=== PATIENT | male | born 1970 | race Caucasian/White ===

== ENCOUNTER → 2021-02-17 00:55 | Outpatient (CLI) | payer BC, SELFPAY ==
[2021-02-17 19:49] LABS: SARS-CoV-2 RNA PCR Negative
== END ==
PROVIDERS: PCP Physician Assistant Medical; Visit Provider Internal Medicine Gastroenterology
DX: Z01.812 Encounter for preprocedural laboratory examination (principal); Z20.822 Contact with and (suspected) exposure to COVID-19
CPT/HCPCS: C9803; U0003; U0005

== ENCOUNTER 2021-02-20 02:06 | Day surgery (SDC) | payer BC, SELFPAY ==
[2021-02-06 14:44] VITALS: BMI 23.3
[2021-02-20 07:43] VITALS: BP 104/68; PULSE 96; RESP 18; TEMP 36.7; O2SAT 97
[2021-02-20] MEDS: LACTATED RINGERS 1,000 ML 150 ML IV CONT (07:49)
--- NOTE | 2021-02-20 08:04 | PM.HPGS ---
History of Present Illness History of Present Illness Consent: Risks, benefits, and alternatives have been discussed and questions answered. Patient agrees to proceed with procedure. Chief complaint: Neoplasm Screening, Hx of Colon Polyps Narrative: Marichuy Smiley is a 50 year old male for colon cancer screening Review of Systems Review of Systems: All systems reviewed & are unremarkable except as noted in HPI and below PMFSH Past Medical History Medical History (Updated 02/20/21 @ 08:04 by Farzad Krishnan MD) Melanoma neck melanoma; 2017 Social History Social History Smoking status: Never smoker Living arrangements: alone Gender identity (if verbalized by the patient): Male Spiritual care concerns: No Meds Home Medications and Allergies Home Medications Medication Instructions Recorded Confirmed Type cholecalciferol (vitamin D3) 50 mcg PO DAILY 02/06/21 02/06/21 History [id number]-wzt-cfkm-[id number]-vit K 1 tablet PO DAILY 02/06/21 02/06/21 History [Adults Multivitamin] vitamin B complex [Super B Complex] 1 tablet PO DAILY 02/06/21 02/06/21 History zinc sulfate 50 mg PO DAILY 02/06/21 02/06/21 History Allergies Allergy/AdvReac Type Severity Reaction Status Date / Time acetaminophen Allergy Intermediate Rash Verified 02/20/21 07:41 oxycodone Allergy Intermediate Rash Verified 02/20/21 07:41 hydrocodone Allergy Mild Nausea and Verified 02/20/21 07:41 Vomiting Vital Signs Vital Signs - 24 hr 02/20/21 07:43 Temperature 36.7 C Pulse Rate 96 Respiratory Rate 18 Blood Pressure 104/68 Pulse Oximetry 97 Exam Resp: Auscultation: clear to auscultation bilaterally Cardio: Rate: regular rate Rhythm: regular rhythm GI: GI Palp: Yes Soft to palpation and No Tenderness to palpation present (GI) Assessment and Plan Assessment and plan (1) Colon cancer screening: Code(s): Z12.11 - Encounter for screening for malignant neoplasm of colon Status: Acute Assessment and Plan: Colonoscopy with possible biopsy or polypectomy or cautery or injection of substances.
--- NOTE | 2021-02-20 08:09 | WPDANESEPPF ---
Anes - Initial Pre Proc Eval Procedure: Operation Date: 02/20/21 09:00 Proposed Procedures p Screening Colonoscopy - Farzad Krishnan MD Date/Time: 02/20/21 08:09 Surgeon: Farzad Krishnan MD Pre Op Diagnosis: Neoplasm Screening, Hx of Colon Polyps Patient Data Age: 50 Gender: M Height: 6 ft Weight: 76.7 kg Last Vital Signs Temp 98.1 F 02/20/21 07:43 Pulse 96 02/20/21 07:43 Resp 18 02/20/21 07:43 BP 104/68 02/20/21 07:43 Pulse Ox 97 02/20/21 07:43 Allergies Allergy/AdvReac Type Severity Reaction Status Date / Time acetaminophen Allergy Intermediate Rash Verified 02/20/21 07:41 oxycodone Allergy Intermediate Rash Verified 02/20/21 07:41 hydrocodone Allergy Mild Nausea and Verified 02/20/21 07:41 Vomiting Home Medications Medication Instructions Recorded Confirmed Type cholecalciferol (vitamin D3) 50 mcg PO DAILY 02/06/21 02/06/21 History cnfrmhejemex-jlf-heiz-FA-vit K 1 tablet PO DAILY 02/06/21 02/06/21 History [Adults Multivitamin] vitamin B complex [Super B Complex] 1 tablet PO DAILY 02/06/21 02/06/21 History zinc sulfate 50 mg PO DAILY 02/06/21 02/06/21 History Patient hx anesthesia problems: none Family hx anesthesia problems: none PMFSH Past Medical History Medical History (Updated 02/20/21 @ 08:04 by Farzad Krishnan MD) Melanoma neck melanoma; 2017 Social History Social History Smoking status: Never smoker Living arrangements: alone Gender identity (if verbalized by the patient): Male Spiritual care concerns: No Anes - Eval Final PreProcedure Day of Procedure 02/20/21 08:09 Patient weight: normal Heart: regular rate and rhythm Lungs: clear to auscultation Airway: Mallampati scale class II Neurological: alert and oriented Last oral intake: >/= 8 hours ASA classification: II Emergent: no Anesthetic plan: proceed Anesthesia type and monitoring: general GIVS and standard monitoring Informed Consent: The patient's anesthetic plan and its attendant risks and benefits were discussed with the patient/family/POA. Questions were solicited and answers provided to the satisfaction of the patient/family/POA.
[2021-02-20 08:57] VITALS: BP 81/49; PULSE 69; RESP 18; O2SAT 95
[2021-02-20 09:07] VITALS: BP 87/36; PULSE 64; RESP 18; O2SAT 95
[2021-02-20 09:14] VITALS: BP 94/61; PULSE 60; RESP 18; O2SAT 99
== END 2021-02-20 09:24 | disposition home or self-care (01) ==
PROVIDERS: PCP Physician Assistant Medical; Visit Provider Internal Medicine Gastroenterology
PROC: 0DJD8ZZ Inspection of Lower Intestinal Tract, Via Natural or Artificial Opening Endoscopic (ICD-10-PCS; CPT 45378; principal; 2021-02-20 09:00)
DX: Z12.11 Encounter for screening for malignant neoplasm of colon (principal); Z86.010 Personal history of colon polyps; Z85.820 Personal history of malignant melanoma of skin
CPT/HCPCS: 45378; J2704; J7120

== ENCOUNTER 2021-06-17 12:03 | Inpatient (IN) | payer BC, SELFPAY ==
[2021-06-17] VITALS (43 sets, daily range): BP systolic 96–118; BP diastolic 58–83; PULSE 76–122; RESP 18–41; TEMP 36.7–37.2; O2SAT 87–99; BMI 21.5
--- NOTE | ~2021-06-17 | XR_ITS ---
EXAMINATION: XR abdomen NG/feed tube insert DATE: 06/22/2021 08:28 INDICATION: Nasogastric tube placement. TECHNIQUE: A supine view of the abdomen was obtained. COMPARISON: Chest CT 06/17/2021 FINDINGS: The lower abdomen is excluded. There are no dilated loops of bowel. The nasogastric tube ti p is in the stomach. Surgical clips in the right upper quadrant are likely from cholecystectomy. IMPRESSION: 1. Nasogastric tube tip in the stomach. Reviewed, dictated and finalized at location A.
--- NOTE | ~2021-06-17 | XR_ITS ---
EXAMINATION: XR chest 1V portable EXAM DATE: 07/04/2021 05:39 INDICATION: Acute respiratory failure COVID pneumonia TECHNIQUE: Portable AP frontal chest x-ray was obtained. Comparison is made to prior examination from 07/03, 07/02. FINDINGS: Left-sided chest tube position unchanged. The endotracheal tube has demonstrated some ret raction, is now about 7 cm above the joaquin. This could be safely advanced 2 cm. There is a right-glenny ed PICC line with tip projecting over the cavoatrial junction. There is a nasogastric tube seen with tip collimated off the study, but below the left hemidiaphragm. Diffuse bilateral mid and lower lung zone peripheral predominant acute airspace disease, pneumonia an d/or edema. There are no sizable pleural effusions. Pleural reflection is identified on the left, small pneumothorax. Cardiomediastinal silhouette is normal. The bones and soft tissues are unremark able. Diffuse COVID pneumonia unchanged. Compared to yesterday, pleural reflection indicating small left pn eumothorax is identified. IMPRESSION: 1. Endotracheal tube could be safely advanced 2 cm. 2. Moderate amount of bilateral acute airspace disease with more confluence on the right. 3. Small left pneumothorax. Chest tube in position. Reviewed, dictated and finalized at location A.
--- NOTE | ~2021-06-17 | CT_ITS ---
EXAMINATION: CTA chest PE protocol DATE: 06/17/2021 15:36 INDICATION: Shortness of breath. TECHNIQUE: Computed tomography angiography (CTA) of the chest was performed with 100 mL Omnipaque-350 intravenous contrast timed to evaluate the pulmonary arteries. Coronal maximum intensity projection 3D-reconstructions were created by the technologist. Automated exposure control and iterative reconst ruction technique were employed. The dose-length product was 249.91 mGy-cm. COMPARISON: CT abdomen and pelvis 11/29/2014 FINDINGS: There are patchy groundglass airspace opacities in all lobes with a posterior lower lung pr edominance. No pleural effusion. The heart size is normal. No pericardial effusion. There is no pulmo nary embolus. There are changes of cholecystectomy. There is thoracic dextroscoliosis and mild spondy losis. There is mild chronic anterior wedging of T7 vertebral body. IMPRESSION: 1. No pulmonary embolus. Sensitivity is mildly decreased by motion artifact. 2. Diffuse lung disease, consistent with COVID-19 pneumonia. Reviewed, dictated and finalized at location A.
--- NOTE | ~2021-06-17 | XR_ITS ---
EXAMINATION: XR chest 1V portable DATE: 06/29/2021 09:23 INDICATION: Respiratory failure. COVID-19 pneumonia. TECHNIQUE: A single frontal view of the chest was obtained. COMPARISON: Chest single view 06/28/2021, chest CT 06/17/2021 FINDINGS: There are airspace opacities throughout the lungs bilaterally. No pleural effusion or pneum othorax. A left-sided chest tube is noted. The heart size is normal. The endotracheal tube tip is 1.8 cm above the joaquin. The nasogastric tube tip is beyond the inferior margin of the radiograph, but a t least to the stomach. IMPRESSION: 1. Worsened diffuse lung disease, consistent with pneumonia versus acute respiratory distress syndrom e (ARDS). Reviewed, dictated and finalized at location B. IMPRESSION: 1. Worsened diffuse lung disease, consistent with pneumonia versus acute respir atory distress syndrome (ARDS).
--- NOTE | ~2021-06-17 | XR_ITS ---
EXAMINATION: XR abdomen NG/feed tube insert DATE: 07/04/2021 13:09 INDICATION: Nasogastric tube placement. TECHNIQUE: A supine view of the abdomen was obtained. COMPARISON: Abdomen radiographs 06/22/2021 FINDINGS: The lower abdomen is excluded. There are no dilated loops of bowel. The nasogastric tube ti p is in the stomach. Surgical clips in the right upper quadrant are likely from cholecystectomy. IMPRESSION: 1. Nasogastric tube tip in the stomach. Reviewed, dictated and finalized at location A.
--- NOTE | ~2021-06-17 | XR_ITS ---
EXAMINATION: XR chest 1V portable EXAM DATE: 07/05/2021 10:38 INDICATION: Respiratory failure. Acute respiratory failure COVID pneumonia. TECHNIQUE: Portable AP frontal chest x-ray was obtained. Comparison is made to prior examination from 07/04 and earlier 07/05. FINDINGS: Left-sided chest tube position unchanged. Endotracheal tube tip is 5 centimeters above th e joaquin. There is a right-sided PICC line with tip projecting over the cavoatrial junction. There is a nasogastric tube seen with tip collimated off the study, but below the left hemidiaphragm. Diffuse bilateral mid and lower lung zone peripheral predominant acute airspace disease, pneumonia an d/or edema. There are no sizable pleural effusions. Redevelopment or reidentification of small lef t pneumothorax. Cardiomediastinal silhouette is normal. The bones and soft tissues are unremarkable . Diffuse COVID pneumonia unchanged. Small left pneumothorax redeveloped or reidentified. IMPRESSION: 1. Tubes, line in position. 2. Diffuse bilateral COVID pneumonia. 3. Small left pneumothorax. Reviewed, dictated and finalized at location A.
--- NOTE | ~2021-06-17 | XR_ITS ---
XR chest 1V portable DATE: 07/01/2021 08:47 INDICATION: Respiratory failure TECHNIQUE: Portable AP chest on 07/01/2021 at 0839 hours COMPARISON: 06/30/2021 portable AP chest at 1344 hours FINDINGS: ET tube tip 4.7 cm above joaquin, in satisfactory position. NG tube in stomach. Right upper stomach the catheter tip overlies upper right atrium. Left thoracostomy tube. No pneumothorax. Persistent extensive patchy bilateral pulmonary infiltrates scattered throughout both lungs. IMPRESSION: Extensive bilateral pulmonary infiltrates, relatively stable since 06/30/2021 Reviewed, dictated and finalized at location A.
--- NOTE | ~2021-06-17 | XR_ITS ---
EXAMINATION: XR chest ET placement DATE: 07/04/2021 13:09 INDICATION: Endotracheal tube exchange. TECHNIQUE: A single frontal view of the chest was obtained. COMPARISON: Chest single view at 5:20 AM FINDINGS: There are airspace opacities in all lung zones bilaterally with a peripheral predominance. There is a small left pneumothorax with a left-sided chest tube is noted. No pleural effusion. The he art size is normal. A right upper extremity peripherally inserted central venous catheter (PICC) is s een with tip in the proximal right atrium. The nasogastric tube tip is beyond the inferior margin of the radiograph, but at least to the stomach. Endotracheal tube tip is 2.8 cm above the joaquin. IMPRESSION: 1. Stable diffuse lung disease, consistent with COVID-19 pneumonia versus acute respiratory distress syndrome (ARDS). 2. Stable small left pneumothorax with chest tube in expected position. Reviewed, dictated and finalized at location A.
--- NOTE | ~2021-06-17 | XR_ITS ---
EXAMINATION: XR Abdomen PICC DATE: 06/22/2021 10:17 INDICATION: Central line placement. TECHNIQUE: A supine view of the abdomen on 2 radiographs was obtained. COMPARISON: Abdomen radiograph at 8:20 AM FINDINGS: There are no dilated loops of bowel. The nasogastric tube tip is in the stomach. Surgical c lips in the right upper quadrant are likely from cholecystectomy. There is a left thigh peripherally inserted central venous catheter (PICC) with tip in the inferior vena cava at L3. IMPRESSION: 1. PICC tip in the inferior vena cava at L3. Reviewed, dictated and finalized at location A.
--- NOTE | ~2021-06-17 | XR_ITS ---
EXAMINATION: XR chest 1V portable INDICATION: Respiratory failure TECHNIQUE: Portable AP chest at 0514 hours COMPARISON: 07/10/2021 FINDINGS: The tracheostomy is in expected position. A left upper extremity PICC ends with its tip in the midsuperior vena cava. A left-sided chest drain is unchanged in position. No definite pneumothora x is identified. There is no pleural effusion. Diffuse airspace opacities persist without significant change. A subpleural area of opacification of the right midlung zone is also unchanged. The cardiome diastinal silhouette is stable. Surgical clips in the right upper quadrant are likely from prior chol ecystectomy. IMPRESSION: 1. Stable diffuse lung disease, consistent with pneumonia and/or pulmonary edema and/or acute respira tory distress syndrome (ARDS). Reviewed, dictated and finalized at location A. IMPRESSION: 1. Stable diffuse lung disease, consistent with pneumonia and/or pulmonary robert a and/or acute respiratory distress syndrome (ARDS).
--- NOTE | ~2021-06-17 | US_ITS ---
EXAMINATION: US venous doppler UE BI EXAM DATE: 07/12/2021 15:46 INDICATION: Fever. Thrombus. TECHNIQUE: Multiple grayscale, color flow, Doppler sonographic images of the upper extremity veins bi laterally obtained by technologist. Compression was performed where able. There is no prior study f or comparison. FINDINGS: RIGHT upper extremity: Jugular vein: ------------> Normal. Subclavian vein: --------> Normal. Axillary vein:------------> Normal. Brachial vein:-----------> Normal. Basilic vein: ------------> Normal. Cephalic vein: ----------> Thrombosed. Radial vein: ------------> Normal. Ulnar vein: > Normal. LEFT upper extremity: Jugular vein: ------------> Normal. Subclavian vein: --------> Normal. Axillary vein:------------> Normal. Brachial vein:-----------> Normal. Basilic vein: ------------> Thrombosed, surrounding PICC line. Cephalic vein: ----------> Thrombosed, below the IV. Radial vein: ------------> Normal. Ulnar vein: > Normal. IMPRESSION: 1. Bilateral cephalic, left basilic superficial venous thrombosis or thrombophlebitis. 2. No upper extremity DVT. Reviewed, dictated and finalized at location B. IMPRESSION: 1. Bilateral cephalic, left basilic superficial venous thrombosis or thrombophl ebitis. 2. No upper extremity DVT.
--- NOTE | ~2021-06-17 | XR_ITS ---
XR chest 1V portable 06/26/2021 06:34 Indication: CovidPneumonia Procedure: AP portable chest Comparison: Comparison to multiple prior studies sequentially, with oldest reviewed study dated 06/22. Findings: Stable position to left chest tube. Endotracheal tube tip 8 cm above the joaquin. NG tube in the stomach. Diffuse bilateral airspace disease unchanged. Improving subcutaneous emphysema in the n blanca. Impression: 1: Unchanged diffuse bilateral airspace disease which may represent edema and/or pneumonia. Reviewed, dictated and finalized at location A. Impression: 1: Unchanged diffuse bilateral airspace disease which may represent edema and/o r pneumonia.
--- NOTE | ~2021-06-17 | XR_ITS ---
EXAMINATION: XR chest 1V portable INDICATION: Respiratory failure TECHNIQUE: Portable AP chest at 0459 hours COMPARISON: 07/11/2021 FINDINGS: A tracheostomy is noted. A left-sided chest tube is unchanged in position. A left upper ext remity PICC ends with its tip in the midsuperior vena cava. No definite pleural effusion or pneumotho rax is identified. Diffuse airspace opacities persist with slight improvement in the mid and upper diego ng zones. There is unchanged peripheral opacification of the right midlung zone. The cardiomediastina l silhouette is stable. Surgical clips in the right upper quadrant are likely from prior cholecystect nahed. IMPRESSION: 1. Diffuse lung disease with interval improvement, consistent with pneumonia and/or pulmonary edema a nd/or acute respiratory distress syndrome (ARDS). Reviewed, dictated and finalized at location A. IMPRESSION: 1. Diffuse lung disease with interval improvement, consistent with pneumonia an d/or pulmonary edema and/or acute respiratory distress syndrome (ARDS).
--- NOTE | ~2021-06-17 | XR_ITS ---
EXAMINATION: XR chest PICC line DATE: 06/30/2021 14:00 INDICATION: Central line placement. TECHNIQUE: A single frontal view of the chest was obtained on 2 radiographs. COMPARISON: Chest single view 07/06/2021 at 9:12 AM FINDINGS: There are airspace opacities in all lung zones bilaterally with a peripheral predominance. Right lateral costophrenic angle is excluded. No pleural effusion or pneumothorax. A left-sided chest tube is again seen. A right upper extremity peripherally inserted central venous catheter (PICC) is seen with tip at the superior cavoatrial junction. The nasogastric tube tip is beyond the inferior ma rgin of the radiograph, but at least to the stomach. The endotracheal tube tip is 6.5 cm above the ca whitney. IMPRESSION: 1. PICC tip at the superior cavoatrial junction. 2. Stable diffuse lung disease, consistent with pneumonia versus acute respiratory distress syndrome (ARDS). Reviewed, dictated and finalized at location B. IMPRESSION: 1. PICC tip at the superior cavoatrial junction. 2. Stable diffuse lung disease, consistent with pneumonia versus acute respirat ory distress syndrome (ARDS).
--- NOTE | ~2021-06-17 | XR_ITS ---
EXAMINATION: XR chest-chest tube insert/pos INDICATION: Chest tube insertion TECHNIQUE: Portable AP chest at 0806 hours COMPARISON: 0653 hours FINDINGS: A left-sided chest tube has been inserted. There is a small persistent but decreased left-s ided pneumothorax. A tiny right apical pneumothorax persists without change. There are airspace opaci ties of the mid and lower lung zones. The endotracheal tube is approximately 7.2 cm above the joaquin. There is widespread subcutaneous emphysema. Pneumomediastinum persists without significant change. IMPRESSION: 1. Left-sided chest tube insertion with small persistent but decreased left pneumothorax. 2. Tiny right apical pneumothorax, unchanged. 3. Airspace opacities of the mid and lower lung zones, consistent with atelectasis versus pneumonia. Reviewed, dictated and finalized at location B. IMPRESSION: 1. Left-sided chest tube insertion with small persistent but decreased left pne umothorax. 2. Tiny right apical pneumothorax, unchanged. 3. Airspace opacities of the mid and lower lung zones, consistent with atelecta sis versus pneumonia.
--- NOTE | ~2021-06-17 | CT_ITS ---
EXAMINATION: CT chest abdomen pelvis wo con EXAM DATE: 07/12/2021 14:18 INDICATION: Fever. COVID 19. TECHNIQUE: Spiral CT of the chest, abdomen and pelvis was performed without contrast. Axial, carmona l and sagittal images chest, abdomen and pelvis were reviewed. Coronal maximum intensity pixel image s of chest reviewed. The dose-length product (DLP) for this examination was 824.44 mGy-cm. The expo sure was tailored according to patient size (auto mA exposure control), and iterative reconstruction (ASIR) was used as additional dose reduction technique. There is prior pulmonary CT from 06/17/2021 fo r comparison, prior abdomen pelvis CT from 2014. FINDINGS: CHEST: Endotracheal tube in position. Small amount of debris within the trachea distal to the tube. Otherwise the tracheobronchial tree is widely patent. There is a left-sided chest tube in position wi th only tiny left apical pneumothorax identified. There is left-sided PICC line in position. There is diffuse bilateral ground glass opacity with regions of confluence, appearance consistent with subacu te COVID pneumonia. Small pericardial in right pleural effusion. There is no mediastinal, hilar or axillary lymphadenopathy. Heart normal in size. No evidence of coronary arterial calcification. ABDOMEN PELVIS: The liver, spleen, adrenal glands and pancreas are unremarkable. There are cholecyst ectomy clips. There is punctate right nephrolithiasis. There is small left-sided hemorrhagic cyst. N o hydronephrosis. The prostate is unremarkable. there is Butts catheter in position, some bladder g as likely introduced through the catheter. There is no retroperitoneal or pelvic lymphadenopathy. The appendix is not positively visualized. There is no pericecal inflammatory change to suggest appe ndicitis. There is PEG tube in position. There is expected amount of colonic stool. No free intr aperitoneal gas. There are no osteoblastic or osteolytic lesions identified. IMPRESSION: 1. Tubes, line in position. 2. Diffuse COVID pneumonia. 3. Tiny left-sided pneumothorax. 4. Small pericardial, right pleural effusions. 5. Punctate right nephrolithiasis. Reviewed, dictated and finalized at location B.
--- NOTE | ~2021-06-17 | XR_ITS ---
EXAMINATION: XR chest 1V portable INDICATION: Respiratory failure, chest tube TECHNIQUE: Portable AP chest at 0449 hours COMPARISON: 07/13/2021 FINDINGS: A tracheostomy is noted. A left upper extremity PICC ends with its tip in the midsuperior v malena cava. A left-sided chest drain appears unchanged in position. No pneumothorax is identified. The lung volumes are low. Diffuse airspace opacities, with peripheral predominance, persist without signi ficant change. IMPRESSION: 1. Stable diffuse lung disease, consistent with pneumonia and/or pulmonary edema and/or acute respira tory distress syndrome (ARDS). Reviewed, dictated and finalized at location A. IMPRESSION: 1. Stable diffuse lung disease, consistent with pneumonia and/or pulmonary robert a and/or acute respiratory distress syndrome (ARDS).
--- NOTE | ~2021-06-17 | XR_ITS ---
XR chest 1V portable DATE: 06/23/2021 05:57 INDICATION: Bilateral pneumothorax. Covid pneumonia. TECHNIQUE: Portable AP chest on 06/23/2021 at 0525 hours COMPARISON: 06/22/2021 portable AP chest at 0806 hours FINDINGS: ET tube tip approximately 6.8 cm above joaquin; ideal range is 2 5 cm. NG tube in stomach. N o central lines. Left thoracostomy tube is again noted. There are slight residual bilateral pneumothoraces. Subcutaneo us emphysema is noted in the upper chest and supraclavicular areas bilaterally. There is increased extensive bilateral pulmonary infiltrate can with air bronchograms in the lower diego ng zones. Differential diagnosis includes pulmonary edema and pneumonia. No pleural effusion. Normal heart size. IMPRESSION: Slight residual bilateral pneumothoraces, mildly improved bilaterally since 06/22 Left thoracostomy tube Extensive bilateral pulmonary infiltrates, increased since 06/22/2021; differential diagnosis includes pulmonary edema, pneumonia Reviewed, dictated and finalized at location A. IMPRESSION: Slight residual bilateral pneumothoraces, mildly improved bilateral ly since 06/22 Left thoracostomy tube Extensive bilateral pulmonary infiltrates, increased since 06/22/2021; different ial diagnosis includes pulmonary edema, pneumonia
--- NOTE | ~2021-06-17 | XR_ITS ---
XR chest 1V portable 06/30/2021 09:26 Indication: Respiratory failure Procedure: AP portable chest Comparison: Comparison to multiple prior studies sequentially, with oldest reviewed study dated 06/26. Findings: Left-sided chest tube position unchanged. No pneumothorax. Endotracheal tube tip 4.8 cm abo ve the joaquin. NG tube in the stomach. Improving patchy bilateral airspace disease. Borderline heart size for technique. No pneumothorax. No significant effusion. Impression: 1: Improving patchy bilateral airspace disease, compatible with pneumonia. Reviewed, dictated and finalized at location A. Impression: 1: Improving patchy bilateral airspace disease, compatible with pneumonia.
--- NOTE | ~2021-06-17 | XR_ITS ---
XR chest 1V portable DATE: 07/02/2021 08:17 INDICATION: Pneumonia, acute respiratory failure TECHNIQUE: Portable AP chest on 07/02/2021 at 0809 hours COMPARISON: 07/01/2021 portable AP chest at 0839 hours FINDINGS: ET tube tip 5 cm above joaquin in satisfactory position. NG tube in stomach. Right upper extremity PIC catheter tip overlies the upper right atrium. Left thoracostomy tube. There are diffuse patchy bilateral pulmonary infiltrates, relatively stable since 07/01/2021. No pneum othorax or pleural effusion is evident. IMPRESSION: Stable extensive bilateral patchy pulmonary infiltrates since 07/01/2021 Reviewed, dictated and finalized at location A. IMPRESSION: Stable extensive bilateral patchy pulmonary infiltrates since 2020
--- NOTE | ~2021-06-17 | XR_ITS ---
EXAMINATION: XR chest 1V portable DATE: 07/18/2021 14:54 INDICATION: Left pneumothorax. TECHNIQUE: A single frontal view of the chest was obtained. COMPARISON: Chest single view at 4:52 AM FINDINGS: There are airspace opacities in all lung zones bilaterally, worst in the peripheral right m id and lower lung zones and peripheral left midlung zone. No pleural effusion or pneumothorax. The he art size is normal. A left-sided chest tube is noted. A left upper extremity peripherally inserted ce ntral venous catheter (PICC) is seen with tip at the superior cavoatrial junction. A tracheostomy tub e is noted. IMPRESSION: 1. Stable diffuse lung disease, consistent with pneumonia versus acute respiratory distress syndrome (ARDS). Reviewed, dictated and finalized at location A. IMPRESSION: 1. Stable diffuse lung disease, consistent with pneumonia versus acute respirat ory distress syndrome (ARDS).
--- NOTE | ~2021-06-17 | XR_ITS ---
XR chest PICC line DATE: 07/08/2021 14:44 INDICATION: PICC line insertion TECHNIQUE: Portable AP chest on 06/30/2021 at 1429 hours COMPARISON: 07/07/2021 portable AP chest at 0518 hours FINDINGS: Interval placement of a left upper extremity PIC catheter, the catheter tip overlying the p roximal superior vena cava. The endotracheal tube is been replaced with a tracheostomy tube which appears normally positioned. Left thoracostomy tube is unchanged. Extensive bilateral pulmonary infiltrates appear relatively stable since 07/07/2021. No pleural effusi on or pneumothorax is evident. IMPRESSION: Left upper stomach the catheter in proximal superior vena cava Replacement of ET tube with tracheostomy tube Left thoracostomy tube; no apparent pneumothorax Stable persistent extensive bilateral pulmonary infiltrates since 07/07/2021 Reviewed, dictated and finalized at Location A. Reviewed, dictated and finalized at location A.
--- NOTE | ~2021-06-17 | CT_ITS ---
EXAMINATION: CTA chest PE protocol DATE: 07/17/2021 10:56 INDICATION: Respiratory failure. TECHNIQUE: Computed tomography (CT) pulmonary angiogram of the chest was performed with 100 mL Omnipa que-350 intravenous contrast. Additional 3D reconstructions utilizing coronal maximum intensity proje ction (MIP) were performed. Automated exposure control and iterative reconstruction technique were em ployed. The dose-length product was 459.85 mGy-cm. COMPARISON: Chest CT dated 07/12/2021 FINDINGS: Excellent contrast opacification of the pulmonary arteries. There is moderate streak artifact from de nse contrast in the superior vena cava and right atrium. Mild scattered respiratory motion artifact w hich does not significantly limit evaluation. No pulmonary embolism. Extensive consolidation groundgl ass opacities throughout both lungs with peripheral and lower lung predominance consistent with COVID pneumonia. Diffuse bronchiectatic changes most prominent in the right middle lobe. Left-sided chest tube remains in place extending across the left apex with distal aspect of the tube extending along t he left side of the mediastinum. No pleural effusion or pneumothorax. Tracheostomy tube at the thoracic inlet with distal tip 5.5 cm above the joaquin. Left upper extremity peripherally inserted central venous catheter with distal tip at the high right atrium. Heart size i s normal. No pericardial effusion. Mild enlargement of the central pulmonary arteries consistent with pulmonary arterial hypertension. Thoracic aorta is normal in caliber with no dissection. No patholog ically enlarged thoracic lymphadenopathy. Cholecystectomy clips the gallbladder fossa. Small bilatera l nonobstructing renal stones. Percutaneous gastrostomy tube with bulb inflated within the distal bod y of the stomach. Mild thoracic dextrocurvature with mild spondylosis. Chronic mild anterior wedging at T7. IMPRESSION: 1. No pulmonary embolism. 2. Diffuse bilateral peripheral and lower lung predominant lung disease consistent with COVID pneumon ia, not significantly changed since the prior study. 3. Unchanged left chest tube with no pneumothorax or pleural effusion. 4. Nonobstructing bilateral nephrolithiasis. Reviewed, dictated and finalized at location A. IMPRESSION: 1. No pulmonary embolism. 2. Diffuse bilateral peripheral and lower lung predominant lung disease consist ent with COVID pneumonia, not significantly changed since the prior study. 3. Unchanged left chest tube with no pneumothorax or pleural effusion. 4. Nonobstructing bilateral nephrolithiasis.
--- NOTE | ~2021-06-17 | CT_ITS ---
EXAMINATION: CT sinus wo con EXAM DATE: 07/12/2021 14:18 INDICATION: Fever TECHNIQUE: Spiral CT of the sinuses was acquired in the axial plane. Coronal and sagittal reformatte d images were also reviewed. The dose-length product (DLP) for this examination was 309.35 mGy-cm. Iterative reconstruction (ASIR) was used as dose reduction technique. There is no prior study for co mparison. FINDINGS: The sinuses are normally developed. There are moderate right maxillary and left sphenoid sinus mucoperiosteal thickening with air-fluid levels. Completely opacified right sphenoid sinus. The ostiomeatal units are patent. There is no sinus wall thickening. There is moderate leftward nasal septal deviation. The mastoid air cells and middle ears are well aerated. External auditory canal s are patent. There is left-sided otomastoiditis fusion, with completely opacified mastoid air cell s and approximately half of the middle ear opacified. Small amount of debris in the external auditory canal. On the right, there is massive effusion with most of the air cells opacified. IMPRESSION: 1. Right maxillary, bilateral ethmoid sinusitis. 2. Left otomastoiditis fusion. 3. Right mastoid effusion. Reviewed, dictated and finalized at location B.
--- NOTE | ~2021-06-17 | XR_ITS ---
XR chest 1V portable 06/27/2021 06:08 Indication: Respiratory failure Procedure: AP portable chest Comparison: Comparison to multiple prior studies sequentially, with oldest reviewed study dated 06/23. Findings: Endotracheal tube tip 6 cm above the joaquin. NG tube in the stomach. Left-sided chest tube position unchanged. No pneumothorax identified. Stable diffuse bilateral airspace disease. No signifi cant effusion. No acute osseous abnormality. There is mild dextroscoliosis of the thoracic spine. Impression: 1: Stable diffuse bilateral airspace disease which may represent pneumonia or edema. Reviewed, dictated and finalized at location A. Impression: 1: Stable diffuse bilateral airspace disease which may represent pneumonia or e jose.
--- NOTE | ~2021-06-17 | XR_ITS ---
EXAMINATION: XR chest 1V portable INDICATION: Respiratory failure TECHNIQUE: Portable AP chest at 0515 hours COMPARISON: 07/09/2021 FINDINGS: A tracheostomy is in expected position. A left upper extremity PICC ends in the midsuperior vena cava. There is a left-sided chest tube unchanged in position. Diffuse airspace opacities persis t without significant change. There is no pleural effusion or pneumothorax. The cardiomediastinal yonny houette is normal. IMPRESSION: 1. Stable diffuse lung disease, consistent with pneumonia and/or pulmonary edema and/or acute respira tory distress syndrome (ARDS). Reviewed, dictated and finalized at location A. IMPRESSION: 1. Stable diffuse lung disease, consistent with pneumonia and/or pulmonary robert a and/or acute respiratory distress syndrome (ARDS).
--- NOTE | ~2021-06-17 | XR_ITS ---
EXAMINATION: XR chest 1V portable INDICATION: Respiratory failure TECHNIQUE: Portable AP chest at 0512 hours COMPARISON: 07/12/2021 FINDINGS: A tracheostomy is in expected position. A left upper extremity PICC ends with its tip in th e midsuperior vena cava. A left-sided chest tube is unchanged in position. No definite pleural effusi on or pneumothorax is identified. Diffuse, peripheral predominantly airspace opacities persist withou t significant change. The cardiomediastinal silhouette is stable. IMPRESSION: 1. Stable diffuse lung disease, consistent with pneumonia and/or pulmonary edema and/or acute respira tory distress syndrome (ARDS). Reviewed, dictated and finalized at location A. IMPRESSION: 1. Stable diffuse lung disease, consistent with pneumonia and/or pulmonary robert a and/or acute respiratory distress syndrome (ARDS).
--- NOTE | ~2021-06-17 | XR_ITS ---
EXAMINATION: XR chest 1V portable DATE: 07/18/2021 05:46 INDICATION: Respiratory failure. TECHNIQUE: A single frontal view of the chest was obtained. COMPARISON: Chest single view 07/14/2021, chest CT 07/17/2021 FINDINGS: There are airspace opacities in all lung zones bilaterally, worst in the peripheral mid shannan g zones. No pleural effusion or pneumothorax. The heart size is normal. A left-sided chest tube is no herrera. There is a tracheostomy tube in expected position. A left upper extremity peripherally inserted central venous catheter (PICC) is seen with tip at the superior cavoatrial junction. Surgical clips i n the right upper quadrant are likely from cholecystectomy. IMPRESSION: 1. Stable diffuse lung disease, consistent with pneumonia versus acute respiratory distress syndrome (ARDS). Reviewed, dictated and finalized at location A. IMPRESSION: 1. Stable diffuse lung disease, consistent with pneumonia versus acute respirat ory distress syndrome (ARDS).
--- NOTE | ~2021-06-17 | XR_ITS ---
EXAMINATION: XR chest 1V portable EXAM DATE: 07/06/2021 05:43 INDICATION: Acute respiratory failure COVID pneumonia, INTUBATED. TECHNIQUE: Portable AP frontal chest x-ray was obtained. Comparison is made to prior examination from 07/05. FINDINGS: Left-sided chest tube position unchanged. Endotracheal tube tip is 5 centimeters above th e joaquin. There is a right-sided PICC line with tip projecting over the cavoatrial junction. There is a nasogastric tube seen with tip collimated off the study, but below the left hemidiaphragm. Diffuse bilateral mid and lower lung zone peripheral predominant acute airspace disease, pneumonia an d/or edema. There are no sizable pleural effusions. Small left pneumothorax. Cardiomediastinal si lhouette is normal. The bones and soft tissues are unremarkable. There is no significant interval change. IMPRESSION: 1. Tubes, line in position. 2. Diffuse bilateral COVID pneumonia. 3. Small left pneumothorax. Reviewed, dictated and finalized at location A.
--- NOTE | ~2021-06-17 | XR_ITS ---
EXAMINATION: XR chest 1V portable DATE: 07/09/2021 05:53 INDICATION: Respiratory failure TECHNIQUE: frontal view of the chest was obtained. COMPARISON: Chest radiograph dated 07/08/21 FINDINGS: Tracheostomy tube at the thoracic inlet. Unchanged left chest tube in the distal portion which extend s along the mediastinum. Left upper extremity peripherally inserted central venous catheter (PICC) ti p at the superior vena cava. No significant change in airspace opacities throughout both lungs most prominent at the lateral right midlung zone. No pleural effusion or pneumothorax. The cardiomediastinal silhouette is normal. Linnea cystectomy clips in right upper quadrant. IMPRESSION: 1. No significant change in patchy bilateral lung disease consistent with pneumonia, pulmonary edema and/or ARDS. 2. Unchanged left chest tube. No evident pleural effusion or pneumothorax. Reviewed, dictated and finalized at location A. IMPRESSION: 1. No significant change in patchy bilateral lung disease consistent with pneum onia, pulmonary edema and/or ARDS. 2. Unchanged left chest tube. No evident pleural effusion or pneumothorax.
--- NOTE | ~2021-06-17 | US_ITS ---
EXAMINATION: US abdomen limited DATE: 06/19/2021 13:58 INDICATION: Transaminitis TECHNIQUE: Multiple grayscale and Doppler ultrasound images of the abdomen were obtained. COMPARISON: CT, 11/29/2014 FINDINGS: The pancreas is obscured by bowel gas. There is a 4.1 x 2.1 x 3.6 cm hyperechoic lesion in the right hepatic lobe, consistent with a hemangioma when compared to prior CT. The liver is otherwis e normal with normal echogenicity and echotexture. No surface nodularity. Normal hepatopetal flow in the main portal vein. The gallbladder is surgically absent. The normal common bile duct measures 4 mm . IMPRESSION: 1. No sonographic correlate for the patient's symptoms. Reviewed, dictated and finalized at location B.
--- NOTE | ~2021-06-17 | XR_ITS ---
XR chest 1V portable 06/17/2021 12:52 Indication: Shortness of breath. Covid. Procedure: AP portable chest Comparison: No prior studies for comparison. Findings: Patchy bilateral airspace disease, compatible with pneumonia. Heart size normal. No signifi cant effusion or pneumothorax. Impression: 1: Patchy bilateral airspace disease, compatible with pneumonia. Reviewed, dictated and finalized at location A. Impression: 1: Patchy bilateral airspace disease, compatible with pneumonia.
--- NOTE | ~2021-06-17 | XR_ITS ---
EXAMINATION: XR chest 1V portable EXAM DATE: 07/05/2021 05:53 INDICATION: Acute respiratory failure COVID pneumonia. TECHNIQUE: Portable AP frontal chest x-ray was obtained. Comparison is made to prior examination from 07/03, 07/04. FINDINGS: Left-sided chest tube position unchanged. Endotracheal tube tip is 5 centimeters above th e joaquin. There is a right-sided PICC line with tip projecting over the cavoatrial junction. There is a nasogastric tube seen with tip collimated off the study, but below the left hemidiaphragm. Diffuse bilateral mid and lower lung zone peripheral predominant acute airspace disease, pneumonia an d/or edema. There are no sizable pleural effusions. No pneumothorax identified. Cardiomediastinal silhouette is normal. The bones and soft tissues are unremarkable. Diffuse COVID pneumonia unchanged. Previously seen small left pneumothorax no longer identified. IMPRESSION: 1. Tubes, line in position. 2. Diffuse bilateral COVID pneumonia. Reviewed, dictated and finalized at location A.
--- NOTE | ~2021-06-17 | US_ITS ---
EXAMINATION: US venous doppler [facility] DATE: 07/12/2021 15:46 INDICATION: Fever. Respiratory failure. TECHNIQUE: Grayscale ultrasound images without and with compression and Doppler ultrasound images of the bilateral lower extremity veins were obtained. COMPARISON: None. FINDINGS: The visualized portions of right common femoral vein, profunda (deep) femoral vein, femoral vein, pop liteal vein, posterior tibial veins, peroneal veins, gastrocnemius vein and greater saphenous vein ou tflow are patent. The visualized portions of left common femoral vein, profunda femoral vein, femoral vein, popliteal v ein, posterior tibial veins, peroneal veins, gastrocnemius vein and greater saphenous vein outflow ar e patent. IMPRESSION: 1. No deep venous thrombosis in either lower limb. Reviewed, dictated and finalized at location A.
--- NOTE | ~2021-06-17 | XR_ITS ---
EXAMINATION: XR chest 1V portable DATE: 06/21/2021 12:57 INDICATION: Shortness of breath. TECHNIQUE: A single frontal view of the chest was obtained. COMPARISON: Chest single view 06/19/2021, chest CT 06/17/2021 FINDINGS: There are small bilateral pneumothoraces. Pneumomediastinum is noted. There is soft tissue gas in the neck and chest wall bilaterally. There are patchy airspace opacities in all right lung zon es and in left mid and lower lung zones. No pleural effusion. The heart size is normal. IMPRESSION: 1. Small bilateral pneumothoraces. 2. Pneumomediastinum. Soft tissue gas in the bilateral neck and chest wall. 3. Diffuse lung disease, consistent with COVID-19 pneumonia. 4. I discussed this case with Dr. Cárdenas. Reviewed, dictated and finalized at location A.
--- NOTE | ~2021-06-17 | XR_ITS ---
EXAMINATION: XR chest 1V portable EXAM DATE: 07/07/2021 05:33 INDICATION: Acute respiratory failure COVID pneumonia, INTUBATED. TECHNIQUE: Portable AP frontal chest x-ray was obtained. Comparison is made to prior examination from 07/06. FINDINGS: Left-sided chest tube position unchanged. Endotracheal tube tip is 5 centimeters above th e joaquin. There is a right-sided PICC line with tip projecting over the cavoatrial junction. Diffuse bilateral mid and lower lung zone peripheral predominant acute airspace disease, pneumonia an d/or edema. There are no sizable pleural effusions. Small left pneumothorax as well visualized. C ardiomediastinal silhouette is normal. The bones and soft tissues are unremarkable. Previously seen small pneumothorax less well-visualized, improvement versus technical. IMPRESSION: 1. Tubes, line in position. 2. Diffuse bilateral COVID pneumonia. 3. Small left pneumothorax. Reviewed, dictated and finalized at location A.
--- NOTE | ~2021-06-17 | XR_ITS ---
EXAMINATION: XR chest 1V portable INDICATION: COVID pneumonia TECHNIQUE: Portable AP chest at 0533 hours COMPARISON: 06/23/2021 FINDINGS: The endotracheal tube ends approximately 6.5 cm above the joaquin. The nasogastric tube is f ollowed as far as the stomach. Its tip is beyond the inferior margin of the radiograph. A left-sided chest tube projects in expected position. No pneumothorax is identified. Widespread subcutaneous emph ysema persists in the chest and neck with slight improvement. There are diffuse opacities throughout all lung zones without significant change. The cardiomediastinal silhouette is stable. No pleural eff usion is identified. IMPRESSION: 1. Stable diffuse lung disease, consistent with pneumonia and/or pulmonary edema and/or acute respira tory distress syndrome (ARDS). 2. Widespread subcutaneous emphysema with slight improvement. 3. Left chest tube without identifiable pneumothorax. Reviewed, dictated and finalized at location A. IMPRESSION: 1. Stable diffuse lung disease, consistent with pneumonia and/or pulmonary robert a and/or acute respiratory distress syndrome (ARDS). 2. Widespread subcutaneous emphysema with slight improvement. 3. Left chest tube without identifiable pneumothorax.
--- NOTE | ~2021-06-17 | XR_ITS ---
EXAMINATION: XR chest 1V portable EXAM DATE: 07/03/2021 06:14 INDICATION: With pneumonia, acute respiratory failure. TECHNIQUE: Portable AP frontal chest x-ray was obtained. Comparison is made to prior examination from 07/02, 07/01. FINDINGS: Left-sided chest tube position unchanged. The endotracheal tube has demonstrated some retr action, is now about 7.5 cm above the joaquin. This could be safely advanced 3 cm. There is a right-si ded PICC line with tip projecting over the cavoatrial junction. There is a nasogastric tube seen with tip collimated off the study, but below the left hemidiaphragm. Moderate amount of bilateral mid and lower lung zone peripheral predominant acute airspace disease, p neumonia and/or edema. There are no sizable pleural effusions. There is no pneumothorax suspected. Cardiomediastinal silhouette is normal. The bones and soft tissues are unremarkable. Probably slightly more confluence to the right-sided airspace disease compared to previous examinatio n. IMPRESSION: 1. Endotracheal tube could be safely advanced 3 cm. Others in position. 2. Moderate amount of bilateral acute airspace disease with more confluence on the right. I discussed the endotracheal tube position, recommendation with Estefanía Holguin at 07/03/2021 07:05 CDT . Reviewed, dictated and finalized at location A. IMPRESSION: 1. Endotracheal tube could be safely advanced 3 cm. Others in position. 2. Moderate amount of bilateral acute airspace disease with more confluence on the right. I discussed the endotracheal tube position, recommendation with Estefanía Holguin at 07/03/2021 07:05 CDT.
--- NOTE | ~2021-06-17 | US_ITS ---
EXAMINATION: US abdomen limited DATE: 07/16/2021 09:11 INDICATION: Abnormal liver function tests. TECHNIQUE: Multiple grayscale and Doppler ultrasound images of the abdomen were obtained. COMPARISON: CT abdomen and pelvis 07/12/2021 FINDINGS: The visualized portions of the head and body of the pancreas are normal. The liver is kali l without focal lesion. No liver surface nodularity. There is normal flow in main portal vein. The ga llbladder is absent. The common duct is normal and measures 4 mm. IMPRESSION: 1. Normal right upper quadrant ultrasound status post cholecystectomy. Reviewed, dictated and finalized at location A.
--- NOTE | ~2021-06-17 | XR_ITS ---
XR chest 1V portable DATE: 06/22/2021 05:41 INDICATION: Covid pneumonia TECHNIQUE: Portable AP chest on 06/22/2021 at 0509 hours COMPARISON: 06/21/2021 portable AP chest FINDINGS: Minimal residual right pneumothorax. Moderate left pneumothorax, increased since 06/21/2021. No apparent mediastinal shift compared to 06/21/2021 to suggest tension. Pneumomediastinum. Subcutaneous emphysema of the chest and supraclavicular areas. Mildly improved since 06/21/2021. There are patchy bilateral mid and lower lung zone infiltrates. Normal heart size. IMPRESSION: Bilateral pneumothorax, minimal on the right, increased on the left since 06/21/2021 Pneumomediastinum and subcutaneous emphysema Patchy bilateral mid and lower lung zone infiltrates Dr. Crain telephoned the report including increased size of left pneumothorax and probable need for le ft chest tube to Ashlee Franco, R.N. in the ICU on 06/22/2021 at 0650 hours. Reviewed, dictated and finalized at location A. IMPRESSION: Bilateral pneumothorax, minimal on the right, increased on the left since 06/21/2021 Pneumomediastinum and subcutaneous emphysema Patchy bilateral mid and lower lung zone infiltrates Dr. Crain telephoned the report including increased size of left pneumothorax an d probable need for left chest tube to Ashlee Franco, R.N. in the ICU on 06/22/20 21 at 0650 hours.
--- NOTE | ~2021-06-17 | XR_ITS ---
XR chest ET placement DATE: 06/22/2021 07:00 INDICATION: ET tube placement TECHNIQUE: Portable AP chest on 06/22/2021 at 0653 hours COMPARISON: 06/22/2021 portable AP chest at 0507 hours FINDINGS: ET tube approximately 7.1 cm above joaquin. [place] range is 2-5 cm. Minimal right pneumothorax and moderate left pneumothorax are again noted. ICU nurse was recently not ified by telephone by Dr. Crain of the increased size of left pneumothorax and need for assessment for possible left chest tube placement. Pneumomediastinum. Extensive subcutaneous emphysema of the upper chest and particularly supraclavicul ar areas and cervical region. Again noted are patchy bilateral pulmonary infiltrates. No pleural effusion is evident. IMPRESSION: ET tube tip 7.1 cm above joaquin; ideal range is 2-5 cm Bilateral pneumothorax, minimal on the right, moderate on the left; assessment for left chest tube pl acement is recommended. Pneumomediastinum and subcutaneous emphysema Patchy bilateral pulmonary infiltrates persist Reviewed, dictated and finalized at Location A. Reviewed, dictated and finalized at location A. IMPRESSION: ET tube tip 7.1 cm above joaquin; ideal range is 2-5 cm Bilateral pneumothorax, minimal on the right, moderate on the left; assessment for left chest tube placement is recommended. Pneumomediastinum and subcutaneous emphysema Patchy bilateral pulmonary infiltrates persist
--- NOTE | ~2021-06-17 | XR_ITS ---
EXAMINATION: XR chest 1V portable DATE: 06/19/2021 18:24 INDICATION: Hypoxia TECHNIQUE: frontal view of the chest was obtained. COMPARISON: Chest radiograph and CT dated 06/17/2021 FINDINGS: Again seen are subtle bilateral patchy groundglass opacities in the bilateral mid and lower lung zone s which appear to have improved in the lower lung zones since the prior study. No new airspace opacit ies, pleural effusion or pneumothorax. The cardiomediastinal silhouette is normal. Mild thoracic dext roscoliosis. IMPRESSION: 1. Subtle diffuse bilateral lung disease with some improvement in the bilateral lower lung zones cons istent with COVID 19 pneumonia. Reviewed, dictated and finalized at location A. IMPRESSION: 1. Subtle diffuse bilateral lung disease with some improvement in the bilateral lower lung zones consistent with COVID 19 pneumonia.
--- NOTE | ~2021-06-17 | US_ITS ---
EXAMINATION: US art doppler w press LE BI DATE: 06/30/2021 10:15 INDICATION: Cold extremities TECHNIQUE: Segmental pressures and plethysmographic and Doppler waveforms of the brachial and lower e xtremity arteries were obtained. COMPARISON: None. FINDINGS: Right and left brachial artery pressures of 105 mm Hg and 96 mm Hg, respectively, are concordant (nor mal difference <= 30 mmHg). The right high-thigh pressure index is 1.13 (normal > 1.2). The left high thigh pressure index was unable to be obtained due to the presence of a PICC line at the proximal le ft thigh. The right ankle-brachial index (SHARMILA) is 1.10 (normal >= 0.9-1). The right great toe-brachial index (T BI) is 1.16 (normal >= 0.6-0.8). The right lower extremity segmental pressure gradients are normal (n ormal gradients <= 20-30 mmHg between adjacent levels on the same leg or the same levels on the two l egs). Arterial waveforms are triphasic at the right common femoral, superficial femoral and popliteal arteries and biphasic at the right posterior tibial and dorsalis pedis arteries with brisk systolic upstrokes throughout. The left SHARMILA is 0.98. The left TBI is 1.04. The left lower extremity segmental pressure gradients are normal. Arterial waveforms are triphasic at the left common femoral, superficial femoral and poplite al arteries and biphasic at the left posterior tibial and dorsalis pedis arteries with brisk systolic upstrokes throughout. IMPRESSION: 1. Normal SHARMILA's and TBI's bilaterally. No significant occlusive disease. Reviewed, dictated and finalized at location A.
--- NOTE | ~2021-06-17 | XR_ITS ---
XR chest 1V portable 06/28/2021 06:37 Indication: Respiratory failure Procedure: AP portable chest Comparison: Comparison to multiple prior studies sequentially, with oldest reviewed study dated the 06/24/2021. Findings: Stable position to left-sided chest tube. NG tube in the stomach. Endotracheal tube tip 6.7 cm above the joaquin. No pneumothorax. Possible small effusions. Persistent diffuse bilateral airspac e disease. Heart size normal. Impression: 1: Persistent diffuse bilateral airspace disease without significant change. Differential diagnosis i ncludes edema and/or pneumonia. Reviewed, dictated and finalized at location A. Impression: 1: Persistent diffuse bilateral airspace disease without significant change. Di fferential diagnosis includes edema and/or pneumonia.
--- NOTE | ~2021-06-17 | XR_ITS ---
EXAMINATION: XR chest 1V portable INDICATION: COVID pneumonia TECHNIQUE: Portable AP chest at 0516 hours COMPARISON: 06/24/2021 FINDINGS: The endotracheal tube ends approximately 7.3 cm above the joaquin. The nasogastric tube is f ollowed as far as the stomach. Its tip is beyond the inferior margin of the radiograph. A left-sided chest tube is in expected position. No pneumothorax is identified. There is no pleural effusion. Diff use airspace opacities persist in all lung zones with slight overall improvement. Subcutaneous emphys lizandro continues to decrease. IMPRESSION: 1. Diffuse lung disease with interval improvement, consistent with pneumonia and/or pulmonary edema a nd/or acute respiratory distress syndrome (ARDS). 2. Improving subcutaneous emphysema. Reviewed, dictated and finalized at location A. IMPRESSION: 1. Diffuse lung disease with interval improvement, consistent with pneumonia an d/or pulmonary edema and/or acute respiratory distress syndrome (ARDS). 2. Improving subcutaneous emphysema.
[2021-06-17 12:39] LABS: Basophils Percent Auto 0.1 % (0.2-1.2); Hematocrit 45.7 % (42.0-52.0); Immature Granulocyte Absolute 0.04 K/mm3 (0.00-0.031); Immature Granulocyte Percent A 0.6 % (0-0.5); Lymphocytes Percent Auto 5.7 % (18.3-44.2); Mean Corpuscular Hemoglobin 31.3 pg (26-34); Mean Corpuscular Volume 89.3 fl (80-100); Mean Platelet Volume 10.7 fl (7.4-10.4); Monocytes Absolute Auto 0.2 K/mm3 (0.1-0.6); Monocytes Percent Auto 2.6 % (2.6-8.5); Neutrophils Absolute Auto 6.4 K/mm3 (1.3-6.7); Platelet Count Result 182 k/mm3 (150-375); Red Blood Count 5.12 M/mm3 (4.6-6.20); Red Cell Distribution Width 11.8 % (11.5-14.5)
[2021-06-17 12:50] LABS: Anion Gap 8 mmol/L (8-16); Blood Urea Nitrogen 15 mg/dL (9-20); Calcium 8.6 mg/dL (8.4-10.2); Carbon Dioxide 28 mmol/L (22-30); Chloride 92 mmol/L (98-107); Estimated CRCL calculation 105 ml/min; Estimated Glomerular Filt Rate > 60; Glucose 138 mg/dL (65-110); Potassium 3.8 mmol/L (3.4-5.0); Sodium 128 mmol/L (137-145)
[2021-06-17 12:55] LABS: D Dimer 1.28 ug/mL (<0.48)
[2021-06-17] MEDS: DEXAMETHASONE SOD PHOS INJ 4 MG/ML VIAL 6 MG IV PUSH (13:33)
[2021-06-17] MEDS: ENOXAPARIN 80 MG/0.8 ML SYRINGE SUB-Q (13:33)
[2021-06-17 13:46] LABS: Lactate Dehydrogenase 2787 U/L (313-618)
--- NOTE | 2021-06-17 14:19 | ED.SOB ---
HPI - SOB/Dyspnea General Chief Complaint: Shortness of Breath/Dyspnea Stated Complaint: covid+. Low O2 Time Seen by Provider: 06/17/21 12:36 Source: patient Mode of arrival: ambulatory Limitations: no limitations History of Present Illness HPI Narrative: 50-year-old male Essentially healthy but no Covid vaccination Reports being ill with a nonproductive cough for 7 or 8 days 2 days ago was tested positive for Covid elsewhere Here today with increasing shortness of breath and reporting low O2 sats at home Indeed at triage on room air his sat was 88% Related Data Home Medications Medication Instructions Recorded Confirmed No Home Medications 06/17/21 06/17/21 Allergies Allergy/AdvReac Type Severity Reaction Status Date / Time acetaminophen Allergy Intermediate Rash Verified 06/17/21 12:04 oxycodone Allergy Intermediate Rash Verified 06/17/21 12:04 hydrocodone Allergy Mild Nausea and Verified 06/17/21 12:04 Vomiting Review of Systems Review of Systems: All systems reviewed & are unremarkable except as noted in HPI and below Constitutional: Constitutional: Reports no additional constitutional complaints, Reports chills, Reports fatigue, Reports fever(s), Denies headache(s) and Reports weakness Eyes: Eyes: Reports no additional eye complaints and Denies change in vision ENT: Denies headache(s) and Denies sore throat Cardiovascular: Cardiovascular: Denies chest pain and Denies dyspnea Respiratory: Respiratory: Reports cough and Reports dyspnea Gastrointestinal: Gastrointestinal: Denies abdominal pain, Denies diarrhea and Denies vomiting Genitourinary: Genitourinary: Denies dysuria and Denies urinary frequency Musculoskeletal: Musculoskeletal: Reports myalgias, Denies deformity, Denies arthralgias, Denies joint swelling and Denies numbness Integumentary/Breasts: Skin/Breast: Denies rash and Denies wounds Neurologic: Denies headache(s), Denies focal weakness and Denies numbness Psychiatric: Psychiatric: Reports no additional psychiatric complaints Endocrine: Endocrine: Reports no additional endocrine complaints Hematologic/Lymphatic: Hematologic/Lymphatic: Reports no additional hematologic/lymphatic complaints Allergic/Immunologic: Allergic/Immunologic: Reports no additional allergic/immunologic complaints [facility] Past Medical History Medical History (Updated 06/17/21 @ 14:24 by Blas Cadet MD) Melanoma neck melanoma; 2017 Social History Social History Smoking status: Never smoker Gender identity (if verbalized by the patient): Male Spiritual care concerns: No Exam Const: General: cooperative, no acute distress and alert Orientation/consciousness: patient oriented x3 (alert) HENMT: Head: normal to inspection, normocephalic and atraumatic Ears: external ears normal General nose exam: no epistaxis Eyes: Conjunctivae: conjunctivae normal EOM: EOMs intact bilaterally Neck: Neck: normal visual inspection, supple and no JVD Resp: Effort & Inspection: not labored and tachypneic Auscultation: crackles, no rales, rhonchi, no wheezes and other (BS =) Cardio: Rate: regular rate Rhythm: regular rhythm Heart sounds: no murmurs GI: GI Palp: Yes Soft to palpation and No Tenderness to palpation present (GI) Skin: General skin exam: normal color and no rashes or lesions noted Neuro: General: patient oriented x3 (alert) and moves all extremities Speech: normal speech Extrem: General: normal to inspection and no pedal edema Psych: Affect: normal affect Course Vital Signs Vital signs: Vital Signs Temperature 36.9 C 06/17/21 12:06 Pulse Rate 122 H 06/17/21 12:06 Respiratory Rate 20 06/17/21 12:06 Blood Pressure 112/65 06/17/21 12:06 Pulse Oximetry 88 L 06/17/21 12:06 Temperature 36.9 C 06/17/21 12:06 Pulse Rate 96 06/17/21 13:46 Respiratory Rate 25 H 06/17/21 13:46 Blood Pressure
--- NOTE | 2021-06-17 14:50 | PM.IMHP ---
H&P: HPI History of Present Illness Date/Time: 06/17/21 14:50 Chief Complaint: Shortness of breath and low oxygen levels. Narrative: This is a 50-year-old male who is essentially healthy presented to the emergency department earlier today via private vehicle from home complaints of shortness of breath and low oxygen saturations on home pulse oximeter. He has not felt well for 7 - 8 days with symptoms to include body aches, loss of taste in smell, sore throat, cough, and shortness of breath. Appetite has been poor and he has not been eating or drinking very well for nearly a week. 2 days ago he tested positive for COVID-19 and since that time he has been monitoring his pulse ox at home. Over the past day or so he has noticed that his SpO2 has been in the high 80s on room air and due to increasing shortness of breath he came in for evaluation today. Chest x-ray showed patchy bilateral pneumonia and he is being admitted in this setting. He did not receive the COVID-19 vaccination. He denies chest pain and pleuritic pain. No vomiting or significant quantities of diarrhea. Review of Systems Review of Systems: 12 systems were reviewed with pertinent positives and negatives as per HPI. Except as documented all other systems were reviewed and are negative. [facility] Past Medical History Medical History (Updated 06/17/21 @ 20:12 by Luisa Klein PA-C) Bilateral renal cysts History of colon polyps Normal colonoscopy on 02/20/2021. Kidney stones Melanoma of neck (2016) Surgical History Surgical History (Updated 06/17/21 @ 14:58 by Luisa Klein PA-C) History of cholecystectomy (1998) History of melanoma excision (2016) Family History Family History (Updated 06/17/21 @ 20:13 by Luisa Klein PA-C) Other No significant family history Social History Social History (Updated 06/17/21 @ 20:13 by Luisa Klein PA-C) Social History: The patient lives in [place] with his . 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 Lifelong nonsmoker. No alcohol or illicit substance abuse. He designates his , Adri Smiley, as his surrogate decision maker and he wishes to be a full code. Meds Home Medications and Allergies Home Medications Medication Instructions Recorded Confirmed Type No Home Medications 06/17/21 06/17/21 History Allergies Allergy/AdvReac Type Severity Reaction Status Date / Time acetaminophen Allergy Intermediate Rash Verified 06/17/21 12:04 oxycodone Allergy Intermediate Rash Verified 06/17/21 12:04 hydrocodone Allergy Mild Nausea and Verified 06/17/21 12:04 Vomiting Vital Signs Vital Signs - 24 hr 06/17/21 12:06 06/17/21 12:25 06/17/21 12:26 Temperature 98.4 F Pulse Rate 122 H 108 H Respiratory Rate 20 34 H Blood Pressure 112/65 106/70 Pulse Oximetry 88 L 87 L 88 L 06/17/21 12:29 06/17/21 12:30 06/17/21 12:31 Temperature Pulse Rate 105 H 106 H Respiratory Rate 28 H 33 H Blood Pressure 105/67 Pulse Oximetry 94 94 94 06/17/21 12:32 06/17/21 12:45 06/17/21 12:46 Temperature Pulse Rate 104 H 102 H 106 H Respiratory Rate 29 H 32 H 26 H Blood Pressure 103/68 Pulse Oximetry 94 95 95 06/17/21 13:00 06/17/21 13:01 06/17/21 13:15 Temperature Pulse Rate 100 99 103 H Respiratory Rate 32 H 22 H 22 H Blood Pressure 100/64 Pulse Oximetry 96 96 95 06/17/21 13:16 06/17/21 13:30 06/17/21 13:31 Temperature Pulse Rate 100 97 98 Respiratory Rate 22 H 24 H 32 H Blood Pressure 104/74 103/73 Pulse Oximetry 96 95 96 06/17/21 13:45 06/17/21 13:46 Temperature Pulse Rate 94 96 Respiratory Rate 33 H 25 H Blood Pressure 96/62 L Pulse Oximetry 96 98 Exam Narrative: General: Mildly ill appearing up in bed in no acute respiratory distress. Weight: 72.1 kg. BMI: 21.6. HEENT: PERRL, EOMI. Sclerae anicteric. Oral mucosa tacky. Neck: Supple. No adenopathy or JVD. Respiratory: Mild tachypnea. He is speaking in full sentences.
[2021-06-17 15:24] LABS: Ferritin > 2000.00 ng/mL (11.1-264)
[2021-06-17 16:44] LABS: INR 0.9; Prothrombin Time 12.4 Seconds (11.1-14.7)
[2021-06-17 16:45] LABS: Partial Thromboplastin Time 41.5 SECONDS (22.3-36.8)
[2021-06-17 17:16] LABS: Alanine Aminotransferase 680 U/L (4-50); Albumin Level 3.9 g/dL (3.5-5.1); Alkaline Phosphatase 183 U/L (38-126); Aspartate Amino Transferase 726 U/L (17-59); Bilirubin,Total 0.8 mg/dL (0.2-1.3)
--- NOTE | 2021-06-17 18:14 | ADMGEN ---
This patient, Marichuy Smiley, was admitted to [facility] Surg Room 313-01 at 1713. Patient/family oriented to hospital policies and general routines including ID bracelet, bed and alarms, visiting hours, pain management, procedures, bathroom and other care routines, personal items, smoking policy, room service/diet, and visiting hours. Information on how to activate the Rapid Response Team has been discussed. Patient/Family are encouraged to report perceived risks to care and to ask questions if they do not understand what they are told or what they should do.
[2021-06-17] MEDS: LACTATED RINGERS 1,000 ML 50 ML IV CONT (19:22)
[2021-06-17] MEDS: MELATONIN 5 MG TABLET PO (21:40)
[2021-06-17] MEDS: guaiFENesin 12 HR 600 MG TABCR PO (21:40)
[2021-06-18] VITALS (9 sets, daily range): BP systolic 110–120; BP diastolic 63–69; PULSE 64–85; RESP 12–20; TEMP 36.3–37.4; O2SAT 90–94
[2021-06-18 07:41] LABS: Hematocrit 45.5 % (42.0-52.0); Hemoglobin 15.5 g/dL (14.0-18.0); Mean Corpuscular HGB Conc 34.1 g/dl (32-36); Mean Platelet Volume 10.4 fl (7.4-10.4); Platelet Count Result 204 k/mm3 (150-375); Red Cell Distribution Width 11.9 % (11.5-14.5); White Blood Count 7.2 K/mm3 (4.5-10.0)
[2021-06-18 08:06] LABS: Albumin Level 3.7 g/dL (3.5-5.1); Alkaline Phosphatase 167 U/L (38-126); Anion Gap 8 mmol/L (8-16); Bilirubin,Total 0.8 mg/dL (0.2-1.3); Blood Urea Nitrogen 15 mg/dL (9-20); CRP 8.9 mg/dL (<1.0); Calcium 8.8 mg/dL (8.4-10.2); Carbon Dioxide 28 mmol/L (22-30); Chloride 97 mmol/L (98-107); Estimated CRCL calculation 111 ml/min; Estimated Glomerular Filt Rate > 60; Glucose 120 mg/dL (65-110); Potassium 4.5 mmol/L (3.4-5.0); Sodium 133 mmol/L (137-145)
[2021-06-18] MEDS: SODIUM CHLORIDE 0.9% IV 1,000 ML 100 ML IV CONT (08:47)
[2021-06-18] MEDS: ENOXAPARIN 40 MG/0.4 ML SYRINGE SUB-Q (08:48)
[2021-06-18] MEDS: ASCORBIC ACID 500 MG TABLET PO (08:49)
[2021-06-18] MEDS: ZINC SULFATE 220 MG CAPSULE PO (08:49)
[2021-06-18] MEDS: guaiFENesin 12 HR 600 MG TABCR PO ×2 (08:49→20:50)
[2021-06-18] MEDS: CHOLECALCIFEROL 400 UNITS TABLET (VIT D) PO (08:49)
[2021-06-18 09:31] LABS: Alanine Aminotransferase 984 U/L (4-50); Aspartate Amino Transferase 961 U/L (17-59); Lactate Dehydrogenase 2560 U/L (313-618)
[2021-06-18 11:06] LABS: Ferritin > 2000.00 ng/mL (11.1-264)
--- NOTE | 2021-06-18 14:40 | PM.IMPN ---
Progress Note: A&P Assessment and Plan (1) Pneumonia due to COVID-19 virus: Code(s): U07.1 - COVID-19; J12.82 - Pneumonia due to coronavirus disease 2019 Status: Acute Assessment and Plan: Patient has not felt well for approximately 7 - 8 days and tested positive 06/15/21 for COVID-19. Continue dexamethasone per protocol. Started on 06/17/21 ALT greater than 10 times upper limit of normal thus remdesivir is contraindicated at this time. Supportive care. Cornet and Mucinex ordered to help mobilize secretions. Continue expectorants Albuterol inhaler available as needed. Inflammatory markers are markedly elevated including ferritin >2000, LDH 2500, and increasing LFTs. Will continue to trend. (2) Hypoxia: Code(s): R09.02 - Hypoxemia Status: Acute Assessment and Plan: Secondary to COVID pneumonia, currently requiring 2 L. Chest CTA was negative for pulmonary embolism. Continue mental O2 as needed in. Goal saturation 90% or above. Wean oxygen as tolerated. (3) Hyponatremia: Code(s): E87.1 - Hypo-osmolality and hyponatremia Status: Acute Assessment and Plan: Likely secondary to COVID pneumonia though wasprobably somewhat dehydrated given poor appetite. Received IV fluids on presentation. Sodium improved to 133 today and tolerating PO intake. Fluids have been discontinued. Monitor BMP (4) Transaminitis: Code(s): R74.01 - Elevation of levels of liver transaminase levels Status: Acute Assessment and Plan: LFTs markedly elevated and increased today Likely related to COVID-19 viral illness, however LFTs are significantly higher than would be expected. Will monitor for today and consider further workup with hepatitis panel, RUQ US should these continue to rise. Denies alcohol use. No history of hepatitis. No history of liver disease. Subjective Date/time seen: 06/18/21 14:40 Interval history: Date of service: 06/18/2021 Marichuy Smiley is a 50-year-old male with a history of kidney stones and bilateral renal cysts who is seen in follow-up for COVID 19 pneumonia. He is feeling better today. Shortness of breath has improved. Denies dyspnea on exertion. No significant cough. Denies nausea or vomiting. No fevers or chills. No abdominal pain. No diarrhea. He does endorse anosmia and dysgeusia but feels that he has been eating and drinking adequately. He is able to get up and walk independently and denies dizziness or lightheadedness upon standing. No chest pain or palpitations. Denies abdominal pain, bloating, or cramping. Denies urinary symptoms. Review of Systems Review of Systems: All systems reviewed & are unremarkable except as noted in HPI and below Exam Narrative: Mr. Smiley is a well-nourished, well-appearing 50-year-old male who is lying supine in bed. He appears comfortable and is in NARD. Neuro: awake, alert and oriented x4, speech clear, no focal neuro deficits noted HEENMT: normocephalic, atraumatic, EOMI, sclerae anicteric, moist oral mucosa Neck: supple, no lymphadenopathy Respiratory: Diminished breath sounds bilaterally without crackles rhonchi, or wheezes.Able to speak in full sentences, nonlabored breathing Cardio: regular rate, regular rhythm with S1-S2 Abdomen: nondistended, normoactive bowel sounds, soft, nontender to palpation. No RUQ tenderness. Extremities: no edema, erythema, or tenderness to palpation, DP pulses 2+ bilaterally Skin: no rashes or lesions, warm and dry Psych: appropriate mood and affect, judgment and insight intact Objective Data Vital Signs Vital Signs: Vital Signs - 24 hr 06/17/21 14:45 06/17/21 14:46 06/17/21 15:00 Temperature Pulse Rate 101 H 95 104 H Respiratory Rate 28 H 31 H 29 H Blood Pressure 108/71 Pulse Oximetry 95 95 94 06/17/21 15:01 06/17/21 15:38 06/17/21 15:39 Temperature Pulse Rate 107 H 100 93 Respiratory Rate 30 H 32 H 2
[2021-06-18] MEDS: MELATONIN 5 MG TABLET PO (20:50)
[2021-06-19] VITALS (12 sets, daily range): BP systolic 103–125; BP diastolic 55–66; PULSE 65–95; RESP 18–22; TEMP 36.1–36.7; O2SAT 85–97
[2021-06-19 06:46] LABS: Hematocrit 44.8 % (42.0-52.0); Hemoglobin 14.9 g/dL (14.0-18.0); Mean Corpuscular HGB Conc 33.3 g/dl (32-36); Mean Corpuscular Volume 93.3 fl (80-100); Mean Platelet Volume 10.3 fl (7.4-10.4); Platelet Count Result 231 k/mm3 (150-375); Red Cell Distribution Width 12.1 % (11.5-14.5); White Blood Count 9.9 K/mm3 (4.5-10.0)
[2021-06-19 07:08] LABS: Albumin Level 3.3 g/dL (3.5-5.1); Alkaline Phosphatase 198 U/L (38-126); Anion Gap 9 mmol/L (8-16); Aspartate Amino Transferase 664 U/L (17-59); Blood Urea Nitrogen 15 mg/dL (9-20); CRP 6.6 mg/dL (<1.0); Calcium 8.8 mg/dL (8.4-10.2); Carbon Dioxide 26 mmol/L (22-30); Chloride 99 mmol/L (98-107); Estimated CRCL calculation 111 ml/min; Estimated Glomerular Filt Rate > 60; Glucose 124 mg/dL (65-110); Potassium 4.6 mmol/L (3.4-5.0); Sodium 134 mmol/L (137-145)
[2021-06-19 07:14] LABS: Alanine Aminotransferase 981 U/L (4-50); Lactate Dehydrogenase 2153 U/L (313-618)
[2021-06-19] MEDS: guaiFENesin 12 HR 600 MG TABCR PO ×2 (08:55→21:10)
[2021-06-19] MEDS: ZINC SULFATE 220 MG CAPSULE PO (08:55)
[2021-06-19] MEDS: ASCORBIC ACID 500 MG TABLET PO (08:55)
[2021-06-19] MEDS: CHOLECALCIFEROL 400 UNITS TABLET (VIT D) PO (08:55)
[2021-06-19] MEDS: ENOXAPARIN 40 MG/0.4 ML SYRINGE SUB-Q (08:56)
[2021-06-19 11:11] LABS: Ferritin > 2000.00 ng/mL (11.1-264)
[2021-06-19 12:40] LABS: Hepatitis B Surface Antigen Negative (Negative)
[2021-06-19 12:46] LABS: HAV RESULT Negative (Negative); Hepatitis B Core IgM Result Negative (Negative)
[2021-06-19 12:57] LABS: Hepatitis C Virus Antibody Negative (Negative)
--- NOTE | 2021-06-19 15:31 | PM.IMPN ---
Progress Note: A&P Assessment and Plan (1) Pneumonia due to COVID-19 virus: Code(s): U07.1 - COVID-19; J12.82 - Pneumonia due to coronavirus disease 2018 Status: Acute Assessment and Plan: Patient has not felt well for approximately 7 - 8 days and tested positive 06/15/21 for COVID-19. Continue dexamethasone per protocol. Started on 06/17/21 ALT greater than 10 times upper limit of normal thus remdesivir is contraindicated at this time. Tocilizumab considered however CRP trending down and is <7 today therefore not a candidate for this therapy Supportive care. Cornet and Mucinex ordered to help mobilize secretions. Continue expectorants Albuterol inhaler available as needed. Inflammatory markers are markedly elevated including ferritin >2000, LDH 2100, and elevated LFTs. Will continue to trend. Did not receive COVID-19 vaccine (2) Hypoxia: Code(s): R09.02 - Hypoxemia Status: Acute Assessment and Plan: Secondary to COVID pneumonia Has been requiring 2 L, became hypoxic today down to 85%, now requiring 4 L O2 per nasal cannula Chest CTA was negative for pulmonary embolism. Continue supplemental O2 as needed with goal saturation 90% or above. Wean oxygen as tolerated. (3) Hyponatremia: Code(s): E87.1 - Hypo-osmolality and hyponatremia Status: Acute Assessment and Plan: Likely secondary to COVID pneumonia though was probably somewhat dehydrated given poor appetite. Received IV fluids on presentation. Sodium improved to 134 today and tolerating PO intake. Fluids discontinued on 06/18. Monitor BMP (4) Transaminitis: Code(s): R74.01 - Elevation of levels of liver transaminase levels Status: Acute Assessment and Plan: LFTs markedly elevated with some slight improvement of AST and ALT today Likely related to COVID-19 viral illness, however LFTs are significantly higher than would be expected. RUQ US with hyperechoic right hepatic lobe lesion consistent with hemangioma and no findings to explain symptoms. Gallbladder surgically absent. Will check lipase level Hepatitis panel negative. Subjective Date/time seen: 06/19/21 15:31 Interval history: Date of service: 06/19/2021 Marichuy Smiley is a 50-year-old male with a history of kidney stones and bilateral renal cysts who is seen in follow-up for COVID 19 pneumonia. He is doing about the same today. He is coughing more frequently with occasional clear sputum production. He had significant dyspnea on exertion when getting up and walking to the bathroom today. He denies nausea or vomiting. He is eating better today but still reports loss of taste and smell. Denies chest pain or palpitations. No nausea or vomiting. Denies fever or chills. No additional concerns at this time. Review of Systems Review of Systems: All systems reviewed & are unremarkable except as noted in HPI and below Exam Narrative: Mr. Smiley is a well-nourished, well-appearing 50-year-old male who is lying supine in bed. He appears comfortable and is in NARD. Neuro: awake, alert and oriented x4, speech clear, no focal neuro deficits noted HEENMT: normocephalic, atraumatic, EOMI, sclerae anicteric, moist oral mucosa Neck: supple, no lymphadenopathy Respiratory: Diminished breath sounds bilaterally.Able to speak in full sentences, nonlabored breathing Cardio: regular rate, regular rhythm with S1-S2 Abdomen: nondistended, normoactive bowel sounds, soft, nontender to palpation. No RUQ tenderness. Extremities: no edema, erythema, or tenderness to palpation, DP pulses 2+ bilaterally Skin: no rashes or lesions, warm and dry Psych: appropriate mood and affect, judgment and insight intact Objective Data Vital Signs Vital Signs: Vital Signs - 24 hr 06/18/21 16:07 06/18/21 20:00 06/18/21 20:20 Temperature 98.7 F 97.5 F L Pulse Rate 81 74 Respiratory Rate 12 20 Blood Pressure 117/69
[2021-06-19] MEDS: WATER FOR IRRIGATION, STERILE 1,000 ML BOTTLE 1000 ML (17:33)
--- NOTE | 2021-06-19 18:48 | PC.NURSE ---
This patient, Marichuy Smiley, was transferred to IMU on 06/19/21 at 1848. Personal belongings sent with patient. Report given to TRUDY LOOMIS. Appropriate documentation sent with patient.
--- NOTE | 2021-06-19 19:50 | PC.NURSE ---
This patient arrived to IMU bed 213 at 1940 from [facility] department. Patient brought with all belongings. Patient oriented to room, policies and procedures. Patient remains on Isolation.
[2021-06-19] MEDS: MELATONIN 5 MG TABLET PO (21:10)
[2021-06-20] VITALS (19 sets, daily range): BP systolic 104–115; BP diastolic 60–77; PULSE 69–106; RESP 14–36; TEMP 36.3–36.8; O2SAT 91–99
[2021-06-20 04:56] LABS: Lipase 222 U/L (23-300)
[2021-06-20] MEDS: ENOXAPARIN 40 MG/0.4 ML SYRINGE SUB-Q (08:51)
[2021-06-20] MEDS: guaiFENesin 12 HR 600 MG TABCR PO ×2 (08:51→21:02)
[2021-06-20] MEDS: ZINC SULFATE 220 MG CAPSULE PO (08:51)
[2021-06-20] MEDS: CHOLECALCIFEROL 400 UNITS TABLET (VIT D) PO (08:51)
[2021-06-20] MEDS: ASCORBIC ACID 500 MG TABLET PO (08:51)
--- NOTE | 2021-06-20 13:10 | PM.IMPN ---
Progress Note: A&P Assessment and Plan (1) Pneumonia due to COVID-19 virus: Code(s): U07.1 - COVID-19; J12.82 - Pneumonia due to coronavirus disease 2018 Status: Acute Assessment and Plan: -symptom onset June 06 -positive test result 06/15/2021 -Decadron started 06/17/2021 for 10 day course -ALT greater than 10 times upper limit normal, contraindicated for remdesivir and tocilizumab -will do convalescent plasma -continue oxygen to keep oxygen saturation greater than 90%, currently on Airvo 60 L 75% FiO2 -supportive care, family updated -can continue vitamins -Mucinex for cough (2) Transaminitis: Code(s): R74.01 - Elevation of levels of liver transaminase levels Status: Acute Assessment and Plan: Significant elevation, likely secondary to COVID-19. Patient has no abdominal pain or nausea or other symptoms. Enzymes were elevated on admission, suggesting liver injury happened prior to admission. Has no other gallbladder history of her pathology, no hepatitis history. Hep panel negative. Abdominal ultrasound was negative. There was a 4 x 2 x 3 hyperechoic lesion in the right hepatic lobe consistent with hemangioma. Otherwise normal-appearing. Gallbladder is surgically absent. (3) Hyponatremia: Code(s): E87.1 - Hypo-osmolality and hyponatremia Status: Acute Assessment and Plan: Will monitor, asymptomatic (4) Acute respiratory failure with hypoxia: Code(s): J96.01 - Acute respiratory failure with hypoxia Status: Acute Assessment and Plan: Secondary to COVID-19 Additional Plan Diet: Regular DVT prophylaxis: Lovenox Code status: Full code, patient may need to be intubated if further decline while on Airvo Disposition: Pending clinical course Time Spent With Patient Time with patient: 25 - 35 minutes Subjective Date/time seen: 06/20/21 13:10 Patient examined. Patient is COVID 19 positive, unvaccinated. He had acute decompensation of his disease yesterday from 2 L oxygen to high-flow oxygen Airvo and has moved to the IMU. With his elevated LFTs he was not a candidate for remdesivir or tocilizumab. Patient continue on Decadron and will receive convalescent plasma. I explained the possibilities of intubation if needed with patient and . Despite being very hypoxic patient appears comfortable denies abdominal pain denies fevers, chills nausea, vomiting, diarrhea, chest pain. He endorses dyspnea. Review of Systems Review of Systems: All systems reviewed & are unremarkable except as noted in HPI and below Exam Narrative: - GENERAL: Pleasant male breathing comfortably on high-flow oxygen Airvo with some respiratory distress with tachypnea - EYES: EOMI. Anicteric. - HENT: Moist mucous membranes. - LUNGS: Clear to auscultation bilaterally, no wheezing, rhonchi, or rales. Tachypneic - CARDIOVASCULAR: Regular rate and rhythm. No murmur. No JVD. - ABDOMEN: Soft, non-tender and non-distended. No palpable masses. - EXTREMITIES: No edema. Peripheral pulses 2+. Non-tender. - NEUROLOGIC: No focal neurological deficits. CN II-XII grossly intact. - PSYCHIATRIC: Awake, Alert and oriented x 3. Appropriate mood and affect. - SKIN: No rashes or lesions. Warm. - LYMPH: No cervical lymphadenopathy. Objective Data Vital Signs Vital Signs: Vital Signs - 24 hr 06/19/21 16:00 06/19/21 16:40 06/19/21 16:45 Temperature 36.2 C L Pulse Rate 70 Respiratory Rate 20 Blood Pressure 110/60 Pulse Oximetry 92 88 L 91 06/19/21 17:30 06/19/21 20:00 06/19/21 22:00 Temperature 36.6 C Pulse Rate 95 72 Respiratory Rate 20 Blood Pressure 115/63 Pulse Oximetry 92 93 06/19/21 23:49 06/20/21 00:00 06/20/21 02:00 Temperature 36.7 C Pulse Rate 70 73 74 Respiratory Rate 20 Blood Pressure 125/66 Pulse Oximetry 97 97 06/20/21 04:00 06/20/21 04:47 06/20/21 06:00 Temperature 36.3 C L Pulse Rate 72 92 Respiratory Rate 14 Blood Pressure
[2021-06-20] MEDS: SODIUM CHLORIDE 0.9% IV 250 ML 30 ML IV CONT (16:36)
[2021-06-20] MEDS: MELATONIN 5 MG TABLET PO (21:02)
[2021-06-21] VITALS (16 sets, daily range): BP systolic 104–121; BP diastolic 57–80; PULSE 78–124; RESP 22–37; TEMP 36.7–37.6; O2SAT 85–97
[2021-06-21 05:20] LABS: Hematocrit 45.3 % (42.0-52.0); Hemoglobin 15.3 g/dL (14.0-18.0); Mean Corpuscular HGB Conc 33.8 g/dl (32-36); Mean Corpuscular Hemoglobin 31.2 pg (26-34); Mean Corpuscular Volume 92.3 fl (80-100); Mean Platelet Volume 9.8 fl (7.4-10.4); Platelet Count Result 340 k/mm3 (150-375); Red Blood Count 4.91 M/mm3 (4.6-6.20); Red Cell Distribution Width 11.9 % (11.5-14.5); White Blood Count 12.6 K/mm3 (4.5-10.0)
[2021-06-21 05:40] LABS: Alanine Aminotransferase 616 U/L (4-50); Albumin Level 3.3 g/dL (3.5-5.1); Alkaline Phosphatase 226 U/L (38-126); Anion Gap 6 mmol/L (8-16); Aspartate Amino Transferase 170 U/L (17-59); Bilirubin,Total 1.8 mg/dL (0.2-1.3); Blood Urea Nitrogen 15 mg/dL (9-20); CRP 8.1 mg/dL (<1.0); Calcium 8.8 mg/dL (8.4-10.2); Carbon Dioxide 29 mmol/L (22-30); Chloride 99 mmol/L (98-107); Estimated CRCL calculation 128 ml/min; Estimated Glomerular Filt Rate > 60; Glucose 114 mg/dL (65-110); Potassium 4.6 mmol/L (3.4-5.0); Sodium 134 mmol/L (137-145)
[2021-06-21] MEDS: guaiFENesin 12 HR 600 MG TABCR PO ×2 (08:21→21:00)
[2021-06-21] MEDS: ENOXAPARIN 40 MG/0.4 ML SYRINGE SUB-Q (08:21)
[2021-06-21] MEDS: ZINC SULFATE 220 MG CAPSULE PO (08:21)
[2021-06-21] MEDS: ASCORBIC ACID 500 MG TABLET PO (08:22)
[2021-06-21] MEDS: CHOLECALCIFEROL 400 UNITS TABLET (VIT D) PO (08:22)
[2021-06-21] MEDS: ALBUTEROL SULFATE (*SP) AEROSOL 1 PUFF 2 PUFF INHALATION (10:06)
--- NOTE | 2021-06-21 13:19 | WPDCNINT ---
Assessment and Plan Assessment and plan (1) Acute respiratory failure with hypoxia: Code(s): J96.01 - Acute respiratory failure with hypoxia Status: Acute Assessment and Plan: Acute respiratory failure related to COVID pneumonia -patient transferred to the ICU on 06/21/2021 for worsening oxygen requirements, currently on Airvo, high-flow therapy 80% FiO2, 60 L flow rate with 100% non-rebreather. -ABGs and chest x-ray reviewed, chest x-ray shows bilateral small pneumothoraces, pneumomediastinum subcutaneous emphysema bilateral neck and chest. -maintain O2 sats greater than 90% -patient was diuresed by hospitalist on 06/21 -discussed with patient regarding intubation if the need arises, he is agreeable -continue bronchodilators and pulmonary: (2) Pneumonia due to COVID-19 virus: Code(s): U07.1 - COVID-19; J12.82 - Pneumonia due to coronavirus disease 2018 Status: Acute Assessment and Plan: Patient tested positive for COVID on 06/15/2021 at an outside facility, presented the ED on 06/17/2021 with worsening shortness of breath and symptoms of fatigue, loss of sense of taste and smell, cough for 7-8 days prior to admission -patient has not received this COVID vaccine -continue dexamethasone -Remdesivir contraindicated as patient is LFTs are significantly elevated -patient has not received a dose of tocilizumab -continue droplet, airborne and contact isolation/precautions -inflammatory markers are elevated, will continue to trend (3) Transaminitis: Code(s): R74.01 - Elevation of levels of liver transaminase levels Status: Acute Assessment and Plan: Hepatitis panel is negative -abdominal ultrasound on 06/19/2021 showed 4.1 x 2.1 x 3.6 hyperechoic lesion in the right hepatic lobe consistent with a hemangioma when compared to prior CT. The liver is otherwise normal. No surface nodularity. Normal hepatopetal flow in the main portal vein. The gallbladder is surgically absent. The normal common bile duct measures 4 mm. -LFTs trending down, will continue to monitor (4) Hyponatremia: Code(s): E87.1 - Hypo-osmolality and hyponatremia Status: Acute Assessment and Plan: Hyponatremia, sodium 134 this morning, improving -could be related to SIADH due to COVID pneumonia (5) DVT prophylaxis: Code(s): Z29.9 - Encounter for prophylactic measures, unspecified Status: Acute Assessment and Plan: Will increase Lovenox to 40 mg SQ Q12H Additional Plan Discussed with patient updated with his condition and plan of care. I discussed with him regarding the possibility of intubation if the need arises to which he is agreeable. Code status: Full code Critical care time spent: 45 minutes This dictation may have been done utilizing a voice recognition system. Attempts have been made to correct errors. However, there may be uncorrected grammatical, spelling, and recognition errors present. Due to a high probability of clinically significant, life threatening deterioration, the patient required my highest level of preparedness to intervene emergently and I personally spent this critical care time directly and personally managing the patient. This critical care time included obtaining a history; examining the patient; pulse oximetry; ordering and review of studies; arranging urgent treatment with development of a management plan; evaluation of patient's response to treatment; frequent reassessment; and discussions with other providers. It was exclusive of separately billable procedures and treating other patients and teaching time. 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
[2021-06-21 13:25] LABS: Alveolar/Arterial O2 Gradient 623.1 mmHg; Base Excess ABG 1.3 mEq/l (+/-2.0); Device HIGH FLOW THERAPY; Fractional Inspired Oxygen 100 %; HCO3 ABG 24.1 mEq/l (22.0-26.0); Oxygen Content ABG 19.9 %vol (16.0-22.0); Oxygen Saturation ABG 91.5 % (95.0-100.0); Oxyhemoglobin 90.2 % THb (90.0-100.0); PCO2 ABG 33.4 mmHg (35.0-45.0); PO2 ABG 56.5 mmHg (80.0-100.0); PO2 FiO2 Ratio Arterial Blood 0.56 %; Site Drawn LEFT BRACHIAL; Total Hemoglobin 15.7 g/dL (12.0-18.0); pH ABG 7.477 (7.350-7.450)
[2021-06-21] MEDS: MAGNESIUM HYDROXIDE SUSP 30 ML UDC PO (14:14)
[2021-06-21] MEDS: ALPRAZolam (*CRX) 0.5 MG TABLET PO (14:15)
[2021-06-21] MEDS: FUROSEMIDE INJ 40 MG/4 ML VIAL IV PUSH (14:15)
--- NOTE | 2021-06-21 14:42 | PC.NURSE ---
Addendum entered by Noemí Sunshine RN 06/21/21 14:43: Report received from Ana LOOMIS. Original Note: This patient, Marichuy Smiley, was received from [facility] on 06/21/21 at 1435. Report received from Naya Patient/family oriented to unit policies and routines
--- NOTE | 2021-06-21 16:46 | PC.NURSE ---
This patient, Marichuy Smiley, was transferred to ICU-8 on 06/21/21 at 1440. Personal belongings sent with patient. Report given to Noemí Sunshine RN. Appropriate documentation sent with patient.
--- NOTE | 2021-06-21 19:28 | PM.IMPN ---
Progress Note: A&P Assessment and Plan (1) Leukocytosis: Qualifiers: Leukocytosis type: unspecified Qualified Code(s): D72.829 - Elevated white blood cell count, unspecified Code(s): D72.829 - Elevated white blood cell count, unspecified Status: Acute (2) Acute respiratory failure with hypoxia: Code(s): J96.01 - Acute respiratory failure with hypoxia Status: Acute (3) Transaminitis: Code(s): R74.01 - Elevation of levels of liver transaminase levels Status: Acute (4) Hyponatremia: Code(s): E87.1 - Hypo-osmolality and hyponatremia Status: Acute (5) Pneumonia due to COVID-19 virus: Code(s): U07.1 - COVID-19; J12.82 - Pneumonia due to coronavirus disease 2019 Status: Acute (6) Pneumothorax: Qualifiers: Pneumothorax type: unspecified pneumothorax Qualified Code(s): J93.9 - Pneumothorax, unspecified Code(s): J93.9 - Pneumothorax, unspecified Status: Acute (7) Pneumomediastinum: Code(s): J98.2 - Interstitial emphysema Status: Acute Additional Plan Patient transferred to ICU due to worsening respiratory condition ABGs with PO2 of 59 Patient tachypneic and tachycardic working hard to breathe Impending intubation Currently on 90% FiO2 and 60 L through airvo Increase Decadron to 10 mg daily Appreciate ID input Appreciated pulmonary Critical Care consult CBC CMP D-dimer ferritin LDH ESR CRP and procalcitonin will be done for the a.m. Give 1 dose of IV Lasix 40 today Will increase Lovenox to 1 milligram/kilogram b.i.d. in keeping with therapeutic Lovenox dose Time Spent With Patient Time with patient: Greater than 35 minutes Subjective Date/time seen: 06/21/21 19:28 50-year-old male with COVID pneumonia being treated with Decadron. Out of range of remdesivir. Worsening acute hypoxic respiratory failure requiring increasing amounts of supplemental oxygen. Today's chest x-ray did reveal bilateral pneumothorax and pneumomediastinum. Critical Care was brought on board and patient is being transferred to the ICU for this purpose. He remains full code and is agreeable to intubation if need be. Review of Systems Review of Systems: Ten point review of system was conducted which was otherwise negative Exam Const: General: cooperative HENMT: Head: normal to inspection and No palpable skull fracture present Ears: hearing grossly normal bilaterally Eyes: General: appearance normal, both eyes and all related structures Neck: Neck: normal visual inspection Resp: Effort & Inspection: abnormal respiratory pattern, audible wheezes and Actively coughing Cardio: Jugular venous distension: no JVD Palpation: normal PMI Rate: regular rate Rhythm: regular rhythm Heart sounds: S1 normal heart sound present and S2 normal heart sound present GI: Inspection: normal to inspection GI Palp: Yes Abdominal aortic bruit present Auscultation: normal bowel sounds : General: Yes bimanual renal exam normal bilaterally Back/Spine/Pelvis: Back: no CVA tenderness Skin: General skin exam: normal color Neuro: General: oriented to person, oriented to place, oriented to time and patient oriented x3 Extrem: General: normal to inspection, full ROM and capillary refill normal Objective Data Vital Signs Vital Signs: Vital Signs - 24 hr 06/20/21 20:00 06/20/21 20:35 06/20/21 22:00 Temperature 97.8 F Pulse Rate 88 74 Respiratory Rate 20 Blood Pressure 114/70 Pulse Oximetry 93 93 06/20/21 23:46 06/21/21 00:00 06/21/21 02:00 Temperature 98.1 F Pulse Rate 86 91 85 Respiratory Rate 20 Blood Pressure 107/60 Pulse Oximetry 97 89 L 06/21/21 04:00 06/21/21 06:00 06/21/21 08:00 Temperature 98.2 F Pulse Rate 81 100 124 H Respiratory Rate 22 H Blood Pressure 104/57 L Pulse Oximetry 91 90 06/21/21 08:44 06/21/21 08:47 06/21/21 10:00 Temperature Pulse Rate 118 H Respiratory Rate
[2021-06-21] MEDS: DOCUSATE SODIUM 100 MG CAPSULE PO (21:00)
[2021-06-21] MEDS: polyethylene glycoL 3350 17 GM POWD.PACK PO (21:00)
[2021-06-21] MEDS: MELATONIN 5 MG TABLET PO (21:00)
[2021-06-21] MEDS: ENOXAPARIN 80 MG/0.8 ML SYRINGE 70 MG SUB-Q (21:38)
[2021-06-22] VITALS (42 sets, daily range): BP systolic 60–126; BP diastolic 48–94; PULSE 95–163; RESP 25–37; TEMP 36.4–37.9; O2SAT 85–99
[2021-06-22] MEDS: ALPRAZolam (*CRX) 0.5 MG TABLET PO (02:13)
[2021-06-22 05:18] LABS: Alveolar/Arterial O2 Gradient 627.9 mmHg; Base Excess ABG 3.4 mEq/l (+/-2.0); Fractional Inspired Oxygen 100 %; HCO3 ABG 26.1 mEq/l (22.0-26.0); Oxygen Content ABG 21.6 %vol (16.0-22.0); Oxygen Saturation ABG 89.1 % (95.0-100.0); Oxyhemoglobin 87.1 % THb (90.0-100.0); PCO2 ABG 34.5 mmHg (35.0-45.0); PO2 ABG 50.6 mmHg (80.0-100.0); PO2 FiO2 Ratio Arterial Blood 0.51 %; Total Hemoglobin 17.7 g/dL (12.0-18.0); pH ABG 7.497 (7.350-7.450)
[2021-06-22 05:19] LABS: Device NON-REBREATHER MASK; Modified Allen's Test Pass; Site Drawn RIGHT RADIAL
[2021-06-22] MEDS: MIDAZOLAM 100MG/NS 100ML(*CRX) 100 MG/100 ML BAG 6 MG IV CONT (06:30)
[2021-06-22] MEDS: FENTANYL 2,500MCG/NS250ML(*CRX 2,500 MCG/250 ML BAG 20 MCG IV CONT (06:30)
[2021-06-22] MEDS: CISATRACURIUM BESYLATE 20 MG/10 ML VIAL 10.8 MG IV PUSH (07:00)
[2021-06-22] MEDS: CISATRACURIUM BESYLATE 200 MG in DEXTROSE 5% 80 ML 6.49 ML IV CONT (07:20)
--- NOTE | 2021-06-22 07:20 | ED.PROCEDURE ---
Procedures Intubation Intubation Date: 06/22/21 Intubation Time: 06:25 Consent: PAtient was sitting in bed awake, alert and oriented. I discussed that he will be intubated. He states he understands and he is agreeable. He request nursing staff to call his Sedative: etomidate Mg given: 24 Paralytic: rocuronium Mg given: 50 Laryngoscope: fiber optic video scope ET tube size: cuffed Tube secured depth (cm): 23 Tube secured location: teeth Tube placement confirmation: visualized tube passing through cords, equal breath sounds bilaterally and confirmation by capnometry Intubation complications: hypoxia Additional comments: Dr. Josue first attempted to intubate patient while I was standing at bedside. He was unable to intubate and glidescope video cut of unexpected. REspiratory immediatedly performed rescue breath with BVM patient became hypoxic. I immediately intubated patient with glidescope 7.5 ETT . Good color change. Pulse oximeter improved to 94%
--- NOTE | 2021-06-22 08:53 | PM.CNGS ---
Assessment and Plan Assessment and plan (1) Pneumothorax: Qualifiers: Pneumothorax type: unspecified pneumothorax Qualified Code(s): J93.9 - Pneumothorax, unspecified Code(s): J93.9 - Pneumothorax, unspecified Status: Acute Assessment and Plan: will place emergent left sided chest tube (2) Acute respiratory failure with hypoxia: Code(s): J96.01 - Acute respiratory failure with hypoxia Status: Acute Assessment and Plan: cont ventilatory support per back line cook team (3) Pneumonia due to COVID-19 virus: Code(s): U07.1 - COVID-19; J12.82 - Pneumonia due to coronavirus disease 2019 Status: Acute Assessment and Plan: see above, supportive care History of Present Illness Consult details Consult date: 06/22/21 Reason for consult: chest tube Requesting physician: Juan David Major MD Narrative: Pt is a 50 y/o M currently in ICU c acute respiratory failure secondary to bilateral pneumonia, COVID. Pt is currently intubated, sedated. Per chart and nursing, pt has been getting progressively more short of breath over last wk. Pt previously without medical issues. On CXR post intubation, pt c bilateral PTX, L>R. Difficulty getting good oxygenation despite vetilator and consulted for emergent left chest tube. Review of Systems Review of Systems: ROS unobtainable: Yes unobtainable due to endotracheal tube PMFSH Past Medical History Medical History Bilateral renal cysts History of colon polyps Normal colonoscopy on 02/20/2021. Kidney stones Melanoma of neck (2017) Surgical History Surgical History History of cholecystectomy (1998) History of melanoma excision (2017) Family History Family History Other No significant family history Social History Social History Social History: The patient lives in [place] with his . 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 Lifelong nonsmoker. No alcohol or illicit substance abuse. He designates his , Adri Smiley, as his surrogate decision maker and he wishes to be a full code. Meds Home Medications and Allergies Home Medications Medication Instructions Recorded Confirmed Type No Home Medications 06/17/21 06/17/21 History Allergies Allergy/AdvReac Type Severity Reaction Status Date / Time acetaminophen Allergy Intermediate Rash Verified 06/17/21 12:04 oxycodone Allergy Intermediate Rash Verified 06/17/21 12:04 hydrocodone AdvReac Mild Nausea and Verified 06/21/21 14:00 Vomiting Vital Signs Vital Signs - 24 hr 06/21/21 10:00 06/21/21 12:00 06/21/21 14:00 Temperature 37.6 C Pulse Rate 118 H 107 H 105 H Respiratory Rate 26 H Blood Pressure 108/63 Pulse Oximetry 91 06/21/21 14:55 06/21/21 16:00 06/21/21 18:00 Temperature 37.1 C Pulse Rate 85 88 105 H Respiratory Rate 37 H Blood Pressure 105/80 Pulse Oximetry 91 93 06/21/21 20:00 06/21/21 20:14 06/21/21 22:00 Temperature 36.7 C Pulse Rate 102 H 95 109 H Respiratory Rate 30 H 23 H 26 H Blood Pressure 121/75 114/74 Pulse Oximetry 90 90 97 06/22/21 00:00 06/22/21 06:30 06/22/21 07:20 Temperature Pulse Rate 126 H 131 H 149 H Respiratory Rate 37 H 33 H Blood Pressure 116/86 Pulse Oximetry Exam Narrative: intubated, sedated Const: Nutritional Appearance: average body habitus HENMT: Head: normal to inspection, normocephalic and atraumatic General nose exam: Normal external nose present Face and sinus: normal facial exam Mouth: Yes Normal oral and palatal mucosa present Eyes: General: appearance normal, both eyes and all related structures Neck: Neck: normal visual inspection and no lymphadenopathy Chest: Chest palpation & inspection: normal inspection of the
[2021-06-22] MEDS: SODIUM CHLORIDE 0.9% IV 500 ML IV CONT (08:55)
[2021-06-22 09:02] LABS: Basophils Percent Auto 0.5 % (0.2-1.2); Hematocrit 44.8 % (42.0-52.0); Hemoglobin 15.1 g/dL (14.0-18.0); Immature Granulocyte Absolute 0.11 K/mm3 (0.00-0.031); Immature Granulocyte Percent A 1.7 % (0-0.5); Lymphocytes Percent Auto 4.6 % (18.3-44.2); Mean Corpuscular HGB Conc 33.7 g/dl (32-36); Mean Platelet Volume 10.2 fl (7.4-10.4); Monocytes Absolute Auto 0.1 K/mm3 (0.1-0.6); Monocytes Percent Auto 1.2 % (2.6-8.5); Platelet Count Result 372 k/mm3 (150-375); Red Blood Count 4.87 M/mm3 (4.6-6.20); Red Cell Distribution Width 11.9 % (11.5-14.5); White Blood Count 6.6 K/mm3 (4.5-10.0)
--- NOTE | 2021-06-22 09:02 | W.PM.PROC2 ---
Procedure Note - Detailed Date of Procedure 06/22/21 Pre-op Diagnosis left pneumothorax, respiratory failure Post-op Diagnosis other Procedure Performed placement of 28 english left sided chest tube Surgeon Marlena Neff MD Anesthesia none Indications 50 y/o M presenting c ARF secondary to COVID pneumonia with L sided pneumothorax Findings L sided PTX Description of Procedure The patient was in the ICU already intubated and sedated. A time-out was then done to verify the patient's identity, as well as the procedure being performed. I began by prepping and draping the left chest wall in normal sterile fashion. I then localized the area of our anticipated incision which was at the anterior axillary line at the level of the nipple. Once this was done, an incision was carried down through the skin and into the subcutaneous tissue. I then used a Natalie clamp to gain access into the pleural space over the 4th rib space. A dillard of air was noted upon gaining access. I then placed a 28 Sinhala chest tube into the left chest. This was directed posterior and superior. I then sutured the chest tube into position. Vaseline gauze and sterile dressing were placed and the tube was connected to the atrium. Patient continues to be in critical condition in the ICU. Implants 28 english left chest tube Estimated Blood Loss 5 Drains No Packing No Pathology none sent Complications No immediate complications Condition critical Disposition ICU
[2021-06-22 09:19] LABS: D Dimer 2.22 ug/mL (<0.48)
[2021-06-22 09:52] LABS: Alanine Aminotransferase 384 U/L (4-50); Alkaline Phosphatase 236 U/L (38-126); Anion Gap 9 mmol/L (8-16); Aspartate Amino Transferase 103 U/L (17-59); Bilirubin,Total 3.3 mg/dL (0.2-1.3); Blood Urea Nitrogen 18 mg/dL (9-20); Calcium 8.1 mg/dL (8.4-10.2); Carbon Dioxide 26 mmol/L (22-30); Chloride 92 mmol/L (98-107); Estimated CRCL calculation 128 ml/min; Estimated Glomerular Filt Rate > 60; Glucose 139 mg/dL (65-110); Magnesium 1.9 mg/dL (1.6-2.3); Phosphorus 4.8 mg/dL (2.5-4.5); Potassium 4.3 mmol/L (3.4-5.0); Sodium 127 mmol/L (137-145)
[2021-06-22] MEDS: LIDOCAINE HCL 1% PF INJ 5 ML VIAL INFILTRATE (10:00)
[2021-06-22] MEDS: NOREPINEPHRINE 8 MG/D5W 250 ML 8 MG/250 ML BAG 9.38 MG IV CONT (10:15)
--- NOTE | 2021-06-22 10:18 | PC.NURSE ---
At 0600, call to provider, Dr. Major to update on patient condition. Patient continues to desaturate to 83-84%. Lung sounds diminished with crepitus palpated in bilateral apical lung mcgarry. PO2 on morning ABGs resulted at 50, and patient continues to breath 48 times a minute with a heart rate in the 130's. Order per Dr. Major to have patient intubated. ED physician notified to intubate. Patient intubated at 0630 with a 7.5 ET tube 23@ lip with CMV mode with settings as follows: Vt 400, rate 24, PEEP 5, 100% FiO2. Chest X-ray ordered stat to confirm placement. Patient not tolerating ventilator at this time. Respiratory therapy currently bagging the patient.
[2021-06-22] MEDS: CHOLECALCIFEROL 400 UNITS TABLET (VIT D) PO (10:27)
[2021-06-22] MEDS: polyethylene glycoL 3350 17 GM POWD.PACK PO ×2 (10:27→21:17)
[2021-06-22] MEDS: ZINC SULFATE 220 MG CAPSULE PO (10:28)
[2021-06-22] MEDS: ENOXAPARIN 80 MG/0.8 ML SYRINGE 70 MG SUB-Q ×2 (10:29→21:15)
[2021-06-22] MEDS: ASCORBIC ACID 500 MG TABLET PO (10:30)
[2021-06-22 10:57] LABS: CRP 23.6 mg/dL (<1.0)
[2021-06-22 12:05] LABS: Lactate Dehydrogenase 2403 U/L (313-618)
[2021-06-22 12:51] LABS: Ferritin > 2000.00 ng/mL (11.1-264)
--- NOTE | 2021-06-22 12:54 | PC.NURSE ---
Updated spouse on patient condition.
[2021-06-22] MEDS: MINERAL OIL/WHITE PETROLATUM OINTMENT 1 APPLIC EACH EYE ×2 (13:20→21:15)
[2021-06-22] MEDS: CENTRAL LINE FLUSH 10 ML IV PUSH ×2 (13:22→21:18)
--- NOTE | 2021-06-22 13:58 | WPDINTPN ---
Progress Note: A&P Assessment and Plan (1) Acute respiratory failure with hypoxia: Code(s): J96.01 - Acute respiratory failure with hypoxia Status: Acute Assessment and Plan: Acute respiratory failure related to COVID pneumonia -patient transferred to the ICU on 06/21/2021 for worsening oxygen requirements, currently on Airvo, high-flow therapy 80% FiO2, 60 L flow rate with 100% non-rebreather. -impending respiratory failure early this morning on 06/22/2021, patient was intubated on 06/22/2021 -06/22/2021 chest x-ray revealed moderate left-sided pneumothorax, chest tube was inserted by surgery B12 -patient was desaturating in the 80s, started on Flolan on 06/22 -continue bronchodilators and pulmonary: (2) Pneumonia due to COVID-19 virus: Code(s): U07.1 - COVID-19; J12.82 - Pneumonia due to coronavirus disease 2019 Status: Acute Assessment and Plan: Patient tested positive for COVID on 06/15/2021 at an outside facility, presented the ED on 06/17/2021 with worsening shortness of breath and symptoms of fatigue, loss of sense of taste and smell, cough for 7-8 days prior to admission -patient has not received this COVID vaccine -continue dexamethasone -Remdesivir contraindicated as patient is LFTs are significantly elevated -patient has not received a dose of tocilizumab -continue droplet, airborne and contact isolation/precautions -inflammatory markers are elevated, will continue to trend (3) Transaminitis: Code(s): R74.01 - Elevation of levels of liver transaminase levels Status: Acute Assessment and Plan: Hepatitis panel is negative -abdominal ultrasound on 06/19/2021 showed 4.1 x 2.1 x 3.6 hyperechoic lesion in the right hepatic lobe consistent with a hemangioma when compared to prior CT. The liver is otherwise normal. No surface nodularity. Normal hepatopetal flow in the main portal vein. The gallbladder is surgically absent. The normal common bile duct measures 4 mm. -LFTs trending down, will continue to monitor (4) Hyponatremia: Code(s): E87.1 - Hypo-osmolality and hyponatremia Status: Acute Assessment and Plan: Hyponatremia, sodium 134 this morning, improving -could be related to SIADH due to COVID pneumonia (5) DVT prophylaxis: Code(s): Z29.9 - Encounter for prophylactic measures, unspecified Status: Acute Assessment and Plan: Lovenox to 40 mg SQ Q12H Additional Plan Nutrition: Will start tube feeds in a.m. Code status: Full code Critical care time spent: 45 minutes This dictation may have been done utilizing a voice recognition system. Attempts have been made to correct errors. However, there may be uncorrected grammatical, spelling, and recognition errors present. Due to a high probability of clinically significant, life threatening deterioration, the patient required my highest level of preparedness to intervene emergently and I personally spent this critical care time directly and personally managing the patient. This critical care time included obtaining a history; examining the patient; pulse oximetry; ordering and review of studies; arranging urgent treatment with development of a management plan; evaluation of patient's response to treatment; frequent reassessment; and discussions with other providers. It was exclusive of separately billable procedures and treating other patients and teaching time. Please see Assessment and Plan section and the rest of the note for further information on patient assessment and treatment Subjective Date/time seen: 06/22/21 13:58 Interval history: Reason for consult: Acute respiratory failure due to COVID pneumonia, increasing oxygen requirement Intubated on 06/22/2021 06/22/2021: Patient was maxed out on high-flow therapy with 100% non-rebreather, was tachypneic, tachycardia in impending respiratory failure patient was intubated early this morning at 6:25 a.m.. Patient developed a left-si
[2021-06-22] MEDS: SODIUM CHLORIDE 0.9% IV 1,000 ML 999 ML IV CONT (14:27)
[2021-06-22] MEDS: EPOPROSTENOL SODIUM 0.5 MG VIAL 1 MG INHALATION ×2 (14:51→20:15)
[2021-06-22] MEDS: CISATRACURIUM BESYLATE 200 MG in DEXTROSE 5% 80 ML 7.57 ML IV CONT (21:01)
[2021-06-22] MEDS: NOREPINEPHRINE 8 MG/D5W 250 ML 8 MG/250 ML BAG 18.75 MG IV CONT (21:05)
[2021-06-22] MEDS: FENTANYL 2,500MCG/NS250ML(*CRX 2,500 MCG/250 ML BAG 15 MCG IV CONT (22:36)
[2021-06-23] VITALS (54 sets, daily range): BP systolic 101–155; BP diastolic 76–92; PULSE 60–102; RESP 22–30; TEMP 35.9–37.4; O2SAT 93–99; BMI 18.3
[2021-06-23] MEDS: EPOPROSTENOL SODIUM 0.5 MG VIAL 1 MG INHALATION ×4 (02:14→20:38)
[2021-06-23] MEDS: MIDAZOLAM 100MG/NS 100ML(*CRX) 100 MG/100 ML BAG IV CONT ×2 (02:34→22:06)
[2021-06-23 05:09] LABS: Alveolar/Arterial O2 Gradient 488.1 mmHg; Base Excess ABG -1.4 mEq/l (+/-2.0); Carboxyhemoglobin 0.3 % THb (0-2.0); Fractional Inspired Oxygen 100 %; HCO3 ABG 23.7 mEq/l (22.0-26.0); Methemoglobin ABG 0.6 %THb (0-1.5); Oxygen Content ABG 25.2 %vol (16.0-22.0); Oxygen Saturation ABG 99.2 % (95.0-100.0); Oxyhemoglobin 97.8 % THb (90.0-100.0); PCO2 ABG 41.3 mmHg (35.0-45.0); PO2 ABG 183.6 mmHg (80.0-100.0); PO2 FiO2 Ratio Arterial Blood 1.84 %; Reduced Hemoglobin 1.3 %THb (0-5.0); Total Hemoglobin 18.1 g/dL (12.0-18.0); pH ABG 7.377 (7.350-7.450)
[2021-06-23 05:10] LABS: Device VENTILATOR; Site Drawn LEFT BRACHIAL
[2021-06-23 05:11] LABS: Arterial Blood Gas PEEP 10 cmH2O; Arterial Blood Gas Tidal Volume 400 ml; Arterial Blood Gas Vent Mode CMV; Arterial Blood Gas Ventilator rate 30 /MIN
[2021-06-23] MEDS: CENTRAL LINE FLUSH 10 ML IV PUSH ×3 (05:44→20:08)
[2021-06-23 06:14] LABS: Hemoglobin 14.1 g/dL (14.0-18.0); Mean Corpuscular HGB Conc 35.3 g/dl (32-36); Mean Corpuscular Hemoglobin 31.7 pg (26-34); Mean Corpuscular Volume 89.9 fl (80-100); Platelet Count Result 333 k/mm3 (150-375); Red Blood Count 4.45 M/mm3 (4.6-6.20); Red Cell Distribution Width 11.9 % (11.5-14.5); White Blood Count 7.7 K/mm3 (4.5-10.0)
[2021-06-23 07:21] LABS: Alanine Aminotransferase 253 U/L (4-50); Albumin Level 2.7 g/dL (3.5-5.1); Alkaline Phosphatase 252 U/L (38-126); Anion Gap 12 mmol/L (8-16); Aspartate Amino Transferase 52 U/L (17-59); Bilirubin,Total 2.4 mg/dL (0.2-1.3); Blood Urea Nitrogen 29 mg/dL (9-20); Carbon Dioxide 22 mmol/L (22-30); Chloride 95 mmol/L (98-107); Estimated CRCL calculation 68 ml/min; Estimated Glomerular Filt Rate > 60; Glucose 169 mg/dL (65-110); Magnesium 2.5 mg/dL (1.6-2.3); Phosphorus 3.8 mg/dL (2.5-4.5); Potassium 4.6 mmol/L (3.4-5.0); Sodium 129 mmol/L (137-145)
--- NOTE | 2021-06-23 09:28 | PC.NURSE ---
Updated spouse on patient condition and plan of care.
[2021-06-23] MEDS: polyethylene glycoL 3350 17 GM POWD.PACK PO ×2 (09:39→20:08)
[2021-06-23] MEDS: ENOXAPARIN 80 MG/0.8 ML SYRINGE 70 MG SUB-Q (09:39)
[2021-06-23] MEDS: ZINC SULFATE 220 MG CAPSULE PO (09:40)
[2021-06-23] MEDS: ASCORBIC ACID 500 MG TABLET PO (09:41)
[2021-06-23] MEDS: CHOLECALCIFEROL 400 UNITS TABLET (VIT D) PO (09:41)
[2021-06-23] MEDS: MINERAL OIL/WHITE PETROLATUM OINTMENT 1 APPLIC EACH EYE ×2 (09:42→20:07)
[2021-06-23] MEDS: SODIUM CHLORIDE 0.9% IV 1,000 ML 100 ML IV CONT (10:49)
[2021-06-23] MEDS: SODIUM CHLORIDE 0.9% IV 500 ML IV CONT (10:49)
[2021-06-23] MEDS: CISATRACURIUM BESYLATE 200 MG in DEXTROSE 5% 80 ML 7.57 ML IV CONT ×2 (10:51→11:00)
--- NOTE | 2021-06-23 11:20 | PCDIET ---
Vital 1.2 at goal of 55mL/hr x 22 hours/day will provide 1452kcal and 90g protein daily. Will follow closely and recommend further adjustment, as needed.
--- NOTE | 2021-06-23 11:26 | WPDINTPN ---
Progress Note: A&P Assessment and Plan (1) Acute respiratory failure with hypoxia: Code(s): J96.01 - Acute respiratory failure with hypoxia Status: Acute Assessment and Plan: Acute respiratory failure related to COVID pneumonia -patient transferred to the ICU on 06/21/2021 for worsening oxygen requirements, patient was intubated on 06/22/2021 -06/22/2021 chest x-ray revealed moderate left-sided pneumothorax, chest tube was inserted by surgery on left -Flolan started on 06/22 -currently on 90% FiO2 and 10 of PEEP -on inhaled Flolan -chest x-ray reviewed and shows persistent bilateral pneumothoraxes which are slightly improved -will place patient in prone position today -continue bronchodilators and pulmonary: (2) Pneumonia due to COVID-19 virus: Code(s): U07.1 - COVID-19; J12.82 - Pneumonia due to coronavirus disease 2019 Status: Acute Assessment and Plan: Patient tested positive for COVID on 06/15/2021 at an outside facility, presented the ED on 06/17/2021 with worsening shortness of breath and symptoms of fatigue, loss of sense of taste and smell, cough for 7-8 days prior to admission -patient has not received COVID vaccine -continue dexamethasone -Remdesivir contraindicated as patient is LFTs are significantly elevated but are improving -patient has not received a dose of tocilizumab -continue droplet, airborne and contact isolation/precautions -inflammatory markers are elevated, will continue to trend (3) Transaminitis: Code(s): R74.01 - Elevation of levels of liver transaminase levels Status: Acute Assessment and Plan: Hepatitis panel is negative -abdominal ultrasound on 06/19/2021 showed 4.1 x 2.1 x 3.6 hyperechoic lesion in the right hepatic lobe consistent with a hemangioma when compared to prior CT. The liver is otherwise normal. No surface nodularity. Normal hepatopetal flow in the main portal vein. The gallbladder is surgically absent. The normal common bile duct measures 4 mm. 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 pneumonia -monitor - patient is getting normal saline today (5) DVT prophylaxis: Code(s): Z29.9 - Encounter for prophylactic measures, unspecified Status: Acute Assessment and Plan: Lovenox to 40 mg SQ Q12H (6) Hypovolemia: Code(s): E86.1 - Hypovolemia Status: Acute Assessment and Plan: BUN and creatinine increased Urine output is on the lower side. Also on Levophed Will give small amount of normal saline and monitor (7) Shock: Code(s): R57.9 - Shock, unspecified Status: Acute Assessment and Plan: Likely secondary to hypovolemia and sedation Currently on Levophed Will give small amount of fluid try to wean off Levophed Additional Plan DVT prophylaxis -Lovenox subQ q.12 hours Stress ulcer prophylaxis -add PPI Nutrition - Tube Feeds Code Status - Full Code Discussed with general surgery Ideally would have transferred the patient for evaluation for ECMO but this time no beds are available in any of the tertiary hospitals in the area that have ECMO due to COVID-19 pandemic Total Critical Care Time - 35 minutes Due to a high probability of clinically significant, life threatening deterioration, the patient required my highest level of preparedness to intervene emergently and I personally spent this critical care time directly and personally managing the patient. This critical care time included obtaining a history; examining the patient; pulse oximetry; ordering and review of studies; arranging urgent treatment with development of a management plan; evaluation of patient's response to treatment; frequent reassessment; and discussions with other providers. It was exclusive of separately billable procedures and treating other patient
[2021-06-23] MEDS: NOREPINEPHRINE 8 MG/D5W 250 ML 8 MG/250 ML BAG 15 MG IV CONT (13:00)
[2021-06-23] MEDS: FENTANYL 2,500MCG/NS250ML(*CRX 2,500 MCG/250 ML BAG 15 MCG IV CONT (16:17)
[2021-06-23] MEDS: ENOXAPARIN 40 MG/0.4 ML SYRINGE SUB-Q (20:07)
[2021-06-23] MEDS: DOCUSATE SODIUM LIQ 100 MG/10 ML UDC PO (20:08)
[2021-06-24] VITALS (29 sets, daily range): BP systolic 85–146; BP diastolic 58–88; PULSE 57–77; RESP 25–30; TEMP 35.4–37.2; O2SAT 92–100
[2021-06-24] MEDS: CISATRACURIUM BESYLATE 200 MG in DEXTROSE 5% 80 ML 7.57 ML IV CONT ×2 (00:36→14:30)
[2021-06-24 05:23] LABS: Alveolar/Arterial O2 Gradient 330.1 mmHg; Base Excess ABG 7.4 mEq/l (+/-2.0); Carboxyhemoglobin 0.3 % THb (0-2.0); Fractional Inspired Oxygen 90 %; Methemoglobin ABG 0.5 %THb (0-1.5); Oxygen Content ABG 20.6 %vol (16.0-22.0); Oxygen Saturation ABG 99.7 % (95.0-100.0); Oxyhemoglobin 98.2 % THb (90.0-100.0); PCO2 ABG 39.5 mmHg (35.0-45.0); PO2 ABG 271.1 mmHg (80.0-100.0); PO2 FiO2 Ratio Arterial Blood 3.01 %; Total Hemoglobin 14.5 g/dL (12.0-18.0)
[2021-06-24 05:24] LABS: pH ABG 7.512 (7.350-7.450)
[2021-06-24 05:25] LABS: Device VENTILATOR; Modified Allen's Test Pass; Site Drawn RIGHT RADIAL
[2021-06-24 05:26] LABS: Arterial Blood Gas PEEP 10 cmH2O; Arterial Blood Gas Tidal Volume 400 ml; Arterial Blood Gas Vent Mode CMV; Arterial Blood Gas Ventilator rate 30 /MIN
[2021-06-24] MEDS: CENTRAL LINE FLUSH 10 ML IV PUSH ×2 (06:30→21:00)
[2021-06-24 06:48] LABS: Hematocrit 37.4 % (42.0-52.0); Hemoglobin 12.7 g/dL (14.0-18.0); Mean Corpuscular Hemoglobin 31.3 pg (26-34); Mean Corpuscular Volume 92.1 fl (80-100); Mean Platelet Volume 10.2 fl (7.4-10.4); Platelet Count Result 321 k/mm3 (150-375); Red Blood Count 4.06 M/mm3 (4.6-6.20); White Blood Count 8.9 K/mm3 (4.5-10.0)
[2021-06-24 07:06] LABS: Alanine Aminotransferase 146 U/L (4-50); Albumin Level 2.2 g/dL (3.5-5.1); Alkaline Phosphatase 181 U/L (38-126); Anion Gap 5 mmol/L (8-16); Aspartate Amino Transferase 31 U/L (17-59); Bilirubin,Total 0.9 mg/dL (0.2-1.3); Blood Urea Nitrogen 23 mg/dL (9-20); Calcium 7.1 mg/dL (8.4-10.2); Carbon Dioxide 27 mmol/L (22-30); Chloride 101 mmol/L (98-107); Estimated CRCL calculation 109 ml/min; Estimated Glomerular Filt Rate > 60; Glucose 215 mg/dL (65-110); Lactate Dehydrogenase 856 U/L (313-618); Magnesium 2.2 mg/dL (1.6-2.3); Phosphorus 1.9 mg/dL (2.5-4.5); Potassium 4.1 mmol/L (3.4-5.0); Sodium 133 mmol/L (137-145)
[2021-06-24 07:17] LABS: CRP 18.4 mg/dL (<1.0)
[2021-06-24] MEDS: EPOPROSTENOL SODIUM 0.5 MG VIAL 1 MG INHALATION ×3 (08:05→20:06)
[2021-06-24] MEDS: CALCIUM CHLOR 1,000MG/100ML NS 1,000 MG/100 ML BAG 100 MG IVPB (09:40)
[2021-06-24] MEDS: MINERAL OIL/WHITE PETROLATUM OINTMENT 1 APPLIC EACH EYE ×2 (09:41→20:56)
[2021-06-24] MEDS: CHOLECALCIFEROL 400 UNITS TABLET (VIT D) PO (09:41)
[2021-06-24] MEDS: ASCORBIC ACID 500 MG TABLET PO (09:41)
[2021-06-24] MEDS: ZINC SULFATE 220 MG CAPSULE PO (09:41)
[2021-06-24] MEDS: DOCUSATE SODIUM LIQ 100 MG/10 ML UDC PO ×2 (09:41→20:59)
[2021-06-24] MEDS: polyethylene glycoL 3350 17 GM POWD.PACK PO ×2 (09:41→20:59)
[2021-06-24] MEDS: PANTOPRAZOLE SODIUM IV 40 MG VIAL IV PUSH (09:41)
[2021-06-24] MEDS: ENOXAPARIN 40 MG/0.4 ML SYRINGE SUB-Q ×2 (09:42→20:57)
[2021-06-24] MEDS: FENTANYL 2,500MCG/NS250ML(*CRX 2,500 MCG/250 ML BAG 15 MCG IV CONT (09:58)
[2021-06-24 10:01] LABS: Ferritin > 2000.00 ng/mL (11.1-264)
--- NOTE | 2021-06-24 10:42 | WPDINTPN ---
Progress Note: A&P Assessment and Plan (1) Acute respiratory failure with hypoxia: Code(s): J96.01 - Acute respiratory failure with hypoxia Status: Acute Assessment and Plan: Acute respiratory failure related to COVID pneumonia -patient transferred to the ICU on 06/21/2021 for worsening oxygen requirements, patient was intubated on 06/22/2021 -06/22/2021 chest x-ray revealed moderate left-sided pneumothorax, chest tube was inserted by surgery on left -Flolan started on 06/22 -patient was placed in prone position overnight and FiO2 was decreased up to 60% this morning. Continues to be on PEEP of 10 -chest x-ray does not show any residual pneumothorax on either side -advance ET tube by 3 cm -will place patient in prone position daily for now -continue bronchodilators and pulmonary: (2) Pneumonia due to COVID-19 virus: Code(s): U07.1 - COVID-19; J12.82 - Pneumonia due to coronavirus disease 2018 Status: Acute Assessment and Plan: Patient tested positive for COVID on 06/15/2021 at an outside facility, presented the ED on 06/17/2021 with worsening shortness of breath and symptoms of fatigue, loss of sense of taste and smell, cough for 7-8 days prior to admission -patient has not received COVID vaccine -continue dexamethasone -Remdesivir contraindicated as patient is LFTs are significantly elevated but are improving -continue droplet, airborne and contact isolation/precautions -inflammatory markers are elevated but improving, will continue to trend (3) Transaminitis: Code(s): R74.01 - Elevation of levels of liver transaminase levels Status: Acute Assessment and Plan: Hepatitis panel is negative -abdominal ultrasound on 06/19/2021 showed 4.1 x 2.1 x 3.6 hyperechoic lesion in the right hepatic lobe consistent with a hemangioma when compared to prior CT. The liver is otherwise normal. No surface nodularity. Normal hepatopetal flow in the main portal vein. The gallbladder is surgically absent. The normal common bile duct measures 4 mm. 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 pneumonia -improving monitor (5) DVT prophylaxis: Code(s): Z29.9 - Encounter for prophylactic measures, unspecified Status: Acute Assessment and Plan: Lovenox to 40 mg SQ Q12H (6) Hypovolemia: Code(s): E86.1 - Hypovolemia Status: Acute Assessment and Plan: Improved with cautious normal saline infusion Of Levophed (7) Shock: Code(s): R57.9 - Shock, unspecified Status: Acute Assessment and Plan: Likely secondary to hypovolemia and sedation Improved and Currently off of Levophed Additional Plan DVT prophylaxis -Lovenox subQ q.12 hours Stress ulcer prophylaxis -add PPI Nutrition - Tube Feeds Code Status - Full Code Discussed with general surgery Total Critical Care Time - 30 minutes Due to a high probability of clinically significant, life threatening deterioration, the patient required my highest level of preparedness to intervene emergently and I personally spent this critical care time directly and personally managing the patient. This critical care time included obtaining a history; examining the patient; pulse oximetry; ordering and review of studies; arranging urgent treatment with development of a management plan; evaluation of patient's response to treatment; frequent reassessment; and discussions with other providers. It was exclusive of separately billable procedures and treating other patients and teaching time. Please see Assessment and Plan section and the rest of the note for further information on patient assessment and treatment Subjective Date/time seen: 06/24/21 Overnight events reviewed Afebrile Continues to be on mechanical ventilation Continues to be sedation and n
[2021-06-24] MEDS: MIDAZOLAM 100MG/NS 100ML(*CRX) 100 MG/100 ML BAG IV CONT (17:39)
[2021-06-25] VITALS (35 sets, daily range): BP systolic 93–123; BP diastolic 67–91; PULSE 60–134; RESP 26; TEMP 36.1–37.1; O2SAT 90–100
[2021-06-25] MEDS: FENTANYL 2,500MCG/NS250ML(*CRX 2,500 MCG/250 ML BAG 15 MCG IV CONT ×2 (01:54→19:30)
[2021-06-25] MEDS: EPOPROSTENOL SODIUM 0.5 MG VIAL 1 MG INHALATION ×2 (02:16→08:14)
[2021-06-25] MEDS: CISATRACURIUM BESYLATE 200 MG in DEXTROSE 5% 80 ML 7.57 ML IV CONT (05:22)
[2021-06-25 05:24] LABS: Alveolar/Arterial O2 Gradient 391.5 mmHg; Base Excess ABG 4.1 mEq/l (+/-2.0); Carboxyhemoglobin 0.3 % THb (0-2.0); Fractional Inspired Oxygen 70 %; HCO3 ABG 29.2 mEq/l (22.0-26.0); Methemoglobin ABG 0.3 %THb (0-1.5); Oxygen Content ABG 16.8 %vol (16.0-22.0); Oxygen Saturation ABG 90.7 % (95.0-100.0); Oxyhemoglobin 89.2 % THb (90.0-100.0); PCO2 ABG 45.7 mmHg (35.0-45.0); PO2 ABG 58.5 mmHg (80.0-100.0); PO2 FiO2 Ratio Arterial Blood 0.84 %; Reduced Hemoglobin 10.2 %THb (0-5.0); Total Hemoglobin 13.4 g/dL (12.0-18.0); pH ABG 7.423 (7.350-7.450)
[2021-06-25] MEDS: CENTRAL LINE FLUSH 10 ML IV PUSH ×3 (05:24→22:52)
[2021-06-25 05:25] LABS: Arterial Blood Gas PEEP 10 cmH2O; Arterial Blood Gas Tidal Volume 400 ml; Arterial Blood Gas Vent Mode CMV; Arterial Blood Gas Ventilator rate 26 /MIN; Device VENTILATOR; Modified Allen's Test Unable to perform; Site Drawn RIGHT RADIAL
[2021-06-25 05:35] LABS: Hematocrit 38.1 % (42.0-52.0); Hemoglobin 12.5 g/dL (14.0-18.0); Mean Corpuscular HGB Conc 32.8 g/dl (32-36); Mean Corpuscular Hemoglobin 30.8 pg (26-34); Mean Corpuscular Volume 93.8 fl (80-100); Mean Platelet Volume 10.4 fl (7.4-10.4); Platelet Count Result 301 k/mm3 (150-375); Red Blood Count 4.06 M/mm3 (4.6-6.20); Red Cell Distribution Width 12.1 % (11.5-14.5); White Blood Count 11.1 K/mm3 (4.5-10.0)
[2021-06-25 06:09] LABS: Alanine Aminotransferase 129 U/L (4-50); Albumin Level 2.3 g/dL (3.5-5.1); Alkaline Phosphatase 183 U/L (38-126); Anion Gap 3 mmol/L (8-16); Aspartate Amino Transferase 58 U/L (17-59); Bilirubin,Total 0.6 mg/dL (0.2-1.3); Blood Urea Nitrogen 34 mg/dL (9-20); Calcium 8.1 mg/dL (8.4-10.2); Carbon Dioxide 30 mmol/L (22-30); Chloride 100 mmol/L (98-107); Estimated CRCL calculation 95 ml/min; Estimated Glomerular Filt Rate > 60; Glucose 146 mg/dL (65-110); Magnesium 2.1 mg/dL (1.6-2.3); Phosphorus 3.1 mg/dL (2.5-4.5); Potassium 4.3 mmol/L (3.4-5.0); Sodium 133 mmol/L (137-145)
[2021-06-25] MEDS: CHOLECALCIFEROL 400 UNITS TABLET (VIT D) PO (09:23)
[2021-06-25] MEDS: ASCORBIC ACID 500 MG TABLET PO (09:23)
[2021-06-25] MEDS: ZINC SULFATE 220 MG CAPSULE PO (09:23)
[2021-06-25] MEDS: ENOXAPARIN 40 MG/0.4 ML SYRINGE SUB-Q ×2 (09:23→20:00)
[2021-06-25] MEDS: PANTOPRAZOLE SODIUM IV 40 MG VIAL IV PUSH (09:24)
[2021-06-25] MEDS: polyethylene glycoL 3350 17 GM POWD.PACK PO ×2 (09:24→20:01)
[2021-06-25] MEDS: DOCUSATE SODIUM LIQ 100 MG/10 ML UDC PO ×2 (09:24→20:01)
[2021-06-25] MEDS: MINERAL OIL/WHITE PETROLATUM OINTMENT 1 APPLIC EACH EYE ×2 (09:24→20:01)
--- NOTE | 2021-06-25 11:31 | WPDINTPN ---
Progress Note: A&P Assessment and Plan (1) Acute respiratory failure with hypoxia: Code(s): J96.01 - Acute respiratory failure with hypoxia Status: Acute Assessment and Plan: Acute respiratory failure related to COVID pneumonia -patient transferred to the ICU on 06/21/2021 for worsening oxygen requirements, patient was intubated on 06/22/2021 -06/22/2021 chest x-ray revealed moderate left-sided pneumothorax, chest tube was inserted by surgery on left -Flolan started on 06/22. will start weaning today -patient was placed in prone position overnight and FiO2 was decreased up to 60% this morning. Continues to be on PEEP of 10 -chest x-ray does not show any residual pneumothorax on either side -advance ET tube by 3 cm. Order placed and discussed verbally with RT -will place patient in prone position daily for now -continue bronchodilators and pulmonary: (2) Pneumonia due to COVID-19 virus: Code(s): U07.1 - COVID-19; J12.82 - Pneumonia due to coronavirus disease 2018 Status: Acute Assessment and Plan: Patient tested positive for COVID on 06/15/2021 at an outside facility, presented the ED on 06/17/2021 with worsening shortness of breath and symptoms of fatigue, loss of sense of taste and smell, cough for 7-8 days prior to admission -patient has not received COVID vaccine -continue dexamethasone -Remdesivir contraindicated as patient is LFTs are significantly elevated but are improving -continue droplet, airborne and contact isolation/precautions -inflammatory markers are elevated but improving, will continue to trend (3) Transaminitis: Code(s): R74.01 - Elevation of levels of liver transaminase levels Status: Acute Assessment and Plan: Hepatitis panel is negative -abdominal ultrasound on 06/19/2021 showed 4.1 x 2.1 x 3.6 hyperechoic lesion in the right hepatic lobe consistent with a hemangioma when compared to prior CT. The liver is otherwise normal. No surface nodularity. Normal hepatopetal flow in the main portal vein. The gallbladder is surgically absent. The normal common bile duct measures 4 mm. 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 pneumonia -improving monitor (5) DVT prophylaxis: Code(s): Z29.9 - Encounter for prophylactic measures, unspecified Status: Acute Assessment and Plan: Lovenox to 40 mg SQ Q12H (6) Hypovolemia: Code(s): E86.1 - Hypovolemia Status: Acute Assessment and Plan: Improved with cautious normal saline infusion Of Levophed (7) Shock: Code(s): R57.9 - Shock, unspecified Status: Acute Assessment and Plan: Likely secondary to hypovolemia and sedation Improved and Currently off of Levophed Additional Plan DVT prophylaxis -Lovenox subQ q.12 hours Stress ulcer prophylaxis -add PPI Nutrition - Tube Feeds Code Status - Full Code Discussed with general surgery Total Critical Care Time - 32 minutes Due to a high probability of clinically significant, life threatening deterioration, the patient required my highest level of preparedness to intervene emergently and I personally spent this critical care time directly and personally managing the patient. This critical care time included obtaining a history; examining the patient; pulse oximetry; ordering and review of studies; arranging urgent treatment with development of a management plan; evaluation of patient's response to treatment; frequent reassessment; and discussions with other providers. It was exclusive of separately billable procedures and treating other patients and teaching time. Please see Assessment and Plan section and the rest of the note for further information on patient assessment and treatment Subjective Date/time seen: 06/25/21 11:31 Overnight events reviewed .Afe
[2021-06-25] MEDS: EPOPROSTENOL SODIUM 0.5 MG VIAL INHALATION ×2 (12:20→18:23)
[2021-06-25] MEDS: MIDAZOLAM 100MG/NS 100ML(*CRX) 100 MG/100 ML BAG IV CONT (14:19)
[2021-06-25] MEDS: CISATRACURIUM BESYLATE 200 MG in DEXTROSE 5% 80 ML 6.49 ML IV CONT (19:59)
[2021-06-26] VITALS (59 sets, daily range): BP systolic 91–155; BP diastolic 65–97; PULSE 75–152; RESP 26; TEMP 36.8–37.1; O2SAT 70–98
[2021-06-26] MEDS: EPOPROSTENOL SODIUM 0.5 MG VIAL INHALATION ×2 (00:56→06:54)
[2021-06-26 04:54] LABS: Hematocrit 40.7 % (42.0-52.0); Hemoglobin 13.4 g/dL (14.0-18.0); Mean Corpuscular HGB Conc 32.9 g/dl (32-36); Mean Corpuscular Hemoglobin 31.3 pg (26-34); Mean Corpuscular Volume 95.1 fl (80-100); Mean Platelet Volume 10.3 fl (7.4-10.4); Platelet Count Result 358 k/mm3 (150-375); Red Blood Count 4.28 M/mm3 (4.6-6.20); Red Cell Distribution Width 12.2 % (11.5-14.5); White Blood Count 14.7 K/mm3 (4.5-10.0)
[2021-06-26] MEDS: PROPOFOL IV EMULSION 100 ML 2.26 MG IV CONT (05:00)
[2021-06-26 05:10] LABS: D Dimer 1.52 ug/mL (<0.48)
[2021-06-26 05:13] LABS: Alanine Aminotransferase 136 U/L (4-50); Albumin Level 2.6 g/dL (3.5-5.1); Alkaline Phosphatase 214 U/L (38-126); Anion Gap -2 mmol/L (8-16); Aspartate Amino Transferase 57 U/L (17-59); Bilirubin,Total 0.7 mg/dL (0.2-1.3); Blood Urea Nitrogen 34 mg/dL (9-20); Calcium 8.2 mg/dL (8.4-10.2); Carbon Dioxide 34 mmol/L (22-30); Chloride 101 mmol/L (98-107); Estimated CRCL calculation 116 ml/min; Estimated Glomerular Filt Rate > 60; Glucose 147 mg/dL (65-110); Magnesium 1.9 mg/dL (1.6-2.3); Phosphorus 2.6 mg/dL (2.5-4.5); Potassium 4.5 mmol/L (3.4-5.0); Sodium 133 mmol/L (137-145)
[2021-06-26 05:34] LABS: Lactate Dehydrogenase 755 U/L (313-618)
[2021-06-26] MEDS: CENTRAL LINE FLUSH 10 ML IV PUSH ×3 (06:34→21:46)
[2021-06-26 06:40] LABS: Alveolar/Arterial O2 Gradient 243.5 mmHg; Base Excess ABG 5.4 mEq/l (+/-2.0); Carboxyhemoglobin 0.3 % THb (0-2.0); Fractional Inspired Oxygen 50 %; HCO3 ABG 31.3 mEq/l (22.0-26.0); Methemoglobin ABG 0.5 %THb (0-1.5); Oxygen Content ABG 18.2 %vol (16.0-22.0); Oxygen Saturation ABG 89.2 % (95.0-100.0); Oxyhemoglobin 88.7 % THb (90.0-100.0); PCO2 ABG 50.4 mmHg (35.0-45.0); PO2 ABG 56.3 mmHg (80.0-100.0); PO2 FiO2 Ratio Arterial Blood 1.13 %; Reduced Hemoglobin 10.5 %THb (0-5.0); Total Hemoglobin 14.6 g/dL (12.0-18.0); pH ABG 7.411 (7.350-7.450)
[2021-06-26 06:41] LABS: Arterial Blood Gas PEEP 10 cmH2O; Arterial Blood Gas Tidal Volume 400 ml; Arterial Blood Gas Vent Mode CMV; Arterial Blood Gas Ventilator rate 26 /MIN; Device VENTILATOR; Site Drawn RIGHT BRACHIAL
[2021-06-26 07:47] LABS: Ferritin > 2000.00 ng/mL (11.1-264)
[2021-06-26] MEDS: CISATRACURIUM BESYLATE 200 MG in DEXTROSE 5% 80 ML 10.82 ML IV CONT ×2 (08:00→17:00)
[2021-06-26] MEDS: MIDAZOLAM 100MG/NS 100ML(*CRX) 100 MG/100 ML BAG 6 MG IV CONT ×2 (08:00→23:54)
[2021-06-26] MEDS: polyethylene glycoL 3350 17 GM POWD.PACK PO ×2 (08:36→21:46)
[2021-06-26] MEDS: PANTOPRAZOLE SODIUM IV 40 MG VIAL IV PUSH (08:36)
[2021-06-26] MEDS: DOCUSATE SODIUM LIQ 100 MG/10 ML UDC PO ×2 (08:38→21:46)
[2021-06-26] MEDS: ENOXAPARIN 40 MG/0.4 ML SYRINGE SUB-Q ×2 (08:38→21:46)
[2021-06-26] MEDS: MINERAL OIL/WHITE PETROLATUM OINTMENT 1 APPLIC EACH EYE ×2 (08:39→21:46)
[2021-06-26] MEDS: ASCORBIC ACID 500 MG TABLET PO (08:40)
[2021-06-26] MEDS: ZINC SULFATE 220 MG CAPSULE PO (08:40)
[2021-06-26] MEDS: CHOLECALCIFEROL 400 UNITS TABLET (VIT D) PO (08:41)
[2021-06-26] MEDS: FENTANYL 2,500MCG/NS250ML(*CRX 2,500 MCG/250 ML BAG 20 MCG IV CONT ×2 (10:15→23:52)
--- NOTE | 2021-06-26 11:00 | PCDIET ---
Nutrition Follow-Up Complete: Nutrition Diagnosis: Inadequate oral intake related to intubation as evidenced by NPO status. Nutrition Goal: Patient to meet estimated nutritional needs. Goal met. Patient tolerating Vital 1.2 at 55mL/hr goal rate with 30mL water flush every 4 hours. Gastric residuals 155mL and below. Last recorded weight is 72.3 kg which is increased from last review. +I/O. Bowel Motility: No documented BM. Patient receiving Colace and Miralax. Labs Reviewed: WBC (14.7), RBC (4.28), Hgb (13.4), Hct (40.7), BUN (34), Na (133) Meds Noted: Propofol (rate of 6.768mL/hr provides 178kcal per day), Vitamin D, Zinc Sulfate, Vitamin C, Nimbex, Flolan, Fentanyl, Protonix, Decadron, Colace, Versed, Miralax Additional Notes: Left chest tube noted. No documented pressure sores. Will continue to monitor with same goal. Nutrition Monitoring and Evaluation: Follow up every Saturday/Saturday.
--- NOTE | 2021-06-26 11:34 | WPDINFPN2 ---
Progress Note: A&P Assessment and Plan (1) Pneumonia due to COVID-19 virus: Code(s): U07.1 - COVID-19; J12.82 - Pneumonia due to coronavirus disease 2019 Status: Acute Assessment and Plan: Viral pneumonia due to SARS CoV2. REC Agree with current management. No antibacterials needed. Call if other Qs/concerns. I was not notified of consult until this AM Subjective Date/time seen: 06/26/21 11:34 Objective Data Vital Signs Vital Signs: Vital Signs - 24 hr 06/25/21 12:00 06/25/21 12:22 06/25/21 12:23 Temperature 37.1 C Pulse Rate 134 H 134 H 123 H Respiratory Rate 26 H 26 H Blood Pressure 114/75 Pulse Oximetry 95 95 99 06/25/21 13:39 06/25/21 14:00 06/25/21 14:19 Temperature Pulse Rate 91 91 91 Respiratory Rate 26 H 26 H 26 H Blood Pressure 99/70 L Pulse Oximetry 98 06/25/21 14:22 06/25/21 14:23 06/25/21 16:00 Temperature 36.9 C Pulse Rate 96 92 107 H Respiratory Rate 26 H 26 H Blood Pressure 96/71 L Pulse Oximetry 100 99 97 06/25/21 16:21 06/25/21 18:00 06/25/21 18:24 Temperature Pulse Rate 107 H 72 75 Respiratory Rate 26 H 26 H 26 H Blood Pressure 96/69 L Pulse Oximetry 97 98 96 06/25/21 18:32 06/25/21 18:33 06/25/21 19:30 Temperature Pulse Rate 75 75 119 H Respiratory Rate 26 H 26 H 26 H Blood Pressure 96/69 L 96/69 L Pulse Oximetry 06/25/21 19:56 06/25/21 19:59 06/25/21 20:00 Temperature 36.1 C L Pulse Rate 103 H 101 H 126 H Respiratory Rate 26 H 26 H 26 H Blood Pressure 119/85 123/91 H Pulse Oximetry 96 06/25/21 22:00 06/25/21 22:53 06/25/21 22:55 Temperature 36.8 C Pulse Rate 95 119 H 132 H Respiratory Rate 26 H 26 H 26 H Blood Pressure 122/85 122/85 Pulse Oximetry 96 06/25/21 23:58 06/26/21 00:00 06/26/21 00:03 Temperature 36.8 C Pulse Rate 113 H 136 H 113 H Respiratory Rate 26 H 26 H Blood Pressure 138/97 H Pulse Oximetry 96 95 97 06/26/21 00:04 06/26/21 01:01 06/26/21 01:22 Temperature Pulse Rate 123 H 131 H 133 H Respiratory Rate 26 H 26 H 26 H Blood Pressure 138/97 H 118/80 Pulse Oximetry 95 06/26/21 01:23 06/26/21 01:55 06/26/21 02:00 Temperature 36.9 C Pulse Rate 143 H 135 H 144 H Respiratory Rate 26 H 26 H 26 H Blood Pressure 118/80 119/81 Pulse Oximetry 93 06/26/21 02:02 06/26/21 02:10 06/26/21 03:58 Temperature Pulse Rate 119 H 123 H 125 H Respiratory Rate 26 H 26 H Blood Pressure 155/89 H Pulse Oximetry 95 95 06/26/21 03:59 06/26/21 04:00 06/26/21 04:04 Temperature 36.8 C Pulse Rate 138 H 134 H 125 H Respiratory Rate 26 H 26 H 26 H Blood Pressure 148/84 H Pulse Oximetry 94 94 06/26/21 04:20 06/26/21 04:44 06/26/21 04:45 Temperature Pulse Rate 124 H 144 H 148 H Respiratory Rate 26 H 26 H 26 H Blood Pressure 155/84 H 148/84 H Pulse Oximetry 06/26/21 05:00 06/26/21 05:15 06/26/21 05:19 Temperature Pulse Rate 110 H 118 H 117 H Respiratory Rate 26 H 26 H 26 H Blood Pressure 106/73 106/73 Pulse Oximetry 06/26/21 05:30 06/26/21 06:00 06/26/21 06:26 Temperature 36.9 C Pulse Rate 115 H 100 143 H Respiratory Rate 26 H 26 H 26 H Blood Pressure 102/76 Pulse Oximetry 95 06/26/21 06:27 06/26/21 06:28 06/26/21 06:29 Temperature Pulse Rate 128 H 125 H 137 H Respiratory Rate 26 H 26 H 26 H Blood Pressure 102/76 Pulse Oximetry 06/26/21 06:43 06/26/21 06:45 06/26/21 08:00 Temperature Pulse Rate 145 H 145 H 100 Respiratory Rate 26 H 26 H Blood Pressure 95/72 L Pulse Oximetry 87 L 94 06/26/21 09:00 Temperature Pulse Rate 117 H Respiratory Rate 26 H Blood Pressure Pulse Oximetry 96 Intake/Output Intake/Output: Intake & Output 06/23/21 06/24/21 06/25/21 06/26/21 23:59 23:59 23:59 23:59 Intake Total 2263 1738 2010 730 Output Total 1850 2250 1425 730 Balance 413 -512 585 0 Meds/Results Medications: Active Medications Generic Name Dose Route Start Last Admin
[2021-06-26] MEDS: SODIUM CHLORIDE 0.9% IV 500 ML IV CONT (12:36)
[2021-06-26] MEDS: EPOPROSTENOL SODIUM 0.5 MG VIAL 0.25 MG INHALATION ×2 (12:48→18:48)
--- NOTE | 2021-06-26 13:04 | WPDINTPN ---
Progress Note: A&P Assessment and Plan (1) Acute respiratory failure with hypoxia: Code(s): J96.01 - Acute respiratory failure with hypoxia Status: Acute Assessment and Plan: Acute respiratory failure related to COVID pneumonia -patient transferred to the ICU on 06/21/2021 for worsening oxygen requirements, patient was intubated on 06/22/2021 -06/22/2021 chest x-ray revealed moderate left-sided pneumothorax, chest tube was inserted by surgery on left -Flolan started on 06/22. weaning now -patient was placed in prone position overnight and FiO2 was decreased up to 60% this morning. Continues to be on PEEP of 10 -chest x-ray does not show any residual pneumothorax on either side - chest x-ray reviewed and ETT is still high despite adjustment yesterday. discussed with RT regarding adjustment of ET tube and advancing. -will place patient in prone position daily for now -continue bronchodilators and pulmonary: (2) Pneumonia due to COVID-19 virus: Code(s): U07.1 - COVID-19; J12.82 - Pneumonia due to coronavirus disease 2019 Status: Acute Assessment and Plan: Patient tested positive for COVID on 06/15/2021 at an outside facility, presented the ED on 06/17/2021 with worsening shortness of breath and symptoms of fatigue, loss of sense of taste and smell, cough for 7-8 days prior to admission -patient has not received COVID vaccine -continue dexamethasone -Remdesivir contraindicated as patient is LFTs are significantly elevated but are improving -continue droplet, airborne and contact isolation/precautions -inflammatory markers are elevated but improving, will continue to trend (3) Transaminitis: Code(s): R74.01 - Elevation of levels of liver transaminase levels Status: Acute Assessment and Plan: Hepatitis panel is negative -abdominal ultrasound on 06/19/2021 showed 4.1 x 2.1 x 3.6 hyperechoic lesion in the right hepatic lobe consistent with a hemangioma when compared to prior CT. The liver is otherwise normal. No surface nodularity. Normal hepatopetal flow in the main portal vein. The gallbladder is surgically absent. The normal common bile duct measures 4 mm. 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 pneumonia - stable monitor (5) DVT prophylaxis: Code(s): Z29.9 - Encounter for prophylactic measures, unspecified Status: Acute Assessment and Plan: Lovenox to 40 mg SQ Q12H (6) Hypovolemia: Code(s): E86.1 - Hypovolemia Status: Acute Assessment and Plan: Improved with cautious normal saline infusion Of Levophed (7) Shock: Code(s): R57.9 - Shock, unspecified Status: Acute Assessment and Plan: Likely secondary to hypovolemia and sedation Improved and Currently off of Levophed Additional Plan DVT prophylaxis -Lovenox subQ q.12 hours Stress ulcer prophylaxis -add PPI Nutrition - Tube Feeds Code Status - Full Code Total Critical Care Time - 32 minutes Due to a high probability of clinically significant, life threatening deterioration, the patient required my highest level of preparedness to intervene emergently and I personally spent this critical care time directly and personally managing the patient. This critical care time included obtaining a history; examining the patient; pulse oximetry; ordering and review of studies; arranging urgent treatment with development of a management plan; evaluation of patient's response to treatment; frequent reassessment; and discussions with other providers. It was exclusive of separately billable procedures and treating other patients and teaching time. Please see Assessment and Plan section and the rest of the note for further information on patient assessment and treatment Subjective Date/time seen: 06/26/21 13:04 Ov
--- NOTE | 2021-06-26 15:46 | CONS_ITS ---
DATE OF CONSULTATION: 06/26/2021 REASON FOR CONSULTATION: Coronavirus infection. HISTORY OF PRESENT ILLNESS: I was not notified of this consult until this morning. The patient is a 50-year-old male, unvaccinated for SARS-CoV-2. His reasoning is not available for my review. He was admitted to the hospital on June 17 with 8 days of myalgias, loss of taste and smell, sore throat, cough, dyspnea, and anorexia. He had positive coronavirus assay 2 days prior to admission, but then developed progressive dyspnea and shortness of breath. Here he has been intubated. He was believed not a candidate for remdesivir, has been given dexamethasone and remains on that now. Hospital course has been complicated by pneumothorax and pneumomediastinum requiring chest tube, as well as ongoing respiratory failure. He has been proned. He was on norepinephrine, now stopped. No other events. ALLERGIES: NONE PERTINENT. PRESENT MEDICATIONS: Dexamethasone. No other immunosuppressants. HABITS: No tobacco. No alcohol. No illicit drugs. PAST MEDICAL HISTORY: Melanoma, treatment not available; nephrolithiasis; colon polyps; renal cysts; cholecystectomy. REVIEW OF SYSTEMS: A 5-point review not obtainable from the patient due to intubated and paralyzed status. FAMILY HISTORY: Not pertinent to his present illness. SOCIAL HISTORY: No family at the bedside. He is and currently works. PHYSICAL EXAMINATION: GENERAL: Middle-aged male, sedated and paralyzed, which compromised his exam. VITAL SIGNS: T-max since arrival 37.9, 117, 26, 95/72. No pressors. SKIN: No rashes. He has protective dressings over heels and sacrum. EENT: Orally intubated and prone. NECK: He has no meningismus apparent, though he is paralyzed. LUNGS: Mildly diminished breath sounds in the upper lung mcgarry, otherwise clear to auscultation and percussion. Breath sounds are vesicular throughout. CARDIAC: Tachycardic, at the apex no murmurs. His peripheral pulses are 2+ and equal. He has no radial lines. ABDOMEN: Flanks are soft and there are no masses. EXTREMITIES: Well perfused. No clubbing, cyanosis, or edema. LAB: Sputum from admission, normal roger. His white blood cell count 7.0 on admission, 14.7 today; hemoglobin 13.4; platelets are 358. His blood gases show hypoxemia, also combined metabolic alkalosis and respiratory acidosis. Noted ventilator settings. Has hyponatremia. BUN 34, creatinine 0.7, glucose 147, ferritin is over 2000, transaminases high, though somewhat improved. His hepatitis panel nonreactive. A previous coronavirus assay 02/17/2021, was nonreactive. RADIOLOGY: Chest x-ray, diffuse airspace disease. ASSESSMENT: 1. Hypoxemic respiratory failure. 2. Lung infiltrates due to coronavirus infection with viral pneumonia. 3. Leukocytosis due to the above as well as due to his steroid treatment. RECOMMENDATIONS: 1. Agree with present therapy. His dexamethasone can be stopped after 10 days of therapy or at your discretion. 2. No benefit to any adjunctive therapy at this time. 3. No antibacterials needed. Thank you for the consult. Call me if questions. He should get coronavirus vaccination but not first 6 months or more. BHUMI MCDONALD M.D. STRAIGHTENING MACHINE OPERATOR STRAIGHTENING MACHINE OPERATOR D I MT: [place]
[2021-06-26] MEDS: PROPOFOL IV EMULSION 100 ML 9.02 MG IV CONT (16:10)
[2021-06-26] MEDS: PROPOFOL IV EMULSION 100 ML 11.28 MG IV CONT (23:54)
[2021-06-27] VITALS (61 sets, daily range): BP systolic 90–124; BP diastolic 59–86; PULSE 68–147; RESP 22–26; TEMP 36.5–37.3; O2SAT 87–100
[2021-06-27] MEDS: EPOPROSTENOL SODIUM 0.5 MG VIAL 0.25 MG INHALATION ×2 (00:52→06:59)
[2021-06-27] MEDS: CISATRACURIUM BESYLATE 200 MG in DEXTROSE 5% 80 ML 12.98 ML IV CONT ×3 (02:34→19:00)
[2021-06-27] MEDS: PROPOFOL IV EMULSION 100 ML 15.79 MG IV CONT (04:46)
[2021-06-27 06:11] LABS: Alveolar/Arterial O2 Gradient 370.8 mmHg; Base Excess ABG 5.7 mEq/l (+/-2.0); Carboxyhemoglobin 0.3 % THb (0-2.0); Fractional Inspired Oxygen 70 %; HCO3 ABG 31.5 mEq/l (22.0-26.0); Methemoglobin ABG 0.5 %THb (0-1.5); Oxygen Content ABG 17.7 %vol (16.0-22.0); Oxygen Saturation ABG 94.8 % (95.0-100.0); Oxyhemoglobin 93.8 % THb (90.0-100.0); PCO2 ABG 50.6 mmHg (35.0-45.0); PO2 ABG 73.9 mmHg (80.0-100.0); PO2 FiO2 Ratio Arterial Blood 1.06 %; Reduced Hemoglobin 5.4 %THb (0-5.0); Total Hemoglobin 13.4 g/dL (12.0-18.0); pH ABG 7.412 (7.350-7.450)
[2021-06-27] MEDS: CENTRAL LINE FLUSH 10 ML IV PUSH ×3 (06:11→21:02)
[2021-06-27 06:12] LABS: Device VENTILATOR; Modified Allen's Test Pass; Site Drawn RIGHT RADIAL
[2021-06-27 06:13] LABS: Arterial Blood Gas PEEP 10 cmH2O; Arterial Blood Gas Tidal Volume 400 ml; Arterial Blood Gas Vent Mode CMV; Arterial Blood Gas Ventilator rate 26 /MIN
[2021-06-27 07:24] LABS: Hematocrit 38.3 % (42.0-52.0); Mean Corpuscular HGB Conc 31.3 g/dl (32-36); Mean Corpuscular Hemoglobin 30.9 pg (26-34); Mean Corpuscular Volume 98.7 fl (80-100); Mean Platelet Volume 10.5 fl (7.4-10.4); Platelet Count Result 320 k/mm3 (150-375); Red Blood Count 3.88 M/mm3 (4.6-6.20); Red Cell Distribution Width 12.4 % (11.5-14.5); White Blood Count 15.3 K/mm3 (4.5-10.0)
[2021-06-27] MEDS: PANTOPRAZOLE SODIUM IV 40 MG VIAL IV PUSH (09:18)
[2021-06-27] MEDS: polyethylene glycoL 3350 17 GM POWD.PACK PO ×2 (09:18→21:03)
[2021-06-27] MEDS: MINERAL OIL/WHITE PETROLATUM OINTMENT 1 APPLIC EACH EYE ×2 (09:21→21:01)
[2021-06-27] MEDS: ENOXAPARIN 40 MG/0.4 ML SYRINGE SUB-Q ×2 (09:21→21:03)
[2021-06-27] MEDS: DOCUSATE SODIUM LIQ 100 MG/10 ML UDC PO ×2 (09:22→21:03)
[2021-06-27] MEDS: ASCORBIC ACID 500 MG TABLET PO (09:24)
[2021-06-27] MEDS: CHOLECALCIFEROL 400 UNITS TABLET (VIT D) PO (09:24)
[2021-06-27] MEDS: ZINC SULFATE 220 MG CAPSULE PO (09:24)
[2021-06-27 09:50] LABS: Alanine Aminotransferase 108 U/L (4-50); Albumin Level 2.3 g/dL (3.5-5.1); Alkaline Phosphatase 184 U/L (38-126); Anion Gap 2 mmol/L (8-16); Aspartate Amino Transferase 54 U/L (17-59); Bilirubin,Total 0.5 mg/dL (0.2-1.3); Blood Urea Nitrogen 30 mg/dL (9-20); Calcium 7.8 mg/dL (8.4-10.2); Carbon Dioxide 33 mmol/L (22-30); Chloride 95 mmol/L (98-107); Estimated CRCL calculation 119 ml/min; Estimated Glomerular Filt Rate > 60; Glucose 117 mg/dL (65-110); Magnesium 1.9 mg/dL (1.6-2.3); Potassium 4.1 mmol/L (3.4-5.0); Sodium 130 mmol/L (137-145)
--- NOTE | 2021-06-27 11:19 | PCDIET ---
Nutrition Follow-Up Complete: Nutrition Diagnosis: Inadequate oral intake related to intubation as evidenced by NPO status. Nutrition Goal: Patient to meet estimated nutritional needs. Goal met. Patient tolerating Vital 1.2 at 55mL/hr goal rate with 30mL water flush every 4 hours. Residuals 200mL and below. Last recorded weight is 78.2 kg which is increased from last review. +I/O. Bowel Motility: No documented BM. Patient receiving Colace and Miralax. MD adding Dulcolax. Labs Reviewed: WBC (15.3), RBC (3.88), Hgb (12.0), Hct (38.3) Meds Noted: Vitamin C, Nimbex, Colace, Protonix, Flolan, Fentanyl, Versed, Propofol (rate of 15.792mL/hr provides 416kcal per day), Vitamin D, Zinc Sulfate Additional Notes: Left chest tube documented; no pressure sores. Will continue to monitor with same goal. Nutrition Monitoring and Evaluation: Follow up every Saturday/Saturday.
[2021-06-27] MEDS: BISACODYL 10 MG SUPPOSITORY RECTAL (11:35)
--- NOTE | 2021-06-27 11:48 | WPDINTPN ---
Progress Note: A&P Assessment and Plan (1) Acute respiratory failure with hypoxia: Code(s): J96.01 - Acute respiratory failure with hypoxia Status: Acute Assessment and Plan: Acute respiratory failure related to COVID pneumonia -patient transferred to the ICU on 06/21/2021 for worsening oxygen requirements, patient was intubated on 06/22/2021 -06/22/2021 chest x-ray revealed moderate left-sided pneumothorax, chest tube was inserted by surgery on left -Flolan started on 06/22 and is being weaned down -patient was placed in prone position overnight and FiO2 was decreased up to 70% this morning. Continues to be on PEEP of 10 -chest x-ray does not show any residual pneumothorax on either side - 06/27 I try to to give patient a break from neuromuscular zenon and turned infusion off. Once effect wore off patient quickly became a synchronous with the ventilator despite high sedation and his saturation dropped to 80s requiring us to go back up on his FiO2 to 100%. Nimbex infusion renewed -will place patient in prone position daily for now -continue bronchodilators and pulmonary: (2) Pneumonia due to COVID-19 virus: Code(s): U07.1 - COVID-19; J12.82 - Pneumonia due to coronavirus disease 2019 Status: Acute Assessment and Plan: Patient tested positive for COVID on 06/15/2021 at an outside facility, presented the ED on 06/17/2021 with worsening shortness of breath and symptoms of fatigue, loss of sense of taste and smell, cough for 7-8 days prior to admission -patient has not received COVID vaccine -continue dexamethasone -Remdesivir contraindicated as patient is LFTs are significantly elevated but are improving -continue droplet, airborne and contact isolation/precautions -inflammatory markers are elevated but improving, will continue to trend (3) Transaminitis: Code(s): R74.01 - Elevation of levels of liver transaminase levels Status: Acute Assessment and Plan: Hepatitis panel is negative -abdominal ultrasound on 06/19/2021 showed 4.1 x 2.1 x 3.6 hyperechoic lesion in the right hepatic lobe consistent with a hemangioma when compared to prior CT. The liver is otherwise normal. No surface nodularity. Normal hepatopetal flow in the main portal vein. The gallbladder is surgically absent. The normal common bile duct measures 4 mm. 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 pneumonia - stable monitor (5) DVT prophylaxis: Code(s): Z29.9 - Encounter for prophylactic measures, unspecified Status: Acute Assessment and Plan: Lovenox to 40 mg SQ Q12H (6) Hypovolemia: Code(s): E86.1 - Hypovolemia Status: Acute Assessment and Plan: Improved with cautious normal saline infusion Of Levophed (7) Shock: Code(s): R57.9 - Shock, unspecified Status: Acute Assessment and Plan: Likely secondary to hypovolemia and sedation Improved and Currently off of Levophed Additional Plan DVT prophylaxis -Lovenox subQ q.12 hours Stress ulcer prophylaxis -add PPI Nutrition - Tube Feeds Code Status - Full Code Total Critical Care Time - 30 minutes Due to a high probability of clinically significant, life threatening deterioration, the patient required my highest level of preparedness to intervene emergently and I personally spent this critical care time directly and personally managing the patient. This critical care time included obtaining a history; examining the patient; pulse oximetry; ordering and review of studies; arranging urgent treatment with development of a management plan; evaluation of patient's response to treatment; frequent reassessment; and discussions with other providers. It was exclusive of separately billable procedures and treating other patients and teaching time. Please
[2021-06-27] MEDS: FENTANYL 2,500MCG/NS250ML(*CRX 2,500 MCG/250 ML BAG 20 MCG IV CONT (12:40)
[2021-06-27] MEDS: PROPOFOL IV EMULSION 100 ML 18.05 MG IV CONT ×3 (12:42→23:31)
[2021-06-27] MEDS: MIDAZOLAM 100MG/NS 100ML(*CRX) 100 MG/100 ML BAG 6 MG IV CONT (17:00)
[2021-06-28] VITALS (35 sets, daily range): BP systolic 97–131; BP diastolic 66–85; PULSE 73–130; RESP 24–26; TEMP 36.2–37.1; O2SAT 92–99
[2021-06-28] MEDS: FENTANYL 2,500MCG/NS250ML(*CRX 2,500 MCG/250 ML BAG 20 MCG IV CONT ×2 (00:46→13:37)
[2021-06-28] MEDS: CISATRACURIUM BESYLATE 200 MG in DEXTROSE 5% 80 ML 10.82 ML IV CONT (03:23)
[2021-06-28] MEDS: CENTRAL LINE FLUSH 10 ML IV PUSH ×3 (03:25→20:02)
[2021-06-28 03:49] LABS: Hematocrit 35.1 % (42.0-52.0); Hemoglobin 11.4 g/dL (14.0-18.0); Mean Corpuscular HGB Conc 32.5 g/dl (32-36); Mean Corpuscular Hemoglobin 31.5 pg (26-34); Mean Platelet Volume 10.4 fl (7.4-10.4); Platelet Count Result 320 k/mm3 (150-375); Red Blood Count 3.62 M/mm3 (4.6-6.20); Red Cell Distribution Width 12.4 % (11.5-14.5)
[2021-06-28 04:00] LABS: Alanine Aminotransferase 93 U/L (4-50); Albumin Level 2.5 g/dL (3.5-5.1); Alkaline Phosphatase 185 U/L (38-126); Anion Gap 1 mmol/L (8-16); Aspartate Amino Transferase 45 U/L (17-59); Bilirubin,Total 0.4 mg/dL (0.2-1.3); Blood Urea Nitrogen 24 mg/dL (9-20); Calcium 8.3 mg/dL (8.4-10.2); Carbon Dioxide 35 mmol/L (22-30); Chloride 99 mmol/L (98-107); Estimated CRCL calculation 137 ml/min; Estimated Glomerular Filt Rate > 60; Glucose 137 mg/dL (65-110); Lactate Dehydrogenase 469 U/L (313-618); Magnesium 2.1 mg/dL (1.6-2.3); Potassium 4.1 mmol/L (3.4-5.0); Sodium 135 mmol/L (137-145)
[2021-06-28 04:02] LABS: D Dimer 1.68 ug/mL (<0.48)
[2021-06-28] MEDS: PROPOFOL IV EMULSION 100 ML 18.05 MG IV CONT ×4 (04:50→21:03)
[2021-06-28 05:30] LABS: Alveolar/Arterial O2 Gradient 265.3 mmHg; Base Excess ABG 8.4 mEq/l (+/-2.0); Carboxyhemoglobin 0.3 % THb (0-2.0); Fractional Inspired Oxygen 55 %; HCO3 ABG 33.8 mEq/l (22.0-26.0); Methemoglobin ABG 0.4 %THb (0-1.5); Oxygen Content ABG 17.3 %vol (16.0-22.0); Oxygen Saturation ABG 94.8 % (95.0-100.0); Oxyhemoglobin 93.7 % THb (90.0-100.0); PCO2 ABG 49.8 mmHg (35.0-45.0); PO2 ABG 71.5 mmHg (80.0-100.0); Reduced Hemoglobin 5.6 %THb (0-5.0); Total Hemoglobin 13.1 g/dL (12.0-18.0); pH ABG 7.449 (7.350-7.450)
[2021-06-28 05:31] LABS: Device VENTILATOR; Site Drawn LEFT RADIAL
[2021-06-28 05:32] LABS: Arterial Blood Gas PEEP 10 cmH2O; Arterial Blood Gas Tidal Volume 400 ml; Arterial Blood Gas Vent Mode CMV; Arterial Blood Gas Ventilator rate 26 /MIN
[2021-06-28] MEDS: MINERAL OIL/WHITE PETROLATUM OINTMENT 1 APPLIC EACH EYE ×2 (08:55→19:59)
[2021-06-28] MEDS: ENOXAPARIN 40 MG/0.4 ML SYRINGE SUB-Q ×2 (08:55→20:00)
[2021-06-28] MEDS: polyethylene glycoL 3350 17 GM POWD.PACK PO ×2 (08:56→20:00)
[2021-06-28] MEDS: CHOLECALCIFEROL 400 UNITS TABLET (VIT D) PO (08:56)
[2021-06-28] MEDS: ZINC SULFATE 220 MG CAPSULE PO (08:57)
[2021-06-28] MEDS: ASCORBIC ACID 500 MG TABLET PO (08:57)
[2021-06-28] MEDS: PANTOPRAZOLE SODIUM IV 40 MG VIAL IV PUSH (09:06)
[2021-06-28] MEDS: MIDAZOLAM 100MG/NS 100ML(*CRX) 100 MG/100 ML BAG 6 MG IV CONT (10:49)
[2021-06-28] MEDS: CISATRACURIUM BESYLATE 200 MG in DEXTROSE 5% 80 ML 12.98 ML IV CONT ×2 (12:00→20:12)
--- NOTE | 2021-06-28 12:32 | PCDIET ---
ICU Rounding Note: Patient tolerating Vital 1.2 at 55mL/hr goal rate with 30mL water flush every 4 hours. Residuals 175mL and below. Last recorded weight is 78.3kg which is stable. Bowel Motility: +BM today, per RN. Labs Reviewed: WBC (15.0), RBC (3.62), Hgb (11.4), Hct (35.1), Glu (137), BUN (24), Cr (0.6), Na (135), Alb (2.5), Boogie Ca (9.5) Meds Noted: Vitamin C, Dulcolax, Nimbex, Colace, Fentanyl, Versed, Protonix, Miralax, Vitamin D, Zinc Sulfate, Propofol (rate of 18.048mL/hr provides 476kcal per day which is 1928kcal (25kcal/kg) per day with tube feedings over 22 hours/day) Additional Notes: No documented skin breakdown. Following daily in ICU rounds. Assessing/reassessing every Saturday/Saturday.
[2021-06-28 13:19] LABS: Ferritin > 2000 ng/mL (26-388)
--- NOTE | 2021-06-28 14:28 | WPDINTPN ---
Progress Note: A&P Assessment and Plan (1) Acute respiratory failure with hypoxia: Code(s): J96.01 - Acute respiratory failure with hypoxia Status: Acute Assessment and Plan: Acute respiratory failure related to COVID pneumonia -patient transferred to the ICU on 06/21/2021 for worsening oxygen requirements, patient was intubated on 06/22/2021 -06/22/2021 chest x-ray revealed moderate left-sided pneumothorax, chest tube was inserted by surgery on left -OFF FLOLAN -chest x-ray does not show any residual pneumothorax on either side - 06/27 was given a breakk from neuromuscular zenon and turned infusion off. Once effect wore off patient quickly became dyssynchronous with the ventilator despite high sedation and his saturation dropped to 80s requiring us to go back up on his FiO2 to 100%. Nimbex infusion had to be restartedw -continue bronchodilators and Pulmicort -patient has been tolerating prone positioning, will continue daily (2) Pneumonia due to COVID-19 virus: Code(s): U07.1 - COVID-19; J12.82 - Pneumonia due to coronavirus disease 2019 Status: Acute Assessment and Plan: Patient tested positive for COVID on 06/15/2021 at an outside facility, presented the ED on 06/17/2021 with worsening shortness of breath and symptoms of fatigue, loss of sense of taste and smell, cough for 7-8 days prior to admission -patient has not received COVID vaccine -continue dexamethasone -Remdesivir contraindicated as patient is LFTs are significantly elevated but are improving -continue droplet, airborne and contact isolation/precautions -inflammatory markers are elevated but improving, will continue to trend (3) Transaminitis: Code(s): R74.01 - Elevation of levels of liver transaminase levels Status: Acute Assessment and Plan: Hepatitis panel is negative -abdominal ultrasound on 06/19/2021 showed 4.1 x 2.1 x 3.6 hyperechoic lesion in the right hepatic lobe consistent with a hemangioma when compared to prior CT. The liver is otherwise normal. No surface nodularity. Normal hepatopetal flow in the main portal vein. The gallbladder is surgically absent. The normal common bile duct measures 4 mm. -LFTs have almost normalized, will continue to monitor (4) Hyponatremia: Code(s): E87.1 - Hypo-osmolality and hyponatremia Status: Acute Assessment and Plan: Resolved -could be related to SIADH due to COVID pneumonia - stable monitor (5) DVT prophylaxis: Code(s): Z29.9 - Encounter for prophylactic measures, unspecified Status: Acute Assessment and Plan: Lovenox to 40 mg SQ Q12H (6) Hypovolemia: Code(s): E86.1 - Hypovolemia Status: Acute Assessment and Plan: Improved with cautious normal saline infusion Off Levophed (7) Shock: Code(s): R57.9 - Shock, unspecified Status: Acute Assessment and Plan: Likely secondary to hypovolemia and sedation Currently off of Levophed Additional Plan DVT prophylaxis -Lovenox subQ q.12 hours Stress ulcer prophylaxis -add PPI Nutrition - Tube Feeds Code Status - Full Code Total Critical Care Time - 33 minutes Due to a high probability of clinically significant, life threatening deterioration, the patient required my highest level of preparedness to intervene emergently and I personally spent this critical care time directly and personally managing the patient. This critical care time included obtaining a history; examining the patient; pulse oximetry; ordering and review of studies; arranging urgent treatment with development of a management plan; evaluation of patient's response to treatment; frequent reassessment; and discussions with other providers. It was exclusive of separately billable procedures and treating other patients and teaching time. Please see Assessment and Plan section and the rest of the note for further information on patient assessment and treatment Subjective Date
[2021-06-28] MEDS: DOCUSATE SODIUM LIQ 100 MG/10 ML UDC PO ×2 (15:27→20:00)
--- NOTE | 2021-06-28 15:51 | PC.NURSE ---
Updated spouse on patient condition.
[2021-06-29] VITALS (43 sets, daily range): BP systolic 96–134; BP diastolic 66–85; PULSE 87–136; RESP 24–26; TEMP 36.6–37.7; O2SAT 87–97
[2021-06-29] MEDS: FENTANYL 2,500MCG/NS250ML(*CRX 2,500 MCG/250 ML BAG 20 MCG IV CONT ×2 (02:07→15:51)
[2021-06-29] MEDS: PROPOFOL IV EMULSION 100 ML 18.05 MG IV CONT ×5 (02:09→23:10)
[2021-06-29] MEDS: MIDAZOLAM 100MG/NS 100ML(*CRX) 100 MG/100 ML BAG 6 MG IV CONT ×2 (02:10→19:30)
[2021-06-29] MEDS: CISATRACURIUM BESYLATE 200 MG in DEXTROSE 5% 80 ML 12.98 ML IV CONT ×3 (04:08→20:29)
[2021-06-29] MEDS: CENTRAL LINE FLUSH 10 ML IV PUSH ×3 (04:10→20:30)
[2021-06-29 05:09] LABS: Hematocrit 38.7 % (42.0-52.0); Hemoglobin 12.5 g/dL (14.0-18.0); Mean Corpuscular HGB Conc 32.3 g/dl (32-36); Mean Corpuscular Hemoglobin 31.6 pg (26-34); Mean Corpuscular Volume 97.7 fl (80-100); Mean Platelet Volume 10.4 fl (7.4-10.4); Platelet Count Result 375 k/mm3 (150-375); Red Blood Count 3.96 M/mm3 (4.6-6.20); Red Cell Distribution Width 12.5 % (11.5-14.5); White Blood Count 18.7 K/mm3 (4.5-10.0)
[2021-06-29 05:22] LABS: Alanine Aminotransferase 103 U/L (4-50); Albumin Level 2.9 g/dL (3.5-5.1); Alkaline Phosphatase 253 U/L (38-126); Anion Gap 1 mmol/L (8-16); Aspartate Amino Transferase 55 U/L (17-59); Bilirubin,Total 0.6 mg/dL (0.2-1.3); Blood Urea Nitrogen 21 mg/dL (9-20); Calcium 8.2 mg/dL (8.4-10.2); Carbon Dioxide 36 mmol/L (22-30); Chloride 93 mmol/L (98-107); Estimated CRCL calculation 152 ml/min; Estimated Glomerular Filt Rate > 60; Glucose 90 mg/dL (65-110); Magnesium 1.9 mg/dL (1.6-2.3); Potassium 4.3 mmol/L (3.4-5.0); Sodium 130 mmol/L (137-145)
[2021-06-29 05:47] LABS: Alveolar/Arterial O2 Gradient 260.7 mmHg; Base Excess ABG 10.3 mEq/l (+/-2.0); Carboxyhemoglobin 0.3 % THb (0-2.0); Fractional Inspired Oxygen 60 %; HCO3 ABG 38.9 mEq/l (22.0-26.0); Methemoglobin ABG 0.6 %THb (0-1.5); Oxygen Content ABG 18.7 %vol (16.0-22.0); Oxyhemoglobin 95.5 % THb (90.0-100.0); PO2 ABG 88.6 mmHg (80.0-100.0); PO2 FiO2 Ratio Arterial Blood 1.48 %; Reduced Hemoglobin 3.6 %THb (0-5.0); Total Hemoglobin 13.9 g/dL (12.0-18.0); pH ABG 7.354 (7.350-7.450)
[2021-06-29 05:49] LABS: Device VENTILATOR; PCO2 ABG 71.4 mmHg (35.0-45.0); Site Drawn RIGHT RADIAL
[2021-06-29 05:50] LABS: Arterial Blood Gas PEEP 10 cmH2O; Arterial Blood Gas Tidal Volume 400 ml; Arterial Blood Gas Vent Mode CMV; Arterial Blood Gas Ventilator rate 26 /MIN
[2021-06-29] MEDS: MINERAL OIL/WHITE PETROLATUM OINTMENT 1 APPLIC EACH EYE ×2 (07:30→20:26)
[2021-06-29] MEDS: ASCORBIC ACID 500 MG TABLET PO (07:30)
[2021-06-29] MEDS: DOCUSATE SODIUM LIQ 100 MG/10 ML UDC PO ×2 (07:31→20:27)
[2021-06-29] MEDS: ZINC SULFATE 220 MG CAPSULE PO (07:31)
[2021-06-29] MEDS: CHOLECALCIFEROL 400 UNITS TABLET (VIT D) PO (07:31)
[2021-06-29] MEDS: polyethylene glycoL 3350 17 GM POWD.PACK PO ×2 (07:31→20:27)
[2021-06-29] MEDS: PANTOPRAZOLE SODIUM IV 40 MG VIAL IV PUSH (07:31)
[2021-06-29] MEDS: ENOXAPARIN 40 MG/0.4 ML SYRINGE SUB-Q ×2 (07:31→20:26)
--- NOTE | 2021-06-29 11:33 | PCDIET ---
ICU Rounding Note: Tube feedings held overnight for 280mL residual. Vital 1.2 has since been restarted at 20mL/hr with plan to advance toward goal of 55mL/hr. Last recorded weight is 72.8kg which is down from last review. +I/O. Bowel Motility: BM x 2 on 06/28/21. Labs Reviewed: WBC (18.7), RBC (3.96), Hgb (12.5), Hct (38.7), BUN (21), .Cr (0.5), Na (130), Alb (2.9), Boogie Ca (9.08) Meds Noted: Vitamin C, Nimbex, Protonix, Vitamin D, Colace, Fentanyl, Versed, Zinc Sulfate, Miralax, Propofol (rate of 18.05mL/hr provides 476kcal per day) Additional Notes: Left chest tube site documented; no pressure sores. Following daily in ICU rounds. Assessing/reassessing every Saturday/Saturday.
--- NOTE | 2021-06-29 12:43 | WPDINTPN ---
Progress Note: A&P Assessment and Plan (1) Acute respiratory failure with hypoxia: Code(s): J96.01 - Acute respiratory failure with hypoxia Status: Acute Assessment and Plan: Acute respiratory failure related to COVID pneumonia -patient transferred to the ICU on 06/21/2021 for worsening oxygen requirements, patient was intubated on 06/22/2021 -06/22/2021 chest x-ray revealed moderate left-sided pneumothorax, chest tube was inserted by surgery on left -OFF FLOLAN -chest x-ray does not show any residual pneumothorax on either side - 06/27 was given a break from neuromuscular zenon and turned infusion off. Once effect wore off patient quickly became dyssynchronous with the ventilator despite high sedation and his saturation dropped to 80s requiring us to go back up on his FiO2 to 100%. Nimbex infusion had to be restarted -continue bronchodilators and Pulmicort -patient has been tolerating prone positioning, will continue daily (2) Pneumonia due to COVID-19 virus: Code(s): U07.1 - COVID-19; J12.82 - Pneumonia due to coronavirus disease 2019 Status: Acute Assessment and Plan: Patient tested positive for COVID on 06/15/2021 at an outside facility, presented the ED on 06/17/2021 with worsening shortness of breath and symptoms of fatigue, loss of sense of taste and smell, cough for 7-8 days prior to admission -patient has not received COVID vaccine -continue dexamethasone -Remdesivir contraindicated as patient is LFTs are significantly elevated but are improving -continue droplet, airborne and contact isolation/precautions -inflammatory markers are elevated but improving, will continue to trend (3) Transaminitis: Code(s): R74.01 - Elevation of levels of liver transaminase levels Status: Acute Assessment and Plan: Hepatitis panel is negative -abdominal ultrasound on 06/19/2021 showed 4.1 x 2.1 x 3.6 hyperechoic lesion in the right hepatic lobe consistent with a hemangioma when compared to prior CT. The liver is otherwise normal. No surface nodularity. Normal hepatopetal flow in the main portal vein. The gallbladder is surgically absent. The normal common bile duct measures 4 mm. -LFTs have almost normalized, will continue to monitor (4) Hyponatremia: Code(s): E87.1 - Hypo-osmolality and hyponatremia Status: Acute Assessment and Plan: Resolved -could be related to SIADH due to COVID pneumonia - stable monitor (5) DVT prophylaxis: Code(s): Z29.9 - Encounter for prophylactic measures, unspecified Status: Acute Assessment and Plan: Lovenox to 40 mg SQ Q12H (6) Hypovolemia: Code(s): E86.1 - Hypovolemia Status: Acute Assessment and Plan: Improved with cautious normal saline infusion Off Levophed (7) Shock: Code(s): R57.9 - Shock, unspecified Status: Acute Assessment and Plan: Likely secondary to hypovolemia and sedation Currently off of Levophed Additional Plan DVT prophylaxis -Lovenox subQ q.12 hours Stress ulcer prophylaxis -add PPI Nutrition - Tube Feeds Called Adri at [phone], updated with patient's condition and plan of care. I answered all questions. She is aware that the patient's condition is still guarded and critical since he is on 70% FiO2 and 10 of PEEP on mechanical ventilation. He is also aware that the patient has a chest tube Code Status - Full Code Total Critical Care Time - 32 minutes Due to a high probability of clinically significant, life threatening deterioration, the patient required my highest level of preparedness to intervene emergently and I personally spent this critical care time directly and personally managing the patient. This critical care time included obtaining a history; examining the patient; pulse oximetry; ordering and review of studies; arranging urgent treatment with development of a management plan; evaluation of patient's response to treatment;
[2021-06-30] VITALS (25 sets, daily range): BP systolic 90–155; BP diastolic 65–83; PULSE 95–135; RESP 24–26; TEMP 36.4–37.3; O2SAT 93–97
[2021-06-30] MEDS: CISATRACURIUM BESYLATE 200 MG in DEXTROSE 5% 80 ML 12.98 ML IV CONT ×3 (04:12→18:00)
[2021-06-30] MEDS: CENTRAL LINE FLUSH 10 ML IV PUSH ×4 (04:13→21:37)
[2021-06-30] MEDS: FENTANYL 2,500MCG/NS250ML(*CRX 2,500 MCG/250 ML BAG 20 MCG IV CONT ×2 (04:14→16:45)
[2021-06-30] MEDS: PROPOFOL IV EMULSION 100 ML 18.05 MG IV CONT ×4 (04:17→18:27)
[2021-06-30 04:45] LABS: Alveolar/Arterial O2 Gradient 428.7 mmHg; Base Excess ABG 6.1 mEq/l (+/-2.0); Carboxyhemoglobin 0.3 % THb (0-2.0); Device VENTILATOR; Fractional Inspired Oxygen 80 %; HCO3 ABG 30.8 mEq/l (22.0-26.0); Methemoglobin ABG 0.7 %THb (0-1.5); Oxygen Content ABG 23.2 %vol (16.0-22.0); Oxygen Saturation ABG 97.6 % (95.0-100.0); Oxyhemoglobin 96.8 % THb (90.0-100.0); PO2 ABG 95.5 mmHg (80.0-100.0); PO2 FiO2 Ratio Arterial Blood 1.19 %; Reduced Hemoglobin 2.2 %THb (0-5.0); Site Drawn RIGHT RADIAL; pH ABG 7.463 (7.350-7.450)
[2021-06-30 04:46] LABS: Arterial Blood Gas PEEP 10 cmH2O; Arterial Blood Gas Tidal Volume 400 ml; Arterial Blood Gas Vent Mode CMV; Arterial Blood Gas Ventilator rate 26 /MIN
[2021-06-30 05:00] LABS: Hematocrit 40.7 % (42.0-52.0); Hemoglobin 13.5 g/dL (14.0-18.0); Mean Corpuscular HGB Conc 33.2 g/dl (32-36); Mean Corpuscular Hemoglobin 31.1 pg (26-34); Mean Corpuscular Volume 93.8 fl (80-100); Mean Platelet Volume 10.2 fl (7.4-10.4); Platelet Count Result 412 k/mm3 (150-375); Red Blood Count 4.34 M/mm3 (4.6-6.20); Red Cell Distribution Width 12.2 % (11.5-14.5); White Blood Count 15.2 K/mm3 (4.5-10.0)
[2021-06-30 05:24] LABS: D Dimer 3.22 ug/mL (<0.48)
[2021-06-30 05:52] LABS: Anion Gap 2 mmol/L (8-16); Carbon Dioxide 34 mmol/L (22-30); Chloride 96 mmol/L (98-107); Lactate Dehydrogenase 485 U/L (313-618); Potassium 4.6 mmol/L (3.4-5.0); Sodium 132 mmol/L (137-145)
[2021-06-30 05:53] LABS: Blood Urea Nitrogen 18 mg/dL (9-20); Estimated CRCL calculation 148 ml/min; Estimated Glomerular Filt Rate > 60
[2021-06-30 05:56] LABS: Alanine Aminotransferase 93 U/L (4-50); Alkaline Phosphatase 336 U/L (38-126); Aspartate Amino Transferase 51 U/L (17-59); Bilirubin,Total 1.1 mg/dL (0.2-1.3); Calcium 8.5 mg/dL (8.4-10.2); Glucose 129 mg/dL (65-110); Magnesium 1.9 mg/dL (1.6-2.3); Total Protein 6.6 g/dL (6.3-8.2)
[2021-06-30 08:02] LABS: Glucose Point of Care 143 mg/dl (65-105)
[2021-06-30] MEDS: ZINC SULFATE 220 MG CAPSULE PO (08:30)
[2021-06-30] MEDS: ASCORBIC ACID 500 MG TABLET PO (08:30)
[2021-06-30] MEDS: CHOLECALCIFEROL 400 UNITS TABLET (VIT D) PO (08:30)
[2021-06-30] MEDS: PANTOPRAZOLE SODIUM IV 40 MG VIAL IV PUSH (08:30)
[2021-06-30] MEDS: MINERAL OIL/WHITE PETROLATUM OINTMENT 1 APPLIC EACH EYE ×2 (08:30→21:37)
[2021-06-30] MEDS: ENOXAPARIN 40 MG/0.4 ML SYRINGE SUB-Q ×2 (08:30→21:37)
[2021-06-30 09:33] LABS: Ferritin > 2000.00 ng/mL (11.1-264)
--- NOTE | 2021-06-30 11:29 | PCDIET ---
Nutrition Follow-Up Complete: Nutrition Diagnosis: Inadequate oral intake related to intubation as evidenced by NPO status. Nutrition Goal: Patient to meet estimated nutritional needs. Goal in progress. Tube feedings held for reported 325mL residual. Suggested prokinetic agent. No order provided, given report of liquid BM earlier today. Recommend resuming feedings and only holding for residuals greater than 500mL unless patient presenting other symptoms of intolerance. Last recorded weight is 71.2 kg which is down from last review. Bowel Motility: Liquid BM this morning, per RN. Labs Reviewed: WBC (15.2), RBC (4.34), Hgb (13.5), Hct (40.7), Glu (129), Cr (0.5), Na (132), Alb (3.0) Meds Noted: Vitamin C, Nimbex, Protonix, Fentanyl, Versed, Vitamin D, Zinc Sulfate, Propofol (rate of 18.05mL/hr provides 476kcal per day) Additional Notes: Miralax and Colace held this morning due to liquid stool. Right cheek skin tear and posterior neck laceration documented. Left chest tube in place. Will continue to monitor with same goal. Nutrition Monitoring and Evaluation: Follow up every Saturday/Saturday.
[2021-06-30] MEDS: MIDAZOLAM 100MG/NS 100ML(*CRX) 100 MG/100 ML BAG 6 MG IV CONT (12:00)
--- NOTE | 2021-06-30 13:06 | WPDINTPN ---
Progress Note: A&P Assessment and Plan (1) Acute respiratory failure with hypoxia: Code(s): J96.01 - Acute respiratory failure with hypoxia Status: Acute Assessment and Plan: Acute respiratory failure related to COVID pneumonia -patient transferred to the ICU on 06/21/2021 for worsening oxygen requirements, patient was intubated on 06/22/2021 -06/22/2021 chest x-ray revealed moderate left-sided pneumothorax, chest tube was inserted by surgery on left -OFF FLOLAN -chest x-ray does not show any residual pneumothorax on either side - 06/27 patient did not tolerate discontinuing the neuromuscular blockade. To be restarted on the same -continue bronchodilators and Pulmicort -patient has been tolerating prone positioning, will continue daily -will decrease FiO2 to 70% (2) Pneumonia due to COVID-19 virus: Code(s): U07.1 - COVID-19; J12.82 - Pneumonia due to coronavirus disease 2019 Status: Acute Assessment and Plan: Patient tested positive for COVID on 06/15/2021 at an outside facility, presented the ED on 06/17/2021 with worsening shortness of breath and symptoms of fatigue, loss of sense of taste and smell, cough for 7-8 days prior to admission -patient has not received COVID vaccine -continue dexamethasone -Remdesivir contraindicated in patients with significant elevation in LFTs -continue droplet, airborne and contact isolation/precautions (3) Transaminitis: Code(s): R74.01 - Elevation of levels of liver transaminase levels Status: Acute Assessment and Plan: Hepatitis panel is negative -abdominal ultrasound on 06/19/2021 showed 4.1 x 2.1 x 3.6 hyperechoic lesion in the right hepatic lobe consistent with a hemangioma when compared to prior CT. The liver is otherwise normal. No surface nodularity. Normal hepatopetal flow in the main portal vein. The gallbladder is surgically absent. The normal common bile duct measures 4 mm. -LFTs have almost normalized, will continue to monitor (4) Hyponatremia: Code(s): E87.1 - Hypo-osmolality and hyponatremia Status: Acute Assessment and Plan: Resolved -could be related to SIADH due to COVID pneumonia - stable monitor (5) DVT prophylaxis: Code(s): Z29.9 - Encounter for prophylactic measures, unspecified Status: Acute Assessment and Plan: Lovenox to 40 mg SQ Q12H (6) Hypovolemia: Code(s): E86.1 - Hypovolemia Status: Acute Assessment and Plan: Improved with cautious normal saline infusion Off Levophed (7) Shock: Code(s): R57.9 - Shock, unspecified Status: Acute Assessment and Plan: Likely secondary to hypovolemia and sedation Currently off of Levophed Additional Plan DVT prophylaxis -Lovenox subQ q.12 hours Stress ulcer prophylaxis -add PPI Nutrition - Tube Feeds Called Adri at [phone], updated with patient's condition and plan of care. I answered all questions. She inquired about the chest tube, high is FiO2, his kidney functions and liver enzymes. I answered to all her questions and made myself available if she had any other questions. I also told her that we will keep her updated from time to time Code Status - Full Code Total Critical Care Time - 32 minutes Due to a high probability of clinically significant, life threatening deterioration, the patient required my highest level of preparedness to intervene emergently and I personally spent this critical care time directly and personally managing the patient. This critical care time included obtaining a history; examining the patient; pulse oximetry; ordering and review of studies; arranging urgent treatment with development of a management plan; evaluation of patient's response to treatment; frequent reassessment; and discussions with other providers. It was exclusive of separately billable procedures and treating other patients and teaching time. Please see Assessment and Plan section and th
[2021-06-30] MEDS: NEOMYCIN/POLYMYXIN/BACITRACIN OINTMENT PACKET 1 PACKET (14:25)
[2021-07-01] VITALS (39 sets, daily range): BP systolic 86–117; BP diastolic 62–79; PULSE 115–139; RESP 23–26; TEMP 36.2–37.4; O2SAT 91–95
[2021-07-01 00:41] LABS: Glucose Point of Care 125 mg/dl (65-105)
[2021-07-01] MEDS: MIDAZOLAM 100MG/NS 100ML(*CRX) 100 MG/100 ML BAG 6 MG IV CONT ×2 (01:06→17:01)
[2021-07-01] MEDS: CISATRACURIUM BESYLATE 200 MG in DEXTROSE 5% 80 ML 12.98 ML IV CONT (01:07)
[2021-07-01] MEDS: FENTANYL 2,500MCG/NS250ML(*CRX 2,500 MCG/250 ML BAG 20 MCG IV CONT ×2 (04:10→17:02)
[2021-07-01 04:55] LABS: Alveolar/Arterial O2 Gradient 314.3 mmHg; Base Excess ABG 6.1 mEq/l (+/-2.0); Carboxyhemoglobin 0.3 % THb (0-2.0); Fractional Inspired Oxygen 65 %; HCO3 ABG 31.9 mEq/l (22.0-26.0); Methemoglobin ABG 0.4 %THb (0-1.5); Oxygen Content ABG 18.3 %vol (16.0-22.0); Oxygen Saturation ABG 97.2 % (95.0-100.0); Oxyhemoglobin 96.1 % THb (90.0-100.0); PCO2 ABG 50.8 mmHg (35.0-45.0); PO2 ABG 93.9 mmHg (80.0-100.0); PO2 FiO2 Ratio Arterial Blood 1.44 %; Reduced Hemoglobin 3.2 %THb (0-5.0); Total Hemoglobin 13.5 g/dL (12.0-18.0); pH ABG 7.416 (7.350-7.450)
[2021-07-01 04:56] LABS: Device VENTILATOR; Modified Allen's Test Pass; Site Drawn LEFT RADIAL
[2021-07-01 04:57] LABS: Arterial Blood Gas PEEP 10 cmH2O; Arterial Blood Gas Tidal Volume 400 ml; Arterial Blood Gas Vent Mode CMV; Arterial Blood Gas Ventilator rate 26 /MIN
[2021-07-01 04:58] LABS: Hematocrit 38.3 % (42.0-52.0); Hemoglobin 12.6 g/dL (14.0-18.0); Mean Corpuscular HGB Conc 32.9 g/dl (32-36); Mean Corpuscular Hemoglobin 32.2 pg (26-34); Mean Platelet Volume 10.5 fl (7.4-10.4); Platelet Count Result 400 k/mm3 (150-375); Red Blood Count 3.91 M/mm3 (4.6-6.20); Red Cell Distribution Width 12.6 % (11.5-14.5); White Blood Count 17.2 K/mm3 (4.5-10.0)
[2021-07-01] MEDS: PROPOFOL IV EMULSION 100 ML 20.3 MG IV CONT ×3 (05:12→10:06)
[2021-07-01 05:19] LABS: Alanine Aminotransferase 72 U/L (4-50); Albumin Level 2.2 g/dL (3.5-5.1); Alkaline Phosphatase 318 U/L (38-126); Anion Gap 6 mmol/L (8-16); Aspartate Amino Transferase 55 U/L (17-59); Bilirubin,Total 0.5 mg/dL (0.2-1.3); Blood Urea Nitrogen 22 mg/dL (9-20); Calcium 7.9 mg/dL (8.4-10.2); Carbon Dioxide 29 mmol/L (22-30); Chloride 92 mmol/L (98-107); Estimated CRCL calculation 181 ml/min; Estimated Glomerular Filt Rate > 60; Glucose 123 mg/dL (65-110); Magnesium 1.8 mg/dL (1.6-2.3); Potassium 4.2 mmol/L (3.4-5.0); Sodium 127 mmol/L (137-145)
[2021-07-01] MEDS: CENTRAL LINE FLUSH 10 ML IV PUSH ×6 (06:47→20:47)
--- NOTE | 2021-07-01 07:30 | PC.NURSE ---
Upon AM admission, chest tube was not secured at the connection site. Dr. eddy at bedside and instructed RN to reconnect chest tube.
[2021-07-01] MEDS: CISATRACURIUM BESYLATE 200 MG in DEXTROSE 5% 80 ML 14.06 ML IV CONT ×2 (08:34→16:03)
[2021-07-01] MEDS: ENOXAPARIN 40 MG/0.4 ML SYRINGE SUB-Q ×2 (10:05→20:46)
[2021-07-01] MEDS: CHOLECALCIFEROL 400 UNITS TABLET (VIT D) PO (10:05)
[2021-07-01] MEDS: MINERAL OIL/WHITE PETROLATUM OINTMENT 1 APPLIC EACH EYE ×2 (10:05→20:46)
[2021-07-01] MEDS: PANTOPRAZOLE SODIUM IV 40 MG VIAL IV PUSH (10:05)
[2021-07-01] MEDS: ZINC SULFATE 220 MG CAPSULE PO (10:05)
[2021-07-01] MEDS: ASCORBIC ACID 500 MG TABLET PO (10:05)
--- NOTE | 2021-07-01 12:44 | WPDINTPN ---
Progress Note: A&P Assessment and Plan (1) Acute respiratory failure with hypoxia: Code(s): J96.01 - Acute respiratory failure with hypoxia Status: Acute Assessment and Plan: Acute respiratory failure related to COVID pneumonia -patient transferred to the ICU on 06/21/2021 for worsening oxygen requirements, patient was intubated on 06/22/2021 -06/22/2021 chest x-ray revealed moderate left-sided pneumothorax, chest tube was inserted by surgery on left -OFF FLOLAN -chest x-ray does not show any residual pneumothorax on either side - 06/27 patient did not tolerate discontinuing the neuromuscular blockade and was restarted on Nimbex -continue bronchodilators and Pulmicort -patient has been tolerating prone positioning, will continue daily -will decrease FiO2 to 60% (2) Pneumonia due to COVID-19 virus: Code(s): U07.1 - COVID-19; J12.82 - Pneumonia due to coronavirus disease 2019 Status: Acute Assessment and Plan: Patient tested positive for COVID on 06/15/2021 at an outside facility, presented the ED on 06/17/2021 with worsening shortness of breath and symptoms of fatigue, loss of sense of taste and smell, cough for 7-8 days prior to admission -patient has not received COVID vaccine -continue dexamethasone -Remdesivir contraindicated in patients with significant elevation in LFTs -continue droplet, airborne and contact isolation/precautions (3) Transaminitis: Code(s): R74.01 - Elevation of levels of liver transaminase levels Status: Acute Assessment and Plan: Hepatitis panel is negative -abdominal ultrasound on 06/19/2021 showed 4.1 x 2.1 x 3.6 hyperechoic lesion in the right hepatic lobe consistent with a hemangioma when compared to prior CT. The liver is otherwise normal. No surface nodularity. Normal hepatopetal flow in the main portal vein. The gallbladder is surgically absent. The normal common bile duct measures 4 mm. -LFTs have almost normalized, will continue to monitor (4) Hyponatremia: Code(s): E87.1 - Hypo-osmolality and hyponatremia Status: Acute Assessment and Plan: -could be related to SIADH due to COVID pneumonia - stable monitor (5) DVT prophylaxis: Code(s): Z29.9 - Encounter for prophylactic measures, unspecified Status: Acute Assessment and Plan: Lovenox to 40 mg SQ Q12H (6) Hypovolemia: Code(s): E86.1 - Hypovolemia Status: Acute Assessment and Plan: Improved with cautious normal saline infusion Off Levophed (7) Shock: Code(s): R57.9 - Shock, unspecified Status: Acute Assessment and Plan: Likely secondary to hypovolemia and sedation Currently off of Levophed Additional Plan DVT prophylaxis -Lovenox subQ q.12 hours Stress ulcer prophylaxis -add PPI Nutrition - Tube Feeds Called Adri at [phone], updated with patient's condition and plan of care. I answered all questions. She inquired about the chest tube, high is FiO2, his kidney functions and liver enzymes. I answered to all her questions and made myself available if she had any other questions. I also told her that we will keep her updated from time to time Code Status - Full Code Total Critical Care Time - 32 minutes Due to a high probability of clinically significant, life threatening deterioration, the patient required my highest level of preparedness to intervene emergently and I personally spent this critical care time directly and personally managing the patient. This critical care time included obtaining a history; examining the patient; pulse oximetry; ordering and review of studies; arranging urgent treatment with development of a management plan; evaluation of patient's response to treatment; frequent reassessment; and discussions with other providers. It was exclusive of separately billable procedures and treating other patients and teaching time. Please see Assessment and Plan section and the rest of th
[2021-07-01] MEDS: PROPOFOL IV EMULSION 100 ML 22.56 MG IV CONT ×3 (15:30→23:36)
[2021-07-01] MEDS: polyethylene glycoL 3350 17 GM POWD.PACK PO (20:47)
[2021-07-01] MEDS: CISATRACURIUM BESYLATE 200 MG in DEXTROSE 5% 80 ML 10.82 ML IV CONT (23:26)
[2021-07-02] VITALS (40 sets, daily range): BP systolic 90–119; BP diastolic 67–84; PULSE 118–131; RESP 12–27; TEMP 35.9–37.7; O2SAT 89–97
[2021-07-02] MEDS: PROPOFOL IV EMULSION 100 ML 22.56 MG IV CONT ×5 (04:02→22:00)
[2021-07-02 04:53] LABS: Basophils Absolute Auto 0.1 K/mm3 (0.0-0.1); Basophils Percent Auto 0.4 % (0.2-1.2); Eosinophils Percent Auto 0.2 % (0-4.4); Hematocrit 36.6 % (42.0-52.0); Hemoglobin 11.9 g/dL (14.0-18.0); Immature Granulocyte Absolute 0.22 K/mm3 (0.00-0.031); Immature Granulocyte Percent A 0.9 % (0-0.5); Lymphocytes Absolute Auto 0.88 K/mm3 (0.9-3.2); Lymphocytes Percent Auto 3.7 % (18.3-44.2); Mean Corpuscular HGB Conc 32.5 g/dl (32-36); Mean Corpuscular Hemoglobin 31.6 pg (26-34); Mean Corpuscular Volume 97.3 fl (80-100); Mean Platelet Volume 10.2 fl (7.4-10.4); Monocytes Absolute Auto 0.6 K/mm3 (0.1-0.6); Monocytes Percent Auto 2.7 % (2.6-8.5); Neutrophils Absolute Auto 21.7 K/mm3 (1.3-6.7); Neutrophils Percent Auto 92.1 % (45.5-73.1); Platelet Count Result 381 k/mm3 (150-375); Red Blood Count 3.76 M/mm3 (4.6-6.20); Red Cell Distribution Width 12.5 % (11.5-14.5); White Blood Count 23.5 K/mm3 (4.5-10.0)
[2021-07-02 05:11] LABS: Triglycerides 393 mg/dL (<150)
[2021-07-02 05:17] LABS: Anion Gap 2 mmol/L (8-16); Blood Urea Nitrogen 22 mg/dL (9-20); Calcium 7.8 mg/dL (8.4-10.2); Carbon Dioxide 34 mmol/L (22-30); Chloride 95 mmol/L (98-107); Estimated CRCL calculation 176 ml/min; Estimated Glomerular Filt Rate > 60; Glucose 138 mg/dL (65-110); Magnesium 1.8 mg/dL (1.6-2.3); Phosphorus 2.8 mg/dL (2.5-4.5); Potassium 3.9 mmol/L (3.4-5.0); Sodium 131 mmol/L (137-145)
[2021-07-02 05:28] LABS: Alveolar/Arterial O2 Gradient 282.1 mmHg; Carboxyhemoglobin 0.9 % THb (0-2.0); Device VENTILATOR; Fractional Inspired Oxygen 60 %; HCO3 ABG 35.3 mEq/l (22.0-26.0); Methemoglobin ABG 0.5 %THb (0-1.5); Modified Allen's Test Pass; Oxygen Content ABG 21.6 %vol (16.0-22.0); Oxygen Saturation ABG 96.7 % (95.0-100.0); Oxyhemoglobin 95.2 % THb (90.0-100.0); PCO2 ABG 53.5 mmHg (35.0-45.0); PO2 ABG 86.9 mmHg (80.0-100.0); PO2 FiO2 Ratio Arterial Blood 1.45 %; Reduced Hemoglobin 3.4 %THb (0-5.0); Site Drawn RIGHT RADIAL; Total Hemoglobin 16.1 g/dL (12.0-18.0); pH ABG 7.437 (7.350-7.450)
[2021-07-02 05:29] LABS: Arterial Blood Gas PEEP 10 cmH2O; Arterial Blood Gas Tidal Volume 400 ml; Arterial Blood Gas Vent Mode CMV; Arterial Blood Gas Ventilator rate 26 /MIN
[2021-07-02] MEDS: FENTANYL 2,500MCG/NS250ML(*CRX 2,500 MCG/250 ML BAG 20 MCG IV CONT ×2 (05:49→18:30)
[2021-07-02] MEDS: CENTRAL LINE FLUSH 10 ML IV PUSH ×6 (05:53→22:35)
--- NOTE | 2021-07-02 08:39 | PM.IMPN ---
Progress Note: A&P Assessment and Plan (1) Pneumonia due to COVID-19 virus: Code(s): U07.1 - COVID-19; J12.82 - Pneumonia due to coronavirus disease 2019 Status: Acute Assessment and Plan: Completed dexamethasone Currently on Vanc and Zosyn (2) Acute respiratory failure with hypoxia: Code(s): J96.01 - Acute respiratory failure with hypoxia Status: Acute Assessment and Plan: Continue ventilatory support and wean as possible Management per lcsw (3) Transaminitis: Code(s): R74.01 - Elevation of levels of liver transaminase levels Status: Acute Assessment and Plan: U/s RUQ with hepatic hemangioma Hepatitis panel negative f/u labs (4) Hyponatremia: Code(s): E87.1 - Hypo-osmolality and hyponatremia Status: Acute Assessment and Plan: Mild, likely due to acute illness 07/02 131 Subjective Date/time seen: 07/02/21 08:39 Interval history: Admitted for COVID-19 pneumonia, respiratory failure. Tested POSITIVE 06/15. Intubated 06/22. 07/02 visit: Sedated and ventilated. Review of Systems Review of Systems: ROS unobtainable: Yes unobtainable due to medical condition Exam Narrative: Sedated. Breathing comfortably with ventilator. HR regular. Abdomen nondistended Extr w/o cyanosis MS symmetric CN symmetric Objective Data Vital Signs Vital Signs: Vital Signs - 24 hr 07/01/21 10:00 07/01/21 10:06 07/01/21 11:47 Temperature Pulse Rate 120 H 118 H 124 H Respiratory Rate 26 H 26 H Blood Pressure 100/77 Pulse Oximetry 93 93 07/01/21 12:00 07/01/21 12:56 07/01/21 14:00 Temperature 98.5 F Pulse Rate 123 H 126 H 131 H Respiratory Rate 26 H 26 H 26 H Blood Pressure 102/79 102/71 Pulse Oximetry 95 93 07/01/21 15:25 07/01/21 15:30 07/01/21 16:00 Temperature 98.1 F Pulse Rate 139 H 137 H 134 H Respiratory Rate 26 H 26 H Blood Pressure 117/76 Pulse Oximetry 94 93 07/01/21 16:03 07/01/21 16:40 07/01/21 17:02 Temperature Pulse Rate 133 H 130 H 130 H Respiratory Rate 26 H 26 H 26 H Blood Pressure 117/76 Pulse Oximetry 07/01/21 18:00 07/01/21 19:56 07/01/21 20:00 Temperature 99.3 F Pulse Rate 125 H 121 H 121 H Respiratory Rate 26 H 26 H 26 H Blood Pressure 103/79 97/66 L Pulse Oximetry 91 92 07/01/21 20:01 07/01/21 20:16 07/01/21 20:17 Temperature Pulse Rate 116 H 121 H 121 H Respiratory Rate 26 H 26 H Blood Pressure 97/66 L Pulse Oximetry 93 07/01/21 20:18 07/01/21 22:00 07/01/21 22:51 Temperature Pulse Rate 121 H 120 H 120 H Respiratory Rate 26 H 26 H 26 H Blood Pressure 104/74 104/74 Pulse Oximetry 93 07/01/21 22:52 07/01/21 22:53 07/01/21 23:26 Temperature Pulse Rate 120 H 120 H 121 H Respiratory Rate 26 H 26 H 26 H Blood Pressure 106/69 Pulse Oximetry 07/01/21 23:36 07/01/21 23:57 07/02/21 00:00 Temperature 100 F H Pulse Rate 122 H 120 H 119 H Respiratory Rate 26 H 26 H Blood Pressure 94/68 L Pulse Oximetry 92 93 07/02/21 02:00 07/02/21 02:09 07/02/21 02:22 Temperature 99.9 F H Pulse Rate 124 H 123 H 124 H Respiratory Rate 26 H 26 H Blood Pressure 109/72 109/72 Pulse Oximetry 92 93 07/02/21 02:23 07/02/21 02:24 07/02/21 04:00 Temperature 99.6 F Pulse Rate 126 H 126 H 124 H Respiratory Rate 26 H 26 H 26 H Blood Pressure 101/70 Pulse Oximetry 94 07/02/21 04:02 07/02/21 04:10 07/02/21 04:11 Temperature Pulse Rate 122 H 123 H 123 H Respiratory Rate 26 H 26 H 26 H Blood Pressure 101/70 Pulse Oximetry 07/02/21 04:12 07/02/21 05:49 07/02/21 05:52 Temperature Pulse Rate 123 H 126 H 127 H Respiratory Rate 26 H 26 H 26 H Blood Pressure 118/74 Pulse Oximetry 07/02/21 05:53 07/02/21 06:00 07/02/21 06:12 Temperature Pulse Rate 127 H 125 H 121 H Respiratory Rate 26 H 26 H Blood Pressure 111/77 Pulse Oximetry 93 95 Intake/Output Intake/Output: Intake & Outpu
[2021-07-02] MEDS: PANTOPRAZOLE SODIUM IV 40 MG VIAL IV PUSH (08:55)
[2021-07-02] MEDS: MINERAL OIL/WHITE PETROLATUM OINTMENT 1 APPLIC EACH EYE ×2 (08:55→21:09)
[2021-07-02] MEDS: ZINC SULFATE 220 MG CAPSULE PO (08:55)
[2021-07-02] MEDS: ASCORBIC ACID 500 MG TABLET PO (08:56)
[2021-07-02] MEDS: ENOXAPARIN 40 MG/0.4 ML SYRINGE SUB-Q ×2 (08:56→21:09)
[2021-07-02] MEDS: CHOLECALCIFEROL 400 UNITS TABLET (VIT D) PO (08:56)
[2021-07-02] MEDS: MIDAZOLAM 100MG/NS 100ML(*CRX) 100 MG/100 ML BAG 6 MG IV CONT (10:04)
[2021-07-02] MEDS: CISATRACURIUM BESYLATE 200 MG in DEXTROSE 5% 80 ML 8.65 ML IV CONT (11:05)
--- NOTE | 2021-07-02 15:57 | P.PNINT_ITS ---
Progress Note: A&P Assessment and Plan (1) Acute respiratory failure with hypoxia: Code(s): J96.01 - Acute respiratory failure with hypoxia Status: Acute Assessment and Plan: Acute respiratory failure related to COVID pneumonia -patient transferred to the ICU on 06/21/2021 for worsening oxygen requirements, patient was intubated on 06/22/2021 -06/22/2021 chest x-ray revealed moderate left-sided pneumothorax, chest tube was inserted by surgery on left -OFF FLOLAN -chest x-ray does not show any residual pneumothorax on either side - 06/27 patient did not tolerate discontinuing the neuromuscular blockade and was restarted on Nimbex -continue bronchodilators and Pulmicort -patient has been tolerating prone positioning, will continue daily -will decrease FiO2 to 50% (2) Pneumonia due to COVID-19 virus: Code(s): U07.1 - COVID-19; J12.82 - Pneumonia due to coronavirus disease 2019 Status: Acute Assessment and Plan: Patient tested positive for COVID on 06/15/2021 at an outside facility, presented the ED on 06/17/2021 with worsening shortness of breath and symptoms of fatigue, loss of sense of taste and smell, cough for 7-8 days prior to admission -patient has not received COVID vaccine -continue dexamethasone -Remdesivir contraindicated in patients with significant elevation in LFTs -continue droplet, airborne and contact isolation/precautions (3) Transaminitis: Code(s): R74.01 - Elevation of levels of liver transaminase levels Status: Acute Assessment and Plan: Hepatitis panel is negative -abdominal ultrasound on 06/19/2021 showed 4.1 x 2.1 x 3.6 hyperechoic lesion in the right hepatic lobe consistent with a hemangioma when compared to prior CT. The liver is otherwise normal. No surface nodularity. Normal hepatopetal flow in the main portal vein. The gallbladder is surgically absent. The normal common bile duct measures 4 mm. -LFTs have almost normalized, will continue to monitor (4) Hyponatremia: Code(s): E87.1 - Hypo-osmolality and hyponatremia Status: Acute Assessment and Plan: -could be related to SIADH due to COVID pneumonia - stable monitor (5) DVT prophylaxis: Code(s): Z29.9 - Encounter for prophylactic measures, unspecified Status: Acute Assessment and Plan: Lovenox to 40 mg SQ Q12H (6) Hypovolemia: Code(s): E86.1 - Hypovolemia Status: Acute Assessment and Plan: Improved with cautious normal saline infusion Off Levophed (7) Shock: Code(s): R57.9 - Shock, unspecified Status: Acute Assessment and Plan: Likely secondary to hypovolemia and sedation Currently off of Levophed Additional Plan DVT prophylaxis -Lovenox subQ q.12 hours Stress ulcer prophylaxis -add PPI Nutrition - Tube Feeds Called Adri at [phone], updated with patient's condition and plan of care. I answered all questions. She inquired about the chest tube, high is FiO2, his kidney functions and liver enzymes. I answered to all her questions and made myself available if she had any other questions. I also told her that we will keep her updated from time to time Code Status - Full Code Total Critical Care Time - 32 minutes Due to a high probability of clinically significant, life threatening deterioration, the patient required my highest level of preparedness to intervene emergently and I personally spent this critical care time directly and personally managing the patient. This critical care time included obtaining a history; examining the patient; pulse oxim
[2021-07-02] MEDS: CISATRACURIUM BESYLATE 200 MG in DEXTROSE 5% 80 ML 9.73 ML IV CONT (21:10)
[2021-07-03] VITALS (38 sets, daily range): BP systolic 90–112; BP diastolic 63–75; PULSE 100–129; RESP 21–26; TEMP 36.7–37.7; O2SAT 88–94
[2021-07-03] MEDS: PROPOFOL IV EMULSION 100 ML 22.56 MG IV CONT ×6 (01:49→21:47)
[2021-07-03] MEDS: MIDAZOLAM 100MG/NS 100ML(*CRX) 100 MG/100 ML BAG 6 MG IV CONT ×2 (04:14→21:21)
[2021-07-03 04:33] LABS: Hematocrit 32.9 % (42.0-52.0); Hemoglobin 10.9 g/dL (14.0-18.0); Mean Corpuscular HGB Conc 33.1 g/dl (32-36); Mean Corpuscular Hemoglobin 31.1 pg (26-34); Mean Platelet Volume 10.3 fl (7.4-10.4); Platelet Count Result 315 k/mm3 (150-375); Red Cell Distribution Width 12.5 % (11.5-14.5); White Blood Count 24.6 K/mm3 (4.5-10.0)
[2021-07-03 04:44] LABS: Alanine Aminotransferase 76 U/L (4-50); Albumin Level 2.4 g/dL (3.5-5.1); Alkaline Phosphatase 425 U/L (38-126); Anion Gap 4 mmol/L (8-16); Aspartate Amino Transferase 67 U/L (17-59); Bilirubin,Total 1.2 mg/dL (0.2-1.3); Blood Urea Nitrogen 21 mg/dL (9-20); Calcium 7.4 mg/dL (8.4-10.2); Carbon Dioxide 33 mmol/L (22-30); Chloride 92 mmol/L (98-107); Estimated CRCL calculation 145 ml/min; Estimated Glomerular Filt Rate > 60; Glucose 181 mg/dL (65-110); Magnesium 1.7 mg/dL (1.6-2.3); Potassium 3.4 mmol/L (3.4-5.0); Sodium 129 mmol/L (137-145); Triglycerides 290 mg/dL (<150)
[2021-07-03] MEDS: CENTRAL LINE FLUSH 10 ML IV PUSH ×6 (07:07→21:47)
[2021-07-03] MEDS: CISATRACURIUM BESYLATE 200 MG in DEXTROSE 5% 80 ML 10.82 ML IV CONT ×2 (07:41→18:04)
[2021-07-03] MEDS: FENTANYL 2,500MCG/NS250ML(*CRX 2,500 MCG/250 ML BAG 20 MCG IV CONT ×2 (07:46→20:38)
[2021-07-03] MEDS: MAGNESIUM SULF 2 GM/WATER 50ML 2 GM/50 ML BAG IVPB (09:50)
[2021-07-03] MEDS: MINERAL OIL/WHITE PETROLATUM OINTMENT 1 APPLIC EACH EYE ×2 (09:53→21:20)
[2021-07-03] MEDS: ZINC SULFATE 220 MG CAPSULE PO (09:53)
[2021-07-03] MEDS: POTASSIUM CHLORIDE 20 MEQ PACKET (FOR LIQUID) 40 MEQ FEED TUBE (09:53)
[2021-07-03] MEDS: ASCORBIC ACID 500 MG TABLET PO (09:53)
[2021-07-03] MEDS: PANTOPRAZOLE SODIUM IV 40 MG VIAL IV PUSH (09:53)
[2021-07-03] MEDS: ENOXAPARIN 40 MG/0.4 ML SYRINGE SUB-Q ×2 (09:53→21:19)
[2021-07-03] MEDS: CHOLECALCIFEROL 400 UNITS TABLET (VIT D) PO (09:53)
--- NOTE | 2021-07-03 10:56 | PCDIET ---
ICU Rounding Note: Patient tolerating Vital 1.2 at 55mL/hr goal rate with 30mL water flush every 4 hours. Residuals 210mL and below since last review. Last recorded weight is 79.7kg which is increased from last review. +I/O. Bowel Motility: BM x 1 today. Labs Reviewed: WBC (24.6), RBC (3.5), Hgb (10.9), Hct (32.9), Glu (181), BUN (21), Cr (0.5), Na (129), Alb (2.4), Boogie Ca (8.68), TG (290) Meds Noted: Vancomycin, Vitamin D, Vitamin C, Nimbex, Fentanyl, Magnesium Sulfate, Versed, Protonix, Zosyn, KCl, Propofol (rate of 22.56mL/hr provides 595kcal per day) Additional Notes: Tube feeds over 22 hours/day with Propofol at current rate providing 25kcal/kg current weight. Right cheek with skin tear. Back of neck with laceration. No new recommendations at this time. Following daily in ICU rounds. Assessing/reassessing every Saturday/Saturday.
--- NOTE | 2021-07-03 10:59 | WPDINTPN ---
Progress Note: A&P Assessment and Plan (1) Acute respiratory failure with hypoxia: Code(s): J96.01 - Acute respiratory failure with hypoxia Status: Acute Assessment and Plan: Acute respiratory failure related to COVID pneumonia -patient transferred to the ICU on 06/21/2021 for worsening oxygen requirements, patient was intubated on 06/22/2021 -06/22/2021 chest x-ray revealed moderate left-sided pneumothorax, chest tube was inserted by surgery on left -OFF FLOLAN now -chest x-ray does not show any residual pneumothorax on either side -I again discontinued Nimbex infusion this morning but patient did not tolerate discontinuing the neuromuscular blockade. After few minutes once the effect wore off patient started stacking again is ventilator despite significant amount of sedation. His saturation dropped to 80s. I had to restart on Nimbex -continue bronchodilators and Pulmicort -patient was being prone daily. Since now he is on 50% FiO2 and 10 of PEEP the Proning has been held especially due to his facial pressure -will decrease FiO2 to 50% (2) Pneumonia due to COVID-19 virus: Code(s): U07.1 - COVID-19; J12.82 - Pneumonia due to coronavirus disease 2019 Status: Acute Assessment and Plan: Patient tested positive for COVID on 06/15/2021 at an outside facility, presented the ED on 06/17/2021 with worsening shortness of breath and symptoms of fatigue, loss of sense of taste and smell, cough for 7-8 days prior to admission -patient has not received COVID vaccine -continue dexamethasone -Remdesivir contraindicated in patients with significant elevation in LFTs -continue droplet, airborne and contact isolation/precautions (3) Transaminitis: Code(s): R74.01 - Elevation of levels of liver transaminase levels Status: Acute Assessment and Plan: Hepatitis panel is negative -abdominal ultrasound on 06/19/2021 showed 4.1 x 2.1 x 3.6 hyperechoic lesion in the right hepatic lobe consistent with a hemangioma when compared to prior CT. The liver is otherwise normal. No surface nodularity. Normal hepatopetal flow in the main portal vein. The gallbladder is surgically absent. The normal common bile duct measures 4 mm. -LFTs have almost normalized, will continue to monitor (4) Hyponatremia: Code(s): E87.1 - Hypo-osmolality and hyponatremia Status: Acute Assessment and Plan: -could be related to SIADH due to COVID pneumonia - stable monitor (5) DVT prophylaxis: Code(s): Z29.9 - Encounter for prophylactic measures, unspecified Status: Acute Assessment and Plan: Lovenox to 40 mg SQ Q12H (6) Hypovolemia: Code(s): E86.1 - Hypovolemia Status: Acute Assessment and Plan: Improved with cautious normal saline infusion Off Levophed (7) Shock: Code(s): R57.9 - Shock, unspecified Status: Acute Assessment and Plan: Likely secondary to hypovolemia and sedation Currently off of Levophed (8) Leukocytosis: Code(s): D72.829 - Elevated white blood cell count, unspecified Status: Acute Assessment and Plan: Patient has had increasing leukocytosis. He initially was on steroids for now off He is afebrile He was started on vancomycin and Zosyn on 07/02 I will check blood and sputum cultures. I will also change Butts His alkaline phosphatase has been increasing but patient is status post cholecystectomy Last triglyceride and lipase level was acceptable Additional Plan DVT prophylaxis -Lovenox subQ q.12 hours Stress ulcer prophylaxis -add PPI Nutrition - Tube Feeds Called Adri at [phone], updated with patient's condition and plan of care. I updated her with patient now being on antibiotics and we are investigating for secondary infections. She told me patient does not have a gallbladder. I also discussed option of tracheostomy and a PEG tube sitting patient is on a ventilator for 12 days now. He is agreeab
--- NOTE | 2021-07-03 12:38 | PM.IMPN ---
Progress Note: A&P Assessment and Plan (1) Acute respiratory failure with hypoxia: Code(s): J96.01 - Acute respiratory failure with hypoxia Status: Acute Assessment and Plan: Acute respiratory failure related to COVID pneumonia -patient transferred to the ICU on 06/21/2021 for worsening oxygen requirements, patient was intubated on 06/22/2021 -chest x-ray does not show any residual pneumothorax on either side -patient did not tolerate discontinuing the neuromuscular blockade. -continue bronchodilators and Pulmicort -weaning FIO2 as tolerated (2) Pneumonia due to COVID-19 virus: Code(s): U07.1 - COVID-19; J12.82 - Pneumonia due to coronavirus disease 2018 Status: Acute Assessment and Plan: Patient tested positive for COVID on 06/15/2021 at an outside facility, presented the ED on 06/17/2021 with worsening shortness of breath and symptoms of fatigue, loss of sense of taste and smell, cough for 7-8 days prior to admission -patient has not received COVID vaccine -completed dexamethasone -Remdesivir contraindicated in patients with significant elevation in LFTs -continue droplet, airborne and contact isolation/precautions (3) Transaminitis: Code(s): R74.01 - Elevation of levels of liver transaminase levels Status: Acute Assessment and Plan: Hepatitis panel is negative -abdominal ultrasound on 06/19/2021 showed 4.1 x 2.1 x 3.6 hyperechoic lesion in the right hepatic lobe consistent with a hemangioma when compared to prior CT. The liver is otherwise normal. No surface nodularity. Normal hepatopetal flow in the main portal vein. The gallbladder is surgically absent. The normal common bile duct measures 4 mm. -LFTs have almost normalized, will continue to monitor (4) Hyponatremia: Code(s): E87.1 - Hypo-osmolality and hyponatremia Status: Acute Assessment and Plan: -could be related to SIADH due to COVID pneumonia - stable 07/03-129 -monitor (5) DVT prophylaxis: Code(s): Z29.9 - Encounter for prophylactic measures, unspecified Status: Acute Assessment and Plan: Lovenox to 40 mg SQ Q12H (6) Hypovolemia: Code(s): E86.1 - Hypovolemia Status: Acute Assessment and Plan: Improved with IVF Off pressors (7) Shock: Code(s): R57.9 - Shock, unspecified Status: Acute Assessment and Plan: Likely secondary to hypovolemia and sedation Off pressors (8) Leukocytosis: Code(s): D72.829 - Elevated white blood cell count, unspecified Status: Acute Assessment and Plan: Patient has had increasing leukocytosis. He initially was on steroids for now off He is afebrile He was started on vancomycin and Zosyn on 07/02 Blood and sputum cultures pending Subjective Date/time seen: 07/03/21 12:38 Interval history: Admitted for COVID-19 pneumonia, respiratory failure. Tested POSITIVE 06/15. Intubated 06/22. 07/03 visit: Sedated and ventilated. Review of Systems Review of Systems: ROS unobtainable: Yes unobtainable due to medical condition Objective Data Vital Signs Vital Signs: Vital Signs - 24 hr 07/02/21 13:29 07/02/21 14:00 07/02/21 16:00 Temperature 97.2 F L Pulse Rate 127 H 128 H 128 H Respiratory Rate 26 H 26 H 26 H Blood Pressure 101/73 90/71 L 94/67 L Pulse Oximetry 96 93 07/02/21 17:29 07/02/21 18:00 07/02/21 18:19 Temperature Pulse Rate 125 H 124 H 122 H Respiratory Rate 26 H 26 H 26 H Blood Pressure 91/72 L Pulse Oximetry 89 L 07/02/21 18:28 07/02/21 18:30 07/02/21 20:00 Temperature 97.5 F L Pulse Rate 121 H 122 H 118 H Respiratory Rate 26 H 26 H 26 H Blood Pressure 91/72 L 104/70 Pulse Oximetry 89 L 07/02/21 20:55 07/02/21 21:00 07/02/21 21:10 Temperature Pulse Rate 118 H 121 H 118 H Respiratory Rate 19 16 19 Blood Pressure 92/72 L 92/72 L Pulse Oximetry 07/02/21 21:55 07/02/21 22:00 07/02/21 22:05 Temperature Pulse
[2021-07-03 21:34] LABS: Vancomycin Trough 6.2 ug/mL (10.0-20.0)
[2021-07-04] VITALS (42 sets, daily range): BP systolic 96–133; BP diastolic 68–85; PULSE 109–138; RESP 24–26; TEMP 36.6–37.7; O2SAT 91–99
[2021-07-04] MEDS: PROPOFOL IV EMULSION 100 ML 22.56 MG IV CONT ×6 (02:12→22:45)
[2021-07-04] MEDS: CISATRACURIUM BESYLATE 200 MG in DEXTROSE 5% 80 ML 10.82 ML IV CONT (04:01)
[2021-07-04 05:18] LABS: Alveolar/Arterial O2 Gradient 300.9 mmHg; Base Excess ABG 9.1 mEq/l (+/-2.0); Carboxyhemoglobin 0.1 % THb (0-2.0); Fractional Inspired Oxygen 60 %; HCO3 ABG 34.8 mEq/l (22.0-26.0); Methemoglobin ABG 0.5 %THb (0-1.5); Oxygen Content ABG 18.6 %vol (16.0-22.0); Oxygen Saturation ABG 94.5 % (95.0-100.0); Oxyhemoglobin 93.3 % THb (90.0-100.0); PCO2 ABG 51.5 mmHg (35.0-45.0); PO2 ABG 70.3 mmHg (80.0-100.0); PO2 FiO2 Ratio Arterial Blood 1.17 %; Reduced Hemoglobin 6.1 %THb (0-5.0); Total Hemoglobin 14.2 g/dL (12.0-18.0); pH ABG 7.448 (7.350-7.450)
[2021-07-04 05:19] LABS: Arterial Blood Gas PEEP 10 cmH2O; Arterial Blood Gas Tidal Volume 400 ml; Arterial Blood Gas Vent Mode CMV; Arterial Blood Gas Ventilator rate 26 /MIN; Device VENTILATOR; Modified Allen's Test Pass; Site Drawn RIGHT RADIAL
[2021-07-04] MEDS: CENTRAL LINE FLUSH 10 ML IV PUSH ×4 (05:28→21:36)
[2021-07-04 06:00] LABS: Hematocrit 31.4 % (42.0-52.0); Hemoglobin 10.4 g/dL (14.0-18.0); Mean Corpuscular HGB Conc 33.1 g/dl (32-36); Mean Corpuscular Hemoglobin 31.3 pg (26-34); Mean Corpuscular Volume 94.6 fl (80-100); Mean Platelet Volume 10.5 fl (7.4-10.4); Platelet Count Result 342 k/mm3 (150-375); Red Blood Count 3.32 M/mm3 (4.6-6.20); Red Cell Distribution Width 12.5 % (11.5-14.5); White Blood Count 18.1 K/mm3 (4.5-10.0)
[2021-07-04] MEDS: ENOXAPARIN 40 MG/0.4 ML SYRINGE SUB-Q ×2 (08:50→21:35)
[2021-07-04] MEDS: CHOLECALCIFEROL 400 UNITS TABLET (VIT D) PO (08:50)
[2021-07-04] MEDS: PANTOPRAZOLE SODIUM IV 40 MG VIAL IV PUSH (08:50)
[2021-07-04] MEDS: MINERAL OIL/WHITE PETROLATUM OINTMENT 1 APPLIC EACH EYE ×2 (08:51→21:36)
[2021-07-04] MEDS: FENTANYL 2,500MCG/NS250ML(*CRX 2,500 MCG/250 ML BAG 20 MCG IV CONT ×2 (09:21→21:56)
--- NOTE | 2021-07-04 10:06 | WPDINTPN ---
Progress Note: A&P Assessment and Plan (1) Acute respiratory failure with hypoxia: Code(s): J96.01 - Acute respiratory failure with hypoxia Status: Acute Assessment and Plan: Acute respiratory failure related to COVID pneumonia -patient transferred to the ICU on 06/21/2021 for worsening oxygen requirements, patient was intubated on 06/22/2021 -06/22/2021 chest x-ray revealed moderate left-sided pneumothorax, chest tube was inserted by surgery on left -OFF FLOLAN now -chest x-ray does show small pneumothorax on either left side but I do not see any leak -I again discontinued Nimbex infusion this morning but patient did not tolerate discontinuing the neuromuscular blockade. After few minutes once the effect wore off patient started stacking again is ventilator despite significant amount of sedation. His saturation dropped to 80s. I had to restart on Nimbex. FiO2 had to be increased to 60% -continue bronchodilators and Pulmicort -patient was being prone daily. Since now he is on 60% FiO2 and 10 of PEEP the Proning has been held especially due to his facial pressure injury -advance ET tube by 2 cm (2) Pneumonia due to COVID-19 virus: Code(s): U07.1 - COVID-19; J12.82 - Pneumonia due to coronavirus disease 2019 Status: Acute Assessment and Plan: Patient tested positive for COVID on 06/15/2021 at an outside facility, presented the ED on 06/17/2021 with worsening shortness of breath and symptoms of fatigue, loss of sense of taste and smell, cough for 7-8 days prior to admission -patient has not received COVID vaccine -continue dexamethasone -Remdesivir contraindicated in patients with significant elevation in LFTs -continue droplet, airborne and contact isolation/precautions (3) Transaminitis: Code(s): R74.01 - Elevation of levels of liver transaminase levels Status: Acute Assessment and Plan: Hepatitis panel is negative -abdominal ultrasound on 06/19/2021 showed 4.1 x 2.1 x 3.6 hyperechoic lesion in the right hepatic lobe consistent with a hemangioma when compared to prior CT. The liver is otherwise normal. No surface nodularity. Normal hepatopetal flow in the main portal vein. The gallbladder is surgically absent. The normal common bile duct measures 4 mm. -LFTs have almost normalized, will continue to monitor (4) Hyponatremia: Code(s): E87.1 - Hypo-osmolality and hyponatremia Status: Acute Assessment and Plan: -could be related to SIADH due to COVID pneumonia - stable monitor (5) DVT prophylaxis: Code(s): Z29.9 - Encounter for prophylactic measures, unspecified Status: Acute Assessment and Plan: Lovenox to 40 mg SQ Q12H (6) Hypovolemia: Code(s): E86.1 - Hypovolemia Status: Acute Assessment and Plan: Improved with cautious normal saline infusion Off Levophed (7) Shock: Code(s): R57.9 - Shock, unspecified Status: Acute Assessment and Plan: Likely secondary to hypovolemia and sedation Currently off of Levophed (8) Leukocytosis: Code(s): D72.829 - Elevated white blood cell count, unspecified Status: Acute Assessment and Plan: Patient has had increasing leukocytosis. He initially was on steroids but now off He is febrile He was started on vancomycin and Zosyn on 07/02 Pending blood and sputum cultures. Butts was changed His alkaline phosphatase has been increasing but patient is status post cholecystectomy Last triglyceride and lipase level was acceptable I will give him small amount of IV fluids and check lactic acid level Additional Plan DVT prophylaxis -Lovenox subQ q.12 hours Stress ulcer prophylaxis -add PPI Nutrition - Tube Feeds 07/03 Called Adri at [phone], updated with patient's condition and plan of care. I updated her with patient now being on antibiotics and we are investigating for secondary infections. She told me patient does not have a gallbladder.
[2021-07-04] MEDS: HYDROmorphone HCL INJ (*CRX) 1 MG/ML SYR 2 MG IV PUSH (10:16)
[2021-07-04] MEDS: SODIUM CHLORIDE 0.9% IV 500 ML IV CONT (10:17)
[2021-07-04 11:03] LABS: Lactic Acid Reflex 0.7 mmol/L (0.7-2.1)
[2021-07-04 11:04] LABS: Alanine Aminotransferase 64 U/L (4-50); Albumin Level 2.1 g/dL (3.5-5.1); Alkaline Phosphatase 365 U/L (38-126); Anion Gap 7 mmol/L (8-16); Aspartate Amino Transferase 56 U/L (17-59); Bilirubin,Total 0.6 mg/dL (0.2-1.3); Blood Urea Nitrogen 17 mg/dL (9-20); Calcium 7.3 mg/dL (8.4-10.2); Carbon Dioxide 31 mmol/L (22-30); Chloride 96 mmol/L (98-107); Estimated CRCL calculation 156 ml/min; Estimated Glomerular Filt Rate > 60; Glucose 139 mg/dL (65-110); Lipase 91 U/L (23-300); Magnesium 1.8 mg/dL (1.6-2.3); Phosphorus 3.2 mg/dL (2.5-4.5); Potassium 3.5 mmol/L (3.4-5.0); Sodium 134 mmol/L (137-145)
[2021-07-04] MEDS: CISATRACURIUM BESYLATE 200 MG in DEXTROSE 5% 80 ML 14.06 ML IV CONT (12:27)
--- NOTE | 2021-07-04 12:56 | WPDPROCEDUR ---
Procedures Intubation Intubation Date: 07/04/21 Intubation Time: 12:30 Consent: Patient was already intubated. ET tube had to be changed A pre-procedural Time-Out was completed immediately before starting the procedure and confirmed: Patient Identification, Site, Procedure, Patient Position and the Availability of Requisite Equipment: Yes Sedative: other (Patient already on Versed and fentanyl infusions) Paralytic: other (Patient already on Nimbex infusion) Laryngoscope: Mahad (3) Assist device used: Bougie ET tube size: 8 Tube secured depth (cm): 26 Tube secured location: lips Tube placement confirmation: equal breath sounds bilaterally, no breath sounds over epigastrium and confirmation by capnometry Patient tolerated procedure: well Intubation complications: none Additional comments: Patient's ETT had Quill in back of his mouth and was high on chest x-ray. Despite advancing ETT from outside fully into the patient his ETT was high on chest x-ray. It appeared to be coiling in back of his throat. Also ventilator connection ETT was broken over time and ventilator kept on disconnecting from ETT. ETT had to be changed and was exchanged over a bougie without any difficulty.
--- NOTE | 2021-07-04 13:28 | PCDIET ---
Nutrition Follow-Up Complete: Nutrition Diagnosis: Inadequate oral intake related to intubation as evidenced by NPO status. Nutrition Goal: Patient to meet estimated nutritional needs. Goal met. Patient tolerating Vital 1.2 at 55mL/hr goal rate with 30mL water flush every 4 hours. Last recorded weight is 74.7 kg which is down from last review, despite +I/O. Bowel Motility: Last documented BM on 07/02/21 x 1. Labs Reviewed: WBC (18.1), RBC (3.32), Hgb (10.4), Hct (31.4), Glu (139), Cr (0.5), Na (134), Alb (2.1), Boogie Ca (8.82), TG (290) Meds Noted: Nimbex, Fentanyl, Zosyn, Versed, Vancomycin, Protonix, Vitamin D Additional Notes: Right cheek skin tear. Posterior neck laceration. Propofol currently off. Will continue to monitor with same goal. Nutrition Monitoring and Evaluation: Follow up every Saturday/Saturday.
--- NOTE | 2021-07-04 13:35 | PM.IMPN ---
Progress Note: A&P Assessment and Plan (1) Acute respiratory failure with hypoxia: Code(s): J96.01 - Acute respiratory failure with hypoxia Status: Acute Assessment and Plan: Continue to wean from vent as tolerated Continue Vanc/Zosyn (2) Pneumonia due to COVID-19 virus: Code(s): U07.1 - COVID-19; J12.82 - Pneumonia due to coronavirus disease 2019 Status: Acute Assessment and Plan: Completed dexamethasone (3) Transaminitis: Code(s): R74.01 - Elevation of levels of liver transaminase levels Status: Acute Assessment and Plan: Hepatitis panel is negative -abdominal ultrasound on 06/19/2021 showed 4.1 x 2.1 x 3.6 hyperechoic lesion in the right hepatic lobe consistent with a hemangioma when compared to prior CT. The liver is otherwise normal. No surface nodularity. Normal hepatopetal flow in the main portal vein. The gallbladder is surgically absent. The normal common bile duct measures 4 mm. -LFTs have almost normalized, will continue to monitor (4) Hyponatremia: Code(s): E87.1 - Hypo-osmolality and hyponatremia Status: Acute Assessment and Plan: -could be related to SIADH due to COVID pneumonia - stable monitor (5) DVT prophylaxis: Code(s): Z29.9 - Encounter for prophylactic measures, unspecified Status: Acute Assessment and Plan: Lovenox to 40 mg SQ Q12H (6) Hypovolemia: Code(s): E86.1 - Hypovolemia Status: Acute Assessment and Plan: Improved with cautious normal saline infusion Off Levophed (7) Shock: Code(s): R57.9 - Shock, unspecified Status: Acute Assessment and Plan: Likely secondary to hypovolemia and sedation Currently off of Levophed (8) Leukocytosis: Code(s): D72.829 - Elevated white blood cell count, unspecified Status: Acute Assessment and Plan: Patient has had increasing leukocytosis. He initially was on steroids but now off He is febrile He was started on vancomycin and Zosyn on 07/02 Pending blood and sputum cultures. (9) Pneumothorax: Qualifiers: Pneumothorax type: unspecified pneumothorax Qualified Code(s): J93.9 - Pneumothorax, unspecified Code(s): J93.9 - Pneumothorax, unspecified Status: Acute Assessment and Plan: Improving with Left Chest Tube Subjective Date/time seen: 07/04/21 13:35 Interval history: Admitted for COVID-19 pneumonia, respiratory failure. Tested POSITIVE 06/15. Intubated 06/22. 07/04 visit: Sedated and ventilated. Review of Systems Review of Systems: ROS unobtainable: Yes unobtainable due to medical condition Exam Narrative: Sedated. Breathing comfortably with ventilator. L CT in place HR regular. Abdomen nondistended Extr w/o cyanosis MS symmetric CN symmetric Objective Data Vital Signs Vital Signs: Vital Signs - 24 hr 07/03/21 13:55 07/03/21 14:00 07/03/21 14:10 Temperature 99.2 F Pulse Rate 123 H 123 H 111 H Respiratory Rate 26 H 26 H Blood Pressure 96/69 L Pulse Oximetry 90 94 07/03/21 16:00 07/03/21 16:50 07/03/21 18:00 Temperature 99.4 F 99.7 F H Pulse Rate 123 H 121 H 125 H Respiratory Rate 26 H 26 H Blood Pressure 110/67 102/71 Pulse Oximetry 94 93 94 07/03/21 20:00 07/03/21 20:05 07/03/21 20:16 Temperature 99.8 F H Pulse Rate 125 H 129 H 129 H Respiratory Rate 26 H 21 H 23 H Blood Pressure 90/69 L Pulse Oximetry 93 07/03/21 20:38 07/03/21 21:08 07/03/21 21:21 Temperature Pulse Rate 129 H 129 H 129 H Respiratory Rate 23 H 26 H Blood Pressure Pulse Oximetry 07/03/21 21:47 07/03/21 22:00 07/03/21 23:36 Temperature 99.8 F H Pulse Rate 124 H 124 H 121 H Respiratory Rate 23 H 26 H Blood Pressure 106/69 Pulse Oximetry 92 94 07/03/21 23:39 07/04/21 00:00 07/04/21 02:00 Temperature 99.6 F 98.5 F Pulse Rate 100 120 H 112 H Respiratory Rate 26 H 26 H Blood Pressure 97/71 L 96/70 L
[2021-07-04] MEDS: MIDAZOLAM 100MG/NS 100ML(*CRX) 100 MG/100 ML BAG 6 MG IV CONT (14:18)
--- NOTE | 2021-07-04 16:43 | WPDGICN ---
Assessment and Plan Assessment and plan (1) Acute respiratory failure with hypoxia: Code(s): J96.01 - Acute respiratory failure with hypoxia Status: Acute Assessment and Plan: unfortunately with severe covid and did not receive vaccine primary team talked to family and they are agreeable with tracheostomy and peg placement for feeding (2) Feeding difficulty: Code(s): R63.3 - Feeding difficulties Status: Acute Assessment and Plan: egd with peg placement tomorrow (3) Pneumonia due to COVID-19 virus: Code(s): U07.1 - COVID-19; J12.82 - Pneumonia due to coronavirus disease 2019 Status: Acute Assessment and Plan: by icu team (4) Pneumomediastinum: Code(s): J98.2 - Interstitial emphysema Status: Acute Assessment and Plan: chest tube in place, unchanged (5) Transaminitis: Code(s): R74.01 - Elevation of levels of liver transaminase levels Status: Acute Assessment and Plan: elevated but stable, from severe covid infection, pneumonia, previous shock, etc (6) Shock: Code(s): R57.9 - Shock, unspecified Status: Acute Assessment and Plan: resolved GI Consult Note Consult date/time: 07/04/21 16:43 Reason for consult: COVID with respiratory failure, need G-tube placement HPI: Marichuy Smiley is a 50 year old male with no major medical problems who was unvaccinated for SARS-CoV-2 and history obtained from records as he is intubated. He was admitted to the hospital on June 17 with 8 days of myalgias, loss of taste and smell, sore throat, cough, dyspnea, and anorexia, diagnosed with COVID after developed progressive dyspnea and admitted to ICU, intubated and sedated. Hospital course complicated by pneumothorax and pneumomediastinum requiring chest tube. He was on pressors but not anymore, also had elevated liver enzymes but improved. Still requiring mechanical ventilation and feeding. Review of Systems Review of Systems: ROS unobtainable: Yes unobtainable due to endotracheal tube and unobtainable due to mental status PMFSH Past Medical History Medical History (Updated 07/04/21 @ 16:52 by Adarsh Gotti MD) Bilateral renal cysts Feeding difficulty History of colon polyps Normal colonoscopy on 02/20/2021. Kidney stones Melanoma of neck (2017) Surgical History Surgical History History of cholecystectomy (1998) History of melanoma excision (2016) Family History Family History Other No significant family history Social History Social History Social History: The patient lives in [place] with his . 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 Lifelong nonsmoker. No alcohol or illicit substance abuse. He designates his , Adri Smiley, as his surrogate decision maker and he wishes to be a full code. Spiritual care concerns: No Meds Home Medications and Allergies Home Medications Medication Instructions Recorded Confirmed Type No Home Medications 06/17/21 06/17/21 History Allergies Allergy/AdvReac Type Severity Reaction Status Date / Time acetaminophen Allergy Intermediate Rash Verified 06/17/21 12:04 oxycodone Allergy Intermediate Rash Verified 06/17/21 12:04 hydrocodone AdvReac Mild Nausea and Verified 06/21/21 14:00 Vomiting Vital Signs Vital Signs - 24 hr 07/03/21 16:50 07/03/21 18:00 07/03/21 20:00 Temperature 99.7 F H 99.8 F H Pulse Rate 121 H 125 H 125 H Respiratory Rate 26 H 26 H Blood Pressure 102/71 90/69 L Pulse Oximetry 93 94 93 07/03/21 20:05 07/03/21 20:16 07/03/21 20:38 Temperature Pulse Rate 129 H 129 H 129 H Respiratory Rate 21 H 23 H 23 H Blood Pressure Pulse Oximetry 07/03/21 21:08 07/03/21 21:21 07/03/21 21:47 Temperature Pulse Rate 129 H 129 H 124
[2021-07-04] MEDS: CISATRACURIUM BESYLATE 200 MG in DEXTROSE 5% 80 ML 15.14 ML IV CONT (20:00)
[2021-07-05] VITALS (44 sets, daily range): BP systolic 97–123; BP diastolic 65–86; PULSE 113–136; RESP 24–30; TEMP 37–38.4; O2SAT 90–99
[2021-07-05] MEDS: CISATRACURIUM BESYLATE 200 MG in DEXTROSE 5% 80 ML 18.39 ML IV CONT ×2 (01:57→08:24)
[2021-07-05] MEDS: PROPOFOL IV EMULSION 100 ML 22.56 MG IV CONT ×5 (02:02→18:47)
[2021-07-05 04:53] LABS: Hematocrit 32.8 % (42.0-52.0); Hemoglobin 10.7 g/dL (14.0-18.0); Mean Corpuscular HGB Conc 32.6 g/dl (32-36); Mean Corpuscular Hemoglobin 30.9 pg (26-34); Mean Corpuscular Volume 94.8 fl (80-100); Mean Platelet Volume 10.6 fl (7.4-10.4); Platelet Count Result 382 k/mm3 (150-375); Red Blood Count 3.46 M/mm3 (4.6-6.20); Red Cell Distribution Width 12.8 % (11.5-14.5); White Blood Count 17.9 K/mm3 (4.5-10.0)
[2021-07-05 05:03] LABS: Alveolar/Arterial O2 Gradient 298.8 mmHg; Base Excess ABG 9.7 mEq/l (+/-2.0); Carboxyhemoglobin 0.3 % THb (0-2.0); Device VENTILATOR; Fractional Inspired Oxygen 60 %; HCO3 ABG 34.2 mEq/l (22.0-26.0); Methemoglobin ABG 0.4 %THb (0-1.5); Modified Allen's Test Pass; Oxygen Content ABG 18.1 %vol (16.0-22.0); Oxygen Saturation ABG 96.4 % (95.0-100.0); Oxyhemoglobin 94.9 % THb (90.0-100.0); PCO2 ABG 45.5 mmHg (35.0-45.0); PO2 FiO2 Ratio Arterial Blood 1.32 %; Reduced Hemoglobin 4.4 %THb (0-5.0); Site Drawn LEFT RADIAL; Total Hemoglobin 13.5 g/dL (12.0-18.0); pH ABG 7.494 (7.350-7.450)
[2021-07-05 05:04] LABS: Arterial Blood Gas PEEP 10 cmH2O; Arterial Blood Gas Tidal Volume 400 ml; Arterial Blood Gas Vent Mode CMV; Arterial Blood Gas Ventilator rate 26 /MIN
[2021-07-05 05:21] LABS: Alanine Aminotransferase 57 U/L (4-50); Albumin Level 2.6 g/dL (3.5-5.1); Alkaline Phosphatase 350 U/L (38-126); Anion Gap 3 mmol/L (8-16); Aspartate Amino Transferase 54 U/L (17-59); Bilirubin,Total 0.7 mg/dL (0.2-1.3); Blood Urea Nitrogen 15 mg/dL (9-20); Calcium 7.7 mg/dL (8.4-10.2); Carbon Dioxide 35 mmol/L (22-30); Chloride 92 mmol/L (98-107); Estimated CRCL calculation 156 ml/min; Estimated Glomerular Filt Rate > 60; Glucose 128 mg/dL (65-110); Magnesium 1.8 mg/dL (1.6-2.3); Phosphorus 2.8 mg/dL (2.5-4.5); Potassium 3.2 mmol/L (3.4-5.0); Sodium 130 mmol/L (137-145)
[2021-07-05] MEDS: MIDAZOLAM 100MG/NS 100ML(*CRX) 100 MG/100 ML BAG 6 MG IV CONT (06:31)
[2021-07-05] MEDS: CENTRAL LINE FLUSH 10 ML IV PUSH ×5 (06:32→21:31)
[2021-07-05] MEDS: PANTOPRAZOLE SODIUM IV 40 MG VIAL IV PUSH (09:45)
[2021-07-05] MEDS: POTASSIUM CHLORIDE 20 MEQ PACKET (FOR LIQUID) 40 MEQ FEED TUBE ×2 (09:46→22:03)
[2021-07-05] MEDS: MINERAL OIL/WHITE PETROLATUM OINTMENT 1 APPLIC EACH EYE ×2 (09:46→21:30)
[2021-07-05] MEDS: CHOLECALCIFEROL 400 UNITS TABLET (VIT D) PO (09:46)
--- NOTE | 2021-07-05 09:56 | WPDINTPN ---
Progress Note: A&P Assessment and Plan (1) Acute respiratory failure with hypoxia: Code(s): J96.01 - Acute respiratory failure with hypoxia Status: Acute Assessment and Plan: Acute respiratory failure related to COVID pneumonia -patient transferred to the ICU on 06/21/2021 for worsening oxygen requirements, patient was intubated on 06/22/2021 - 07/04 ET tube was exchanged -06/22/2021 chest x-ray revealed moderate left-sided pneumothorax, chest tube was inserted by surgery on left -OFF FLOLAN now -chest x-ray does show small pneumothorax on either left side but I do not see any leak - peep is at 10 FiO2 is at 50% - will do in Nimbex holiday after PEG tube placement today -continue bronchodilators and Pulmicort - chest x-ray reviewed and ET tube was readjusted - patient is scheduled for tracheostomy on Saturday (2) Pneumonia due to COVID-19 virus: Code(s): U07.1 - COVID-19; J12.82 - Pneumonia due to coronavirus disease 2019 Status: Acute Assessment and Plan: Patient tested positive for COVID on 06/15/2021 at an outside facility, presented the ED on 06/17/2021 with worsening shortness of breath and symptoms of fatigue, loss of sense of taste and smell, cough for 7-8 days prior to admission -patient has not received COVID vaccine -continue dexamethasone -Remdesivir contraindicated in patients with significant elevation in LFTs -continue droplet, airborne and contact isolation/precautions (3) Transaminitis: Code(s): R74.01 - Elevation of levels of liver transaminase levels Status: Acute Assessment and Plan: Hepatitis panel is negative -abdominal ultrasound on 06/19/2021 showed 4.1 x 2.1 x 3.6 hyperechoic lesion in the right hepatic lobe consistent with a hemangioma when compared to prior CT. The liver is otherwise normal. No surface nodularity. Normal hepatopetal flow in the main portal vein. The gallbladder is surgically absent. The normal common bile duct measures 4 mm. -LFTs have almost normalized, will continue to monitor (4) Hyponatremia: Code(s): E87.1 - Hypo-osmolality and hyponatremia Status: Acute Assessment and Plan: -could be related to SIADH due to COVID pneumonia. Minimal amount of water flushes - stable monitor (5) DVT prophylaxis: Code(s): Z29.9 - Encounter for prophylactic measures, unspecified Status: Acute Assessment and Plan: Lovenox to 40 mg SQ Q12H (6) Shock: Code(s): R57.9 - Shock, unspecified Status: Acute Assessment and Plan: Likely secondary to hypovolemia and sedation Currently off of Levophed (7) Leukocytosis: Code(s): D72.829 - Elevated white blood cell count, unspecified Status: Acute Assessment and Plan: Patient has had increasing leukocytosis. He initially was on steroids but now off He is febrile He was started on vancomycin and Zosyn on 07/02 Pending blood and sputum cultures. Butts was changed. Prelim from lab suggests that patient is growing Gram-positive cocci from 1 culture although I do not have the report His alkaline phosphatase has been increasing but patient is status post cholecystectomy Last triglyceride level was acceptable and lipase was normal I checked lactic acid level and that was normal too Additional Plan DVT prophylaxis -Lovenox subQ q.12 hours Stress ulcer prophylaxis -add PPI Nutrition - Tube Feeds Patient is scheduled for PEG tube today and tracheostomy on Saturday Code Status - Full Code Total Critical Care Time - 35 minutes Due to a high probability of clinically significant, life threatening deterioration, the patient required my highest level of preparedness to intervene emergently and I personally spent this critical care time directly and personally managing the patient. This critical care time included obtaining a history; examining the patient; pulse oximetry; ordering and review of studies; arranging urgent treatment with de
[2021-07-05] MEDS: FENTANYL 2,500MCG/NS250ML(*CRX 2,500 MCG/250 ML BAG 20 MCG IV CONT ×2 (10:52→21:59)
[2021-07-05 10:57] LABS: Vancomycin Trough 6.1 ug/mL (10.0-20.0)
--- NOTE | 2021-07-05 11:54 | PCDIET ---
ICU Rounding Note: Patient NPO for PEG today. Plan for tracheostomy on 07/07/21. Last recorded weight is 76.6kg which is increased from last review. +I/O. Bowel Motility: BM x 1 today. Labs Reviewed: WBC (17.9), RBC (3.46), Hgb (10.7), Hct (32.8), Glu (128), Cr (0.5), K (3.2), Na (130), Alb (2.6), Boogie Ca (8.82) Meds Noted: Albuterol, Nimbex, Versed, KCl, Vancomycin, Fentanyl, LR at 150mL/hr, Protonix, Zosyn, Vitamin D, Propofol (rate of 22.56mL/hr provides 595kcal per day) Additional Notes: Right cheek skin tear. Posterior neck laceration. Following daily in ICU rounds. Assessing/reassessing every Saturday/Saturday.
[2021-07-05] MEDS: CISATRACURIUM BESYLATE 200 MG in DEXTROSE 5% 80 ML 20.55 ML IV CONT (12:54)
--- NOTE | 2021-07-05 14:45 | SUR.OPER ---
OG tube removed for PEG placement procedure
--- NOTE | 2021-07-05 14:58 | SUR.OPER ---
Intraprocedure vital signs: 14:38 126 HR, 94% on 50% FiO2, 24 RR, 104/64 14:44 123 HR, 93% on 50% FiO2, 24 RR, 124/84 14:57 129 HR, 92% on 50% FiO2, 24 RR, 141/87 15:00 125 HR, 93% on 50% FiO2, 24 RR, 123/76
--- NOTE | 2021-07-05 18:19 | PM.IMPN ---
Progress Note: A&P Assessment and Plan (1) Acute respiratory failure with hypoxia: Code(s): J96.01 - Acute respiratory failure with hypoxia Status: Acute Assessment and Plan: Acute respiratory failure related to COVID pneumonia -patient transferred to the ICU on 06/21/2021 for worsening oxygen requirements, patient was intubated on 06/22/2021 - 07/04 ET tube was exchanged -06/22/2021 chest x-ray revealed moderate left-sided pneumothorax, chest tube was inserted by surgery on left -OFF FLOLAN now -chest x-ray does show small pneumothorax on either left side but I do not see any leak - peep is at 10 FiO2 is at 50% - will do in Nimbex holiday after PEG tube placement today -continue bronchodilators and Pulmicort - chest x-ray reviewed and ET tube was readjusted - patient is scheduled for tracheostomy on Saturday (2) Pneumonia due to COVID-19 virus: Code(s): U07.1 - COVID-19; J12.82 - Pneumonia due to coronavirus disease 2019 Status: Acute Assessment and Plan: Patient tested positive for COVID on 06/15/2021 at an outside facility, presented the ED on 06/17/2021 with worsening shortness of breath and symptoms of fatigue, loss of sense of taste and smell, cough for 7-8 days prior to admission -patient has not received COVID vaccine -continue dexamethasone -Remdesivir contraindicated in patients with significant elevation in LFTs -continue droplet, airborne and contact isolation/precautions (3) Transaminitis: Code(s): R74.01 - Elevation of levels of liver transaminase levels Status: Acute Assessment and Plan: Hepatitis panel is negative -abdominal ultrasound on 06/19/2021 showed 4.1 x 2.1 x 3.6 hyperechoic lesion in the right hepatic lobe consistent with a hemangioma when compared to prior CT. The liver is otherwise normal. No surface nodularity. Normal hepatopetal flow in the main portal vein. The gallbladder is surgically absent. The normal common bile duct measures 4 mm. -LFTs have almost normalized, will continue to monitor (4) Hyponatremia: Code(s): E87.1 - Hypo-osmolality and hyponatremia Status: Acute Assessment and Plan: -could be related to SIADH due to COVID pneumonia. Minimal amount of water flushes - stable monitor (5) DVT prophylaxis: Code(s): Z29.9 - Encounter for prophylactic measures, unspecified Status: Acute Assessment and Plan: Lovenox to 40 mg SQ Q12H (6) Shock: Code(s): R57.9 - Shock, unspecified Status: Acute Assessment and Plan: Likely secondary to hypovolemia and sedation Currently off of Levophed (7) Leukocytosis: Code(s): D72.829 - Elevated white blood cell count, unspecified Status: Acute Assessment and Plan: Patient has had increasing leukocytosis. He initially was on steroids but now off He is febrile He was started on vancomycin and Zosyn on 07/02 Pending blood and sputum cultures. Butts was changed. Prelim from lab suggests that patient is growing Gram-positive cocci from 1 culture although I do not have the report His alkaline phosphatase has been increasing but patient is status post cholecystectomy Last triglyceride level was acceptable and lipase was normal I checked lactic acid level and that was normal too Additional Plan DVT prophylaxis -Lovenox subQ q.12 hours Stress ulcer prophylaxis -add PPI Nutrition - Tube Feeds 07/05/2021 Patient remains in ICU in critical condition on ventilator requiring use of paralytic Patient is scheduled for PEG tube today and tracheostomy on Saturday Continue current care Anticipate transfer to LTAC at discharge Case reviewed with pm head cook recommendations appreciated Subjective Date/time seen: 07/05/21 11:19 Patient intubated sedated on paralytic Interval history: Admitted for COVID-19 pneumonia, respiratory failure. Tested POSITIVE 06/15. Intubated 06/22. Exam Narrative: General: Pt is sedated, intubated and o
[2021-07-05] MEDS: ENOXAPARIN 40 MG/0.4 ML SYRINGE SUB-Q (21:30)
[2021-07-05] MEDS: MIDAZOLAM 100MG/NS 100ML(*CRX) 100 MG/100 ML BAG 10 MG IV CONT (21:31)
--- NOTE | 2021-07-05 21:44 | PC.NURSE ---
Patient having high peak pressures and RR 30/min. Dr. Hamm also notified of rising fever. Increase versed to 10mg/hr and Propofol to 60mcg/kg/min. Leave Fent drip at 200mcg. Use cooling blanket as needed for fever.
[2021-07-05] MEDS: PROPOFOL IV EMULSION 100 ML 27.07 MG IV CONT (22:11)
[2021-07-06] VITALS (34 sets, daily range): BP systolic 94–148; BP diastolic 65–81; PULSE 100–123; RESP 19–29; TEMP 36.8–37.7; O2SAT 91–95
[2021-07-06] MEDS: PROPOFOL IV EMULSION 100 ML 27.07 MG IV CONT ×7 (02:07→23:07)
[2021-07-06 04:16] LABS: Hematocrit 31.1 % (42.0-52.0); Hemoglobin 10.3 g/dL (14.0-18.0); Mean Corpuscular HGB Conc 33.1 g/dl (32-36); Mean Corpuscular Hemoglobin 31.2 pg (26-34); Mean Corpuscular Volume 94.2 fl (80-100); Platelet Count Result 373 k/mm3 (150-375); Red Cell Distribution Width 12.7 % (11.5-14.5); White Blood Count 16.6 K/mm3 (4.5-10.0)
[2021-07-06 04:26] LABS: Alanine Aminotransferase 54 U/L (4-50); Albumin Level 2.6 g/dL (3.5-5.1); Alkaline Phosphatase 342 U/L (38-126); Anion Gap 1 mmol/L (8-16); Aspartate Amino Transferase 46 U/L (17-59); Bilirubin,Total 0.7 mg/dL (0.2-1.3); Blood Urea Nitrogen 13 mg/dL (9-20); Calcium 7.9 mg/dL (8.4-10.2); Carbon Dioxide 33 mmol/L (22-30); Chloride 93 mmol/L (98-107); Estimated CRCL calculation 197 ml/min; Estimated Glomerular Filt Rate > 60; Glucose 170 mg/dL (65-110); Magnesium 1.8 mg/dL (1.6-2.3); Phosphorus 2.9 mg/dL (2.5-4.5); Potassium 3.2 mmol/L (3.4-5.0); Sodium 127 mmol/L (137-145)
[2021-07-06] MEDS: POTASSIUM CHLORIDE 20 MEQ PACKET (FOR LIQUID) 40 MEQ FEED TUBE (04:50)
[2021-07-06 05:11] LABS: Alveolar/Arterial O2 Gradient 329.7 mmHg; Base Excess ABG 6.6 mEq/l (+/-2.0); Carboxyhemoglobin 0.4 % THb (0-2.0); Device VENTILATOR; Fractional Inspired Oxygen 65 %; HCO3 ABG 31.4 mEq/l (22.0-26.0); Methemoglobin ABG 0.3 %THb (0-1.5); Modified Allen's Test Pass; Oxygen Content ABG 16.1 %vol (16.0-22.0); Oxygen Saturation ABG 96.7 % (95.0-100.0); Oxyhemoglobin 95.5 % THb (90.0-100.0); PCO2 ABG 45.7 mmHg (35.0-45.0); PO2 ABG 84.1 mmHg (80.0-100.0); PO2 FiO2 Ratio Arterial Blood 1.29 %; Reduced Hemoglobin 3.8 %THb (0-5.0); Site Drawn LEFT BRACHIAL; Total Hemoglobin 11.9 g/dL (12.0-18.0); pH ABG 7.455 (7.350-7.450)
[2021-07-06 05:12] LABS: Arterial Blood Gas PEEP 10 cmH2O; Arterial Blood Gas Vent Mode CMV; Arterial Blood Gas Ventilator rate 24 /MIN
[2021-07-06 05:13] LABS: Arterial Blood Gas Tidal Volume 400 ml
[2021-07-06] MEDS: MIDAZOLAM 100MG/NS 100ML(*CRX) 100 MG/100 ML BAG 10 MG IV CONT ×2 (06:08→17:01)
[2021-07-06] MEDS: CENTRAL LINE FLUSH 10 ML IV PUSH ×6 (06:13→21:26)
--- NOTE | 2021-07-06 06:55 | WPDANESPN ---
Anes - Prog Note Post-Op Date/Time: 07/06/21 06:55 Cardiovascular status: normal Respiratory status: other (On vent. Unchanged.) Airway patency: baseline Mental status: other (sedated) Post-Op hydration status: normal Vital Signs: Last Vital Signs Temp 99.7 F H 07/06/21 06:00 Pulse 120 H 07/06/21 06:10 Resp 25 H 07/06/21 06:10 BP 124/81 07/06/21 06:00 Pulse Ox 94 07/06/21 06:00 Pain Score (VAS): 1 I/O: Intake & Output 07/05/21 07/05/21 07/06/21 15:59 23:59 07:59 Intake Total 650 1300 1192 Output Total 1720 1100 Balance 650 -420 92 Laboratory Tests 07/06/21 04:08 07/06/21 04:08 07/05/21 07/06/21 07/06/21 10:00 04:08 04:08 WBC 16.6 H RBC 3.30 L Hgb 10.3 L Hct 31.1 L MCV 94.2 MCH 31.2 MCHC 33.1 RDW 12.7 Plt Count 373 MPV 10.0 Puncture Site ABG pH ABG pCO2 ABG pO2 ABG PO2/FiO2 Ratio ABG HCO3 ABG O2 Saturation ABG O2 Content ABG Base Excess A-a Gradient Oxyhemoglobin Carboxyhemoglobin Methemoglobin Reduced Hemoglobin Total Hemoglobin O2 Delivery Device O2 Liters/Min Minute Volume Vent Rate Vent Mode FiO2 Tidal Volume PEEP Peak Inspir Pressure Pressure Support Sodium 127 L Potassium 3.2 L Chloride 93 L Carbon Dioxide 33 H Anion Gap 1 L BUN 13 Creatinine 0.40 L Estim Creat Clear Calc 197 Estimated GFR > 60 Glucose 170 H Calcium 7.9 L Phosphorus 2.9 Magnesium 1.8 Total Bilirubin 0.7 AST 46 ALT 54 H Alkaline Phosphatase 342 H Total Protein 6.0 L Albumin 2.6 L TSH (Reflex) Vancomycin Trough 6.1 L 07/06/21 07/06/21 07/06/21 04:30 04:30 04:38 WBC RBC Hgb Hct MCV MCH MCHC RDW Plt Count MPV Puncture Site Pending Left brachial ABG pH Pending 7.455 H ABG pCO2 Pending 45.7 H ABG pO2 Pending 84.1 ABG PO2/FiO2 Ratio Pending 1.29 ABG HCO3 Pending 31.4 H ABG O2 Saturation Pending 96.7 ABG O2 Content Pending 16.1 ABG Base Excess Pending 6.6 A-a Gradient Pending 329.7 Oxyhemoglobin Pending 95.5 Carboxyhemoglobin Pending 0.4 Methemoglobin Pending 0.3 Reduced Hemoglobin Pending 3.8 Total Hemoglobin Pending 11.9 L O2 Delivery Device Pending Ventilator O2 Liters/Min Pending Not Reportable Minute Volume Not Reportable Vent Rate Pending Vent Mode Pending FiO2 65 Tidal Volume Pending PEEP Pending Peak Inspir Pressure Not Reportable Pressure Support Not Reportable Sodium Potassium Chloride Carbon Dioxide Anion Gap BUN Creatinine Estim Creat Clear Calc Estimated GFR Glucose Calcium Phosphorus Magnesium Total Bilirubin AST ALT Alkaline Phosphatase Total Protein Albumin TSH (Reflex) Pending Vancomycin Trough Microbiology 07/03/21 10:13 Blood Blood Culture - Preliminary 07/03/21 11:42 Sputum Sputum Culture - Preliminary Stenotrophomonas maltophilia 07/03/21 10:14 Blood Blood Culture - Preliminary Post-procedural complaints: none Patient Feedback: Patient satisfied with anesthetic care.Sedated
[2021-07-06] MEDS: CHOLECALCIFEROL 400 UNITS TABLET (VIT D) PO (08:26)
[2021-07-06] MEDS: ENOXAPARIN 40 MG/0.4 ML SYRINGE SUB-Q ×2 (08:26→21:17)
[2021-07-06] MEDS: PANTOPRAZOLE SODIUM IV 40 MG VIAL IV PUSH (08:26)
[2021-07-06] MEDS: MINERAL OIL/WHITE PETROLATUM OINTMENT 1 APPLIC EACH EYE ×2 (08:27→21:17)
--- NOTE | 2021-07-06 09:25 | PM.IMHP ---
H&P: HPI History of Present Illness Date/Time: 07/06/21 09:25 patient presents for planned tracheostomy no changes in symptoms no changes in medical history under vaccinated, history of COVID-19 Chief Complaint: respiratory insufficiency, respiratory failure, COVID-19 Review of Systems Constitutional: Constitutional: Denies fatigue, Denies fever(s) and Denies lethargy Eyes: Eyes: Denies blurry vision and Denies change in vision ENT: Reports as per HPI Cardiovascular: Cardiovascular: Denies chest pain Respiratory: Respiratory: Denies cough Endocrine: Endocrine: Denies fatigue Hematologic/Lymphatic: Hematologic/Lymphatic: Denies easy bleeding, Denies easy bruising and Denies lymphadenopathy Allergic/Immunologic: Allergic/Immunologic: Denies seasonal rhinorrhea [facility] Past Medical History Medical History (Updated 07/04/21 @ 16:52 by Adarsh Gotti MD) Bilateral renal cysts Feeding difficulty History of colon polyps Normal colonoscopy on 02/20/2021. Kidney stones Melanoma of neck (2016) Surgical History Surgical History History of cholecystectomy (1998) History of melanoma excision (2016) Family History Family History Other No significant family history Social History Social History Social History: The patient lives in [place] with his . 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 Lifelong nonsmoker. No alcohol or illicit substance abuse. He designates his , Adri Smiley, as his surrogate decision maker and he wishes to be a full code. Spiritual care concerns: No Meds Home Medications and Allergies Home Medications Medication Instructions Recorded Confirmed Type No Home Medications 06/17/21 06/17/21 History Allergies Allergy/AdvReac Type Severity Reaction Status Date / Time acetaminophen Allergy Intermediate Rash Verified 06/17/21 12:04 oxycodone Allergy Intermediate Rash Verified 06/17/21 12:04 hydrocodone AdvReac Mild Nausea and Verified 06/21/21 14:00 Vomiting Vital Signs Vital Signs - 24 hr 07/05/21 10:00 07/05/21 10:26 07/05/21 10:52 Temperature 37.3 C Pulse Rate 124 H 124 H 124 H Respiratory Rate 24 H 24 H 24 H Blood Pressure 120/86 Pulse Oximetry 90 07/05/21 10:55 07/05/21 11:12 07/05/21 11:57 Temperature Pulse Rate 122 H 124 H 117 H Respiratory Rate 24 H 24 H Blood Pressure 120/86 Pulse Oximetry 92 07/05/21 12:00 07/05/21 12:54 07/05/21 13:54 Temperature 37.2 C Pulse Rate 120 H 122 H 121 H Respiratory Rate 24 H 24 H Blood Pressure 115/74 102/73 Pulse Oximetry 91 93 07/05/21 14:00 07/05/21 15:37 07/05/21 16:00 Temperature 37.2 C 37.3 C Pulse Rate 124 H 120 H 118 H Respiratory Rate 24 H 24 H 24 H Blood Pressure 97/75 L 111/72 Pulse Oximetry 93 93 07/05/21 17:35 07/05/21 18:00 07/05/21 18:47 Temperature 37.0 C Pulse Rate 120 H 114 H 118 H Respiratory Rate 24 H 26 H Blood Pressure 110/75 Pulse Oximetry 92 95 07/05/21 19:00 07/05/21 19:30 07/05/21 20:00 Temperature 37.5 C 37.7 C H 37.7 C H Pulse Rate 118 H 119 H 122 H Respiratory Rate 25 H 24 H 25 H Blood Pressure 101/65 103/66 109/72 Pulse Oximetry 96 96 92 07/05/21 20:11 07/05/21 20:30 07/05/21 21:00 Temperature 37.8 C H 38.1 C H Pulse Rate 125 H 128 H 129 H Respiratory Rate 25 H 24 H Blood Pressure 118/76 106/81 Pulse Oximetry 94 93 99 07/05/21 21:31 07/05/21 21:59 07/05/21 22:00 Temperature 38.4 C H Pulse Rate 135 H 128 H 113 H Respiratory Rate 30 H 29 H 28 H Blood Pressure 102/71 Pulse Oximetry 92 07/05/21 22:07 07/05/21 22:11 07/06/21 00:00 Temperature 37.7 C H Pulse Rate 122 H 130 H 113 H Respiratory Rate 30 H 25 H Blood Pressure 94/71 L Pulse Oximetry 95 94 07/06/21 01:53 07/06/21 01:57 07/06/21 02:00 Temperature 37.2
--- NOTE | 2021-07-06 11:02 | WPDINTPN ---
Progress Note: A&P Assessment and Plan (1) Acute respiratory failure with hypoxia: Code(s): J96.01 - Acute respiratory failure with hypoxia Status: Acute Assessment and Plan: Acute respiratory failure related to COVID pneumonia -patient transferred to the ICU on 06/21/2021 for worsening oxygen requirements, patient was intubated on 06/22/2021 - 07/04 ET tube was exchanged -06/22/2021 chest x-ray revealed moderate left-sided pneumothorax, chest tube was inserted by surgery on left -OFF FLOLAN now -chest x-ray does show small pneumothorax on either left side but I do not see any leak - peep is at 10 FiO2 is at 65% -I discontinued Nimbex infusion yesterday. Since then patient's peak pressure have slightly increased in to low 40s. He is over breathing the ventilator despite heavy sedation and once in awhile becomes a synchronous with the ventilator. Will continue to avoid neuromuscular blockers as long as safe mechanical ventilation is allowed -continue bronchodilators and Pulmicort - chest x-ray reviewed and ET tube is in acceptable position - patient is scheduled for tracheostomy on Saturday (2) Pneumonia due to COVID-19 virus: Code(s): U07.1 - COVID-19; J12.82 - Pneumonia due to coronavirus disease 2019 Status: Acute Assessment and Plan: Patient tested positive for COVID on 06/15/2021 at an outside facility, presented the ED on 06/17/2021 with worsening shortness of breath and symptoms of fatigue, loss of sense of taste and smell, cough for 7-8 days prior to admission -patient has not received COVID vaccine -continue dexamethasone -Remdesivir contraindicated in patients with significant elevation in LFTs -continue droplet, airborne and contact isolation/precautions (3) Transaminitis: Code(s): R74.01 - Elevation of levels of liver transaminase levels Status: Acute Assessment and Plan: Hepatitis panel is negative -abdominal ultrasound on 06/19/2021 showed 4.1 x 2.1 x 3.6 hyperechoic lesion in the right hepatic lobe consistent with a hemangioma when compared to prior CT. The liver is otherwise normal. No surface nodularity. Normal hepatopetal flow in the main portal vein. The gallbladder is surgically absent. The normal common bile duct measures 4 mm. -LFTs have almost normalized, will continue to monitor (4) Hyponatremia: Code(s): E87.1 - Hypo-osmolality and hyponatremia Status: Acute Assessment and Plan: -could be related to SIADH due to COVID pneumonia. Minimal amount of water flushes - stable monitor (5) DVT prophylaxis: Code(s): Z29.9 - Encounter for prophylactic measures, unspecified Status: Acute Assessment and Plan: Lovenox to 40 mg SQ Q12H (6) Shock: Code(s): R57.9 - Shock, unspecified Status: Acute Assessment and Plan: Likely secondary to hypovolemia and sedation Currently off of Levophed (7) Leukocytosis: Code(s): D72.829 - Elevated white blood cell count, unspecified Status: Acute Assessment and Plan: Patient has had increasing leukocytosis. He initially was on steroids but now off He has low-grade fever He was started on vancomycin and Zosyn on 07/02 Blood cultures are negative till now Butts was changed. Sputum is growing stenotrophomonas maltophilia. Patient did had thick secretions noticed at the time of his tube exchange. So this may be a secondary bacterial infection. I will empirically start Bactrim and consult Infectious Disease His alkaline phosphatase has been increasing but patient is status post cholecystectomy Last triglyceride level was acceptable and lipase was normal I checked lactic acid level and that was normal too Additional Plan DVT prophylaxis -Lovenox subQ q.12 hours Stress ulcer prophylaxis -add PPI Nutrition - Tube Feeds Patient is scheduled for tracheostomy on Saturday. I spoke to patient's by phone and updated her with patient's current condition, curr
[2021-07-06 12:03] LABS: Glucose Point of Care 110 mg/dl (65-105)
--- NOTE | 2021-07-06 12:13 | PCDIET ---
ICU Rounding Note: Tube feedings resumed following PEG on 07/05/21. Vital 1.2 infusing at 30mL/hr via PEG at time of rounds. Recommend increasing to 40mL/hr as tolerated due to increased Propofol dose. Last recorded weight is 78.3kg which is increased from last review. +I/O. Bowel Motility: BM x 1 today. Labs Reviewed: WBC (16.6), RBC (3.30), Hgb (10.3), Hct (31.1), Glu (170), Cr (0.4), K (3.2), Na (127), Alb (2.6), Boogie Ca (9.02) Meds Noted: Fentanyl, Versed, Protonix, Zosyn, Vancomycin, Vitamin D, KCl, Propofol (rate of 27.07mL/hr provides 714kcal per day) Additional Notes: Right cheek skin tear. Posterior neck laceration. Left anterior thigh puncture site. Following daily in ICU rounds. Assessing/reassessing every Saturday/Saturday.
[2021-07-06 12:20] LABS: Potassium 3.7 mmol/L (3.4-5.0)
[2021-07-06] MEDS: FENTANYL 2,500MCG/NS250ML(*CRX 2,500 MCG/250 ML BAG 10 MCG IV CONT (14:50)
--- NOTE | 2021-07-06 16:19 | WPDGIPROGNO ---
Progress Note: A&P Assessment and Plan (1) Pneumonia due to COVID-19 virus: Code(s): U07.1 - COVID-19; J12.82 - Pneumonia due to coronavirus disease 2019 Status: Acute Assessment and Plan: icu care ENT to place trach (2) Feeding difficulty: Code(s): R63.3 - Feeding difficulties Status: Acute Assessment and Plan: g-tube working fine and patient tolerating tube feeding call if questions (3) Pneumothorax: Qualifiers: Pneumothorax type: unspecified pneumothorax Qualified Code(s): J93.9 - Pneumothorax, unspecified Code(s): J93.9 - Pneumothorax, unspecified Status: Acute (4) Acute respiratory failure with hypoxia: Code(s): J96.01 - Acute respiratory failure with hypoxia Status: Acute Subjective Date/time seen: 07/06/21 16:19 Interval history: peg placed yesterday and tolerating TF at 40 ml/h Review of Systems Review of Systems: All systems reviewed & are unremarkable except as noted in HPI and below Exam Const: Other: intubated HENMT: General nose exam: Normal nares present Other: Facial swelling noted, small pressure lesions from prone positioning. Neck: Neck: supple Resp: Auscultation: rales Other: chest tube in place Cardio: Rate: regular rate GI: GI Palp: Yes Soft to palpation and No Guarding due to palpation present (GI) Auscultation: normal bowel sounds Other: G-tube site looks ok Urinary Catheter: Urinary Catheter: patent and draining Skin: Lesions: lesion noted Neuro: Other: sedated Extrem: General: normal to inspection Objective Data Vital Signs Vital Signs: Vital Signs - 24 hr 07/05/21 17:35 07/05/21 18:00 07/05/21 18:47 Temperature 98.6 F Pulse Rate 120 H 114 H 118 H Respiratory Rate 24 H 26 H Blood Pressure 110/75 Pulse Oximetry 92 95 07/05/21 19:00 07/05/21 19:30 07/05/21 20:00 Temperature 99.5 F 99.8 F H 99.9 F H Pulse Rate 118 H 119 H 122 H Respiratory Rate 25 H 24 H 25 H Blood Pressure 101/65 103/66 109/72 Pulse Oximetry 96 96 92 07/05/21 20:11 07/05/21 20:30 07/05/21 21:00 Temperature 100.1 F H 100.5 F H Pulse Rate 125 H 128 H 129 H Respiratory Rate 25 H 24 H Blood Pressure 118/76 106/81 Pulse Oximetry 94 93 99 07/05/21 21:31 07/05/21 21:59 07/05/21 22:00 Temperature 101.2 F H Pulse Rate 135 H 128 H 113 H Respiratory Rate 30 H 29 H 28 H Blood Pressure 102/71 Pulse Oximetry 92 07/05/21 22:07 07/05/21 22:11 07/06/21 00:00 Temperature 99.8 F H Pulse Rate 122 H 130 H 113 H Respiratory Rate 30 H 25 H Blood Pressure 94/71 L Pulse Oximetry 95 94 07/06/21 01:53 07/06/21 01:57 07/06/21 02:00 Temperature 99.0 F Pulse Rate 109 H 110 H 109 H Respiratory Rate 25 H 25 H Blood Pressure 98/72 L Pulse Oximetry 92 92 07/06/21 02:07 07/06/21 03:21 07/06/21 04:00 Temperature 99.2 F Pulse Rate 109 H 111 H 110 H Respiratory Rate 25 H 25 H 25 H Blood Pressure 107/70 Pulse Oximetry 92 93 07/06/21 04:52 07/06/21 05:49 07/06/21 06:00 Temperature 99.7 F H Pulse Rate 118 H 120 H 122 H Respiratory Rate 25 H 26 H Blood Pressure 124/81 Pulse Oximetry 93 94 07/06/21 06:08 07/06/21 06:10 07/06/21 07:54 Temperature Pulse Rate 120 H 120 H 113 H Respiratory Rate 25 H 25 H Blood Pressure Pulse Oximetry 93 07/06/21 08:00 07/06/21 08:40 07/06/21 08:48 Temperature 99.1 F Pulse Rate 100 106 H 105 H Respiratory Rate 26 H 26 H 26 H Blood Pressure 118/77 Pulse Oximetry 93 07/06/21 10:00 07/06/21 10:19 07/06/21 12:00 Temperature 98.3 F 98.9 F Pulse Rate 109 H 110 H 122 H Respiratory Rate 26 H 29 H Blood Pressure 110/73 117/73 Pulse Oximetry 91 95 92 07/06/21 13:12 07/06/21 14:00 07/06/21 14:50 Temperature Pulse Rate 120 H 122 H 120 H Respiratory Rate 26 H 25 H Blood Pressure 110/68 Pulse Oximetry 95 92 95 07/06/21 15:00 Temperature Pulse Rate 116 H Respiratory Rate 21 H Blood Pressure
--- NOTE | 2021-07-06 16:58 | WPDCN ---
Assessment and Plan Assessment and plan (1) Acute respiratory failure with hypoxia: Code(s): J96.01 - Acute respiratory failure with hypoxia Status: Acute Assessment and Plan: Plan for OR 07/07/21 for tracheostomy, risks discussed with the family per nursing. NPO at midnight, hold anticoagulation if possible am of 07/06/21 HPI Data of Consult Date/Time: 07/06/21 16:58 Requesting Physician: Nadiya Cárdenas MD Primary Care Provider: Ashlee Lowry, PA Consult Narrative Narrative: Marichuy Smiley is a 50 year old male with covid 19, respiratory failure, consulted for tracheostomy. FiO2 65%, PEEP 10 Review of Systems Review of Systems: ROS unobtainable: Yes unobtainable due to endotracheal tube, unobtainable due to medical condition and unobtainable due to mental status PMFSH Past Medical History Medical History (Updated 07/04/21 @ 16:52 by Adarsh Gotti MD) Bilateral renal cysts Feeding difficulty History of colon polyps Normal colonoscopy on 02/20/2021. Kidney stones Melanoma of neck (2016) Surgical History Surgical History History of cholecystectomy (1998) History of melanoma excision (2016) Family History Family History Other No significant family history Social History Social History Social History: The patient lives in [place] with his . 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 Lifelong nonsmoker. No alcohol or illicit substance abuse. He designates his , Adri Smiley, as his surrogate decision maker and he wishes to be a full code. Spiritual care concerns: No Meds Home Medications and Allergies Home Medications Medication Instructions Recorded Confirmed Type No Home Medications 06/17/21 06/17/21 History Allergies Allergy/AdvReac Type Severity Reaction Status Date / Time acetaminophen Allergy Intermediate Rash Verified 06/17/21 12:04 oxycodone Allergy Intermediate Rash Verified 06/17/21 12:04 hydrocodone AdvReac Mild Nausea and Verified 06/21/21 14:00 Vomiting Vital Signs Vital Signs - 24 hr 07/05/21 17:35 07/05/21 18:00 07/05/21 18:47 Temperature 37.0 C Pulse Rate 120 H 114 H 118 H Respiratory Rate 24 H 26 H Blood Pressure 110/75 Pulse Oximetry 92 95 07/05/21 19:00 07/05/21 19:30 07/05/21 20:00 Temperature 37.5 C 37.7 C H 37.7 C H Pulse Rate 118 H 119 H 122 H Respiratory Rate 25 H 24 H 25 H Blood Pressure 101/65 103/66 109/72 Pulse Oximetry 96 96 92 07/05/21 20:11 07/05/21 20:30 07/05/21 21:00 Temperature 37.8 C H 38.1 C H Pulse Rate 125 H 128 H 129 H Respiratory Rate 25 H 24 H Blood Pressure 118/76 106/81 Pulse Oximetry 94 93 99 07/05/21 21:31 07/05/21 21:59 07/05/21 22:00 Temperature 38.4 C H Pulse Rate 135 H 128 H 113 H Respiratory Rate 30 H 29 H 28 H Blood Pressure 102/71 Pulse Oximetry 92 07/05/21 22:07 07/05/21 22:11 07/06/21 00:00 Temperature 37.7 C H Pulse Rate 122 H 130 H 113 H Respiratory Rate 30 H 25 H Blood Pressure 94/71 L Pulse Oximetry 95 94 07/06/21 01:53 07/06/21 01:57 07/06/21 02:00 Temperature 37.2 C Pulse Rate 109 H 110 H 109 H Respiratory Rate 25 H 25 H Blood Pressure 98/72 L Pulse Oximetry 92 92 07/06/21 02:07 07/06/21 03:21 07/06/21 04:00 Temperature 37.3 C Pulse Rate 109 H 111 H 110 H Respiratory Rate 25 H 25 H 25 H Blood Pressure 107/70 Pulse Oximetry 92 93 07/06/21 04:52 07/06/21 05:49 07/06/21 06:00 Temperature 37.6 C H Pulse Rate 118 H 120 H 122 H Respiratory Rate 25 H 26 H Blood Pressure 124/81 Pulse Oximetry 93 94 07/06/21 06:08 07/06/21 06:10 07/06/21 07:54 Temperature Pulse Rate 120 H 120 H 113 H Respiratory Rate 25 H 25 H Blood Pressure Pulse Oximetry 93 07/06/21 08:00 07/06/21 08:40 07/06/21 08:48 Temperature
--- NOTE | 2021-07-06 17:52 | PM.IMPN ---
Progress Note: A&P Assessment and Plan (1) Acute respiratory failure with hypoxia: Code(s): J96.01 - Acute respiratory failure with hypoxia Status: Acute Assessment and Plan: Acute respiratory failure related to COVID pneumonia -patient transferred to the ICU on 06/21/2021 for worsening oxygen requirements, patient was intubated on 06/22/2021 - 07/04 ET tube was exchanged -06/22/2021 chest x-ray revealed moderate left-sided pneumothorax, chest tube was inserted by surgery on left -OFF FLOLAN now -chest x-ray does show small pneumothorax on either left side but I do not see any leak - peep is at 10 FiO2 is at 65% -I discontinued Nimbex infusion yesterday. Since then patient's peak pressure have slightly increased in to low 40s. He is over breathing the ventilator despite heavy sedation and once in awhile becomes a synchronous with the ventilator. Will continue to avoid neuromuscular blockers as long as safe mechanical ventilation is allowed -continue bronchodilators and Pulmicort - chest x-ray reviewed and ET tube is in acceptable position - patient is scheduled for tracheostomy on Saturday -peg placed 07/05/21 and tolerating TF at 40 ml/h (2) Pneumonia due to COVID-19 virus: Code(s): U07.1 - COVID-19; J12.82 - Pneumonia due to coronavirus disease 2018 Status: Acute Assessment and Plan: Patient tested positive for COVID on 06/15/2021 at an outside facility, presented the ED on 06/17/2021 with worsening shortness of breath and symptoms of fatigue, loss of sense of taste and smell, cough for 7-8 days prior to admission -patient has not received COVID vaccine -continue dexamethasone -Remdesivir contraindicated in patients with significant elevation in LFTs -continue droplet, airborne and contact isolation/precautions (3) Transaminitis: Code(s): R74.01 - Elevation of levels of liver transaminase levels Status: Acute Assessment and Plan: Hepatitis panel is negative -abdominal ultrasound on 06/19/2021 showed 4.1 x 2.1 x 3.6 hyperechoic lesion in the right hepatic lobe consistent with a hemangioma when compared to prior CT. The liver is otherwise normal. No surface nodularity. Normal hepatopetal flow in the main portal vein. The gallbladder is surgically absent. The normal common bile duct measures 4 mm. -LFTs have almost normalized, will continue to monitor (4) Hyponatremia: Code(s): E87.1 - Hypo-osmolality and hyponatremia Status: Acute Assessment and Plan: -could be related to SIADH due to COVID pneumonia. Minimal amount of water flushes - stable monitor (5) DVT prophylaxis: Code(s): Z29.9 - Encounter for prophylactic measures, unspecified Status: Acute Assessment and Plan: Lovenox to 40 mg SQ Q12H (6) Shock: Code(s): R57.9 - Shock, unspecified Status: Acute Assessment and Plan: Likely secondary to hypovolemia and sedation Currently off of Levophed (7) Leukocytosis: Code(s): D72.829 - Elevated white blood cell count, unspecified Status: Acute Assessment and Plan: Patient has had increasing leukocytosis. He initially was on steroids but now off He has low-grade fever He was started on vancomycin and Zosyn on 07/02 Blood cultures are negative till now Butts was changed. Sputum is growing stenotrophomonas maltophilia. ID consulted Additional Plan DVT prophylaxis -Lovenox subQ q.12 hours Stress ulcer prophylaxis -add PPI Nutrition - Tube Feeds Patient is scheduled for tracheostomy on Saturday. I spoke to patient's by phone and updated her with patient's current condition, current treatment plan and prognosis 07/05/2021 Patient remains in ICU in critical condition on ventilator requiring use of paralytic Patient is scheduled for PEG tube today and tracheostomy on Saturday Continue current care Anticipate transfer to LTAC at discharge Case reviewed with vise hand recommendations appreciated
[2021-07-07] VITALS (31 sets, daily range): BP systolic 96–124; BP diastolic 59–76; PULSE 93–130; RESP 17–34; TEMP 36.1–38; O2SAT 92–97
[2021-07-07] MEDS: PROPOFOL IV EMULSION 100 ML 27.07 MG IV CONT ×5 (02:29→17:41)
[2021-07-07] MEDS: MIDAZOLAM 100MG/NS 100ML(*CRX) 100 MG/100 ML BAG 10 MG IV CONT ×2 (04:04→14:35)
[2021-07-07 04:54] LABS: Hematocrit 31.6 % (42.0-52.0); Mean Corpuscular HGB Conc 31.6 g/dl (32-36); Mean Corpuscular Hemoglobin 31.2 pg (26-34); Mean Corpuscular Volume 98.4 fl (80-100); Mean Platelet Volume 10.4 fl (7.4-10.4); Platelet Count Result 323 k/mm3 (150-375); Red Blood Count 3.21 M/mm3 (4.6-6.20); Red Cell Distribution Width 12.8 % (11.5-14.5); White Blood Count 12.6 K/mm3 (4.5-10.0)
[2021-07-07 05:01] LABS: Alveolar/Arterial O2 Gradient 315.7 mmHg; Base Excess ABG 9.5 mEq/l (+/-2.0); Carboxyhemoglobin 0.1 % THb (0-2.0); Device VENTILATOR; Fractional Inspired Oxygen 65 %; HCO3 ABG 36.1 mEq/l (22.0-26.0); Methemoglobin ABG 0.6 %THb (0-1.5); Modified Allen's Test Unable to perform; Oxygen Content ABG 14.7 %vol (16.0-22.0); Oxygen Saturation ABG 95.9 % (95.0-100.0); Oxyhemoglobin 94.2 % THb (90.0-100.0); PCO2 ABG 59.7 mmHg (35.0-45.0); PO2 ABG 82.8 mmHg (80.0-100.0); PO2 FiO2 Ratio Arterial Blood 1.27 %; Reduced Hemoglobin 5.1 %THb (0-5.0); Site Drawn RIGHT RADIAL; pH ABG 7.399 (7.350-7.450)
[2021-07-07 05:02] LABS: Arterial Blood Gas PEEP 10 cmH2O; Arterial Blood Gas Tidal Volume 360 ml; Arterial Blood Gas Vent Mode CMV; Arterial Blood Gas Ventilator rate 24 /MIN
[2021-07-07 05:10] LABS: Alanine Aminotransferase 48 U/L (4-50); Albumin Level 2.5 g/dL (3.5-5.1); Alkaline Phosphatase 313 U/L (38-126); Anion Gap 3 mmol/L (8-16); Aspartate Amino Transferase 40 U/L (17-59); Bilirubin,Total 0.4 mg/dL (0.2-1.3); Blood Urea Nitrogen 10 mg/dL (9-20); Calcium 7.9 mg/dL (8.4-10.2); Carbon Dioxide 35 mmol/L (22-30); Chloride 94 mmol/L (98-107); Estimated CRCL calculation 162 ml/min; Estimated Glomerular Filt Rate > 60; Glucose 171 mg/dL (65-110); Magnesium 1.9 mg/dL (1.6-2.3); Phosphorus 3.4 mg/dL (2.5-4.5); Potassium 3.2 mmol/L (3.4-5.0); Sodium 132 mmol/L (137-145)
[2021-07-07] MEDS: CENTRAL LINE FLUSH 10 ML IV PUSH ×6 (06:06→22:13)
--- NOTE | 2021-07-07 07:08 | WPDHPUPDATE1 ---
History and Physical Update Update Date/Time: 07/07/21 07:08 History and Physical has been reviewed, including an updated exam of the patient. There are NO changes in the patient's condition. Risks, benefits, and alternatives have been discussed and questions answered. Patient agrees to proceed with procedure.
[2021-07-07] MEDS: MINERAL OIL/WHITE PETROLATUM OINTMENT 1 APPLIC EACH EYE ×2 (08:13→22:11)
--- NOTE | 2021-07-07 08:45 | WPDANESEPPF ---
Anes - Initial Pre Proc Eval Procedure: Operation Date: 07/05/21 12:30 Proposed Procedures p Esophagogastroduodenoscopy - Adarsh Gotti MD s Percutaneous Endoscopic Gastrostomy - Adarsh Gotti MD Operation Date: 07/07/21 14:30 Proposed Procedures p Insertion of Tracheostomy - Yo Dubon MD Date/Time: 07/07/21 08:45 Surgeon: Nadiya Cárdenas MD Pre Op Diagnosis: covid pneumonia Patient Data Age: 50 Gender: M Height: 1.83 m Weight: 77.8 kg Last Vital Signs Temp 97.6 F 07/07/21 08:00 Pulse 99 07/07/21 08:11 Resp 25 H 07/07/21 08:11 BP 96/68 L 07/07/21 08:00 Pulse Ox 94 07/07/21 08:00 Allergies Allergy/AdvReac Type Severity Reaction Status Date / Time acetaminophen Allergy Intermediate Rash Verified 06/17/21 12:04 oxycodone Allergy Intermediate Rash Verified 06/17/21 12:04 hydrocodone AdvReac Mild Nausea and Verified 06/21/21 14:00 Vomiting Home Medications Medication Instructions Recorded Confirmed Type No Home Medications 06/17/21 06/17/21 History Laboratory Tests 07/06/21 07/06/21 07/06/21 04:38 11:42 12:04 WBC RBC Hgb Hct MCV MCH MCHC RDW Plt Count MPV Puncture Site ABG pH ABG pCO2 ABG pO2 ABG PO2/FiO2 Ratio ABG HCO3 ABG O2 Saturation ABG O2 Content ABG Base Excess A-a Gradient Oxyhemoglobin Carboxyhemoglobin Methemoglobin Reduced Hemoglobin Total Hemoglobin O2 Delivery Device O2 Liters/Min Minute Volume Vent Rate Vent Mode FiO2 Tidal Volume PEEP Peak Inspir Pressure Pressure Support Sodium Potassium 3.7 mmol/L mmol/L (3.4-5.0) Chloride Carbon Dioxide Anion Gap BUN Creatinine Estim Creat Clear Calc Estimated GFR Glucose POC Capillary Glucose 110 mg/dl H mg/dl (65-105) Calcium Phosphorus Magnesium Total Bilirubin AST ALT Alkaline Phosphatase Total Protein Albumin TSH (Reflex) 2.270 uIU/mL uIU/mL (0.465-4.68) Vancomycin Trough 07/07/21 07/07/21 07/07/21 01:16 04:30 04:35 WBC 12.6 K/mm3 H K/mm3 (4.5-10.0) RBC 3.21 M/mm3 L M/mm3 (4.6-6.20) Hgb 10.0 g/dL L g/dL (14.0-18.0) Hct 31.6 % L % (42.0-52.0) MCV 98.4 fl fl (80-100) MCH 31.2 pg pg (26-34) MCHC 31.6 g/dl L g/dl (32-36) RDW 12.8 % % (11.5-14.5) Plt Count 323 k/mm3 k/mm3 (150-375) MPV 10.4 fl fl (7.4-10.4) Puncture Site Right radial ABG pH 7.399 (7.350-7.450) ABG pCO2 59.7 mmHg H mmHg (35.0-45.0) ABG pO2 82.8 mmHg mmHg (80.0-100.0) ABG PO2/FiO2 Ratio 1.27 % % ABG HCO3 36.1 mEq/l H mEq/l (22.0-26.0) ABG O2 Saturation 95.9 % % (95.0-100.0) ABG O2 Content 14.7 %vol L %vol (16.0-22.0) ABG Base Excess 9.5 mEq/l mEq/l (+/-2.0) A-a Gradient 315.7 mmHg mmHg Oxyhemoglobin 94.2 % THb % THb (90.0-100.0) Carboxyhemoglobin 0.1 % THb % THb (0-2.0) Methemoglobin 0.6 %THb %THb (0-1.5) Reduced Hemoglobin 5.1 %THb H %THb (0-5.0) Total Hemoglobin 11.0 g/dL L g/dL (12.0-18.0) O2 Delivery Device Ventilator O2 Liters/Min Not Reportable Minute Volume Not Reportable Vent Rate 24 /
--- NOTE | 2021-07-07 09:00 | PC.NURSE ---
Off unit to OR via bed with RN, RT and OR tech at bedside. No issues noted.
--- NOTE | 2021-07-07 09:59 | P.OP_ITS ---
Procedure Note - Detailed Date of Procedure 07/07/21 Pre-op Diagnosis covid pneumonia, respiratory failure, respiratory insufficiency Post-op Diagnosis same Procedure Performed 1. Tracheostomy Surgeon Yo Dubon MD [employer] [place] Anesthesia general Indications see above Findings trach placed between rings 2 and 3 size 8 Shiley cuffed Description of Procedure the patient was correctly identified in the ICU and brought to the operating room. General anesthesia was deepened. Time-out was performed. 2 cc of 1% lidocaine with 1 100,000 parts epinephrine was injected deep to a pre drawn surgical incision between the sternal notch and cricoid. Patient was prepped and draped. Time-out performed again. Fifteen blade utilized to perform 4 cm skin incision. Bovie electric cautery and blunt dissection to lyse to dissect through the midline through the fascia in between the strap muscles. Thyroid isthmus encountered cauterized hemostasis excellent trachea exposed rings 2 and 3 fused anesthesia lowered cuff inserted trach tube 1 cm deeper cricoid hook placed elevated 15 blade utilized perform tracheotomy trach asphalt spreader placed tracheotomy adequate size balloon slowly removed by anesthesia until the tip no longer visible 8 Shiley cuffed trach placed after being tested on the field. Anesthesia confirmed adequate end-tidal CO2 no bleeding noted drain sponge placed for trach sutures placed Velcro trach ties placed to the appropriate tightness. Hemostasis was excellent blood loss apparent approximately 1 cc no complications care of the patient returned Anesthesiology. Estimated Blood Loss 1 Urine Output 1,600 Drains No Packing No Pathology none sent Complications No immediate complications Condition stable Disposition ICU
--- NOTE | 2021-07-07 10:00 | PC.NURSE ---
Patient returned to ICU#8 without issue[address] in [address].
--- NOTE | 2021-07-07 11:27 | WPDINTPN ---
Progress Note: A&P Assessment and Plan (1) Acute respiratory failure with hypoxia: Code(s): J96.01 - Acute respiratory failure with hypoxia Status: Acute Assessment and Plan: Acute respiratory failure related to COVID pneumonia -patient transferred to the ICU on 06/21/2021 for worsening oxygen requirements, patient was intubated on 06/22/2021, 07/04 ET tube was exchanged - 07/07 tracheostomy plan for today -06/22/2021 chest x-ray revealed moderate left-sided pneumothorax, chest tube was inserted by surgery on left -OFF FLOLAN now -chest x-ray does show small pneumothorax on either left side but I do not see any leak - peep is at 10 FiO2 is at 65% -patient has been off of Nimbex infusion since yesterday. And I have started weaning on sedation starting with fentanyl infusion after tracheostomy today -continue bronchodilators - chest x-ray reviewed and ET tube is in acceptable position (2) Pneumonia due to COVID-19 virus: Code(s): U07.1 - COVID-19; J12.82 - Pneumonia due to coronavirus disease 2019 Status: Acute Assessment and Plan: Patient tested positive for COVID on 06/15/2021 at an outside facility, presented the ED on 06/17/2021 with worsening shortness of breath and symptoms of fatigue, loss of sense of taste and smell, cough for 7-8 days prior to admission -patient has not received COVID vaccine -continue dexamethasone -Remdesivir contraindicated in patients with significant elevation in LFTs -continue droplet, airborne and contact isolation/precautions (3) Pneumonia: Code(s): J18.9 - Pneumonia, unspecified organism Status: Acute Assessment and Plan: Patient was having increasing leukocytosis and low-grade fever. He initially was on steroids but now off He was started on vancomycin and Zosyn on 07/02 Blood cultures are negative till now Butts was changed. Sputum is growing stenotrophomonas maltophilia. Patient did had thick secretions noticed at the time of his tube exchange. So this may be a secondary bacterial infection. 07/07 patient was startedl empirically on Bactrim and Infectious Disease consulted His alkaline phosphatase has been increasing but patient is status post cholecystectomy Last triglyceride level was acceptable and lipase was normal I checked lactic acid level and that was normal too WBC seems to be improving and patient was afebrile overnight (4) Shock: Code(s): R57.9 - Shock, unspecified Status: Acute Assessment and Plan: Likely secondary to hypovolemia and sedation Currently off of Levophed (5) Leukocytosis: Code(s): D72.829 - Elevated white blood cell count, unspecified Status: Acute (6) Electrolyte abnormality: Code(s): E87.8 - Other disorders of electrolyte and fluid balance, not elsewhere classified Status: Acute Assessment and Plan: Replace low potassium today (7) DVT prophylaxis: Code(s): Z29.9 - Encounter for prophylactic measures, unspecified Status: Acute Assessment and Plan: Lovenox to 40 mg SQ Q12H Additional Plan DVT prophylaxis -Lovenox subQ q.12 hours Stress ulcer prophylaxis - PPI Nutrition - Tube Feeds Patient is going for tracheostomy Code Status - Full Code Total Critical Care Time - 30 minutes Due to a high probability of clinically significant, life threatening deterioration, the patient required my highest level of preparedness to intervene emergently and I personally spent this critical care time directly and personally managing the patient. This critical care time included obtaining a history; examining the patient; pulse oximetry; ordering and review of studies; arranging urgent treatment with development of a management plan; evaluation of patient's response to treatment; frequent reassessment; and discussions with other providers. It was exclusive of separately billable procedures and treating other patients and teaching time. Please see Assessment
[2021-07-07] MEDS: PANTOPRAZOLE SODIUM IV 40 MG VIAL IV PUSH (11:34)
[2021-07-07] MEDS: CHOLECALCIFEROL 400 UNITS TABLET (VIT D) PO (11:34)
[2021-07-07] MEDS: ENOXAPARIN 40 MG/0.4 ML SYRINGE SUB-Q ×2 (11:47→22:04)
--- NOTE | 2021-07-07 12:07 | PCDIET ---
Nutrition Follow-Up Complete: Nutrition Diagnosis: Inadequate oral intake related to intubation as evidenced by NPO status. Nutrition Goal: Patient to meet estimated nutritional needs. Goal in progress. Tube feedings held today for tracheostomy. Previously tolerating feedings without issue. Recommend resuming Vital 1.2 via PEG when able at goal of 45mL/hr due to increased Propofol use. If medically appropriate, would also replace potassium. Last recorded weight is 77.8 kg which is slightly down from last review. -I/O today. Bowel Motility: Last documented BM on 07/07/21. Labs Reviewed: WBC (12.6), RBC (3.21), Hgb (10.0), Hct (31.6), Glu (171), Cr (0.5), K (3.2), Na (132), Alb (2.5) Meds Noted: Fentanyl, LR at 30mL/hr, Versed, Protonix, Zosyn, Vancomycin, Vitamin D, Propofol (rate of 27.07mL/hr provides 714kcal per day) Additional Notes: Right cheek skin tear. Posterior neck laceration. Will continue to monitor with same goal. Nutrition Monitoring and Evaluation: Follow up every Saturday/Saturday.
--- NOTE | 2021-07-07 15:04 | PM.IMPN ---
Progress Note: A&P Assessment and Plan (1) Acute respiratory failure with hypoxia: Code(s): J96.01 - Acute respiratory failure with hypoxia Status: Acute Assessment and Plan: Acute respiratory failure related to COVID pneumonia -patient transferred to the ICU on 06/21/2021 for worsening oxygen requirements, patient was intubated on 06/22/2021, 07/04 ET tube was exchanged - 07/07 tracheostomy plan for today -06/22/2021 chest x-ray revealed moderate left-sided pneumothorax, chest tube was inserted by surgery on left -OFF FLOLAN now -chest x-ray does show small pneumothorax on either left side but I do not see any leak - peep is at 10 FiO2 is at 65% -patient has been off of Nimbex infusion since yesterday. And I have started weaning on sedation starting with fentanyl infusion after tracheostomy today -continue bronchodilators - chest x-ray reviewed and ET tube is in acceptable position (2) Pneumonia due to COVID-19 virus: Code(s): U07.1 - COVID-19; J12.82 - Pneumonia due to coronavirus disease 2019 Status: Acute Assessment and Plan: Patient tested positive for COVID on 06/15/2021 at an outside facility, presented the ED on 06/17/2021 with worsening shortness of breath and symptoms of fatigue, loss of sense of taste and smell, cough for 7-8 days prior to admission -patient has not received COVID vaccine -continue dexamethasone -Remdesivir contraindicated in patients with significant elevation in LFTs -continue droplet, airborne and contact isolation/precautions (3) Pneumonia: Code(s): J18.9 - Pneumonia, unspecified organism Status: Acute Assessment and Plan: Patient was having increasing leukocytosis and low-grade fever. He initially was on steroids but now off He was started on vancomycin and Zosyn on 07/02 Blood cultures are negative till now Butts was changed. Sputum is growing stenotrophomonas maltophilia. Patient did had thick secretions noticed at the time of his tube exchange. So this may be a secondary bacterial infection. 07/07 patient was startedl empirically on Bactrim and Infectious Disease consulted His alkaline phosphatase has been increasing but patient is status post cholecystectomy Last triglyceride level was acceptable and lipase was normal I checked lactic acid level and that was normal too WBC seems to be improving and patient was afebrile overnight (4) Shock: Code(s): R57.9 - Shock, unspecified Status: Acute Assessment and Plan: Likely secondary to hypovolemia and sedation Currently off of Levophed (5) Leukocytosis: Code(s): D72.829 - Elevated white blood cell count, unspecified Status: Acute (6) Electrolyte abnormality: Code(s): E87.8 - Other disorders of electrolyte and fluid balance, not elsewhere classified Status: Acute Assessment and Plan: Replace low potassium today (7) DVT prophylaxis: Code(s): Z29.9 - Encounter for prophylactic measures, unspecified Status: Acute Assessment and Plan: Lovenox to 40 mg SQ Q12H Additional Plan 07/05/2021 Patient remains in ICU in critical condition on ventilator requiring use of paralytic Patient is scheduled for PEG tube today and tracheostomy on Saturday Continue current care Anticipate transfer to LTAC at discharge Case reviewed with reed or wind instrument tuner recommendations appreciated 07/06/2021 Patient for tracheostomy in a.m. with ENT Hold anticoagulation on Zosyn Bactrim NPO at midnight Continue supportive care Anticipate discharge to LTAC soon 07/07/21 Patient status post trach doing very well Seen by ID today antibiotics adjusted Currently sedated defer to reed or wind instrument tuner weaning LTAC when able Subjective Date/time seen: 07/07/21 15:04 Tracheostomy performed today. Patient remains stable on mechanical ventilation 75% FiO2 Exam Narrative: General: Pt is sedated, intubated and on mechanical ventilation Neck: trach tube present Lung
--- NOTE | 2021-07-07 15:19 | WPDINFPN2 ---
Progress Note: A&P Assessment and Plan (1) Pneumonia due to COVID-19 virus: Code(s): U07.1 - COVID-19; J12.82 - Pneumonia due to coronavirus disease 2019 Status: Acute Assessment and Plan: 1. Viral pneumonia due to SARS CoV2. 2. Fever with worsening L lung infiltrate (I personally reviewed his CXRs over time) suspect bacterial pneumonia as a complication of above 3. CNSS bacteremia, could explain the fever as well: PICC vs contaminant REC Vanc 6 / 10 days, the PICC can remain in place for now. Also agree with the TMP-SMX # 2 / 10 days. Subjective Date/time seen: 07/07/21 15:19 Interval history: course reviewed since prior visit. He is non verbal, trach today Exam Narrative: afebrile past 24 hours, prior temperature reviewed Const: General: no acute distress Neck: Neck: supple Resp: Effort & Inspection: normal respiratory effort Auscultation: rhonchi Cardio: Rate: regular rate Rhythm: regular rhythm Heart sounds: no gallops and no murmurs GI: GI Palp: Yes Soft to palpation, No Tenderness to palpation present (GI) and No Guarding due to palpation present (GI) Percussion: Yes normal to percussion Other: G tube in place Skin: General skin exam: normal color and no rashes or lesions noted Objective Data Vital Signs Vital Signs: Vital Signs - 24 hr 07/06/21 16:00 07/06/21 17:01 07/06/21 18:00 Temperature 37.0 C 37.1 C Pulse Rate 114 H 115 H 114 H Respiratory Rate 23 H 22 H 27 H Blood Pressure 101/67 108/65 Pulse Oximetry 93 92 07/06/21 18:07 07/06/21 18:31 07/06/21 20:00 Temperature 37.0 C Pulse Rate 114 H 114 H 114 H Respiratory Rate 19 26 H Blood Pressure 105/66 Pulse Oximetry 92 92 07/06/21 20:28 07/06/21 22:00 07/06/21 22:13 Temperature 36.9 C Pulse Rate 114 H 121 H 115 H Respiratory Rate 25 H 25 H Blood Pressure 148/74 H Pulse Oximetry 93 92 07/06/21 23:07 07/06/21 23:15 07/07/21 00:00 Temperature 37.1 C Pulse Rate 115 H 112 H 111 H Respiratory Rate 25 H 24 H Blood Pressure 110/70 Pulse Oximetry 95 92 07/07/21 02:00 07/07/21 02:29 07/07/21 02:36 Temperature 37.1 C Pulse Rate 114 H 115 H 115 H Respiratory Rate 21 H 26 H Blood Pressure 121/72 Pulse Oximetry 93 93 07/07/21 03:01 07/07/21 04:00 07/07/21 04:04 Temperature 37.1 C Pulse Rate 106 H 107 H 106 H Respiratory Rate 18 18 18 Blood Pressure 106/66 Pulse Oximetry 95 07/07/21 04:37 07/07/21 06:00 07/07/21 06:06 Temperature 36.1 C L Pulse Rate 107 H 106 H 105 H Respiratory Rate 24 H 24 H Blood Pressure 124/69 Pulse Oximetry 94 94 07/07/21 07:51 07/07/21 08:00 07/07/21 08:11 Temperature 36.4 C Pulse Rate 98 99 Respiratory Rate 25 H 25 H Blood Pressure 96/68 L Pulse Oximetry 94 94 07/07/21 08:53 07/07/21 10:00 07/07/21 10:33 Temperature Pulse Rate 105 H 105 H 98 Respiratory Rate 23 H Blood Pressure 110/63 Pulse Oximetry 95 95 94 07/07/21 11:40 07/07/21 12:00 07/07/21 14:00 Temperature 36.1 C L Pulse Rate 105 H 105 H 117 H Respiratory Rate 21 H 23 H 24 H Blood Pressure 111/67 111/64 Pulse Oximetry 97 94 07/07/21 14:35 Temperature Pulse Rate 121 H Respiratory Rate 23 H Blood Pressure Pulse Oximetry Intake/Output Intake/Output: Intake & Output 07/04/21 07/05/21 07/06/21 07/07/21 23:59 23:59 23:59 23:59 Intake Total 3691 2952 3460 2181 Output Total 7251 5848 2301 7709 Balance [phone] -[id number] Meds/Results Medications: Active Medications Generic Name Dose Route Start Last Admin Trade Name Freq PRN Reason Stop Dose Admin Acetaminophen 650 mg 06/17/21 15:42 Acetaminophen 325 Mg Tablet PO Q4H PRN Mild Pain (1-3) or Fever Albuterol 2 puff 06/17/21 20:26 06/21/21 10:06 Albuterol Sulfate (*Sp) Aerosol 1 Puff INHALATION 2 puff QIDRT PRN Administration Shortness Of Breath Enoxaparin Sodium 40 mg 06/23/21 21:00 07/07/21 11:47 Enoxaparin 40 Mg/0.4 Ml Syri
[2021-07-07] MEDS: PROPOFOL IV EMULSION 100 ML 22.56 MG IV CONT (20:00)
[2021-07-07] MEDS: ROCURONIUM BROMIDE 50 MG/5 ML VIAL IV PUSH (22:12)
[2021-07-07] MEDS: dexmedeTOMIDine 400 MCG/100 ML 400 MCG/100 ML BAG 13.62 MCG IV CONT (22:12)
[2021-07-07 22:46] LABS: Anion Gap 3 mmol/L (8-16); Blood Urea Nitrogen 8 mg/dL (9-20); Calcium 7.9 mg/dL (8.4-10.2); Carbon Dioxide 35 mmol/L (22-30); Chloride 99 mmol/L (98-107); Estimated CRCL calculation 162 ml/min; Estimated Glomerular Filt Rate > 60; Glucose 158 mg/dL (65-110); Potassium 3.7 mmol/L (3.4-5.0); Sodium 137 mmol/L (137-145)
[2021-07-07 22:57] LABS: Magnesium 1.8 mg/dL (1.6-2.3)
[2021-07-08] VITALS (31 sets, daily range): BP systolic 78–151; BP diastolic 53–98; PULSE 78–124; RESP 18–30; TEMP 35.5–37.2; O2SAT 92–99
[2021-07-08] MEDS: PROPOFOL IV EMULSION 100 ML 22.56 MG IV CONT (00:30)
[2021-07-08] MEDS: dexmedeTOMIDine 400 MCG/100 ML 400 MCG/100 ML BAG 13.62 MCG IV CONT ×2 (01:28→16:29)
[2021-07-08] MEDS: MIDAZOLAM 100MG/NS 100ML(*CRX) 100 MG/100 ML BAG 10 MG IV CONT ×2 (01:30→12:39)
[2021-07-08 05:26] LABS: Basophils Absolute Auto 0.1 K/mm3 (0.0-0.1); Basophils Percent Auto 0.5 % (0.2-1.2); Eosinophils Absolute Auto 0.5 K/mm3 (0-0.3); Eosinophils Percent Auto 4.9 % (0-4.4); Hematocrit 32.2 % (42.0-52.0); Hemoglobin 10.4 g/dL (14.0-18.0); Immature Granulocyte Absolute 0.31 K/mm3 (0.00-0.031); Immature Granulocyte Percent A 2.8 % (0-0.5); Lymphocytes Percent Auto 8.2 % (18.3-44.2); Mean Corpuscular HGB Conc 32.3 g/dl (32-36); Mean Corpuscular Volume 96.1 fl (80-100); Mean Platelet Volume 10.8 fl (7.4-10.4); Monocytes Absolute Auto 0.4 K/mm3 (0.1-0.6); Monocytes Percent Auto 3.8 % (2.6-8.5); Neutrophils Absolute Auto 8.8 K/mm3 (1.3-6.7); Neutrophils Percent Auto 79.8 % (45.5-73.1); Platelet Count Result 363 k/mm3 (150-375); Red Blood Count 3.35 M/mm3 (4.6-6.20); Red Cell Distribution Width 12.9 % (11.5-14.5)
[2021-07-08 05:40] LABS: Anion Gap 3 mmol/L (8-16); Blood Urea Nitrogen 10 mg/dL (9-20); Carbon Dioxide 30 mmol/L (22-30); Chloride 101 mmol/L (98-107); Estimated CRCL calculation 197 ml/min; Estimated Glomerular Filt Rate > 60; Glucose 165 mg/dL (65-110); Magnesium 1.9 mg/dL (1.6-2.3); Phosphorus 3.3 mg/dL (2.5-4.5); Potassium 3.7 mmol/L (3.4-5.0); Sodium 134 mmol/L (137-145)
[2021-07-08 06:22] LABS: Alveolar/Arterial O2 Gradient 405.5 mmHg; Base Excess ABG 7.6 mEq/l (+/-2.0); Carboxyhemoglobin 0.3 % THb (0-2.0); Device VENTILATOR; Fractional Inspired Oxygen 75 %; Methemoglobin ABG 0.5 %THb (0-1.5); Modified Allen's Test Unable to perform; Oxygen Content ABG 16.8 %vol (16.0-22.0); Oxygen Saturation ABG 93.6 % (95.0-100.0); Oxyhemoglobin 92.2 % THb (90.0-100.0); PCO2 ABG 56.2 mmHg (35.0-45.0); PO2 ABG 69.5 mmHg (80.0-100.0); PO2 FiO2 Ratio Arterial Blood 0.93 %; Site Drawn RIGHT RADIAL; Total Hemoglobin 12.9 g/dL (12.0-18.0)
[2021-07-08 06:23] LABS: Arterial Blood Gas PEEP 10 cmH2O; Arterial Blood Gas Tidal Volume 360 ml; Arterial Blood Gas Vent Mode CMV; Arterial Blood Gas Ventilator rate 24 /MIN
[2021-07-08] MEDS: CENTRAL LINE FLUSH 10 ML IV PUSH ×4 (07:26→20:45)
[2021-07-08] MEDS: SODIUM CHLORIDE 0.9% IV 500 ML 999 ML (07:26)
[2021-07-08] MEDS: POTASSIUM CHLORIDE 20 MEQ PACKET (FOR LIQUID) 40 MEQ FEED TUBE (09:38)
[2021-07-08] MEDS: MINERAL OIL/WHITE PETROLATUM OINTMENT 1 APPLIC EACH EYE ×2 (09:39→20:44)
[2021-07-08] MEDS: PANTOPRAZOLE SODIUM IV 40 MG VIAL IV PUSH (09:39)
[2021-07-08] MEDS: ENOXAPARIN 40 MG/0.4 ML SYRINGE SUB-Q ×2 (09:39→20:43)
--- NOTE | 2021-07-08 10:57 | WPDINTPN ---
Progress Note: A&P Assessment and Plan (1) Acute respiratory failure with hypoxia: Code(s): J96.01 - Acute respiratory failure with hypoxia Status: Acute Assessment and Plan: Acute respiratory failure related to COVID pneumonia -patient transferred to the ICU on 06/21/2021 for worsening oxygen requirements, patient was intubated on 06/22/2021, 07/04 ET tube was exchanged - 07/07 tracheostomy -06/22/2021 chest x-ray revealed moderate left-sided pneumothorax, chest tube was inserted by surgery on left -OFF FLOLAN now - peep is at 10 FiO2 is at 75% -patient has been off of Nimbex infusion for last 2 days but was given 1 dose of rocuronium overnight increased respiratory rate and peak pressures -applying to wean down sedation as much as possible. Patient is off of propofol and fentanyl. He is currently on Versed and Precedex -continue bronchodilators (2) Pneumonia due to COVID-19 virus: Code(s): U07.1 - COVID-19; J12.82 - Pneumonia due to coronavirus disease 2019 Status: Acute Assessment and Plan: Patient tested positive for COVID on 06/15/2021 at an outside facility, presented the ED on 06/17/2021 with worsening shortness of breath and symptoms of fatigue, loss of sense of taste and smell, cough for 7-8 days prior to admission -patient has not received COVID vaccine -continue dexamethasone -Remdesivir contraindicated in patients with significant elevation in LFTs -continue droplet, airborne and contact isolation/precautions (3) Pneumonia: Code(s): J18.9 - Pneumonia, unspecified organism Status: Acute Assessment and Plan: Patient was having increasing leukocytosis and low-grade fever. He initially was on steroids but now off He was started on vancomycin and Zosyn on 07/02 Blood cultures a grew out coag-negative staph Butts was changed. Sputum grew stenotrophomonas maltophilia and Klebsiella. Patient did had thick secretions noticed at the time of his tube exchange. So this may be a secondary bacterial infection. 07/07 patient was started empirically on Bactrim and Infectious Disease consulted. Recommendations appreciated Continue vancomycin and Bactrim for now as per ID recommendations His alkaline phosphatase has been increasing but patient is status post cholecystectomy Last triglyceride level was acceptable and lipase was normal His lactic acid levelwas normal too WBC seems to be improving and patient was afebrile overnight (4) Shock: Code(s): R57.9 - Shock, unspecified Status: Acute Assessment and Plan: Likely secondary to hypovolemia and sedation Currently off of Levophed (5) Electrolyte abnormality: Code(s): E87.8 - Other disorders of electrolyte and fluid balance, not elsewhere classified Status: Acute Assessment and Plan: Potassium improved after placed (6) DVT prophylaxis: Code(s): Z29.9 - Encounter for prophylactic measures, unspecified Status: Acute Assessment and Plan: Lovenox to 40 mg SQ Q12H Additional Plan DVT prophylaxis -Lovenox subQ q.12 hours Stress ulcer prophylaxis - PPI Nutrition - Tube Feeds I spoke to patient via yesterday by phone and updated her with patient's current status and answered all her questions Code Status - Full Code Total Critical Care Time - 32 minutes Due to a high probability of clinically significant, life threatening deterioration, the patient required my highest level of preparedness to intervene emergently and I personally spent this critical care time directly and personally managing the patient. This critical care time included obtaining a history; examining the patient; pulse oximetry; ordering and review of studies; arranging urgent treatment with development of a management plan; evaluation of patient's response to treatment; frequent reassessment; and discussions with other providers. It was exclusive of separately billable procedures and treating other patients and
--- NOTE | 2021-07-08 14:33 | PM.IMPN ---
Progress Note: A&P Assessment and Plan (1) Acute respiratory failure with hypoxia: Code(s): J96.01 - Acute respiratory failure with hypoxia Status: Acute Assessment and Plan: Acute respiratory failure related to COVID pneumonia -patient transferred to the ICU on 06/21/2021 for worsening oxygen requirements, patient was intubated on 06/22/2021, 07/04 ET tube was exchanged - 07/07 tracheostomy plan for today -06/22/2021 chest x-ray revealed moderate left-sided pneumothorax, chest tube was inserted by surgery on left -OFF FLOLAN now -chest x-ray does show small pneumothorax on either left side but I do not see any leak -continue bronchodilators - chest x-ray reviewed and ET tube is in acceptable position (2) Pneumonia due to COVID-19 virus: Code(s): U07.1 - COVID-19; J12.82 - Pneumonia due to coronavirus disease 2018 Status: Acute Assessment and Plan: Patient tested positive for COVID on 06/15/2021 at an outside facility, presented the ED on 06/17/2021 with worsening shortness of breath and symptoms of fatigue, loss of sense of taste and smell, cough for 7-8 days prior to admission -patient has not received COVID vaccine -continue dexamethasone -Remdesivir contraindicated in patients with significant elevation in LFTs -continue droplet, airborne and contact isolation/precautions (3) Pneumonia: Code(s): J18.9 - Pneumonia, unspecified organism Status: Acute Assessment and Plan: Patient was having increasing leukocytosis and low-grade fever. He initially was on steroids but now off He was started on vancomycin and Zosyn on 07/02 Blood cultures are negative till now Butts was changed. Sputum is growing stenotrophomonas maltophilia. 07/07 patient was started empirically on Bactrim and Infectious Disease consulted His alkaline phosphatase has been increasing but patient is status post cholecystectomy Last triglyceride level was acceptable and lipase was normal (4) Shock: Code(s): R57.9 - Shock, unspecified Status: Acute Assessment and Plan: Likely secondary to hypovolemia and sedation Currently off of Levophed (5) Leukocytosis: Code(s): D72.829 - Elevated white blood cell count, unspecified Status: Acute (6) Electrolyte abnormality: Code(s): E87.8 - Other disorders of electrolyte and fluid balance, not elsewhere classified Status: Acute Assessment and Plan: Replace low potassium today (7) DVT prophylaxis: Code(s): Z29.9 - Encounter for prophylactic measures, unspecified Status: Acute Assessment and Plan: Lovenox to 40 mg SQ Q12H Additional Plan 07/05/2021 Patient remains in ICU in critical condition on ventilator requiring use of paralytic Patient is scheduled for PEG tube today and tracheostomy on Saturday Continue current care Anticipate transfer to LTAC at discharge Case reviewed with novelty maker recommendations appreciated 07/06/2021 Patient for tracheostomy in a.m. with ENT Hold anticoagulation on Zosyn Bactrim NPO at midnight Continue supportive care Anticipate discharge to LTAC soon 07/07/21 Patient status post trach doing very well Seen by ID today antibiotics adjusted Currently sedated defer to novelty maker weaning LTAC when able 07/08/21 s/p trach peg CT in place on sedation tachypneic on vent 10 FiO2 @ 75% 1 dose of rocuronium overnight increased respiratory rate and peak pressures Subjective Date/time seen: 07/08/21 14:33 Ventilated respiratory rate 30s peg in place receiving feeds Exam Narrative: General: Pt is sedated, intubated and on mechanical ventilation Neck: trach tube present Lungs/Chest: Symmetric chest rise Left chest tube in place Abdomen: Peg connected to feeds Extremities: No clubbing, cyanosis or edema. Warm : Butts in place Objective Data Vital Signs Vital Signs: Vital Signs - 24 hr 07/07/21 14:35 07/07/21 14:40 07/07/21 16:00 Tem
[2021-07-08] MEDS: dexmedeTOMIDine 400 MCG/100 ML 400 MCG/100 ML BAG 19.45 MCG IV CONT (20:58)
[2021-07-08] MEDS: MIDAZOLAM 100MG/NS 100ML(*CRX) 100 MG/100 ML BAG 8 MG IV CONT (20:58)
[2021-07-09] VITALS (30 sets, daily range): BP systolic 107–148; BP diastolic 61–93; PULSE 82–117; RESP 22–32; TEMP 36.8–37.1; O2SAT 93–100
[2021-07-09] MEDS: dexmedeTOMIDine 400 MCG/100 ML 400 MCG/100 ML BAG 19.45 MCG IV CONT ×5 (02:11→23:00)
[2021-07-09 03:26] LABS: Vancomycin Trough 8.5 ug/mL (10.0-20.0)
[2021-07-09] MEDS: CENTRAL LINE FLUSH 10 ML IV PUSH ×5 (04:57→21:20)
[2021-07-09 05:28] LABS: Hematocrit 32.2 % (42.0-52.0); Hemoglobin 10.2 g/dL (14.0-18.0); Mean Corpuscular HGB Conc 31.7 g/dl (32-36); Mean Corpuscular Hemoglobin 31.2 pg (26-34); Mean Corpuscular Volume 98.5 fl (80-100); Mean Platelet Volume 10.3 fl (7.4-10.4); Platelet Count Result 417 k/mm3 (150-375); Red Blood Count 3.27 M/mm3 (4.6-6.20); White Blood Count 11.7 K/mm3 (4.5-10.0)
[2021-07-09 05:39] LABS: Alanine Aminotransferase 64 U/L (4-50); Albumin Level 2.7 g/dL (3.5-5.1); Alkaline Phosphatase 303 U/L (38-126); Anion Gap 1 mmol/L (8-16); Aspartate Amino Transferase 57 U/L (17-59); Bilirubin,Total 0.4 mg/dL (0.2-1.3); Blood Urea Nitrogen 13 mg/dL (9-20); Carbon Dioxide 34 mmol/L (22-30); Chloride 102 mmol/L (98-107); Estimated CRCL calculation 161 ml/min; Estimated Glomerular Filt Rate > 60; Glucose 183 mg/dL (65-110); Magnesium 1.9 mg/dL (1.6-2.3); Potassium 3.5 mmol/L (3.4-5.0); Sodium 137 mmol/L (137-145)
[2021-07-09] MEDS: ENOXAPARIN 40 MG/0.4 ML SYRINGE SUB-Q ×2 (08:53→21:20)
[2021-07-09] MEDS: MINERAL OIL/WHITE PETROLATUM OINTMENT 1 APPLIC EACH EYE ×2 (08:54→21:20)
[2021-07-09] MEDS: PANTOPRAZOLE SODIUM IV 40 MG VIAL IV PUSH (08:54)
[2021-07-09] MEDS: MIDAZOLAM 100MG/NS 100ML(*CRX) 100 MG/100 ML BAG 8 MG IV CONT (09:01)
--- NOTE | 2021-07-09 09:51 | WPDINTPN ---
Progress Note: A&P Assessment and Plan (1) Acute respiratory failure with hypoxia: Code(s): J96.01 - Acute respiratory failure with hypoxia Status: Acute Assessment and Plan: Acute respiratory failure related to COVID pneumonia -patient transferred to the ICU on 06/21/2021 for worsening oxygen requirements, patient was intubated on 06/22/2021, 07/04 ET tube was exchanged, 07/07 tracheostomy -06/22/2021 chest x-ray revealed moderate left-sided pneumothorax, chest tube was inserted by surgery on left -OFF FLOLAN now - peep is at 10 FiO2 is at 60% -patient has been off of Nimbex infusion for last few days b now and I have been trying to wean down his sedation slowly -Patient is off of propofol and fentanyl. He is currently on Versed and Precedex. I will continue to wean Versed down today -continue bronchodilators (2) Pneumonia due to COVID-19 virus: Code(s): U07.1 - COVID-19; J12.82 - Pneumonia due to coronavirus disease 2019 Status: Acute Assessment and Plan: Patient tested positive for COVID on 06/15/2021 at an outside facility, presented the ED on 06/17/2021 with worsening shortness of breath and symptoms of fatigue, loss of sense of taste and smell, cough for 7-8 days prior to admission -patient has not received COVID vaccine -continue dexamethasone -Remdesivir contraindicated in patients with significant elevation in LFTs -continue droplet, airborne and contact isolation/precautions (3) Pneumonia: Code(s): J18.9 - Pneumonia, unspecified organism Status: Acute Assessment and Plan: Patient was having increasing leukocytosis and low-grade fever. He initially was on steroids but now off He was started on vancomycin and Zosyn on 07/02 Blood cultures a grew out coag-negative staph Butts was changed. Sputum grew stenotrophomonas maltophilia and Klebsiella. Patient did had thick secretions noticed at the time of his tube exchange. So this may be a secondary bacterial infection. 07/07 patient was started empirically on Bactrim and Infectious Disease consulted. Recommendations appreciated Continue vancomycin and Bactrim for now as per ID recommendations His alkaline phosphatase has been increasing but patient is status post cholecystectomy Last triglyceride level was acceptable and lipase was normal His lactic acid levelwas normal too WBC seems to be improving and patient was afebrile overnight (4) Shock: Code(s): R57.9 - Shock, unspecified Status: Acute Assessment and Plan: Likely secondary to hypovolemia and sedation Currently off of Levophed (5) Electrolyte abnormality: Code(s): E87.8 - Other disorders of electrolyte and fluid balance, not elsewhere classified Status: Acute Assessment and Plan: Replace low potassium (6) DVT prophylaxis: Code(s): Z29.9 - Encounter for prophylactic measures, unspecified Status: Acute Assessment and Plan: Lovenox to 40 mg SQ Q12H (7) Bacteremia: Code(s): R78.81 - Bacteremia Status: Acute Assessment and Plan: Patient has coag-negative staph on his blood cultures This could be contaminant versus infection Patient is on vancomycin Right PICC line was removed and due to poor IV access a new 1 was placed on left (8) Pneumothorax: Qualifiers: Pneumothorax type: unspecified pneumothorax Qualified Code(s): J93.9 - Pneumothorax, unspecified Code(s): J93.9 - Pneumothorax, unspecified Status: Acute Assessment and Plan: Patient has a left pneumothorax and left chest tube No pneumothorax seen on today's x-ray Will place chest tube on water seal Patient is still on 10 of PEEP and preclude removal of chest tube at this time Additional Plan DVT prophylaxis -Lovenox subQ q.12 hours Stress ulcer prophylaxis - PPI Code Status - Full Code Total Critical Care Time - 30 minutes Due to a high probability of clinically significant, life threate
[2021-07-09] MEDS: POTASSIUM CHLORIDE 20 MEQ PACKET (FOR LIQUID) 40 MEQ FEED TUBE (11:42)
--- NOTE | 2021-07-09 13:38 | PM.IMPN ---
Subjective Date/time seen: 07/09/21 13:38 Remains sedated and ventilated 60% FiO2 and 10 of PEEP Objective Data Vital Signs Vital Signs: Vital Signs - 24 hr 07/08/21 13:50 07/08/21 14:00 07/08/21 16:00 Temperature 97.8 F Pulse Rate 118 H 116 H 119 H Respiratory Rate 28 H 28 H Blood Pressure 114/74 116/72 Pulse Oximetry 96 96 95 07/08/21 16:29 07/08/21 16:48 07/08/21 18:00 Temperature 97.8 F Pulse Rate 116 H 119 H 83 Respiratory Rate 28 H 21 H Blood Pressure 93/61 L Pulse Oximetry 95 98 07/08/21 19:53 07/08/21 20:00 07/08/21 20:41 Temperature 98.1 F Pulse Rate 100 101 H 111 H Respiratory Rate 25 H 28 H Blood Pressure 91/64 L Pulse Oximetry 99 99 07/08/21 20:45 07/08/21 22:00 07/08/21 23:30 Temperature Pulse Rate 109 H 106 H 111 H Respiratory Rate 29 H Blood Pressure 151/98 H Pulse Oximetry 97 96 96 07/09/21 00:00 07/09/21 02:00 07/09/21 02:47 Temperature 98.8 F 98.8 F Pulse Rate 106 H 117 H 98 Respiratory Rate 25 H 32 H Blood Pressure 125/76 134/92 H Pulse Oximetry 100 95 100 07/09/21 03:11 07/09/21 04:00 07/09/21 05:55 Temperature 98.7 F Pulse Rate 100 99 107 H Respiratory Rate 24 H Blood Pressure 125/92 H Pulse Oximetry 94 96 97 07/09/21 05:58 07/09/21 05:59 07/09/21 08:00 Temperature 98.2 F 98.3 F Pulse Rate 104 H 104 H 86 Respiratory Rate 29 H 24 H Blood Pressure 148/93 H 127/79 Pulse Oximetry 97 97 07/09/21 08:50 07/09/21 09:01 07/09/21 10:00 Temperature 98.6 F Pulse Rate 90 90 86 Respiratory Rate 29 H 24 H Blood Pressure 113/70 Pulse Oximetry 95 97 07/09/21 10:24 07/09/21 11:33 07/09/21 11:38 Temperature Pulse Rate 86 109 H 109 H Respiratory Rate 24 H Blood Pressure Pulse Oximetry 97 07/09/21 12:00 07/09/21 13:29 Temperature 98.6 F Pulse Rate 101 H 94 Respiratory Rate 26 H Blood Pressure 124/79 Pulse Oximetry 96 95 Intake/Output Intake/Output: Intake & Output 07/06/21 07/07/21 07/08/21 07/09/21 23:59 23:59 23:59 23:59 Intake Total 3460 3571 3930 1716 Output Total 2300 6775 1600 1910 Balance 1160 -3204 2330 -194 Meds/Results Medications: Active Medications Generic Name Dose Route Start Last Admin Trade Name Freq PRN Reason Stop Dose Admin Acetaminophen 650 mg 06/17/21 15:42 Acetaminophen 325 Mg Tablet PO Q4H PRN Mild Pain (1-3) or Fever Albuterol 2 puff 06/17/21 20:26 06/21/21 10:06 Albuterol Sulfate (*Sp) Aerosol 1 Puff INHALATION 2 puff QIDRT PRN Administration Shortness Of Breath Enoxaparin Sodium 40 mg 06/23/21 21:00 07/09/21 08:53 Enoxaparin 40 Mg/0.4 Ml Syringe SUB-Q 40 mg Q12HR [facility] Administration Midazolam HCl 100 mg in 100 mls @ 7 mls/hr 06/22/21 06:45 07/09/21 12:54 Versed 100 Mg/Ns 100 Ml IV CONT 7 mg/hr .[id number] [facility] 7 mls/hr Titration Protocol 7 MG/HR Fentanyl Citrate 2,500 mcg in 250 mls @ 0 mls/hr 06/22/21 22:35 07/07/21 13:26 Fentanyl 2,500 Mcg/Ns 250 Ml IV CONT Not Given .Q0M [facility] Protocol 0 MCG/HR Trimethoprim/Sulfamethoxazole 260 mls @ 260 mls/hr 07/06/21 21:00 07/09/21 10:00 10 ml/ Dextrose IVPB Infused Q12HR [facility] Infusion Dexmedetomidine HCl 400 mcg in 100 mls @ 19.45 mls/hr 07/07/21 21:40 07/09/21 11:38 Precedex 400 Mcg/100 Ml IV CONT 1 mcg/kg/hr .Q5H9M [facility] 19.45 mls/hr Administration Protocol 1 MCG/KG/HR Vancomycin HCl 1,750 mg in 500 mls @ 250 mls/hr 07/09/21 04:00 07/09/21 07:30 Vancomycin 1,750 Mg/D5w 500 Ml IVPB Infused Q12H [facility] Infusion Multi-Ingred Cream/Lotion/Oil/Oint 1 applic 06/22/21 09:00 07/09/21 08:54 Mineral Oil/White Petrolatum Ointment EACH EYE 1 applic Q12HR [facility] Administration Ondansetron HCl 4 mg 06/17/21 15:42 Ondansetron Inj 4 Mg/2 Ml Vial IV PUSH Q4H PRN Nausea Pantoprazole Sodium 40 mg 06/24/21 09:00 07/09/21 08:54 Pantoprazole Sodium Iv 40 Mg Vial IV PUSH 40 mg
--- NOTE | 2021-07-09 14:37 | PM.IMPN ---
Progress Note: A&P Assessment and Plan (1) Acute respiratory failure with hypoxia: Code(s): J96.01 - Acute respiratory failure with hypoxia Status: Acute Assessment and Plan: Acute respiratory failure related to COVID pneumonia -patient transferred to the ICU on 06/21/2021 for worsening oxygen requirements, patient was intubated on 06/22/2021, 07/04 ET tube was exchanged - 07/07 tracheostomy plan for today -06/22/2021 chest x-ray revealed moderate left-sided pneumothorax, chest tube was inserted by surgery on left -OFF FLOLAN now -chest x-ray does show small pneumothorax on either left side but I do not see any leak -continue bronchodilators - chest x-ray reviewed and ET tube is in acceptable position (2) Pneumonia due to COVID-19 virus: Code(s): U07.1 - COVID-19; J12.82 - Pneumonia due to coronavirus disease 2018 Status: Acute Assessment and Plan: Patient tested positive for COVID on 06/15/2021 at an outside facility, presented the ED on 06/17/2021 with worsening shortness of breath and symptoms of fatigue, loss of sense of taste and smell, cough for 7-8 days prior to admission -patient has not received COVID vaccine -continue dexamethasone -Remdesivir contraindicated in patients with significant elevation in LFTs -continue droplet, airborne and contact isolation/precautions (3) Pneumonia: Code(s): J18.9 - Pneumonia, unspecified organism Status: Acute Assessment and Plan: Patient was having increasing leukocytosis and low-grade fever. He initially was on steroids but now off He was started on vancomycin and Zosyn on 07/02 Blood cultures are negative till now Butts was changed. Sputum is growing stenotrophomonas maltophilia. 07/07 patient was started empirically on Bactrim and Infectious Disease consulted His alkaline phosphatase has been increasing but patient is status post cholecystectomy Last triglyceride level was acceptable and lipase was normal (4) Shock: Code(s): R57.9 - Shock, unspecified Status: Acute Assessment and Plan: Likely secondary to hypovolemia and sedation Currently off of Levophed (5) Leukocytosis: Code(s): D72.829 - Elevated white blood cell count, unspecified Status: Acute (6) Electrolyte abnormality: Code(s): E87.8 - Other disorders of electrolyte and fluid balance, not elsewhere classified Status: Acute Assessment and Plan: Replace low potassium today (7) DVT prophylaxis: Code(s): Z29.9 - Encounter for prophylactic measures, unspecified Status: Acute Assessment and Plan: Lovenox to 40 mg SQ Q12H Additional Plan 07/05/2021 Patient remains in ICU in critical condition on ventilator requiring use of paralytic Patient is scheduled for PEG tube today and tracheostomy on Saturday Continue current care Anticipate transfer to LTAC at discharge Case reviewed with logistics manager recommendations appreciated 07/06/2021 Patient for tracheostomy in a.m. with ENT Hold anticoagulation on Zosyn Bactrim NPO at midnight Continue supportive care Anticipate discharge to LTAC soon 07/07/21 Patient status post trach doing very well Seen by ID today antibiotics adjusted Currently sedated defer to logistics manager weaning LTAC when able 07/08/21 s/p trach peg CT in place on sedation tachypneic on vent 10 FiO2 @ 75% 1 dose of rocuronium overnight increased respiratory rate and peak pressures 07/09/21 trach peg tolerating tube feeds weaning from sedation becomes tachypneic and tachycardic currently on Versed and Precedex. Patient has a left pneumothorax and left chest tube; No pneumothorax seen on today's x-ray chest tube on water seal per logistics manager Time Spent With Patient Time with patient: 25 - 35 minutes Subjective Date/time seen: 07/09/21 14:37 Remains sedated and ventilated 60% FiO2 and 10 of PEEP Exam Narrative: General: Pt is sedated, intubated and on mechanical ventilat
[2021-07-09] MEDS: MIDAZOLAM 100MG/NS 100ML(*CRX) 100 MG/100 ML BAG IV CONT (22:58)
[2021-07-10] VITALS (29 sets, daily range): BP systolic 102–180; BP diastolic 62–92; PULSE 82–120; RESP 21–36; TEMP 36.8–37.8; O2SAT 90–100
[2021-07-10] MEDS: dexmedeTOMIDine 400 MCG/100 ML 400 MCG/100 ML BAG 19.45 MCG IV CONT ×4 (03:31→20:07)
[2021-07-10] MEDS: CENTRAL LINE FLUSH 10 ML IV PUSH ×6 (05:31→20:54)
[2021-07-10 07:09] LABS: Hemoglobin 10.1 g/dL (14.0-18.0); Mean Corpuscular HGB Conc 31.6 g/dl (32-36); Mean Corpuscular Hemoglobin 31.4 pg (26-34); Mean Corpuscular Volume 99.4 fl (80-100); Mean Platelet Volume 10.4 fl (7.4-10.4); Platelet Count Result 497 k/mm3 (150-375); Red Blood Count 3.22 M/mm3 (4.6-6.20); Red Cell Distribution Width 13.2 % (11.5-14.5); White Blood Count 12.5 K/mm3 (4.5-10.0)
[2021-07-10 07:20] LABS: Alanine Aminotransferase 125 U/L (4-50); Albumin Level 2.8 g/dL (3.5-5.1); Alkaline Phosphatase 320 U/L (38-126); Anion Gap 1 mmol/L (8-16); Aspartate Amino Transferase 97 U/L (17-59); Bilirubin,Total 0.4 mg/dL (0.2-1.3); Blood Urea Nitrogen 16 mg/dL (9-20); Calcium 8.1 mg/dL (8.4-10.2); Carbon Dioxide 35 mmol/L (22-30); Chloride 102 mmol/L (98-107); Estimated CRCL calculation 152 ml/min; Estimated Glomerular Filt Rate > 60; Glucose 160 mg/dL (65-110); Magnesium 1.9 mg/dL (1.6-2.3); Potassium 3.6 mmol/L (3.4-5.0); Sodium 138 mmol/L (137-145)
[2021-07-10] MEDS: POTASSIUM CHLORIDE 20 MEQ PACKET (FOR LIQUID) 40 MEQ FEED TUBE (08:42)
[2021-07-10] MEDS: ENOXAPARIN 40 MG/0.4 ML SYRINGE SUB-Q ×2 (08:43→20:01)
[2021-07-10] MEDS: PANTOPRAZOLE SODIUM IV 40 MG VIAL IV PUSH (08:43)
[2021-07-10] MEDS: MINERAL OIL/WHITE PETROLATUM OINTMENT 1 APPLIC EACH EYE ×2 (08:43→20:02)
--- NOTE | 2021-07-10 10:53 | PCDIET ---
ICU Rounding Note: Patient tolerating Vital 1.2 at 50mL/hr with goal of 55mL/hr and 30mL water flush every 4 hours following tracheostomy and PEG. Last recorded weight is 73kg which is down from last review. -I/O. Bowel Motility: BM x 2 today. Labs Reviewed: WBC (12.5), RBC (3.22), Hgb (10.1), Hct (32.0), Glu (160), Alb (2.8), Boogie Ca (9.06) Meds Noted: Precedex, Versed, Protonix, Septra, Vancomycin, KCl Additional Notes: No change in skin reported. Right cheek skin tear and posterior neck laceration documented. Following daily in ICU rounds. Assessing/reassessing every Saturday/Saturday.
--- NOTE | 2021-07-10 11:51 | WPDINTPN ---
Progress Note: A&P Assessment and Plan (1) Acute respiratory failure with hypoxia: Code(s): J96.01 - Acute respiratory failure with hypoxia Status: Acute Assessment and Plan: Acute respiratory failure related to COVID pneumonia -patient transferred to the ICU on 06/21/2021 for worsening oxygen requirements, patient was intubated on 06/22/2021, 07/04 ET tube was exchanged, 07/07 tracheostomy, he was on Flolan initially in his hospital course -06/22/2021 chest x-ray revealed moderate left-sided pneumothorax, chest tube was inserted by surgery on left - peep is at 10 FiO2 is at 60%. I have decrease PEEP to 8 and FiO2 50% -patient has been off of Nimbex infusion for last few days b now and I will continue to wean down his sedation slowly -Patient is off of propofol and fentanyl. He is currently on Versed and Precedex. I will continue to wean Versed down today -continue bronchodilators (2) Pneumonia due to COVID-19 virus: Code(s): U07.1 - COVID-19; J12.82 - Pneumonia due to coronavirus disease 2019 Status: Acute Assessment and Plan: Patient tested positive for COVID on 06/15/2021 at an outside facility, presented the ED on 06/17/2021 with worsening shortness of breath and symptoms of fatigue, loss of sense of taste and smell, cough for 7-8 days prior to admission -patient has not received COVID vaccine -continue dexamethasone -Remdesivir contraindicated in patients with significant elevation in LFTs -continue droplet, airborne and contact isolation/precautions (3) Pneumonia: Code(s): J18.9 - Pneumonia, unspecified organism Status: Acute Assessment and Plan: Patient was having increasing leukocytosis and low-grade fever. He initially was on steroids but now off He was started on vancomycin and Zosyn on 07/02 Blood cultures a grew out coag-negative staph Butts was changed. Sputum grew stenotrophomonas maltophilia and Klebsiella. Patient did had thick secretions noticed at the time of his tube exchange. So this may be a secondary bacterial infection. 07/07 patient was started empirically on Bactrim and Infectious Disease consulted. Recommendations appreciated Continue vancomycin and Bactrim for now as per ID recommendations His alkaline phosphatase has been increasing but patient is status post cholecystectomy Last triglyceride level was acceptable and lipase was normal His lactic acid levelwas normal too WBC seems to be improving and patient was afebrile overnight (4) Shock: Code(s): R57.9 - Shock, unspecified Status: Acute Assessment and Plan: Likely secondary to hypovolemia and sedation Currently off of Levophed (5) Electrolyte abnormality: Code(s): E87.8 - Other disorders of electrolyte and fluid balance, not elsewhere classified Status: Acute Assessment and Plan: Replace low potassium (6) DVT prophylaxis: Code(s): Z29.9 - Encounter for prophylactic measures, unspecified Status: Acute Assessment and Plan: Lovenox to 40 mg SQ Q12H (7) Bacteremia: Code(s): R78.81 - Bacteremia Status: Acute Assessment and Plan: Patient has coag-negative staph on his blood cultures This could be contaminant versus infection Patient is on vancomycin Right PICC line was removed and due to poor IV access a new one was placed on left (8) Pneumothorax: Qualifiers: Pneumothorax type: unspecified pneumothorax Qualified Code(s): J93.9 - Pneumothorax, unspecified Code(s): J93.9 - Pneumothorax, unspecified Status: Acute Assessment and Plan: Patient has a left pneumothorax and left chest tube No pneumothorax seen on today's x-ray Chest tube is on water seal Peep has been decreased to 8. Continue to wean Additional Plan DVT prophylaxis -Lovenox subQ q.12 hours Stress ulcer prophylaxis - PPI Code Status - Full Code Total Critical Care Time - 32 minutes Due to a high probability of c
--- NOTE | 2021-07-10 12:22 | PM.IMPN ---
Progress Note: A&P Assessment and Plan (1) Acute respiratory failure with hypoxia: Code(s): J96.01 - Acute respiratory failure with hypoxia Status: Acute Assessment and Plan: Acute respiratory failure related to COVID pneumonia complicated by bacterial PNA. Patient was admitted on 06/17/21 and transferred to the ICU on 06/21/21 for worsening oxygen requirements ultimately requiring intubation on 06/22/2021; ET tube was exchanged 07/04. PTX noted on 06/22 requiring chest tube. He was on Flolan initially in his hospital course. Minimal improvement and required tracheostomy 07/07 and PEG 07/05. Patient has been off of Nimbex infusion since 07/05. He remains sedated with Versed and Precedex. Contineu to wean vent settings as toelrated. (2) Pneumonia due to COVID-19 virus: Code(s): U07.1 - COVID-19; J12.82 - Pneumonia due to coronavirus disease 2019 Status: Acute Assessment and Plan: Patient tested positive for COVID on 06/15/2021 at an outside facility. He presented the ED on 06/17/2021 with worsening shortness of breath and symptoms of fatigue, loss of sense of taste and smell, and cough. Patient has not received COVID vaccine. He was treated with dexamethasone through 06/27/21. Remdesivir was contraindicated due to his significant elevation in LFTs. Continue droplet, airborne and contact isolation/precautions. Continue supportive care. (3) Pneumonia: Code(s): J18.9 - Pneumonia, unspecified organism Status: Acute Assessment and Plan: Patient was having increasing leukocytosis and low-grade fever. He initially was on steroids but these have been stopped. He was started on vancomycin and Zosyn on 07/02 and remains on Vanco. Zosyn stopped 07/07. IV Bactrim started 07/06. Blood cultures (2of2) grew out coag-negative staph. Sputum grew stenotrophomonas maltophilia and Klebsiella. Patient did had thick secretions noticed at the time of his tube exchange 07/04. Patietn seen by ID who agreed that patient with bacterial PNA and possibly bacteremia. They recommended Vanco day 9/10 and TMP-SMX day 5/10. WBC better overall (lingering in the 11-12K range) and fevers resolved. Follow. (4) Bacteremia: Code(s): R78.81 - Bacteremia Status: Acute Assessment and Plan: Patient developed increasing WBC and was started on Vanco and Zosyn on 07/02/21. Sputum and BCx collected on 07/03/21. Sputum growing Klebsiella pneumonia and Stenotrophomonas. BCx growing coag-negative staph in 2of2 bottles. This could be contaminant versus infection. Zosyn stopped on 07/07/21. Vanco is continued. IV TMP/SMX added on 07/06. Right PICC line was removed and due to poor IV access a new one was placed on left. Repeat BCx? (5) Pneumothorax: Qualifiers: Pneumothorax type: unspecified pneumothorax Qualified Code(s): J93.9 - Pneumothorax, unspecified Code(s): J93.9 - Pneumothorax, unspecified Status: Acute Assessment and Plan: Patient developed a left pneumothorax and had left chest tube placed 06/22/21. No PTX noted by CXR today. Chest tube is on water seal Peep was decreased to 8. Continue to wean as tolerated (6) Shock: Code(s): R57.9 - Shock, unspecified Status: Acute Assessment and Plan: Likely secondary to hypovolemia and sedation. Levophed started on 06/22 and required up to 11mcg/min. Able to be weaned off on 06/24/21. Has remained stable since. Currently off of Levophed (7) Transaminitis: Code(s): R74.01 - Elevation of levels of liver transaminase levels Status: Acute Assessment and Plan: AST 961 and ALT 984 early in his admission. Hepatitis panel is negative. Abdominal ultrasound showed no acute findings. Could be a component shock liver related to the hypotension. Levels were trending downward but higher today. AP continues to remain elevated. Continue to follow. (8) Electrolyte abnormality: Code(s): E87.
[2021-07-10] MEDS: MIDAZOLAM 100MG/NS 100ML(*CRX) 100 MG/100 ML BAG IV CONT (15:47)
[2021-07-10 16:17] LABS: Vancomycin Trough 11.4 ug/mL (10.0-20.0)
[2021-07-11] VITALS (33 sets, daily range): BP systolic 93–169; BP diastolic 58–86; PULSE 81–119; RESP 23–34; TEMP 36.9–37.9; O2SAT 91–97
[2021-07-11] MEDS: dexmedeTOMIDine 400 MCG/100 ML 400 MCG/100 ML BAG 21.4 MCG IV CONT ×2 (01:09→06:09)
[2021-07-11 04:39] LABS: Alveolar/Arterial O2 Gradient 226.6 mmHg; Base Excess ABG 7.8 mEq/l (+/-2.0); Fractional Inspired Oxygen 55 %; HCO3 ABG 33.7 mEq/l (22.0-26.0); Oxygen Content ABG 14.4 %vol (16.0-22.0); Oxygen Saturation ABG 97.8 % (95.0-100.0); Oxyhemoglobin 96.3 % THb (90.0-100.0); PCO2 ABG 54.4 mmHg (35.0-45.0); PO2 FiO2 Ratio Arterial Blood 1.91 %; Total Hemoglobin 10.5 g/dL (12.0-18.0)
[2021-07-11 04:40] LABS: Arterial Blood Gas PEEP 8 cmH2O; Arterial Blood Gas Tidal Volume 360 ml; Arterial Blood Gas Vent Mode CMV; Arterial Blood Gas Ventilator rate 24 /MIN; Device VENTILATOR; Modified Allen's Test Unable to perform; Site Drawn RIGHT RADIAL
[2021-07-11 04:52] LABS: Hematocrit 29.9 % (42.0-52.0); Hemoglobin 9.7 g/dL (14.0-18.0); Mean Corpuscular HGB Conc 32.4 g/dl (32-36); Mean Corpuscular Hemoglobin 31.3 pg (26-34); Mean Corpuscular Volume 96.5 fl (80-100); Mean Platelet Volume 10.1 fl (7.4-10.4); Platelet Count Result 461 k/mm3 (150-375); White Blood Count 12.3 K/mm3 (4.5-10.0)
[2021-07-11 05:02] LABS: Alanine Aminotransferase 133 U/L (4-50); Albumin Level 2.8 g/dL (3.5-5.1); Alkaline Phosphatase 313 U/L (38-126); Anion Gap 2 mmol/L (8-16); Aspartate Amino Transferase 77 U/L (17-59); Bilirubin,Total 0.3 mg/dL (0.2-1.3); Blood Urea Nitrogen 19 mg/dL (9-20); Calcium 8.4 mg/dL (8.4-10.2); Carbon Dioxide 35 mmol/L (22-30); Chloride 97 mmol/L (98-107); Estimated CRCL calculation 152 ml/min; Estimated Glomerular Filt Rate > 60; Glucose 140 mg/dL (65-110); Magnesium 1.9 mg/dL (1.6-2.3); Potassium 3.6 mmol/L (3.4-5.0); Sodium 134 mmol/L (137-145)
[2021-07-11] MEDS: CENTRAL LINE FLUSH 10 ML IV PUSH ×5 (06:10→21:09)
[2021-07-11] MEDS: MIDAZOLAM 100MG/NS 100ML(*CRX) 100 MG/100 ML BAG IV CONT (06:51)
[2021-07-11] MEDS: PANTOPRAZOLE SODIUM IV 40 MG VIAL IV PUSH (09:32)
[2021-07-11] MEDS: ENOXAPARIN 40 MG/0.4 ML SYRINGE SUB-Q ×2 (09:32→21:07)
[2021-07-11] MEDS: MINERAL OIL/WHITE PETROLATUM OINTMENT 1 APPLIC EACH EYE ×2 (09:32→21:08)
--- NOTE | 2021-07-11 10:55 | WPDINTPN ---
Progress Note: A&P Assessment and Plan (1) Acute respiratory failure with hypoxia: Code(s): J96.01 - Acute respiratory failure with hypoxia Status: Acute Assessment and Plan: Acute respiratory failure related to COVID pneumonia -patient transferred to the ICU on 06/21/2021 for worsening oxygen requirements, patient was intubated on 06/22/2021, 07/04 ET tube was exchanged, 07/07 tracheostomy, he was on Flolan initially in his hospital course -06/22/2021 chest x-ray revealed moderate left-sided pneumothorax, chest tube was inserted by surgery on left - peep is at 8 FiO2 is at 50%. I have decreased FiO2 45%%. 5 -Patient is off of propofol and fentanyl. He is currently on Versed and Precedex. I will continue to wean Versed down today -continue bronchodilators (2) Pneumonia due to COVID-19 virus: Code(s): U07.1 - COVID-19; J12.82 - Pneumonia due to coronavirus disease 2019 Status: Acute Assessment and Plan: Patient tested positive for COVID on 06/15/2021 at an outside facility, presented the ED on 06/17/2021 with worsening shortness of breath and symptoms of fatigue, loss of sense of taste and smell, cough for 7-8 days prior to admission -patient has not received COVID vaccine -continue dexamethasone -Remdesivir contraindicated in patients with significant elevation in LFTs -continue droplet, airborne and contact isolation/precautions (3) Pneumonia: Code(s): J18.9 - Pneumonia, unspecified organism Status: Acute Assessment and Plan: Patient was having increasing leukocytosis and low-grade fever. He initially was on steroids but now off He was started on vancomycin and Zosyn on 07/02 Blood cultures a grew out coag-negative staph Butts was changed. Sputum grew stenotrophomonas maltophilia and Klebsiella. Patient did had thick secretions noticed at the time of his tube exchange. So this may be a secondary bacterial infection. 07/07 patient was started empirically on Bactrim and Infectious Disease consulted. Recommendations appreciated Continue vancomycin and Bactrim for now as per ID recommendations (4) Shock: Code(s): R57.9 - Shock, unspecified Status: Acute Assessment and Plan: Likely secondary to hypovolemia and sedation Currently off of Levophed (5) Electrolyte abnormality: Code(s): E87.8 - Other disorders of electrolyte and fluid balance, not elsewhere classified Status: Acute Assessment and Plan: Replace low potassium (6) DVT prophylaxis: Code(s): Z29.9 - Encounter for prophylactic measures, unspecified Status: Acute Assessment and Plan: Lovenox to 40 mg SQ Q12H (7) Bacteremia: Code(s): R78.81 - Bacteremia Status: Acute Assessment and Plan: Patient has coag-negative staph on his blood cultures This could be contaminant versus infection Patient is on vancomycin Right PICC line was removed and due to poor IV access a new one was placed on left (8) Pneumothorax: Qualifiers: Pneumothorax type: unspecified pneumothorax Qualified Code(s): J93.9 - Pneumothorax, unspecified Code(s): J93.9 - Pneumothorax, unspecified Status: Acute Assessment and Plan: Patient has a left pneumothorax and left chest tube No pneumothorax seen on today's x-ray Chest tube is on water seal Peep has been decreased to 8. Continue to wean. once PEEP is down to 5, I will evaluate by clamping the chest tube Additional Plan DVT prophylaxis -Lovenox subQ q.12 hours Stress ulcer prophylaxis - PPI Code Status - Full Code Total Critical Care Time - 30 minutes Due to a high probability of clinically significant, life threatening deterioration, the patient required my highest level of preparedness to intervene emergently and I personally spent this critical care time directly and personally managing the patient. This critical care time included obtaining a history; examining the patient; p
[2021-07-11] MEDS: dexmedeTOMIDine 400 MCG/100 ML 400 MCG/100 ML BAG 19.45 MCG IV CONT ×2 (11:14→16:38)
--- NOTE | 2021-07-11 13:00 | PCDIET ---
Nutrition Follow-Up Complete: Nutrition Diagnosis: Inadequate oral intake related to intubation as evidenced by NPO status. Nutrition Goal: Patient to meet estimated nutritional needs. Goal met. Patient tolerating Vital 1.2 at 55mL/hr goal rate with 30mL water flush every 4 hours. Tolerating well, per RN. Last recorded weight is 74.3 kg which is increased from last review. +I/O. Bowel Motility: BM x 2 on 07/10/21. Labs Reviewed: WBC (12.3), RBC (3.10), HGb (9.7), Hct (29.9), Glu (140), Cr (0.5), Na (134), Alb (2.8) Meds Noted: Precedex, Versed, Septra, Protonix, Vancomycin Additional Notes: Skin tear to right cheek. Posterior neck wound also documented. Will continue to monitor with same goal. Nutrition Monitoring and Evaluation: Follow up every Saturday/Saturday.
--- NOTE | 2021-07-11 18:25 | PM.IMPN ---
Progress Note: A&P Assessment and Plan (1) Acute respiratory failure with hypoxia: Code(s): J96.01 - Acute respiratory failure with hypoxia Status: Acute Assessment and Plan: Acute respiratory failure related to COVID pneumonia complicated by bacterial PNA. Patient was admitted on 06/17/21 and transferred to the ICU on 06/21/21 for worsening oxygen requirements ultimately requiring intubation on 06/22/2021; ET tube was exchanged 07/04. PTX noted on 06/22 requiring chest tube. He was on Flolan initially in his hospital course. Minimal improvement and required tracheostomy 07/07 and PEG 07/05. Patient has been off of Nimbex infusion since 07/05. He remains sedated with Versed and Precedex. Continue to wean vent settings as toelrated. (2) Pneumonia due to COVID-19 virus: Code(s): U07.1 - COVID-19; J12.82 - Pneumonia due to coronavirus disease 2019 Status: Acute Assessment and Plan: Patient tested positive for COVID on 06/15/2021 at an outside facility. He presented the ED on 06/17/2021 with worsening shortness of breath and symptoms of fatigue, anosmia, dysgeusia and cough. Patient has not received COVID vaccine. He was treated with dexamethasone through 06/27/21. Remdesivir was contraindicated due to his significant elevation in LFTs. Continue droplet, airborne and contact isolation/precautions. Continue supportive care. (3) Pneumonia: Code(s): J18.9 - Pneumonia, unspecified organism Status: Acute Assessment and Plan: Patient was having increasing leukocytosis and low-grade fever. He initially was on steroids but these have been stopped. He was started on vancomycin and Zosyn on 07/02 and remains on Vanco; Zosyn stopped 07/07. IV Bactrim started 07/06. Blood cultures (2of2) grew out coag-negative staph. Sputum grew stenotrophomonas maltophilia and Klebsiella. Patient did had thick secretions noticed at the time of his tube exchange 07/04. Patient seen by ID who agreed that patient with bacterial PNA and possibly bacteremia. They recommended Vanco day 1010 and TMP-SMX day 610. WBC lingering in the 11-12K range and fevers have returned. Follow. (4) Bacteremia: Code(s): R78.81 - Bacteremia Status: Acute Assessment and Plan: Patient developed increasing WBC and was started on Vanco and Zosyn on 07/02/21. Sputum and BCx collected on 07/03/21. Sputum growing Klebsiella pneumonia and Stenotrophomonas. BCx growing coag-negative staph in 2of2 bottles. This could be contaminant versus infection. Zosyn stopped on 07/07/21. Vanco is continued. IV TMP/SMX added on 07/06. Right PICC line was removed and due to poor IV access a new one was placed on left.WBC unchanged at 12K but now having fevers again. Repeat BCx to see if CN Staph has cleared? Echo? (5) Pneumothorax: Qualifiers: Pneumothorax type: unspecified pneumothorax Qualified Code(s): J93.9 - Pneumothorax, unspecified Code(s): J93.9 - Pneumothorax, unspecified Status: Acute Assessment and Plan: Patient developed a left pneumothorax and had left chest tube placed 06/22/21. No PTX noted by CXR today. Chest tube is on water seal. Continue to wean as tolerated (6) Shock: Code(s): R57.9 - Shock, unspecified Status: Acute Assessment and Plan: Likely secondary to hypovolemia and sedation. Levophed started on 06/22 and required up to 11mcg/min. Able to be weaned off on 06/24/21. BP has remained stable since. Currently off of Levophed (7) Transaminitis: Code(s): R74.01 - Elevation of levels of liver transaminase levels Status: Acute Assessment and Plan: AST 961 and ALT 984 early in his admission. Hepatitis panel was negative. Abdominal ultrasound showed no acute findings. Could be a component of shock liver related to the hypotension. Levels did increase yesterday but better again today. AP however continues to remain elevated. Continue to follow
[2021-07-11] MEDS: dexmedeTOMIDine 400 MCG/100 ML 400 MCG/100 ML BAG 13.62 MCG IV CONT (21:20)
[2021-07-12] VITALS (37 sets, daily range): BP systolic 102–146; BP diastolic 64–88; PULSE 91–125; RESP 24–43; TEMP 37.2–37.7; O2SAT 91–99
--- NOTE | 2021-07-12 | ECHO_ITS ---
Patient Info Name: Marichuy Smiley Age: 50 years : 1970 Gender: Male Ht: 72 in Wt: 159 lbs BSA: 1.91 m2 HR: 112 bpm BP: 129 / 77 mmHg Heart Rhythm: Sinus Rhythm, Tachycardia Technical Quality: Good Exam Date: 07/12/2021 12:27 PM Exam Location: [facility] Pulmonary Exam Room: ICU8 Patient Status: Inpatient Admit Date: 06/17/2021 Staff Ordering Physician: Félix Newell MD Diet Consultant: Zamzam Glynn RDCS Attending Provider: Félix Newell MD Exam Type: CA echo doppler color flow Study Info Indications - FEVERS POSITIVE BCX COVID CHEST TUBES IN PLACE Complete two-dimensional, color flow and Doppler transthoracic echocardiogram is performed. Summary 1. Complete two-dimensional, color flow and Doppler transthoracic echocardiogram is performed. 2. Left ventricular chamber dimension is normal. 3. Left ventricular systolic function is normal, estimated at 65-70%. 4. Left atrial chamber dimension is mildly enlarged. 5. There is trace mitral valve regurgitation. 6. There is mild tricuspid valve regurgitation. 7. Moderate pulmonary hypertension, estimated pulmonary arterial systolic pressure is 46 mmHg. Left Ventricle Left ventricular chamber dimension is normal. Left ventricular systolic function is normal, estimated at 65-70%. There is no increased left ventricular wall thickness. The left ventricular diastolic function is abnormal. Right Ventricle Right ventricular chamber dimension is normal. Right ventricular systolic function is normal. Left Atria Left atrial chamber dimension is mildly enlarged. Right Atria Right atrial chamber dimension is normal. Aortic Valve The aortic valve is probable trileaflet. There is mild aortic valve sclerosis. There is no aortic valve stenosis. There is no aortic valve regurgitation. Pulmonic Valve The pulmonic valve is not well visualized. Mitral Valve The mitral valve has normal leaflets. There is trace mitral valve regurgitation. Tricuspid Valve The tricuspid valve leaflets are normal. There is mild tricuspid valve regurgitation. Moderate pulmonary hypertension, estimated pulmonary arterial systolic pressure is 46 mmHg. Pericardium/Pleural The pericardium appears normal. There is no pericardial effusion. Aorta The aortic root size at the sinus of Valsalva is normal. Left Ventricular Outflow Tract Name Value Normal LVOT 2D LVOT Diameter 2.1 cm LVOT Doppler LVOT Peak Gradient 6 mmHg LVOT Mean Gradient 3 mmHg LVOT VTI 20 cm LVOT VTI/AV VTI Ratio 1.0 LVOT Stroke Volume 69 ml LVOT CO 17.6 l/min LVOT CI 9.2 l/min/m2 Pulmonic Valve Name Value Normal PV Doppler
[2021-07-12] MEDS: ACETAMINOPHEN 325 MG TABLET 650 MG PO (01:35)
[2021-07-12] MEDS: dexmedeTOMIDine 400 MCG/100 ML 400 MCG/100 ML BAG 13.62 MCG IV CONT ×2 (04:47→10:30)
[2021-07-12] MEDS: CENTRAL LINE FLUSH 10 ML IV PUSH ×3 (06:34→21:04)
[2021-07-12 07:09] LABS: Hemoglobin 9.7 g/dL (14.0-18.0); Mean Corpuscular HGB Conc 32.3 g/dl (32-36); Mean Corpuscular Hemoglobin 31.3 pg (26-34); Mean Corpuscular Volume 96.8 fl (80-100); Mean Platelet Volume 10.2 fl (7.4-10.4); Platelet Count Result 496 k/mm3 (150-375); Red Cell Distribution Width 13.2 % (11.5-14.5); White Blood Count 13.8 K/mm3 (4.5-10.0)
[2021-07-12 07:49] LABS: Alanine Aminotransferase 123 U/L (4-50); Albumin Level 2.9 g/dL (3.5-5.1); Alkaline Phosphatase 286 U/L (38-126); Anion Gap 4 mmol/L (8-16); Aspartate Amino Transferase 63 U/L (17-59); Bilirubin,Total 0.4 mg/dL (0.2-1.3); Blood Urea Nitrogen 15 mg/dL (9-20); Calcium 8.2 mg/dL (8.4-10.2); Carbon Dioxide 35 mmol/L (22-30); Chloride 98 mmol/L (98-107); Estimated CRCL calculation 151 ml/min; Estimated Glomerular Filt Rate > 60; Glucose 199 mg/dL (65-110); Magnesium 1.7 mg/dL (1.6-2.3); Potassium 3.2 mmol/L (3.4-5.0); Sodium 137 mmol/L (137-145)
[2021-07-12] MEDS: MIDAZOLAM HCL (*CRX) 2 MG/2 ML VIAL 4 MG IV PUSH (10:12)
[2021-07-12] MEDS: ENOXAPARIN 40 MG/0.4 ML SYRINGE SUB-Q ×2 (10:13→21:03)
[2021-07-12] MEDS: POTASSIUM CHLORIDE 20 MEQ PACKET (FOR LIQUID) 40 MEQ FEED TUBE ×2 (10:13→15:20)
[2021-07-12] MEDS: PANTOPRAZOLE SODIUM IV 40 MG VIAL IV PUSH (10:14)
[2021-07-12] MEDS: MINERAL OIL/WHITE PETROLATUM OINTMENT 1 APPLIC EACH EYE ×2 (10:14→21:04)
[2021-07-12] MEDS: MIDAZOLAM 100MG/NS 100ML(*CRX) 100 MG/100 ML BAG 6 MG IV CONT ×2 (10:34→10:43)
--- NOTE | 2021-07-12 10:44 | PM.IMPN ---
Progress Note: A&P Assessment and Plan (1) Acute respiratory failure with hypoxia: Code(s): J96.01 - Acute respiratory failure with hypoxia Status: Acute Assessment and Plan: Acute respiratory failure related to COVID pneumonia complicated by bacterial PNA. Patient was admitted on 06/17/21 and transferred to the ICU on 06/21/21 for worsening oxygen requirements ultimately requiring intubation on 06/22/2021; ET tube was exchanged 07/04. PTX noted on 06/22 requiring chest tube. He was on Flolan initially in his hospital course. Minimal improvement and required tracheostomy 07/07 and PEG 07/05. Patient has been off of Nimbex infusion since 07/05. He remains sedated with Versed and Precedex. Remains intermittently tachypneic. Now with fevers. Agree with dopplers. Check Echo. Continue to wean vent settings as toelrated. (2) Pneumonia due to COVID-19 virus: Code(s): U07.1 - COVID-19; J12.82 - Pneumonia due to coronavirus disease 2019 Status: Acute Assessment and Plan: Patient tested positive for COVID on 06/15/2021 at an outside facility. He presented the ED on 06/17/2021 with worsening shortness of breath and symptoms of fatigue, anosmia, dysgeusia and cough. Patient has not received COVID vaccine. He was treated with dexamethasone through 06/27/21. Remdesivir was contraindicated due to his significant elevation in LFTs. Continue droplet, airborne and contact isolation/precautions. Continue supportive care. (3) Pneumonia: Code(s): J18.9 - Pneumonia, unspecified organism Status: Acute Assessment and Plan: Patient was having increasing leukocytosis and low-grade fever. He initially was on steroids but these have been stopped. He was started on vancomycin and Zosyn on 07/02 and remains on Vanco; Zosyn stopped 07/07. IV Bactrim started 07/06. Blood cultures (2of2) grew out coag-negative staph. Sputum grew Stenotrophomonas maltophilia and Klebsiella. Patient did had thick secretions noticed at the time of his tube exchange 07/04. Patient seen by ID who agreed that patient with bacterial PNA and possibly bacteremia. They recommended Vanco day 09/20 and TMP-SMX day 05/20. WBC lingering in the 11-13K range and fevers have returned. Will continue the abx as prescribed at this time. Follow. (4) Bacteremia: Code(s): R78.81 - Bacteremia Status: Acute Assessment and Plan: Patient developed increasing WBC and was started on Vanco and Zosyn on 07/02/21. Sputum and BCx collected on 07/03/21. Sputum growing Klebsiella pneumonia and Stenotrophomonas. BCx growing coag-negative staph in 2of2 bottles. This could be contaminant versus infection. Zosyn stopped on 07/07/21. Vanco is continued. IV TMP/SMX added on 07/06. Right PICC line was removed and due to poor IV access a new one was placed on left. WBC higher at 13K and now having fevers again. Repeat BCx ordered. Check Echo. Now having diarrhea but appears more related to TF. Consider CDiff. (5) Pneumothorax: Qualifiers: Pneumothorax type: unspecified pneumothorax Qualified Code(s): J93.9 - Pneumothorax, unspecified Code(s): J93.9 - Pneumothorax, unspecified Status: Acute Assessment and Plan: Patient developed a left pneumothorax and had left chest tube placed 06/22/21. No PTX noted by CXR today. Chest tube is on water seal. Continue to wean as tolerated (6) Shock: Code(s): R57.9 - Shock, unspecified Status: Acute Assessment and Plan: Likely secondary to hypovolemia and sedation. Levophed started on 06/22 and required up to 11mcg/min. Able to be weaned off on 06/24/21. BP has remained stable since. Currently off of Levophed (7) Transaminitis: Code(s): R74.01 - Elevation of levels of liver transaminase levels Status: Acute Assessment and Plan: AST 961 and ALT 984 early in his admission. Hepatitis panel was negative. Abdominal ultrasound showed no acute findings
--- NOTE | 2021-07-12 11:12 | WPDINTPN ---
Progress Note: A&P Assessment and Plan (1) Acute respiratory failure with hypoxia: Code(s): J96.01 - Acute respiratory failure with hypoxia Status: Acute Assessment and Plan: Acute respiratory failure related to COVID pneumonia -patient transferred to the ICU on 06/21/2021 for worsening oxygen requirements, patient was intubated on 06/22/2021, 07/04 ET tube was exchanged, 07/07 tracheostomy, he was on Flolan initially in his hospital course -06/22/2021 chest x-ray revealed moderate left-sided pneumothorax, chest tube was inserted by surgery on left - peep is at 8 FiO2 is at 40% -Patient is off of propofol and fentanyl. He is currently on Versed and Precedex. I will continue to wean Versed down today. this may be limited by patient's tachypnea and asynchrony with the ventilator -continue bronchodilators (2) Pneumonia due to COVID-19 virus: Code(s): U07.1 - COVID-19; J12.82 - Pneumonia due to coronavirus disease 2019 Status: Acute Assessment and Plan: Patient tested positive for COVID on 06/15/2021 at an outside facility, presented the ED on 06/17/2021 with worsening shortness of breath and symptoms of fatigue, loss of sense of taste and smell, cough for 7-8 days prior to admission -patient has not received COVID vaccine -continue dexamethasone -Remdesivir contraindicated in patients with significant elevation in LFTs -continue droplet, airborne and contact isolation/precautions (3) Pneumothorax: Qualifiers: Pneumothorax type: unspecified pneumothorax Qualified Code(s): J93.9 - Pneumothorax, unspecified Code(s): J93.9 - Pneumothorax, unspecified Status: Acute Assessment and Plan: Patient has a left pneumothorax and left chest tube No pneumothorax seen on today's x-ray Chest tube is on water seal Peep has been decreased to 8. Continue to wean. once PEEP is down to 5, I will evaluate by clamping the chest tube (4) Pneumonia: Code(s): J18.9 - Pneumonia, unspecified organism Status: Acute Assessment and Plan: Patient was having increasing leukocytosis and low-grade fever. He initially was on steroids but now off He was started on vancomycin and Zosyn on 07/02 Blood cultures a grew out coag-negative staph Butts was changed. Sputum grew stenotrophomonas maltophilia and Klebsiella. Patient did had thick secretions noticed at the time of his tube exchange. So this may be a secondary bacterial infection. 07/07 patient was started empirically on Bactrim and Infectious Disease consulted. Recommendations appreciated Patient initially became afebrile but now having recurrence of fevers (5) Bacteremia: Code(s): R78.81 - Bacteremia Status: Acute Assessment and Plan: Patient has coag-negative staph on his blood cultures This could be contaminant versus infection Patient is on vancomycin Right PICC line was removed and due to poor IV access a new one was placed on left patient again is having fevers since yesterday (6) Fever: Code(s): R50.9 - Fever, unspecified Status: Acute Assessment and Plan: I will send repeat blood sputum and urine cultures check echocardiogram check CT chest abdomen pelvis without contrast venous Dopplers to rule out DVT continue vancomycin and Bactrim at this time. (7) Shock: Code(s): R57.9 - Shock, unspecified Status: Acute Assessment and Plan: Likely secondary to hypovolemia and sedation Currently off of Levophed (8) Electrolyte abnormality: Code(s): E87.8 - Other disorders of electrolyte and fluid balance, not elsewhere classified Status: Acute Assessment and Plan: Replace low potassium (9) DVT prophylaxis: Code(s): Z29.9 - Encounter for prophylactic measures, unspecified Status: Acute Assessment and Plan: Lovenox to 40 mg SQ Q12H Additional Plan DVT prophylaxis -Lovenox subQ q.12 hours Stress ulcer prophylaxis -
--- NOTE | 2021-07-12 11:16 | PCDIET ---
ICU Rounding Note: Patient tolerating Vital 1.2 at 55mL/hr with 30mL water flush every 4 hours. Last recorded weight is 72.3kg which is down from last review. -I/O. Bowel Motility: BM x 2 today. Labs Reviewed: WBC (13.8), RBC (3.10), Hgb (9.7), Hct (30.0), Glu (199), Cr (0.5), K (3.2), Alb (2.9) Meds Noted: Precedex, Versed, Protonix, KCl, Septra, Vancomycin Additional Notes: New trach site documented, as well as right cheek skin tear and posterior neck laceration. Following daily in ICU rounds. Assessing/reassessing every Saturday/Saturday.
[2021-07-12 12:41] LABS: Add Urine Microscopic? YES; Appearance Urine Clear (Clear); Bilirubin Urine Negative (Negative); Blood Urine 3+ (Negative); Color Urine Straw (Yellow); Glucose Urine UA Negative (Negative); Ketones Urine Negative (Negative); Leukocyte Esterase Ur Negative LEU/UL (Negative); Mucus Urine Rare /lpf; Nitrate Urine Negative (Negative); Protein Urine Negative (Negative); RBC Urine >75 /hpf (0-2); Specific Grav Ur 1.005 (1.001-1.035); Urobilinogen Urine Negative mg/dL (<2.0); WBC Urine 51-75 /hpf
[2021-07-12] MEDS: dexmedeTOMIDine 400 MCG/100 ML 400 MCG/100 ML BAG IV CONT (16:08)
--- NOTE | 2021-07-12 21:32 | PC.NURSE ---
At 1900 p.m. on assessment, found patient on 0.9 mcg/kg/Hr of Precedex. Patient alert and calm at this time. No rate change required.
[2021-07-12] MEDS: dexmedeTOMIDine 400 MCG/100 ML 400 MCG/100 ML BAG 16.27 MCG IV CONT (21:37)
[2021-07-13] VITALS (33 sets, daily range): BP systolic 98–155; BP diastolic 57–98; PULSE 84–126; RESP 24–39; TEMP 37.2–37.8; O2SAT 91–98
[2021-07-13] MEDS: dexmedeTOMIDine 400 MCG/100 ML 400 MCG/100 ML BAG 12.65 MCG IV CONT ×3 (03:27→17:21)
[2021-07-13 04:53] LABS: Hematocrit 32.2 % (42.0-52.0); Hemoglobin 10.3 g/dL (14.0-18.0); Mean Corpuscular Hemoglobin 31.7 pg (26-34); Mean Corpuscular Volume 99.1 fl (80-100); Mean Platelet Volume 9.7 fl (7.4-10.4); Platelet Count Result 474 k/mm3 (150-375); Red Blood Count 3.25 M/mm3 (4.6-6.20); Red Cell Distribution Width 13.4 % (11.5-14.5); White Blood Count 14.4 K/mm3 (4.5-10.0)
[2021-07-13 05:05] LABS: Alanine Aminotransferase 123 U/L (4-50); Alkaline Phosphatase 265 U/L (38-126); Anion Gap 8 mmol/L (8-16); Aspartate Amino Transferase 57 U/L (17-59); Bilirubin,Total 0.3 mg/dL (0.2-1.3); Blood Urea Nitrogen 14 mg/dL (9-20); Calcium 8.7 mg/dL (8.4-10.2); Carbon Dioxide 34 mmol/L (22-30); Chloride 97 mmol/L (98-107); Estimated CRCL calculation 151 ml/min; Estimated Glomerular Filt Rate > 60; Glucose 214 mg/dL (65-110); Magnesium 1.8 mg/dL (1.6-2.3); Potassium 3.7 mmol/L (3.4-5.0); Sodium 139 mmol/L (137-145)
[2021-07-13] MEDS: CENTRAL LINE FLUSH 10 ML IV PUSH ×3 (06:29→21:31)
[2021-07-13] MEDS: PANTOPRAZOLE SODIUM IV 40 MG VIAL IV PUSH (08:36)
[2021-07-13] MEDS: ENOXAPARIN 40 MG/0.4 ML SYRINGE SUB-Q ×2 (08:36→21:30)
[2021-07-13] MEDS: MINERAL OIL/WHITE PETROLATUM OINTMENT 1 APPLIC EACH EYE ×2 (08:37→21:31)
--- NOTE | 2021-07-13 08:59 | PM.IMPN ---
Progress Note: A&P Assessment and Plan (1) Acute respiratory failure with hypoxia: Code(s): J96.01 - Acute respiratory failure with hypoxia Status: Acute Assessment and Plan: Acute respiratory failure related to COVID pneumonia complicated by bacterial PNA. Patient was admitted on 06/17/21 and transferred to the ICU on 06/21/21 for worsening oxygen requirements ultimately requiring intubation on 06/22/2021; ET tube was exchanged 07/04. PTX noted on 06/22 requiring chest tube. He was on Flolan initially in his hospital course. Minimal improvement and required tracheostomy 07/07 and PEG 07/05. Patient has been off of Nimbex infusion since 07/05. He remains sedated with Versed and Precedex but weaning off. Remains intermittently tachypneic. Continue to wean vent settings as tolerated. LTAC being arranged. Discussed with peripheral equipment operator. (2) Pneumonia due to COVID-19 virus: Code(s): U07.1 - COVID-19; J12.82 - Pneumonia due to coronavirus disease 2019 Status: Acute Assessment and Plan: Patient tested positive for COVID on 06/15/2021 at an outside facility. He presented the ED on 06/17/2021 with worsening shortness of breath and symptoms of fatigue, anosmia, dysgeusia and cough. Not tested for COVID here. Patient has not received COVID vaccine. He was treated with dexamethasone through 06/27/21. Remdesivir was contraindicated due to his significant elevation in LFTs. Continue droplet, airborne and contact isolation/precautions. Continue supportive care. (3) Pneumonia: Code(s): J18.9 - Pneumonia, unspecified organism Status: Acute Assessment and Plan: Patient was having increasing leukocytosis and low-grade fever. He initially was on steroids but these have been stopped. He was started on vancomycin and Zosyn on 07/02 and remains on Vanco; Zosyn stopped 07/07. IV Bactrim started 07/06. Blood cultures (2of2) grew out coag-negative staph. Sputum grew Stenotrophomonas maltophilia and Klebsiella. Patient did had thick secretions noticed at the time of his tube exchange 07/04. Patient seen by ID who agreed that patient with bacterial PNA and possibly bacteremia. They recommended Vanco day 10/20 and TMP-SMX day 8/10. WBC slowly climbing. Fevers did recur but appear to be improved. Vanco coarse has been extended. Will continue the abx as prescribed at this time. Follow. (4) Bacteremia: Code(s): R78.81 - Bacteremia Status: Acute Assessment and Plan: Patient developed increasing WBC and was started on Vanco and Zosyn on 07/02/21. Sputum and BCx collected on 07/03/21. Sputum growing Klebsiella pneumonia and Stenotrophomonas. BCx growing coag-negative staph in 2of2 bottles. This could be contaminant versus infection. Zosyn stopped on 07/07/21. Vanco is continued. IV TMP/SMX added on 07/06. Right PICC line was removed and due to poor IV access, a new one was placed on left. WBC higher at 14.4K today; fever curve better today. Repeat Sputum, Blood and Urine Cx ordered and are pending. CT Ch/A/P showing no obvious etiology of recurrent fevers. Venous bilateral Cephalic and left basilic (around the PICC) superficial thrombosis. Dopplers showing Echo showing no vegitations. Sinusitis noted by CT scan. Continue current abx and follow up with culture results. If negative, would stop abx (after TMP-SMX completes) . (5) Pneumothorax: Qualifiers: Pneumothorax type: unspecified pneumothorax Qualified Code(s): J93.9 - Pneumothorax, unspecified Code(s): J93.9 - Pneumothorax, unspecified Status: Acute Assessment and Plan: Patient developed a left pneumothorax and had left chest tube placed 06/22/21. No PTX noted by CXR today but small one seen by CT. Chest tube management per peripheral equipment operator. (6) Shock: Code(s): R57.9 - Shock, unspecified Status: Acute Assessment and Plan: Likely secondary to hypovolemia and sedation. Levophed started on 06/22 and required
[2021-07-13] MEDS: MIDAZOLAM 100MG/NS 100ML(*CRX) 100 MG/100 ML BAG IV CONT (09:44)
--- NOTE | 2021-07-13 11:56 | PCDIET ---
ICU Rounding Note: Patient tolerating Vital 1.2 at 55mL/hr with 30mL water flush every 4 hours. Last recorded weight is 69.3kg which is down from last review. Bowel Motility: Last documented BM on 07/12/21 x 1. Labs Reviewed: WBC (14.4), RBC (3.25), Hgb (10.3), Hct (32.2), Glu (214), Cr (0.5), Alb (3.0) Meds Noted: Precedex, Versed, Protonix, Septra, Vancomycin Additional Notes: Integumentary notes reviewed. No changes noted. Following daily in ICU rounds. Assessing/reassessing every Saturday/Saturday.
--- NOTE | 2021-07-13 12:46 | WPDINTPN ---
Progress Note: A&P Assessment and Plan (1) Acute respiratory failure with hypoxia: Code(s): J96.01 - Acute respiratory failure with hypoxia Status: Acute Assessment and Plan: Acute respiratory failure related to COVID pneumonia -patient transferred to the ICU on 06/21/2021 for worsening oxygen requirements, patient was intubated on 06/22/2021, 07/04 ET tube was exchanged, 07/07 tracheostomy, he was on Flolan initially in his hospital course -06/22/2021 chest x-ray revealed moderate left-sided pneumothorax, chest tube was inserted by surgery on left - peep is at 8 FiO2 is at 40%. will change PEEP to 5 -Patient is off of propofol and fentanyl. He is currently on Versed and Precedex. I will continue to wean Versed down today. this may be limited by patient's tachypnea and asynchrony with the ventilator - patient continues to be very tachypneic. Try to switch patient to pressure support ventilation to see if that will decrease the respiratory rate but it did not help. patient was placed back on CMV. I am trying to avoid increasing sedation at this point and will tolerate tachypnea as long as pressures on the ventilator are adequate and patient is not in any distress -continue bronchodilators (2) Pneumonia due to COVID-19 virus: Code(s): U07.1 - COVID-19; J12.82 - Pneumonia due to coronavirus disease 2019 Status: Acute Assessment and Plan: Patient tested positive for COVID on 06/15/2021 at an outside facility, presented the ED on 06/17/2021 with worsening shortness of breath and symptoms of fatigue, loss of sense of taste and smell, cough for 7-8 days prior to admission -patient has not received COVID vaccine -continue dexamethasone -Remdesivir contraindicated in patients with significant elevation in LFTs -continue droplet, airborne and contact isolation/precautions (3) Pneumothorax: Qualifiers: Pneumothorax type: unspecified pneumothorax Qualified Code(s): J93.9 - Pneumothorax, unspecified Code(s): J93.9 - Pneumothorax, unspecified Status: Acute Assessment and Plan: Patient has a left pneumothorax and left chest tube CT scan today shows tiny residual left-sided pneumothorax Chest tube is on water seal and I will put it back on suction Peep has been decreased to 8. Continue to wean. once PEEP is down to 5 (4) Pneumonia: Code(s): J18.9 - Pneumonia, unspecified organism Status: Acute Assessment and Plan: Patient was having increasing leukocytosis and low-grade fever. He initially was on steroids but now off He was started on vancomycin and Zosyn on 07/02 Blood cultures a grew out coag-negative staph Butts was changed. Sputum grew stenotrophomonas maltophilia and Klebsiella. Patient did had thick secretions noticed at the time of his tube exchange. So this may be a secondary bacterial infection. 07/07 patient was started empirically on Bactrim and Infectious Disease consulted. Recommendations appreciated Patient initially became afebrile but now having recurrence of fevers (5) Bacteremia: Code(s): R78.81 - Bacteremia Status: Acute Assessment and Plan: Patient has coag-negative staph on his blood cultures This could be contaminant versus infection Patient is on vancomycin Right PICC line was removed and due to poor IV access a new one was placed on left patient again is having fevers since yesterday (6) Fever: Code(s): R50.9 - Fever, unspecified Status: Acute Assessment and Plan: Rrepeat blood sputum and urine cultures were sent on 07/12 no vegetations seen on echocardiogram CT sinuses shows bilateral sinusitis of maxillary and ethmoid sinuses along with mastoid effusion CT chest abdomen shows diffuse COVID pneumonia. small left-sided pneumothorax, small right pleural effusion venous Dopplers show superficial thrombosis in upper extremities but no DVT continue vancomycin and Bactrim at this time. (
[2021-07-14] VITALS (40 sets, daily range): BP systolic 78–145; BP diastolic 59–86; PULSE 81–114; RESP 24–37; TEMP 36.9–37.7; O2SAT 92–99
[2021-07-14] MEDS: ACETAMINOPHEN 325 MG TABLET 650 MG PO ×2 (00:26→13:05)
[2021-07-14] MEDS: dexmedeTOMIDine 400 MCG/100 ML 400 MCG/100 ML BAG 9.04 MCG IV CONT (01:43)
[2021-07-14] MEDS: CENTRAL LINE FLUSH 10 ML IV PUSH ×5 (05:06→20:15)
[2021-07-14 06:17] LABS: Basophils Absolute Auto 0.1 K/mm3 (0.0-0.1); Basophils Percent Auto 0.6 % (0.2-1.2); Eosinophils Absolute Auto 0.3 K/mm3 (0-0.3); Eosinophils Percent Auto 2.2 % (0-4.4); Hematocrit 32.3 % (42.0-52.0); Hemoglobin 10.6 g/dL (14.0-18.0); Immature Granulocyte Absolute 0.18 K/mm3 (0.00-0.031); Immature Granulocyte Percent A 1.4 % (0-0.5); Lymphocytes Absolute Auto 1.29 K/mm3 (0.9-3.2); Lymphocytes Percent Auto 10.1 % (18.3-44.2); Mean Corpuscular HGB Conc 32.8 g/dl (32-36); Mean Corpuscular Hemoglobin 31.7 pg (26-34); Mean Corpuscular Volume 96.7 fl (80-100); Mean Platelet Volume 10.1 fl (7.4-10.4); Monocytes Absolute Auto 0.8 K/mm3 (0.1-0.6); Monocytes Percent Auto 6.2 % (2.6-8.5); Neutrophils Absolute Auto 10.2 K/mm3 (1.3-6.7); Neutrophils Percent Auto 79.5 % (45.5-73.1); Platelet Count Result 515 k/mm3 (150-375); Red Blood Count 3.34 M/mm3 (4.6-6.20); Red Cell Distribution Width 13.2 % (11.5-14.5); White Blood Count 12.8 K/mm3 (4.5-10.0)
[2021-07-14 07:58] LABS: Alanine Aminotransferase 118 U/L (4-50); Alkaline Phosphatase 258 U/L (38-126); Anion Gap 4 mmol/L (8-16); Aspartate Amino Transferase 51 U/L (17-59); Bilirubin,Total 0.6 mg/dL (0.2-1.3); Blood Urea Nitrogen 13 mg/dL (9-20); CRP 4.5 mg/dL (<1.0); Calcium 8.3 mg/dL (8.4-10.2); Carbon Dioxide 32 mmol/L (22-30); Chloride 91 mmol/L (98-107); Estimated CRCL calculation 163 ml/min; Estimated Glomerular Filt Rate > 60; Glucose 450 mg/dL (65-110); Magnesium 1.6 mg/dL (1.6-2.3); Phosphorus 3.4 mg/dL (2.5-4.5); Potassium 3.2 mmol/L (3.4-5.0); Sodium 127 mmol/L (137-145)
--- NOTE | 2021-07-14 08:47 | PM.IMPN ---
Progress Note: A&P Assessment and Plan (1) Acute respiratory failure with hypoxia: Code(s): J96.01 - Acute respiratory failure with hypoxia Status: Acute Assessment and Plan: Acute respiratory failure related to COVID pneumonia complicated by bacterial PNA. Patient was admitted on 06/17/21 and transferred to the ICU on 06/21/21 for worsening oxygen requirements ultimately requiring intubation on 06/22/2021; ET tube was exchanged 07/04. PTX noted on 06/22 requiring chest tube. He was on Flolan initially in his hospital course. Minimal improvement and required tracheostomy 07/07 and PEG 07/05. Patient has been off of Nimbex infusion since 07/05. He remains sedated with Versed and Precedex but weaning off which he is tolerating. Remains intermittently tachypneic possibly from anxiety. Continue to wean vent settings as tolerated. LTAC being arranged. (2) Pneumonia due to COVID-19 virus: Code(s): U07.1 - COVID-19; J12.82 - Pneumonia due to coronavirus disease 2019 Status: Acute Assessment and Plan: Patient tested positive for COVID on 06/15/2021 at an outside facility. He presented the ED on 06/17/2021 with worsening shortness of breath and symptoms of fatigue, anosmia, dysgeusia and cough. Not tested for COVID here. Patient has not received COVID vaccine. He was treated with dexamethasone through 06/27/21. Remdesivir was contraindicated due to his significant elevation in LFTs. Patient still on isolation/precautions but could come off since >20 days. Continue supportive care. (3) Pneumonia: Code(s): J18.9 - Pneumonia, unspecified organism Status: Acute Assessment and Plan: Patient was having increasing leukocytosis and low-grade fever. He initially was on steroids but these had been stopped. He was started on vancomycin and Zosyn on 07/02 and remains on Vanco; Zosyn stopped 07/07. IV Bactrim started 07/06. Blood cultures (2of2) grew out coag-negative staph. Sputum grew Stenotrophomonas maltophilia and Klebsiella. Patient did had thick secretions noticed at the time of his tube exchange 07/04. Patient seen by ID who agreed that patient with bacterial PNA and possibly bacteremia. They recommended Vanco day 23/08 and TMP-SMX day 07/21. WBC was climbing and with recurrent fevers so Vanco coarse has been extended as we await Cx results. As below. Follow. (4) Bacteremia: Code(s): R78.81 - Bacteremia Status: Acute Assessment and Plan: Patient developed increasing WBC and was started on Vanco and Zosyn on 07/02/21. Sputum and BCx collected on 07/03/21. Sputum growing Klebsiella pneumonia and Stenotrophomonas. BCx growing coag-negative staph in 2of2 bottles. This could be contaminant versus infection. Zosyn stopped on 07/07/21. Vanco is continued. IV TMP/SMX added on 07/06. Right PICC line was removed and a new PICC was placed on left. Patient was doing well but then developed fevers and increasing WBC. CT Ch/A/P showing no obvious etiology of recurrent fevers. Venous bilateral Cephalic and left basilic (around the PICC) superficial thrombosis. Dopplers of the LE negative for DVT. Surface Echo showing no vegetations. Sinus CT showing sinusitis. Patient was flores-cultured on 07/12. Urine Cx negative. Sputum Cx growing GNB. BCx growing GPC in clusters in anaerobic bottle only in 1 bottle (2nd bottle pending). WBC improved today and fevers resolved. He remains on Vanco and TMP/SMX. Follow up on repeat cx results. (5) Pneumothorax: Qualifiers: Pneumothorax type: unspecified pneumothorax Qualified Code(s): J93.9 - Pneumothorax, unspecified Code(s): J93.9 - Pneumothorax, unspecified Status: Acute Assessment and Plan: Patient developed a left pneumothorax and had left chest tube placed 06/22/21. No PTX noted by CXR today but small one seen by CT 07/12/21. Chest tube management per critical systems technician. (6) Shock: Code(s): R57.9 - Shock, unspecified St
[2021-07-14] MEDS: PANTOPRAZOLE SODIUM IV 40 MG VIAL IV PUSH (09:59)
[2021-07-14] MEDS: MINERAL OIL/WHITE PETROLATUM OINTMENT 1 APPLIC EACH EYE ×2 (09:59→20:14)
[2021-07-14] MEDS: ENOXAPARIN 40 MG/0.4 ML SYRINGE SUB-Q ×2 (09:59→20:14)
[2021-07-14] MEDS: QUEtiapine FUMARATE 12.5 MG TABLET PO ×2 (11:10→20:14)
[2021-07-14 11:21] LABS: Glucose Point of Care 180 mg/dl (65-105)
--- NOTE | 2021-07-14 11:49 | PCDIET ---
Nutrition Follow-Up Complete: Nutrition Diagnosis: Inadequate oral intake related to intubation as evidenced by NPO status. Nutrition Goal: Patient to meet estimated nutritional needs. Goal in progress. Patient has tolerated Vital 1.2 at 55mL/hr, though blood sugars increased and order being changed to Glucerna 1.2 at 60mL/hr. Given 22 hour daily infusion, this will provide 1584kcal and 79g protein daily. May consider further increasing rate as blood sugars improve. Recommend replacing potassium, if medically appropriate. Last recorded weight is 64.2 kg which is down from last review. -I/O. Bowel Motility: Last documented BM on 07/13/21 x 1. Labs Reviewed: WBC (12.8), RBC (3.34), Hgb (10.6), Hct (32.3), Glu (450), K (3.2), Na (127), Alb (3.0) Meds Noted: Precedex, Versed, Protonix, Septra, Vancomycin Additional Notes: Posterior neck laceration and right cheek skin tear documented. Will continue to monitor with same goal. Nutrition Monitoring and Evaluation: Follow up every Saturday/Saturday.
[2021-07-14] MEDS: ALPRAZolam (*CRX) 0.125 MG TABLET PO ×2 (13:04→20:15)
--- NOTE | 2021-07-14 13:37 | WPDINTPN ---
Progress Note: A&P Assessment and Plan (1) Acute respiratory failure with hypoxia: Code(s): J96.01 - Acute respiratory failure with hypoxia Status: Acute Assessment and Plan: Acute respiratory failure related to COVID pneumonia -patient transferred to the ICU on 06/21/2021 for worsening oxygen requirements, patient was intubated on 06/22/2021, 07/04 ET tube was exchanged, 07/07 tracheostomy, he was on Flolan initially in his hospital course -06/22/2021 chest x-ray revealed moderate left-sided pneumothorax, chest tube was inserted by surgery on left - peep is at 5 FiO2 is at 40%. -Patient is off of propofol and fentanyl. He is currently on Versed and Precedex. I will continue to wean Versed down today. this may be limited by patient's tachypnea and asynchrony with the ventilator -will add small dose of Xanax and a small dose of Seroquel -continue bronchodilators (2) Pneumonia due to COVID-19 virus: Code(s): U07.1 - COVID-19; J12.82 - Pneumonia due to coronavirus disease 2019 Status: Acute Assessment and Plan: Patient tested positive for COVID on 06/15/2021 at an outside facility, presented the ED on 06/17/2021 with worsening shortness of breath and symptoms of fatigue, loss of sense of taste and smell, cough for 7-8 days prior to admission -patient has not received COVID vaccine -continue dexamethasone -Remdesivir contraindicated in patients with significant elevation in LFTs -continue droplet, airborne and contact isolation/precautions (3) Pneumothorax: Qualifiers: Pneumothorax type: unspecified pneumothorax Qualified Code(s): J93.9 - Pneumothorax, unspecified Code(s): J93.9 - Pneumothorax, unspecified Status: Acute Assessment and Plan: Patient has a left pneumothorax and left chest tube 07/12/21: CT scan chest/abdomen/pelvis shows tiny residual left-sided pneumothorax Chest tube to suction Peep has been decreased to 5. (4) Pneumonia: Code(s): J18.9 - Pneumonia, unspecified organism Status: Acute Assessment and Plan: Patient was having increasing leukocytosis and low-grade fever. He initially was on steroids but now off He was started on vancomycin and Zosyn on 07/02 Blood cultures a grew out coag-negative staph Butts was changed. Sputum grew stenotrophomonas maltophilia and Klebsiella. Patient did had thick secretions noticed at the time of his tube exchange. So this may be a secondary bacterial infection. 07/07 patient was started empirically on Bactrim and vancomycin, infectious disease following the patient -07/12/2021 Sputum cultures growing stenotrophomonas, -07/12/2021 blood culture growing Gram-positive cocci in clusters 1/2 bottles (5) Bacteremia: Code(s): R78.81 - Bacteremia Status: Acute Assessment and Plan: Patient has coag-negative staph on his blood cultures This could be contaminant versus infection Patient is on vancomycin Right PICC line was removed and due to poor IV access, a new PICC line was placed on left patient again is having fevers since yesterday (6) Fever: Code(s): R50.9 - Fever, unspecified Status: Acute Assessment and Plan: Rrepeat blood sputum and urine cultures were sent on 07/12 no vegetations seen on echocardiogram CT sinuses shows bilateral sinusitis of maxillary and ethmoid sinuses along with mastoid effusion CT chest abdomen shows diffuse COVID pneumonia. small left-sided pneumothorax, small right pleural effusion venous Dopplers show superficial thrombosis in upper extremities but no DVT continue vancomycin and Bactrim at this time. (7) Electrolyte abnormality: Code(s): E87.8 - Other disorders of electrolyte and fluid balance, not elsewhere classified Status: Acute Assessment and Plan: Replace low potassium (8) DVT prophylaxis: Code(s): Z29.9 - Encounter for prophylactic measures, unspecified Status: Acute
[2021-07-14] MEDS: dexmedeTOMIDine 400 MCG/100 ML 400 MCG/100 ML BAG 7.23 MCG IV CONT (14:30)
[2021-07-14] MEDS: POTASSIUM CHLORIDE 20 MEQ PACKET (FOR LIQUID) 40 MEQ FEED TUBE (15:12)
[2021-07-14 18:16] LABS: Alanine Aminotransferase 158 U/L (4-50); Albumin Level 3.5 g/dL (3.5-5.1); Alkaline Phosphatase 299 U/L (38-126); Anion Gap 4 mmol/L (8-16); Aspartate Amino Transferase 85 U/L (17-59); Bilirubin,Total 0.7 mg/dL (0.2-1.3); Blood Urea Nitrogen 15 mg/dL (9-20); Calcium 9.1 mg/dL (8.4-10.2); Carbon Dioxide 34 mmol/L (22-30); Chloride 99 mmol/L (98-107); Estimated CRCL calculation 163 ml/min; Estimated Glomerular Filt Rate > 60; Glucose 143 mg/dL (65-110); Sodium 137 mmol/L (137-145)
[2021-07-14 18:38] LABS: Vancomycin Trough 9.3 ug/mL (10.0-20.0)
[2021-07-15] VITALS (26 sets, daily range): BP systolic 101–151; BP diastolic 61–102; PULSE 90–134; RESP 21–38; TEMP 36.7–37.7; O2SAT 92–98
[2021-07-15] MEDS: dexmedeTOMIDine 400 MCG/100 ML 400 MCG/100 ML BAG 7.23 MCG IV CONT (03:28)
[2021-07-15] MEDS: CENTRAL LINE FLUSH 10 ML IV PUSH ×6 (05:04→20:26)
[2021-07-15] MEDS: ENOXAPARIN 40 MG/0.4 ML SYRINGE SUB-Q ×2 (08:26→20:25)
[2021-07-15] MEDS: ALPRAZolam (*CRX) 0.125 MG TABLET PO (08:26)
[2021-07-15] MEDS: PANTOPRAZOLE SODIUM IV 40 MG VIAL IV PUSH (08:27)
[2021-07-15] MEDS: QUEtiapine FUMARATE 12.5 MG TABLET PO ×2 (08:27→09:53)
[2021-07-15] MEDS: MINERAL OIL/WHITE PETROLATUM OINTMENT 1 APPLIC EACH EYE ×2 (08:27→20:26)
[2021-07-15] MEDS: ALPRAZolam (*CRX) 0.25 MG TABLET PO ×3 (09:53→16:54)
[2021-07-15] MEDS: MIDAZOLAM 100MG/NS 100ML(*CRX) 100 MG/100 ML BAG IV CONT (10:04)
--- NOTE | 2021-07-15 10:39 | PM.IMPN ---
Progress Note: A&P Assessment and Plan (1) Acute respiratory failure with hypoxia: Code(s): J96.01 - Acute respiratory failure with hypoxia Status: Acute Assessment and Plan: Acute respiratory failure related to COVID pneumonia complicated by bacterial PNA. Patient was admitted on 06/17/21 after presentation shortness of breath and transferred to the ICU on 06/21/21 for worsening oxygen requirements ultimately requiring intubation on 06/22/2021. Pneumothorax noted on 06/22 requiring chest tube. He was on Flolan initially in his hospital course. Minimal improvement and required PEG 07/05 and tracheostomy 07/07. Patient has been off of Nimbex infusion since 07/05. He remains sedated with Versed and Precedex but weaning off which he is tolerating. Seroquel initiated to help with wean. Remains intermittently tachypneic. Continue to wean vent settings as tolerated per Pulmonary. (2) Pneumonia due to COVID-19 virus: Code(s): U07.1 - COVID-19; J12.82 - Pneumonia due to coronavirus disease 2019 Status: Acute Assessment and Plan: Patient tested positive for COVID on 06/15/2021 at an outside facility. He presented the ED on 06/17/2021 with worsening shortness of breath and symptoms of fatigue, anosmia, dysgeusia and cough. Not tested for COVID here. Patient has not received COVID vaccine. He was treated with dexamethasone through 06/27/21. Remdesivir was contraindicated due to his significant elevation in LFTs. Patient still on isolation/precautions but could come off since it been >20 days. Continue supportive care. (3) Pneumonia: Code(s): J18.9 - Pneumonia, unspecified organism Status: Acute Assessment and Plan: Patient was having increasing leukocytosis and low-grade fever. He initially was on steroids but these had been stopped. He was started on vancomycin and Zosyn on 07/02 and remains on Vanco; Zosyn stopped 07/07. IV Bactrim started 07/06. Blood cultures (2 of 2) grew out coag-negative staph. Sputum grew Stenotrophomonas maltophilia and Klebsiella. Patient did had thick secretions noticed at the time of his tube exchange 07/04. Patient seen by ID who agreed that patient with bacterial PNA and possibly bacteremia. They recommended Vanco and TMP-SMX. WBC was climbing and with recurrent fevers so Vanco coarse has been extended as we await Cx results. As below. (4) Bacteremia: Code(s): R78.81 - Bacteremia Status: Acute Assessment and Plan: Patient developed increasing WBC and was started on Vanco and Zosyn on 07/02/21. Sputum and BCx collected on 07/03/21. Sputum growing Klebsiella pneumonia and Stenotrophomonas. BCx growing coag-negative staph in 2of2 bottles. This could be contaminant versus infection. Zosyn stopped on 07/07/21. Vanco is continued. IV TMP/SMX added on 07/06. Right PICC line was removed and a new PICC was placed on left. Patient was doing well but then developed fevers and increasing WBC. CT Ch/A/P showing no obvious etiology of recurrent fevers. Venous bilateral Cephalic and left basilic (around the PICC) superficial thrombosis. Dopplers of the LE negative for DVT. Surface Echo showing no vegetations. Sinus CT showing sinusitis. Patient was flores-cultured on 07/12. Urine culture negative. Sputum 07/12 growing Klebsiella pneumonia and Stenotrophomonas. Blood culture from 07/12 growing coagulase-negative Staph in anaerobic bottle only in 1 bottle (2nd bottle pending). WBC improving and fevers resolved. He remains on Vanco and TMP/SMX. Follow up on repeat culture results. (5) Pneumothorax: Qualifiers: Pneumothorax type: unspecified pneumothorax Qualified Code(s): J93.9 - Pneumothorax, unspecified Code(s): J93.9 - Pneumothorax, unspecified Status: Acute Assessment and Plan: Patient developed a left pneumothorax and had left chest tube placed 06/22/21. Management per Pulmonary. (6) Shock: Code(s): R57.9 - Shock, unsp
[2021-07-15] MEDS: cloNIDine 0.1 MG/24 HR PATCH 1 PATCH TRANSDERM (12:17)
--- NOTE | 2021-07-15 14:25 | WPDINTPN ---
Progress Note: A&P Assessment and Plan (1) Acute respiratory failure with hypoxia: Code(s): J96.01 - Acute respiratory failure with hypoxia Status: Acute Assessment and Plan: Acute respiratory failure related to COVID pneumonia -patient transferred to the ICU on 06/21/2021 for worsening oxygen requirements, patient was intubated on 06/22/2021, 07/04 ET tube was exchanged, 07/07 tracheostomy, he was on Flolan initially in his hospital course -06/22/2021 chest x-ray revealed moderate left-sided pneumothorax, chest tube was inserted by surgery on left - peep is at 5 FiO2 is at 40%. -Patient is off of propofol and fentanyl. He is currently on Versed and Precedex. I will continue to wean Versed down today. this may be limited by patient's tachypnea and asynchrony with the ventilator -increase Seroquel and Xanax -continue bronchodilators (2) Pneumonia due to COVID-19 virus: Code(s): U07.1 - COVID-19; J12.82 - Pneumonia due to coronavirus disease 2019 Status: Acute Assessment and Plan: Patient tested positive for COVID on 06/15/2021 at an outside facility, presented the ED on 06/17/2021 with worsening shortness of breath and symptoms of fatigue, loss of sense of taste and smell, cough for 7-8 days prior to admission -patient has not received COVID vaccine -continue dexamethasone -Remdesivir contraindicated in patients with significant elevation in LFTs -continue droplet, airborne and contact isolation/precautions (3) Pneumothorax: Qualifiers: Pneumothorax type: unspecified pneumothorax Qualified Code(s): J93.9 - Pneumothorax, unspecified Code(s): J93.9 - Pneumothorax, unspecified Status: Acute Assessment and Plan: Patient has a left pneumothorax and left chest tube 07/12/21: CT scan chest/abdomen/pelvis shows tiny residual left-sided pneumothorax Chest tube to suction Peep has been decreased to 5. (4) Pneumonia: Code(s): J18.9 - Pneumonia, unspecified organism Status: Acute Assessment and Plan: Patient was having increasing leukocytosis and low-grade fever. He initially was on steroids but now off He was started on vancomycin and Zosyn on 07/02 Blood cultures a grew out coag-negative staph Butts was changed. Sputum grew stenotrophomonas maltophilia and Klebsiella. Patient did had thick secretions noticed at the time of his tube exchange. So this may be a secondary bacterial infection. 07/07 patient was started empirically on Bactrim and vancomycin, infectious disease following the patient -07/12/2021 Sputum cultures growing stenotrophomonas, -07/12/2021 blood culture growing Gram-positive cocci in clusters 1/2 bottles (5) Bacteremia: Code(s): R78.81 - Bacteremia Status: Acute Assessment and Plan: Patient has coag-negative staph on his blood cultures This could be contaminant versus infection Patient is on vancomycin Right PICC line was removed and due to poor IV access, a new PICC line was placed on left patient again is having fevers since yesterday (6) Fever: Code(s): R50.9 - Fever, unspecified Status: Acute Assessment and Plan: Rrepeat blood sputum and urine cultures were sent on 07/12 no vegetations seen on echocardiogram 07/12/2021: CT sinuses shows bilateral sinusitis of maxillary and ethmoid sinuses along with mastoid effusion 07/12/2021: CT chest abdomen shows diffuse COVID pneumonia. small left-sided pneumothorax, small right pleural effusion 07/12/2021: Venous Dopplers show superficial thrombosis in upper extremities but no DVT/ continue vancomycin and Bactrim at this time. (7) Electrolyte abnormality: Code(s): E87.8 - Other disorders of electrolyte and fluid balance, not elsewhere classified Status: Acute Assessment and Plan: Replace low potassium (8) DVT prophylaxis: Code(s): Z29.9 - Encounter for prophylactic measures, unspecified Status: Ac
[2021-07-15] MEDS: dexmedeTOMIDine 400 MCG/100 ML 400 MCG/100 ML BAG IV CONT (16:15)
[2021-07-15] MEDS: QUEtiapine FUMARATE 25 MG TABLET PO (20:26)
[2021-07-16] VITALS (25 sets, daily range): BP systolic 91–121; BP diastolic 58–83; PULSE 101–137; RESP 25–35; TEMP 36.8–37.9; O2SAT 92–97
[2021-07-16] MEDS: CENTRAL LINE FLUSH 10 ML IV PUSH ×6 (04:19→21:00)
[2021-07-16 05:36] LABS: Alanine Aminotransferase 154 U/L (4-50); Albumin Level 3.5 g/dL (3.5-5.1); Alkaline Phosphatase 287 U/L (38-126); Aspartate Amino Transferase 60 U/L (17-59); Bilirubin,Total 0.4 mg/dL (0.2-1.3)
[2021-07-16] MEDS: dexmedeTOMIDine 400 MCG/100 ML 400 MCG/100 ML BAG IV CONT (06:46)
[2021-07-16] MEDS: ALPRAZolam (*CRX) 0.5 MG TABLET PO ×3 (09:03→16:39)
[2021-07-16] MEDS: PANTOPRAZOLE SODIUM IV 40 MG VIAL IV PUSH (09:04)
[2021-07-16] MEDS: ENOXAPARIN 40 MG/0.4 ML SYRINGE SUB-Q ×2 (09:04→20:10)
[2021-07-16] MEDS: MINERAL OIL/WHITE PETROLATUM OINTMENT 1 APPLIC EACH EYE ×2 (09:05→20:10)
[2021-07-16] MEDS: QUEtiapine FUMARATE 25 MG TABLET 50 MG PO ×2 (09:33→20:10)
--- NOTE | 2021-07-16 10:16 | PM.IMPN ---
Progress Note: A&P Assessment and Plan (1) Acute respiratory failure with hypoxia: Code(s): J96.01 - Acute respiratory failure with hypoxia Status: Acute Assessment and Plan: Acute respiratory failure related to COVID pneumonia complicated by bacterial PNA. Patient was admitted on 06/17/21 after presentation shortness of breath and transferred to the ICU on 06/21/21 for worsening oxygen requirements ultimately requiring intubation on 06/22/2021. Pneumothorax noted on 06/22 requiring chest tube. He was on Flolan initially in his hospital course. Minimal improvement and required PEG 07/05 and tracheostomy 07/07. Patient has been off of Nimbex infusion since 07/05. He remains sedated with Versed and Precedex but weaning off which he is tolerating. Seroquel and alprazolam initiated to help with wean. Remains intermittently tachypneic. Continue to wean vent settings as tolerated per Pulmonary. (2) Pneumonia due to COVID-19 virus: Code(s): U07.1 - COVID-19; J12.82 - Pneumonia due to coronavirus disease 2019 Status: Acute Assessment and Plan: Patient tested positive for COVID on 06/15/2021 at an outside facility. He presented the ED on 06/17/2021 with worsening shortness of breath and symptoms of fatigue, anosmia, dysgeusia and cough. Not tested for COVID here. Patient has not received COVID vaccine. He was treated with dexamethasone through 06/27/21. Remdesivir was contraindicated due to his significant elevation in LFTs. Patient still on isolation/precautions but could come off since it been approximately one months since presentation. Continue supportive care. (3) Pneumonia: Code(s): J18.9 - Pneumonia, unspecified organism Status: Acute Assessment and Plan: Patient was having increasing leukocytosis and low-grade fever. He initially was on steroids but these had been stopped. He was started on vancomycin and Zosyn on 07/02 and remains on Vanco; Zosyn stopped 07/07. IV Bactrim started 07/06. Blood cultures (2 of 2) grew out coag-negative staph. Sputum grew Stenotrophomonas maltophilia and Klebsiella. Patient did had thick secretions noticed at the time of his tube exchange 07/04. Patient seen by ID who agreed that patient with bacterial PNA and possibly bacteremia. They recommended Vanco and TMP-SMX. WBC was climbing and with recurrent fevers so Vanco coarse has been extended as we await Cx results. As below. (4) Bacteremia: Code(s): R78.81 - Bacteremia Status: Acute Assessment and Plan: Patient developed increasing WBC and was started on Vanco and Zosyn on 07/02/21. Sputum and BCx collected on 07/03/21. Sputum growing Klebsiella pneumonia and Stenotrophomonas. BCx growing coag-negative staph in 2of2 bottles. This could be contaminant versus infection. Zosyn stopped on 07/07/21. Vanco is continued. IV TMP/SMX added on 07/06. Right PICC line was removed and a new PICC was placed on left. Patient was doing well but then developed fevers and increasing WBC. CT Ch/A/P showing no obvious etiology of recurrent fevers. Venous bilateral Cephalic and left basilic (around the PICC) superficial thrombosis. Dopplers of the LE negative for DVT. Surface Echo showing no vegetations. Sinus CT showing sinusitis. Patient was flores-cultured on 07/12. Urine culture negative. Sputum 07/12 growing Klebsiella pneumonia and Stenotrophomonas. Blood culture from 07/12 growing coagulase-negative Staph in anaerobic bottle only in 1 bottle (2nd bottle pending). WBC improving and fevers resolved. He remains on Vanco and TMP/SMX. Will finish 10 day course of TMP/SMX today. Recheck blood cultures if negative, discontinue vancomycin. (5) Pneumothorax: Qualifiers: Pneumothorax type: unspecified pneumothorax Qualified Code(s): J93.9 - Pneumothorax, unspecified Code(s): J93.9 - Pneumothorax, unspecified Status: Acute Assessment and Plan: Patient developed a left pneumothora
--- NOTE | 2021-07-16 11:14 | WPDINTPN ---
Progress Note: A&P Assessment and Plan (1) Acute respiratory failure with hypoxia: Code(s): J96.01 - Acute respiratory failure with hypoxia Status: Acute Assessment and Plan: Acute respiratory failure related to COVID pneumonia -patient transferred to the ICU on 06/21/2021 for worsening oxygen requirements, patient was intubated on 06/22/2021, 07/04 ET tube was exchanged, 07/07 tracheostomy, -he was also briefly on Flolan during the course of his hospital stay -06/22/2021 chest x-ray revealed moderate left-sided pneumothorax, chest tube was inserted by surgery on left -currently on CMV mode, peep is at 5 FiO2 is at 40%. -Patient is off of propofol and fentanyl. He is currently on Versed and Precedex. Continue to wean Versed 2 off. -increase Seroquel and Xanax -continue bronchodilators (2) Pneumonia due to COVID-19 virus: Code(s): U07.1 - COVID-19; J12.82 - Pneumonia due to coronavirus disease 2019 Status: Acute Assessment and Plan: Patient tested positive for COVID on 06/15/2021 at an outside facility, presented the ED on 06/17/2021 with worsening shortness of breath and symptoms of fatigue, loss of sense of taste and smell, cough for 7-8 days prior to admission -patient has not received COVID vaccine -continue dexamethasone -Remdesivir contraindicated in patients with significant elevation in LFTs -continue droplet, airborne and contact isolation/precautions (3) Pneumothorax: Qualifiers: Pneumothorax type: unspecified pneumothorax Qualified Code(s): J93.9 - Pneumothorax, unspecified Code(s): J93.9 - Pneumothorax, unspecified Status: Acute Assessment and Plan: Patient has a left pneumothorax and left chest tube 07/12/21: CT scan chest/abdomen/pelvis shows tiny residual left-sided pneumothorax Chest tube to suction -no air leak Peep has been decreased to 5. (4) Pneumonia: Code(s): J18.9 - Pneumonia, unspecified organism Status: Acute Assessment and Plan: Patient was having increasing leukocytosis and low-grade fever. He initially was on steroids but now off He was started on vancomycin and Zosyn on 07/02 Blood cultures a grew out coag-negative staph Butts was changed. Sputum grew stenotrophomonas maltophilia and Klebsiella. Patient did had thick secretions noticed at the time of his tube exchange. So this may be a secondary bacterial infection. 07/07 patient was started empirically on Bactrim and vancomycin, infectious disease following the patient -07/12/2021 Sputum cultures growing stenotrophomonas, -07/12/2021 blood culture growing Gram-positive cocci in clusters 1/2 bottles (5) Bacteremia: Code(s): R78.81 - Bacteremia Status: Acute Assessment and Plan: Patient has coag-negative staph on his blood cultures This could be contaminant versus infection Patient is on vancomycin Right PICC line was removed and due to poor IV access, a new PICC line was placed on left Patient has been afebrile (6) Fever: Code(s): R50.9 - Fever, unspecified Status: Acute Assessment and Plan: Rrepeat blood sputum and urine cultures were sent on 07/12 no vegetations seen on echocardiogram 07/12/2021: CT sinuses shows bilateral sinusitis of maxillary and ethmoid sinuses along with mastoid effusion 07/12/2021: CT chest abdomen shows diffuse COVID pneumonia. small left-sided pneumothorax, small right pleural effusion 07/12/2021: Venous Dopplers show superficial thrombosis in upper extremities but no DVT/ (7) Electrolyte abnormality: Code(s): E87.8 - Other disorders of electrolyte and fluid balance, not elsewhere classified Status: Acute Assessment and Plan: Resolved (8) DVT prophylaxis: Code(s): Z29.9 - Encounter for prophylactic measures, unspecified Status: Acute Assessment and Plan: Lovenox to 40 mg SQ Q12H Additional Plan Stress ulcer prophylaxis - PPI
[2021-07-16] MEDS: calcium polycarbophiL 625 MG TABLET FEED TUBE ×2 (11:40→16:40)
[2021-07-16 13:13] LABS: Hepatitis B Surface Antigen Negative (Negative)
[2021-07-16 13:19] LABS: HAV RESULT Negative (Negative); Hepatitis B Core IgM Result Negative (Negative)
[2021-07-16 13:31] LABS: Hepatitis C Virus Antibody Negative (Negative)
[2021-07-16] MEDS: MIDAZOLAM 100MG/NS 100ML(*CRX) 100 MG/100 ML BAG IV CONT (14:46)
[2021-07-16] MEDS: ACETAMINOPHEN 325 MG TABLET 650 MG PO (17:13)
[2021-07-16 17:39] LABS: Vancomycin Trough 15.6 ug/mL (10.0-20.0)
[2021-07-16] MEDS: METOPROLOL TARTRATE INJ 5 MG/5 ML VIAL 2.5 MG IV PUSH (18:51)
[2021-07-17] VITALS (23 sets, daily range): BP systolic 91–140; BP diastolic 59–85; PULSE 94–135; RESP 24–32; TEMP 36.4–37.7; O2SAT 93–99
[2021-07-17] MEDS: MIDAZOLAM 100MG/NS 100ML(*CRX) 100 MG/100 ML BAG 6 MG IV CONT (05:38)
[2021-07-17] MEDS: CENTRAL LINE FLUSH 10 ML IV PUSH ×6 (05:39→21:01)
[2021-07-17] MEDS: ACETAMINOPHEN 325 MG TABLET 650 MG PO (05:40)
[2021-07-17] MEDS: SODIUM CHLORIDE 0.9% IV 1,000 ML 999 ML IV CONT (08:10)
[2021-07-17] MEDS: ALPRAZolam (*CRX) 0.5 MG TABLET PO ×3 (08:13→17:21)
[2021-07-17] MEDS: ENOXAPARIN 40 MG/0.4 ML SYRINGE SUB-Q ×2 (08:14→21:00)
[2021-07-17] MEDS: calcium polycarbophiL 625 MG TABLET FEED TUBE ×2 (08:14→17:22)
[2021-07-17] MEDS: QUEtiapine FUMARATE 25 MG TABLET 50 MG PO (08:14)
[2021-07-17] MEDS: PANTOPRAZOLE SODIUM IV 40 MG VIAL IV PUSH (08:15)
[2021-07-17] MEDS: MINERAL OIL/WHITE PETROLATUM OINTMENT 1 APPLIC EACH EYE ×2 (08:15→21:00)
[2021-07-17] MEDS: fentaNYL CITRATE INJ (*CRX) 100 MCG/2 ML VIAL 50 MCG IV PUSH (08:33)
--- NOTE | 2021-07-17 08:47 | PM.IMPN ---
Progress Note: A&P Assessment and Plan (1) Acute respiratory failure with hypoxia: Code(s): J96.01 - Acute respiratory failure with hypoxia Status: Acute Assessment and Plan: Acute respiratory failure related to COVID pneumonia complicated by bacterial PNA. Patient was admitted on 06/17/21 and transferred to the ICU on 06/21/21 for worsening oxygen requirements ultimately requiring intubation on 06/22/2021; ET tube was exchanged 07/04. PTX noted on 06/22 requiring chest tube. He was on Flolan initially in his hospital course. Minimal improvement and required tracheostomy 07/07 and PEG 07/05. Patient has been off of Nimbex infusion since 07/05. He remains sedated and calm with Versed. Remains intermittently tachypneic and tachycardic. CTA chest ordered to exclude PE. BCx repeated. Continue to wean vent settings as tolerated. LTAC being arranged. (2) Pneumonia due to COVID-19 virus: Code(s): U07.1 - COVID-19; J12.82 - Pneumonia due to coronavirus disease 2019 Status: Acute Assessment and Plan: Patient tested positive for COVID on 06/15/2021 at an outside facility. He presented the ED on 06/17/2021 with worsening shortness of breath and symptoms of fatigue, anosmia, dysgeusia and cough. Not tested for COVID here. Patient has not received COVID vaccine. He was treated with dexamethasone through 06/27/21. Remdesivir was contraindicated due to his significant elevation in LFTs. Patient still on isolation/precautions but could come off since >20 days. Continue supportive care. (3) Pneumonia: Code(s): J18.9 - Pneumonia, unspecified organism Status: Acute Assessment and Plan: Patient was having increasing leukocytosis and low-grade fever. He initially was on steroids but these had been stopped. He was started on vancomycin and Zosyn on 07/02 and remains on Vanco; Zosyn stopped 07/07. IV Bactrim started 07/06. Blood cultures (2of2) grew out coag-negative staph. Sputum grew Stenotrophomonas maltophilia and Klebsiella. Patient did had thick secretions noticed at the time of his tube exchange 07/04. Patient seen by ID who agreed that patient with bacterial PNA and possibly bacteremia. They recommended Vanco day 16 and TMP-SMX day 12. WBC pending; still with low grade fevers. CTA Chest ordered to exclude PE. As below. Follow. (4) Bacteremia: Code(s): R78.81 - Bacteremia Status: Acute Assessment and Plan: Patient developed increasing WBC and was started on Vanco and Zosyn on 07/02/21. Sputum and BCx collected on 07/03/21. Sputum growing Klebsiella pneumonia and Stenotrophomonas. BCx growing coag-negative staph in 2of2 bottles. Bacteremia could be contaminant versus infection. Zosyn stopped on 07/07/21. Vanco was continued. IV TMP/SMX added on 07/06. Right PICC line was removed and a new PICC was placed on left. Patient was doing well but then developed fevers and increasing WBC. CT Ch/A/P (07/12) showing no obvious etiology of recurrent fevers. Venous doppler showing bilateral Cephalic and left basilic (around the PICC) superficial thrombosis. Dopplers of the LE negative for DVT. Surface Echo showing no vegetations. Sinus CT showing sinusitis. Patient was flores-cultured on 07/12. Urine Cx negative. Sputum Cx again growing Klebsiella pneumonia and Stenotrophomonas. BCx (1of2) growing Coag Negative Staph. He remains on Vanco and TMP/SMX. WBC improved but not checked for the past few days. Still with fevers. Labs pending. BCx have been repeated (5) Pneumothorax: Qualifiers: Pneumothorax type: unspecified pneumothorax Qualified Code(s): J93.9 - Pneumothorax, unspecified Code(s): J93.9 - Pneumothorax, unspecified Status: Acute Assessment and Plan: Patient developed a left pneumothorax and had left chest tube placed 06/22/21. No PTX noted by CXR today but small one seen by CT 07/12/21. Chest tube management per music artist. CTA chest ordered. (6) Shock:
[2021-07-17 10:33] LABS: Basophils Absolute Auto 0.1 K/mm3 (0.0-0.1); Basophils Percent Auto 0.9 % (0.2-1.2); Eosinophils Absolute Auto 0.3 K/mm3 (0-0.3); Eosinophils Percent Auto 3.2 % (0-4.4); Hematocrit 34.5 % (42.0-52.0); Hemoglobin 11.2 g/dL (14.0-18.0); Immature Granulocyte Absolute 0.12 K/mm3 (0.00-0.031); Immature Granulocyte Percent A 1.2 % (0-0.5); Lymphocytes Absolute Auto 1.06 K/mm3 (0.9-3.2); Lymphocytes Percent Auto 10.2 % (18.3-44.2); Mean Corpuscular HGB Conc 32.5 g/dl (32-36); Mean Corpuscular Hemoglobin 31.5 pg (26-34); Mean Corpuscular Volume 96.9 fl (80-100); Mean Platelet Volume 10.1 fl (7.4-10.4); Monocytes Absolute Auto 0.7 K/mm3 (0.1-0.6); Monocytes Percent Auto 6.3 % (2.6-8.5); Neutrophils Absolute Auto 8.1 K/mm3 (1.3-6.7); Neutrophils Percent Auto 78.2 % (45.5-73.1); Platelet Count Result 372 k/mm3 (150-375); Red Blood Count 3.56 M/mm3 (4.6-6.20); Red Cell Distribution Width 13.6 % (11.5-14.5); White Blood Count 10.4 K/mm3 (4.5-10.0)
[2021-07-17 10:43] LABS: Alanine Aminotransferase 111 U/L (4-50); Albumin Level 3.1 g/dL (3.5-5.1); Alkaline Phosphatase 240 U/L (38-126); Anion Gap 3 mmol/L (8-16); Aspartate Amino Transferase 46 U/L (17-59); Bilirubin,Total 0.4 mg/dL (0.2-1.3); Blood Urea Nitrogen 18 mg/dL (9-20); Calcium 8.5 mg/dL (8.4-10.2); Carbon Dioxide 31 mmol/L (22-30); Chloride 99 mmol/L (98-107); Estimated CRCL calculation 117 ml/min; Estimated Glomerular Filt Rate > 60; Glucose 148 mg/dL (65-110); Phosphorus 4.2 mg/dL (2.5-4.5); Potassium 3.9 mmol/L (3.4-5.0); Sodium 133 mmol/L (137-145)
--- NOTE | 2021-07-17 11:57 | WPDINTPN ---
Progress Note: A&P Assessment and Plan (1) Acute respiratory failure with hypoxia: Code(s): J96.01 - Acute respiratory failure with hypoxia Status: Acute Assessment and Plan: Acute respiratory failure related to COVID pneumonia -patient transferred to the ICU on 06/21/2021 for worsening oxygen requirements, patient was intubated on 06/22/2021, 07/04 ET tube was exchanged, 07/07 tracheostomy, -he was also briefly on Flolan during the course of his hospital stay -06/22/2021 chest x-ray revealed moderate left-sided pneumothorax, chest tube was inserted by surgery on left -currently on CMV mode, peep is at 5 FiO2 is at 40%. -Patient is off of propofol and fentanyl. He is currently on Versed and Precedex. Continue to wean Versed 2 off. -patient saw somnolent, will decrease Seroquel dose, continue Xanax Will add p.r.n. fentanyl -continue bronchodilators (2) Pneumonia due to COVID-19 virus: Code(s): U07.1 - COVID-19; J12.82 - Pneumonia due to coronavirus disease 2019 Status: Acute Assessment and Plan: Patient tested positive for COVID on 06/15/2021 at an outside facility, presented the ED on 06/17/2021 with worsening shortness of breath and symptoms of fatigue, loss of sense of taste and smell, cough for 7-8 days prior to admission -patient has not received COVID vaccine -continue dexamethasone -Remdesivir contraindicated in patients with significant elevation in LFTs -continue droplet, airborne and contact isolation/precautions (3) Pneumothorax: Qualifiers: Pneumothorax type: unspecified pneumothorax Qualified Code(s): J93.9 - Pneumothorax, unspecified Code(s): J93.9 - Pneumothorax, unspecified Status: Acute Assessment and Plan: Patient has a left pneumothorax and left chest tube 07/12/21: CT scan chest/abdomen/pelvis shows tiny residual left-sided pneumothorax Chest tube to suction -no air leak Peep has been decreased to 5. (4) Pneumonia: Code(s): J18.9 - Pneumonia, unspecified organism Status: Acute Assessment and Plan: Patient was having increasing leukocytosis and low-grade fever. He initially was on steroids but now off He was started on vancomycin and Zosyn on 07/02 Blood cultures a grew out coag-negative staph Butts was changed. Sputum grew stenotrophomonas maltophilia and Klebsiella. Patient did had thick secretions noticed at the time of his tube exchange. So this may be a secondary bacterial infection. 07/07 patient was started empirically on Bactrim and vancomycin for at least 14 days ( will differ to ID) -07/12/2021 Sputum cultures growing stenotrophomonas, -07/12/2021 blood culture growing Gram-positive cocci in clusters 1/2 bottles (5) Bacteremia: Code(s): R78.81 - Bacteremia Status: Acute Assessment and Plan: Patient has coag-negative staph on his blood cultures This could be contaminant versus infection Patient is on vancomycin Right PICC line was removed and due to poor IV access, a new PICC line was placed on left Patient has been afebrile (6) Fever: Code(s): R50.9 - Fever, unspecified Status: Acute Assessment and Plan: Rrepeat blood sputum and urine cultures were sent on 07/12 no vegetations seen on echocardiogram 07/12/2021: CT sinuses shows bilateral sinusitis of maxillary and ethmoid sinuses along with mastoid effusion 07/12/2021: CT chest abdomen shows diffuse COVID pneumonia. small left-sided pneumothorax, small right pleural effusion 07/12/2021: Venous Dopplers show superficial thrombosis in upper extremities but no DVT/ (7) Electrolyte abnormality: Code(s): E87.8 - Other disorders of electrolyte and fluid balance, not elsewhere classified Status: Acute Assessment and Plan: Resolved (8) DVT prophylaxis: Code(s): Z29.9 - Encounter for prophylactic measures, unspecified Status: Acute Assessment and Plan: Lovenox to
[2021-07-17] MEDS: TOLNAFTATE 1% POWDER 45 GM BTL 1 APPLIC TOPICAL (21:01)
[2021-07-17] MEDS: QUEtiapine FUMARATE 25 MG TABLET PO (21:01)
[2021-07-17] MEDS: fentaNYL CITRATE INJ (*CRX) 100 MCG/2 ML VIAL 25 MCG IV PUSH (21:04)
[2021-07-18] VITALS (19 sets, daily range): BP systolic 93–123; BP diastolic 68–88; PULSE 107–129; RESP 24–94; TEMP 36.8–37.6; O2SAT 24–99
[2021-07-18] MEDS: MIDAZOLAM 100MG/NS 100ML(*CRX) 100 MG/100 ML BAG 6 MG IV CONT (04:09)
[2021-07-18] MEDS: CENTRAL LINE FLUSH 10 ML IV PUSH ×4 (05:13→16:00)
[2021-07-18 05:39] LABS: Basophils Absolute Auto 0.1 K/mm3 (0.0-0.1); Basophils Percent Auto 0.8 % (0.2-1.2); Eosinophils Absolute Auto 0.4 K/mm3 (0-0.3); Hematocrit 37.2 % (42.0-52.0); Immature Granulocyte Absolute 0.16 K/mm3 (0.00-0.031); Immature Granulocyte Percent A 1.2 % (0-0.5); Lymphocytes Absolute Auto 1.35 K/mm3 (0.9-3.2); Lymphocytes Percent Auto 10.5 % (18.3-44.2); Mean Corpuscular HGB Conc 32.3 g/dl (32-36); Mean Corpuscular Hemoglobin 30.8 pg (26-34); Mean Corpuscular Volume 95.4 fl (80-100); Mean Platelet Volume 10.3 fl (7.4-10.4); Monocytes Absolute Auto 0.9 K/mm3 (0.1-0.6); Monocytes Percent Auto 6.8 % (2.6-8.5); Neutrophils Percent Auto 77.7 % (45.5-73.1); Platelet Count Result 427 k/mm3 (150-375); Red Cell Distribution Width 13.4 % (11.5-14.5); White Blood Count 12.9 K/mm3 (4.5-10.0)
[2021-07-18 05:54] LABS: Alanine Aminotransferase 103 U/L (4-50); Albumin Level 3.6 g/dL (3.5-5.1); Alkaline Phosphatase 251 U/L (38-126); Anion Gap 6 mmol/L (8-16); Aspartate Amino Transferase 43 U/L (17-59); Bilirubin,Total 0.3 mg/dL (0.2-1.3); Blood Urea Nitrogen 17 mg/dL (9-20); Calcium 9.2 mg/dL (8.4-10.2); Carbon Dioxide 32 mmol/L (22-30); Chloride 96 mmol/L (98-107); Estimated CRCL calculation 107 ml/min; Estimated Glomerular Filt Rate > 60; Glucose 197 mg/dL (65-110); Magnesium 2.2 mg/dL (1.6-2.3); Phosphorus 4.2 mg/dL (2.5-4.5); Sodium 134 mmol/L (137-145)
[2021-07-18] MEDS: calcium polycarbophiL 625 MG TABLET FEED TUBE ×2 (08:40→18:30)
[2021-07-18] MEDS: ENOXAPARIN 40 MG/0.4 ML SYRINGE SUB-Q (08:40)
[2021-07-18] MEDS: QUEtiapine FUMARATE 25 MG TABLET PO (08:40)
[2021-07-18] MEDS: PANTOPRAZOLE SODIUM IV 40 MG VIAL IV PUSH (08:41)
[2021-07-18] MEDS: TOLNAFTATE 1% POWDER 45 GM BTL 1 APPLIC TOPICAL (08:41)
--- NOTE | 2021-07-18 08:41 | PM.IMPN ---
Progress Note: A&P Assessment and Plan (1) Acute respiratory failure with hypoxia: Code(s): J96.01 - Acute respiratory failure with hypoxia Status: Acute Assessment and Plan: Acute respiratory failure related to COVID pneumonia complicated by bacterial PNA. Patient was admitted on 06/17/21 and transferred to the ICU on 06/21/21 for worsening oxygen requirements ultimately requiring intubation on 06/22/2021; ET tube was exchanged 07/04. PTX noted on 06/22 requiring chest tube. He was on Flolan initially in his hospital course. Minimal improvement and required tracheostomy 07/07 and PEG 07/05. Patient has been off of Nimbex infusion since 07/05. He remains sedated and calm with Versed. Remains intermittently tachypneic and tachycardic. CTA chest negative for PE but showing difuse bilateral peripheral and lower lung disease. BCx repeated and as detailed below. Continue to wean vent settings as tolerated. Plan for CPAP trial. LTAC being arranged. Sedation being adjusted. (2) Pneumonia due to COVID-19 virus: Code(s): U07.1 - COVID-19; J12.82 - Pneumonia due to coronavirus disease 2019 Status: Acute Assessment and Plan: Patient tested positive for COVID on 06/15/2021 at an outside facility. He presented the ED on 06/17/2021 with worsening shortness of breath and symptoms of fatigue, anosmia, dysgeusia and cough. Not tested for COVID here. Patient has not received the COVID vaccine. He was treated with dexamethasone through 06/27/21. Remdesivir was contraindicated due to his significant elevation in LFTs. Patient has come off isolation/precautions today. Continue supportive care. (3) Pneumonia: Code(s): J18.9 - Pneumonia, unspecified organism Status: Acute Assessment and Plan: Patient was having increasing leukocytosis and low-grade fever. He initially was on steroids but these had been stopped. He was started on vancomycin and Zosyn on 07/02 and remains on Vanco; Zosyn stopped 07/07. IV Bactrim started 07/06. Blood cultures on 07/03 (2of2) grew out coag-negative staph. Sputum 07/03 grew Stenotrophomonas maltophilia and Klebsiella. Patient did had thick secretions noticed at the time of his tube exchange 07/04. Patient seen by ID who agreed that patient with bacterial PNA and possibly bacteremia. They recommended Vanco day 17 and TMP-SMX day 13. Fever curve better overall and WBC lingering (10-14K range). CTA Chest negative for PE. As below. Follow. (4) Bacteremia: Code(s): R78.81 - Bacteremia Status: Acute Assessment and Plan: Patient developed increasing WBC and was started on Vanco and Zosyn on 07/02/21. Sputum and BCx collected on 07/03/21. Sputum growing Klebsiella pneumonia and Stenotrophomonas. BCx growing coag-negative staph in 2of2 bottles. Bacteremia could be contaminant versus infection. Zosyn stopped on 07/07/21. Vanco was continued. IV TMP/SMX added on 07/06. Right PICC line was removed and a new PICC was placed on left. Patient was doing well but then developed fevers and increasing WBC. CT Ch/A/P (07/12) showing no obvious etiology of recurrent fevers. Venous doppler showing bilateral Cephalic and left basilic (around the PICC) superficial thrombosis but no DVT in the UE. Dopplers of the LE negative for DVT. Surface Echo showing no vegetations. Sinus CT showing sinusitis. Patient was flores-cultured on 07/12. Urine Cx negative. Sputum Cx again growing Klebsiella pneumonia and Stenotrophomonas. BCx (1of2) growing Coag Negative Staph. Given that he had persistent bacteremia, BCx repeated again 07/16. BCx (07/16) growing gram positive cocci in clusters from the anaerobic bottle only. He remains on Vanco day 17 and TMP/SMX day 13. Fever curve better overall and WBC lingering (10-14K range). Plan to remove chest tube today. Consider removing the PICC line and given abx through peripheral lines (5) Pneumothorax: Qualifiers: Pneumothorax type: unspecified pneumothorax
[2021-07-18] MEDS: ALPRAZolam (*CRX) 0.5 MG TABLET 1 MG PO ×3 (08:48→18:29)
--- NOTE | 2021-07-18 11:44 | PCDIET ---
Nutrition Follow-Up Complete: Nutrition Diagnosis: Inadequate oral intake related to intubation as evidenced by NPO status. Nutrition Goal: Patient to meet estimated nutritional needs. Goal met. Patient tolerating Glucerna 1.2 at 60mL/hr goal rate with 30mL water flush every 4 hours. Last recorded weight is 60.7 kg which is significantly down from last review. Recommend re-weighing to ensure accuracy. Noted -I/O. Bowel Motility: BM x 1 today. Labs Reviewed: WBC (12.9), RBC (3.90), Hgb (12.0), Hct (37.2), Glu (197), Cr (0.6), Na (134) Meds Noted: Fibercon, Fentanyl, Versed, Protonix, Seroquel, Septra, Vancomycin Additional Notes: Posterior neck laceration. Right cheek skin tear. Bilateral buttocks macerated. Will continue to monitor with same goal. Nutrition Monitoring and Evaluation: Follow up every Saturday/Saturday.
--- NOTE | 2021-07-18 14:30 | WPDINTPN ---
Progress Note: A&P Assessment and Plan (1) Tachycardia: Code(s): R00.0 - Tachycardia, unspecified Status: Acute Assessment and Plan: Sinus tachycardia, could be related to hypovolemia, pain, respiratory distress, anxiety, DVT, PE -patient was given IV fluids, pain medication which improved is tachycardia -07/17/2021: CTA chest was negative for PE -07/12/2021 venous Dopplers of bilateral upper and lower extremities -CTA PE protocol on 07/17/2021: No pulmonary embolism. Diffuse bilateral peripheral and lower lung predominant lung disease consistent with COVID pneumonia, not significantly changed since the prior study. Unchanged left chest tube with no pneumothorax or pleural effusion. Nonobstructing bilateral nephrolithiasis (2) Acute respiratory failure with hypoxia: Code(s): J96.01 - Acute respiratory failure with hypoxia Status: Acute Assessment and Plan: Acute respiratory failure related to COVID pneumonia -patient transferred to the ICU on 06/21/2021 for worsening oxygen requirements, patient was intubated on 06/22/2021, 07/04 ET tube was exchanged, 07/07 tracheostomy, -he was also briefly on Flolan during the course of his hospital stay -06/22/2021 chest x-ray revealed moderate left-sided pneumothorax, chest tube was inserted by surgery on left -currently on CMV mode, peep is at 5 FiO2 is at 40%. -place patient ASV and pressure support ventilation, patient was tachypneic and was complaining of unable to drains placed back on CMV mode. -currently on Versed infusion which is being weaned to off. -patient is on low-dose Seroquel, increase Xanax Will add p.r.n. fentanyl -continue bronchodilators (3) Pneumonia due to COVID-19 virus: Code(s): U07.1 - COVID-19; J12.82 - Pneumonia due to coronavirus disease 2019 Status: Acute Assessment and Plan: Patient tested positive for COVID on 06/15/2021 at an outside facility, presented the ED on 06/17/2021 with worsening shortness of breath and symptoms of fatigue, loss of sense of taste and smell, cough for 7-8 days prior to admission -patient has not received COVID vaccine -continue dexamethasone -Remdesivir contraindicated in patients with significant elevation in LFTs -continue droplet, airborne and contact isolation/precautions (4) Pneumothorax: Qualifiers: Pneumothorax type: unspecified pneumothorax Qualified Code(s): J93.9 - Pneumothorax, unspecified Code(s): J93.9 - Pneumothorax, unspecified Status: Acute Assessment and Plan: Patient has a left pneumothorax and left chest tube 07/12/21: CT scan chest/abdomen/pelvis shows tiny residual left-sided pneumothorax Chest tube is to water seal, chest x-ray did not show any pneumothorax will remove chest tube Peep has been decreased to 5. (5) Pneumonia: Code(s): J18.9 - Pneumonia, unspecified organism Status: Acute Assessment and Plan: Patient was having increasing leukocytosis and low-grade fever. He initially was on steroids but now off He was started on vancomycin and Zosyn on 07/02 Blood cultures a grew out coag-negative staph Butts was changed. Sputum grew stenotrophomonas maltophilia and Klebsiella. Patient did had thick secretions noticed at the time of his tube exchange. So this may be a secondary bacterial infection. 07/07 patient was started empirically on Bactrim and vancomycin for at least 14 days ( will differ to ID) stop dates for Bactrim is 05/18/2021: Stop date for vancomycin is 05/19/2021 -07/12/2021 Sputum cultures growing stenotrophomonas, -07/12/2021 blood culture growing Gram-positive cocci in clusters 1/2 bottles. 07/18/21: Will remove PICC line, a left removed chest tube once chest x-ray does not reveal pneumothorax after chest tube being on water-seal (6) Bacteremia: Code(s): R78.81 - Bacteremia Status: Acute Assessment and Plan: Patient has coag-negative staph on his blood cultures
--- NOTE | 2021-07-18 16:02 | PM.DS ---
DS: Admitting Diagnosis Discharge Date 07/18/21 Admitting Diagnosis Shortness of breath DS: Discharge Diagnosis Discharge Diagnosis (1) Acute respiratory failure with hypoxia: Code(s): J96.01 - Acute respiratory failure with hypoxia Status: Acute Assessment and Plan: Patient presents with acute respiratory failure related to COVID pneumonia that was later complicated by bacterial PNA. Patient was admitted on 06/17/21 and transferred to the ICU on 06/21/21 for worsening oxygen requirements ultimately requiring intubation on 06/22/2021; ET tube was exchanged 07/04. PTX noted on 06/22 requiring chest tube. He was on Flolan early in his hospital course. Minimal improvement and required tracheostomy 07/07 and PEG 07/05. Patient has been off of Nimbex infusion since 07/05. He remains sedated and calm with Versed. Remains intermittently tachypneic and tachycardic. CTA chest negative for PE but showing diffuse bilateral peripheral and lower lung disease. BCx repeated and as detailed below. Patient transferred to LTAC 07/18/21. (2) Pneumonia due to COVID-19 virus: Code(s): U07.1 - COVID-19; J12.82 - Pneumonia due to coronavirus disease 2019 Status: Acute Assessment and Plan: Patient tested positive for COVID on 06/15/2021 at an outside facility. He presented to the ED on 06/17/2021 with worsening shortness of breath and symptoms of fatigue, anosmia, dysgeusia and cough. Not tested for COVID here. Patient has not received the COVID vaccine. He was treated with dexamethasone through 06/27/21. Remdesivir was contraindicated due to his significant elevation in LFTs. (3) Pneumonia: Code(s): J18.9 - Pneumonia, unspecified organism Status: Acute Assessment and Plan: Patient was having increasing leukocytosis and low-grade fever. He initially was on steroids but these had been stopped. He was started on vancomycin and Zosyn on 07/02 and remains on Vanco at time of discharge; Zosyn stopped 07/07. IV Bactrim started 07/06. Blood cultures on 07/03 (2of2) grew out coag-negative staph. Sputum 07/03 grew Stenotrophomonas maltophilia and Klebsiella. Patient did had thick secretions noticed at the time of his tube exchange 07/04. Patient seen by ID who agreed that patient with bacterial PNA and possibly bacteremia. They recommended continuing Vancomycin and TMP-SMX. Fever curve better overall and WBC lingering (10-14K range). CTA Chest negative for PE. (4) Bacteremia: Code(s): R78.81 - Bacteremia Status: Acute Assessment and Plan: Patient developed increasing WBC and was started on Vanco and Zosyn on 07/02/21. Sputum and BCx collected on 07/03/21. Sputum growing Klebsiella pneumonia and Stenotrophomonas. BCx growing coag-negative staph in 2of2 bottles. Bacteremia could be contaminant versus infection. Zosyn stopped on 07/07/21. Vanco was continued. IV TMP/SMX added on 07/06. Right PICC line was removed and a new left PICC was placed. Patient was doing well but then developed fevers and increasing WBC. CT Ch/A/P (07/12) showing no obvious etiology of recurrent fevers. Venous doppler showing bilateral Cephalic and left basilic (around the PICC) superficial thrombosis but no DVT in the UE. Dopplers of the LE negative for DVT. Surface Echo showing no vegetations. Sinus CT showing sinusitis. Patient was flores-cultured on 07/12. Urine Cx negative. Sputum Cx again growing Klebsiella pneumonia and Stenotrophomonas. BCx (1of2) growing Coag Negative Staph. Given that he had persistent bacteremia, BCx repeated again 07/16. BCx (07/16) growing gram positive cocci in clusters from the anaerobic bottle only. He remains on Vanco day 17 and TMP/SMX day 13. Fever curve better overall and WBC lingering (10-14K range). (5) Pneumothorax: Qualifiers: Pneumothorax type: unspecified pneumothorax Qualified Code(s): J93.9 - Pneumothorax, unspecified Code(s): J93.9 - Pneumothorax, unspecified Sta
[2021-07-18 16:36] LABS: Vancomycin Trough 16.4 ug/mL (10.0-20.0)
== END 2021-07-18 19:04 | DRG 4 ==
LOC: ANHED 14:24 → ANH3MEDSUR 06-18 06:54 → ANHIMU 06-21 08:04 → ANHICU 06-29 10:52 → ANH3MEDSUR 07-20 10:44 → ANHICU 07-20 10:44 → ANHIMU 07-20 10:44
PROVIDERS: Emergency Medicine; Internal Medicine; Internal Medicine Gastroenterology; Otolaryngology; Physician Assistant; Student in an Organized Health Care Education/Training Program; Admitting Provider Internal Medicine; Emergency Provider Emergency Medicine; PCP Physician Assistant Medical; Visit Provider Internal Medicine Nephrology
PROC: 0DJ08ZZ Inspection of Upper Intestinal Tract, Via Natural or Artificial Opening Endoscopic (ICD-10-PCS; CPT 43235; principal; 2021-07-05 12:30)
PROC: 0DH63UZ Insertion of Feeding Device into Stomach, Percutaneous Approach (ICD-10-PCS; CPT 43246; 2021-07-05 12:30)
PROC: 0B110F4 Bypass Trachea to Cutaneous with Tracheostomy Device, Open Approach (ICD-10-PCS; principal; 2021-07-07 14:30)
DX: U07.1 COVID-19 (principal); J12.82 Pneumonia due to coronavirus disease 2019; J96.01 Acute respiratory failure with hypoxia; J15.9 Unspecified bacterial pneumonia; K72.00 Acute and subacute hepatic failure without coma; E87.1 Hypo-osmolality and hyponatremia; J93.9 Pneumothorax, unspecified; R57.9 Shock, unspecified; R78.81 Bacteremia; R50.9 Fever, unspecified; R53.83 Other fatigue; Z85.820 Personal history of malignant melanoma of skin; R43.8 Other disturbances of smell and taste; M79.10 Myalgia, unspecified site; Z90.49 Acquired absence of other specified parts of digestive tract; E86.0 Dehydration; J98.2 Interstitial emphysema; E86.1 Hypovolemia; D18.03 Hemangioma of intra-abdominal structures; R63.3 Feeding difficulties; N28.1 Cyst of kidney, acquired; E87.8 Other disorders of electrolyte and fluid balance, not elsewhere classified; E87.6 Hypokalemia; B96.1 Klebsiella pneumoniae [K. pneumoniae] as the cause of diseases classified elsewhere; B96.89 Other specified bacterial agents as the cause of diseases classified elsewhere
CPT/HCPCS: 31500; 36415; 36430; 36569; 36600; 43246; 70486; 71045; 71250; 71275; 74176; 76705; 80048; 80053; 80074; 80076; 80202; 81001; 82375; 82728; 82805; 82948; 83050; 83605; 83615; 83690; 83735; 84100; 84132; 84145; 84443; 84478; 85025; 85027; 85380; 85610; 85730; 86140; 86900; 86901; 87040; 87070; 87077; 87086; 87186; 87205; 93306; 93923; 93970; 94002; 94003; 94640; 94667; 96372; 96374; 99285; A9270; C1729; C1751; C9113; J1100; J1170; J1650; J1940; J2250; J2543; J2704; J3010; J3370; J3475; J7030; J7040; J7050; J7060; J7120; P9059; Q9967

== ENCOUNTER 2022-02-23 09:30 | Outpatient (RCR) | payer BC, SELFPAY ==
[2021-12-19 16:01] VITALS: PULSE 105
== END 2022-02-23 10:45 | disposition home or self-care (01) ==
LOC: ANHCPREHAB 09:30
PROVIDERS: PCP Internal Medicine; Visit Provider Internal Medicine
DX: J96.90 Respiratory failure, unspecified, unspecified whether with hypoxia or hypercapnia (principal); U09.9 Post COVID-19 condition, unspecified
CPT/HCPCS: 93798; 94625

== ENCOUNTER 2022-03-09 08:03 | Outpatient (CLI) | payer BC, SELFPAY ==
--- NOTE | 2022-03-09 16:47 | WPDSIXMINUTE ---
Six Minute Walk Procedure Procedure Performed Pulmonary Stress Test (6 min walk) Six Minute Walk This is a 6 minute walk test. The test was performed and interpreted in accordance with the 2014 ERS/ATS task force guidelines. Findings: The patient's resting room air oxygen saturation measured by pulse oximetry was 99% and heart rate was 96 bpm. Patient ambulated for 396 meters and oxygen saturation remained 91 to 98%. Heart rate at the end of the study was 110 bpm. The patient did not qualify for supplemental oxygen at rest or with ambulation. There are no prior studies for comparison.
== END 2022-03-09 08:04 | disposition home or self-care (01) ==
LOC: ANHPFT 08:06
PROVIDERS: PCP Internal Medicine; Visit Provider Internal Medicine
DX: U07.1 COVID-19 (principal); J96.00 Acute respiratory failure, unspecified whether with hypoxia or hypercapnia
CPT/HCPCS: 94618

== ENCOUNTER 2022-03-24 08:45 | Emergency (ER) | payer BC, SELFPAY ==
--- NOTE | ~2022-03-24 | CT_ITS ---
EXAMINATION: CT abdomen pelvis wo con DATE: 03/24/2022 09:47 INDICATION: Left flank pain, low left abdominal pain. Nausea and vomiting. History of kidney stones. TECHNIQUE: Computed tomography (CT) of the abdomen and pelvis was performed without intravenous contr ast. Automated exposure control and iterative reconstruction technique were employed. Exam dose: 304 .94 mGy-cm total exam DLP. COMPARISON: 07/12/2021 CT chest abdomen pelvis FINDINGS: Mild patchy groundglass infiltrates and atelectasis in the lower lung zones. Normal heart s ize. No pericardial or pleural effusion. Status post cholecystectomy. The liver, spleen, pancreas, and adrenal glands are unremarkable. No analisa e duct or pancreatic duct dilatation. There are couple of pinpoint lower pole right renal calculi and nonobstructing 3 mm lower pole left r enal calculus and several lower pole left renal punctate nonobstructing calculus. There is a 2.7 mm left ureterovesical junction calculus with mild left hydroureteronephrosis. The urinary bladder is unremarkable. Some prostate calcifications are noted. Normal caliber of the abdominal aorta. No intraperitoneal or retroperitoneal or pelvic mass lesion or adenopathy or ascites. Normal appendix. No bowel obstruction or intraperitoneal free air. Very small fat-containing left inguinal hernia. Very small fat-containing umbilical hernia. Included skeletal structures are unremarkable. No suspicious osteolytic or osteoblastic lesions are n oted. IMPRESSION: 2.7 mm left ureterovesical junction calculus with mild left hydroureteronephrosis Mild nonobstructive bilateral nephrolithiasis Status post cholecystectomy Reviewed, dictated and finalized at [facility] Reviewed, dictated and finalized at [facility]. IMPRESSION: 2.7 mm left ureterovesical junction calculus with mild left hydrou reteronephrosis Mild nonobstructive bilateral nephrolithiasis Status post cholecystectomy
--- NOTE | ~2022-03-24 | XR_ITS ---
XR abdomen/kub 1V DATE: 03/24/2022 11:51 INDICATION: Left flank pain. Left ureter vesicle junction calculus TECHNIQUE: AP projection, 2 views COMPARISON: 03/24/2022 CT abdomen pelvis FINDINGS: There is a several millimeter very faint calcified calculus of the left ureterovesical junc tion. Bilateral calcified pelvic phleboliths. Status post cholecystectomy. There is a prominent of fecal material in the ascending colon and hepatic flexure. No bowel obstructi on is noted. IMPRESSION: Very faintly calcified small left ureterovesical calculus Reviewed, dictated and finalized at [facility]. Reviewed, dictated and finalized at [facility].
[2022-03-24 09:00] VITALS: BP 129/75; PULSE 78; RESP 18; TEMP 36.3; O2SAT 100
--- NOTE | 2022-03-24 09:10 | ED.MALEGU ---
HPI - Male Genitourinary General Chief complaint: Urogenital-Male Stated complaint: kidney stone? Time Seen by Provider: 03/24/22 08:59 History of Present Illness HPI Narrative: 51-year-old male presents to the emergency room with acute onset of left flank pain accompanied with nausea and decreased urination. Patient states he has a history of kidney stones. Patient states the left flank pain radiates into the lower abdomen/pubic region. Patient also states that he noted blood in his urine this morning. Related Data Home Medications Medication Instructions Recorded Confirmed montelukast 10 mg tablet 10 mg PO DAILY PRN 08/29/21 12/19/21 propranolol 30 mg PO Q12H PRN 01/12/22 01/12/22 Allergies Allergy/AdvReac Type Severity Reaction Status Date / Time oxycodone Allergy Rash Verified 03/24/22 09:28 Review of Systems Review of Systems: CONSTITUTIONAL: Denies fever, chills, or sweats. EYES: Denies visual changes, redness, or discharge. ENT: Denies rhinorrhea, congestion, sore throat, or otalgia. CARDIOVASCULAR: Denies chest pain, palpitations, or edema. RESPIRATORY: Denies cough or dyspnea. GASTROINTESTINAL: Reports left flank pain, nausea GENITOURINARY: Reports dysuria or hematuria. SKIN: Denies rash or itching. MUSCULOSKELETAL: Denies back pain, joint pain, or myalgia. NEUROLOGIC: Denies headache, numbness, dizziness, or weakness. PSYCHIATRIC: Denies anxiety or depression. [facility] Past Medical History Medical History Bilateral renal cysts Feeding difficulty History of colon polyps Normal colonoscopy on 02/20/2021. Kidney stones Melanoma of neck (2017) Surgical History Surgical History History of cholecystectomy (1998) History of melanoma excision (2016) Family History Family History Other No significant family history Social History Social History Social History: The patient lives in [place] with his . 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 Lifelong nonsmoker. No alcohol or illicit substance abuse. He designates his , Adri Smiley, as his surrogate decision maker and he wishes to be a full code. 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 HEAD: Normocephalic, atraumatic. EYES: PERRLA and EOMI. CHEST: Clear to auscultation. No respiratory distress. No wheezes rales or rhonchi HEART: Regular rate and rhythm. No murmur heard. Normal peripheral pulses. ABDOMEN: Soft, nontender, nondistended, normal active bowel sounds. Left CVA tenderness EXTREMITIES: Normal range of motion. No edema. SKIN: Warm, dry, no rash. NEURO: No focal deficits. Alert and oriented x3. PSYCH: Normal mood and affect. Course Vital Signs Vital signs: Vital Signs Temperature 36.3 C L 03/24/22 09:00 Pulse Rate 78 03/24/22 09:00 Respiratory Rate 18 03/24/22 09:00 Blood Pressure 129/75 03/24/22 09:00 Pulse Oximetry 100 03/24/22 09:00 Temperature 36.3 C L 03/24/22 09:00 Pulse Rate 78 03/24/22 09:00 Respiratory Rate 18 03/24/22 09:00 Blood Pressure 129/75 03/24/22 09:00 Pulse Oximetry 100 03/24/22 09:00 MDM - Male Genitourinary MDM Narrative Medical decision making narrative: 51-year-old male presents emergency room for evaluation of a left flank pain. CT scanning shows a 2.7 mm calculus at the left your vesicular junction with mild hydroureteronephrosis. CBC showed a slightly elevated white blood cell count 12.9, CMP shows a blood sugar 154. Patient responded well to fluids, Toradol and antiemetics. Urine was negative for nitrates or leukocytes, however there was some WBCs present.
[2022-03-24] MEDS: KETOROLAC 30 MG/ML VIAL (*BKC) IV PUSH (09:18)
[2022-03-24] MEDS: SODIUM CHLORIDE 0.9% IV 1,000 ML 999 ML IV CONT (09:18)
[2022-03-24] MEDS: ONDANSETRON INJ 4 MG/2 ML VIAL IV PUSH (09:18)
[2022-03-24 09:26] LABS: Basophils Absolute Auto 0.1 K/mm3 (0.0-0.1); Basophils Percent Auto 0.4 % (0.2-1.2); Eosinophils Percent Auto 0.2 % (0-4.4); Hematocrit 43.9 % (42.0-52.0); Hemoglobin 14.4 g/dL (14.0-18.0); Immature Granulocyte Absolute 0.07 K/mm3 (0.00-0.031); Immature Granulocyte Percent A 0.5 % (0-0.5); Lymphocytes Absolute Auto 2.05 K/mm3 (0.9-3.2); Lymphocytes Percent Auto 15.9 % (18.3-44.2); Mean Corpuscular HGB Conc 32.8 g/dl (32-36); Mean Corpuscular Hemoglobin 30.5 pg (26-34); Mean Platelet Volume 10.5 fl (7.4-10.4); Monocytes Absolute Auto 0.5 K/mm3 (0.1-0.6); Monocytes Percent Auto 3.6 % (2.6-8.5); Neutrophils Absolute Auto 10.2 K/mm3 (1.3-6.7); Neutrophils Percent Auto 79.4 % (45.5-73.1); Platelet Count Result 271 k/mm3 (150-375); Red Blood Count 4.72 M/mm3 (4.6-6.20); Red Cell Distribution Width 12.2 % (11.5-14.5); White Blood Count 12.9 K/mm3 (4.5-10.0)
[2022-03-24 09:45] LABS: Alanine Aminotransferase 28 U/L (6-50); Albumin Level 4.5 g/dL (3.5-5.1); Alkaline Phosphatase 83 U/L (38-126); Anion Gap 8 mmol/L (8-16); Aspartate Amino Transferase 35 U/L (17-59); Bilirubin,Total 0.6 mg/dL (0.2-1.3); Blood Urea Nitrogen 16 mg/dL (9-20); Calcium 8.6 mg/dL (8.4-10.2); Carbon Dioxide 28 mmol/L (22-30); Chloride 100 mmol/L (98-107); Estimated CRCL calculation 85 ml/min; Estimated Glomerular Filt Rate > 60; Glucose 154 mg/dL (65-110); Potassium 4.3 mmol/L (3.4-5.0); Sodium 136 mmol/L (137-145)
[2022-03-24 11:26] LABS: Add Urine Microscopic? YES; Appearance Urine Turbid (Clear); Bilirubin Urine Negative (Negative); Blood Urine 3+ (Negative); Color Urine Amber (Yellow); Glucose Urine UA Negative (Negative); Ketones Urine 2+ mg/dL (Negative); Leukocyte Esterase Ur Negative LEU/UL (Negative); Nitrate Urine Negative (Negative); Protein Urine 1+ mg/dL (Negative); Specific Grav Ur 1.025 (1.001-1.035); Urobilinogen Urine 0.2 mg/dL (<2.0)
[2022-03-24 11:38] LABS: Mucus Urine Rare /lpf; RBC Urine >75 /hpf (0-2); WBC Clumps Urine Present /HPF; WBC Urine 21-30 /hpf
== END 2022-03-24 13:09 | disposition home or self-care (01) ==
PROVIDERS: Emergency Provider Nurse Practitioner Family; PCP Internal Medicine
DX: N20.0 Calculus of kidney (principal); Z87.442 Personal history of urinary calculi; Z86.010 Personal history of colon polyps; Z85.820 Personal history of malignant melanoma of skin
CPT/HCPCS: 36415; 74018; 74176; 80053; 81001; 85025; 87086; 87088; 96361; 96374; 96375; 99284; J1885; J2405; J7030

== ENCOUNTER 2023-05-17 08:19 | Outpatient (CLI) | payer BC, SELFPAY ==
[2023-05-17 11:34] LABS: Kit Draw Collected
== END 2023-05-17 08:20 | disposition home or self-care (01) ==
LOC: ANHGOSHLAB 08:21
PROVIDERS: PCP Physician Assistant Medical; Visit Provider Nurse Practitioner Family
DX: E87.1 Hypo-osmolality and hyponatremia (principal); D72.829 Elevated white blood cell count, unspecified; E87.8 Other disorders of electrolyte and fluid balance, not elsewhere classified; Z12.5 Encounter for screening for malignant neoplasm of prostate; U09.9 Post COVID-19 condition, unspecified
CPT/HCPCS: 36415

== ENCOUNTER 2024-01-11 18:36 | Emergency (ER) | payer BC, SELFPAY ==
[2024-01-11 18:48] VITALS: BP 122/72; PULSE 63; RESP 16; TEMP 36.9; O2SAT 99
--- NOTE | 2024-01-11 19:09 | ED.WOUNDLAC ---
HPI - Wound/Laceration General Chief Complaint: Wound/Laceration Stated Complaint: Cut Finger Time Seen by Provider: 01/11/24 18:51 Source: patient and RN notes reviewed Mode of arrival: ambulatory Limitations: no limitations History of Present Illness HPI narrative: Patient presents today complaining of a laceration to the right 3rd finger that was sustained 1 hour prior to arrival when he broken ceramic bowl that was in his hand. Denies numbness or tingling in the finger. He is up-to-date on his tetanus vaccine. He is currently pain-free. Related Data Allergies Allergy/AdvReac Type Severity Reaction Status Date / Time oxycodone Allergy Rash Verified 01/11/24 19:07 Review of Systems Review of Systems: CONSTITUTIONAL: Denies body aches, fever, chills, or sweats. EYES: Denies visual changes, redness, or discharge. ENT: Denies rhinorrhea, congestion, sore throat, or otalgia. CARDIOVASCULAR: Denies chest pain, palpitations, or edema. RESPIRATORY: Denies cough or dyspnea. GASTROINTESTINAL: Denies abdominal pain, nausea, vomiting, or diarrhea. GENITOURINARY: Denies dysuria or hematuria. SKIN: Denies rash, itching. + finger laceration MUSCULOSKELETAL: Denies back pain, joint pain, or myalgia. NEUROLOGIC: Denies headache, numbness, tingling, or weakness. PSYCH: Denies depression or anxiety. [facility] Past Medical History Medical History Bilateral renal cysts Feeding difficulty History of colon polyps Normal colonoscopy on 02/20/2021. Kidney stones Melanoma of neck (2017) Surgical History Surgical History History of cholecystectomy (1998) History of melanoma excision (2017) Family History Family History Other No significant family history Social History Social History Social History: The patient lives in [place] with his . 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 Lifelong nonsmoker. No alcohol or illicit substance abuse. He designates his , Adri Smiley, as his surrogate decision maker and he wishes to be a full code. 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 Please see nursing chart for further information. There is no relevant family history pertinent to the presenting complaint Exam Narrative: GENERAL: Well-appearing, well-nourished, and in no acute distress. HEAD: Normocephalic, atraumatic. EYES: EOMI. No redness or drainage. Conjunctivae normal. ENT: Mucous membranes pink and moist. NECK: Normal AROM. CHEST: No respiratory distress. EXTREMITIES: Normal range of motion. No edema. SKIN: Warm, dry, no rash. Capillary refill normal. Normal skin turgor. 1.5 cm partial thickness flap laceration to the dorsum of the right 3rd D IP. No active bleeding. Distal sensation intact. Capillary refill normal. Full range of motion of the finger against resistance. NEURO: No focal deficits. Alert and oriented x3. Gait steady. PSYCH: Normal affect. No signs of depression or anxiety. Course Course Level of Care: Express Care Visit Vital Signs Vital signs: Vital Signs Temperature 98.4 F 01/11/24 18:48 Pulse Rate 63 01/11/24 18:48 Respiratory Rate 16 01/11/24 18:48 Blood Pressure 122/72 01/11/24 18:48 Pulse Oximetry 99 01/11/24 18:48 Temperature 98.4 F 01/11/24 18:48 Pulse Rate 63 01/11/24 18:48 Respiratory Rate 16 01/11/24 18:48 Bloo
== END 2024-01-11 19:27 | disposition home or self-care (01) ==
PROVIDERS: Emergency Provider Nurse Practitioner; PCP Family Medicine
DX: S61.212A Laceration without foreign body of right middle finger without damage to nail, initial encounter (principal); W45.8XXA Other foreign body or object entering through skin, initial encounter; Z85.820 Personal history of malignant melanoma of skin
CPT/HCPCS: 12001; 99212; G0463

== ENCOUNTER 2024-05-26 08:22 | Outpatient (CLI) | payer BC, SELFPAY ==
[2024-05-26 13:27] LABS: Cholesterol 157 mg/dL (0-200); HDL Direct 32 mg/dL; Triglycerides 152 mg/dL (<150)
[2024-05-26 13:42] LABS: LDL Cholesterol Direct 93 mg/dL
[2024-05-26 14:00] LABS: Prostate Specific Antigen 1.9 ng/mL (< OR = 4.0)
== END 2024-05-26 08:23 | disposition home or self-care (01) ==
LOC: ANHGOSHLAB 08:24
PROVIDERS: PCP Family Medicine; Visit Provider Family Medicine
DX: E78.5 Hyperlipidemia, unspecified (principal); C43.4 Malignant melanoma of scalp and neck
CPT/HCPCS: 36415; 80061; 82306; 84153

== ENCOUNTER 2024-07-27 08:11 | Outpatient (CLI) | payer BC, SELFPAY ==
[2024-07-27 12:58] LABS: Basophils Percent Auto 0.4 % (0.2-1.2); Eosinophils Absolute Auto 0.2 K/mm3 (0-0.3); Eosinophils Percent Auto 2.1 % (0-4.4); Hematocrit 46.8 % (42.0-52.0); Hemoglobin 15.8 g/dL (14.0-18.0); Immature Granulocyte Absolute 0.01 K/mm3 (0.00-0.031); Immature Granulocyte Percent A 0.1 % (0-0.5); Lymphocytes Absolute Auto 2.34 K/mm3 (0.9-3.2); Lymphocytes Percent Auto 30.9 % (18.3-44.2); Mean Corpuscular HGB Conc 33.8 g/dl (32-36); Mean Corpuscular Hemoglobin 32.6 pg (26-34); Mean Corpuscular Volume 96.5 fl (80-100); Mean Platelet Volume 11.7 fl (7.4-10.4); Monocytes Absolute Auto 0.4 K/mm3 (0.1-0.6); Monocytes Percent Auto 5.8 % (2.6-8.5); Neutrophils Absolute Auto 4.6 K/mm3 (1.3-6.7); Neutrophils Percent Auto 60.7 % (45.5-73.1); Platelet Count Result 235 k/mm3 (150-375); Red Blood Count 4.85 M/mm3 (4.6-6.20); Red Cell Distribution Width 12.3 % (11.5-14.5); White Blood Count 7.6 K/mm3 (4.5-10.0)
[2024-07-27 13:24] LABS: Alanine Aminotransferase 30 U/L (6-50); Albumin Level 4.4 g/dL (3.5-5.1); Alkaline Phosphatase 86 U/L (38-126); Anion Gap 6 mmol/L (4-12); Aspartate Amino Transferase 86 U/L (17-59); Bilirubin,Total 0.9 mg/dL (0.2-1.3); Blood Urea Nitrogen 15 mg/dL (9-20); Calcium 8.9 mg/dL (8.4-10.2); Carbon Dioxide 34 mmol/L (22-30); Chloride 96 mmol/L (98-107); Estimated Glomerular Filt Rate > 60; Glucose 94 mg/dL (65-110); Potassium 4.3 mmol/L (3.4-5.0); Sodium 136 mmol/L (137-145)
[2024-07-27 13:34] LABS: Iron 146 ug/dL (49-181)
[2024-07-27 13:37] LABS: T4 Thyroxine 8.63 ug/dL (5.53-11.0)
[2024-07-27 13:45] LABS: Percent Iron Saturation 57 % (20-50)
[2024-07-27 13:52] LABS: Free T4 Free Thyroxine 0.81 ng/mL (0.78-2.19); Total Triiodothyronine (T3) 1.34 NG/ML (0.97-1.69)
[2024-07-31 00:38] LABS: Triiodothyronine T3 Free 3.4 pg/mL (2.3-4.2)
== END 2024-07-27 08:12 | disposition home or self-care (01) ==
LOC: ANHGOSHLAB 08:13
PROVIDERS: PCP Family Medicine; Visit Provider Chiropractor
DX: E34.9 Endocrine disorder, unspecified (principal); E88.9 Metabolic disorder, unspecified; D50.1 Sideropenic dysphagia; D50.0 Iron deficiency anemia secondary to blood loss (chronic)
CPT/HCPCS: 36415; 80053; 82607; 82728; 83540; 83550; 84436; 84439; 84443; 84480; 84481; 85025

== ENCOUNTER 2025-05-13 08:18 | Outpatient (CLI) | payer BC, SELFPAY ==
--- OUTSIDE RECORDS SUMMARY | 2025-05-13 08:22 | XMS_ITS | Encounter Summary ---
Author Organization [facility] Address [address] [place] [address] Care Team Providers Care Spray Pilot Name Role Phone Unavailable Primary Care Provider Unavailabl e Encounter Details Date Type Department Care Team (Late st Contact Info) Description 08/11/2021 12:30 PM CDT Hospital Encounter [facility] [id number] [place] [address] [id number] Lawanda Coy MD [address] [facility] [place] [address] [place] [address] [facility] [address] [address] [place] [address] [employer] Social History Tobacco [...]
--- OUTSIDE RECORDS SUMMARY | 2025-05-13 08:22 | XMS_ITS | Encounter Summary ---
Author Organization [facility] Address [facility] [place] [address] Care Team Providers Care Burial Vault Deliverer And Installer Name Role Phone Ramirez Fernando MD Primary Care Provider [phone] Encounter Details Date Type Department Care Team (Late st Contact Info) Description 05/05/2021 Prep for Procedure [facility] Pre-Admission Testing [address] [place], [place] [phone] Preet Lema MD [address] [place] [address] [phone] Social History Tobacco Use Types Packs/Day Years Used Date Smoking Tobacco: Never Smokeless Tobacco: Never Alcohol Use Standard Drinks/Week Comments Never 0 (1 standard drink = 0.6 oz pur e alcohol) Sex and Gender Information Value Date Recorded Sex Assigned at Not on file Legal Sex Male 5:11 PM CDT Gender Identity Not on file Sexual Orientation Not on file COVID-19 Exposure Response Date Recorded In the last month, have you been in contact with someone who was confirmed or suspected to have Coronavirus / COVID-19? No / Unsure 05/05/2021 10:34 AM CDT documented as of this encounter Plan of Treatment Not on file documented as of this encounter Visit Diagnoses Diagnosis Pre-op exam- Primary Preoperative examination, unspecified documented in this encounter Additional Health Concerns Infection Onset Date Last Indicated Resolved Time COVID-19 Rule Out 05/08/2021 05/08/2021 05/08/2021 10:54 AM CDT COVID-19 Rule Out 05/08/2021 05/08/2021 05/08/2021 9:58 PM CDT documented as of this encounter Care Teams Burial Vault Deliverer And Installer Relationship Specialty Start Date End Date Ramirez Fernando MD [address] [place] [id number] PCP - General INTERNAL MEDICINE 05/03/21 documented as of this encounter
--- OUTSIDE RECORDS SUMMARY | 2025-05-13 08:22 | XMS_ITS | Clinical Summary ---
Author Organization [facility] Address [address] [place] [address] Care Team Providers Care Sheep Sorter Name Role Phone Ramirez Fernando MD Primary Care Provider [phone] Allergies Active Allergy Reactions Criticality Noted Date Comments Hydrocodone Vomiting 05/05/2021 Oxycodone Redness 05/10/2021 Medications Multiple Vitamins-Minerals (CENTRUM SILVER 50+MEN) Tab Take 1 tablet by mouth daily. Active Multiple Vitamins-Minerals (EMERGEN-C IMMUNE OR) Take 1 Application by mouth daily. Active Zinc 50 MG Cap Take 1 tablet by mouth daily. Active Cholecalciferol (VITAMIN D3) 50 MCG (2000 UT) Tab Take 1 tablet by mouth daily. Active B Complex-C Tab tablet Take 1 tablet by mouth daily. Active ondansetron 4 MG disintegrating tablet Take 1 tablet (4 mg total) by mouth every 8 (eight) hours as needed for Nausea. 20 tablet 05/10/20 21 Active Active Problems No known active problems Family History * Patient is adopted Medical History Relation Comments No Known Problems Father No Known Problems Mother No Known Problems Sister Relation Status Comments Father Mother Sister Social History Tobacco Use Types Packs/Day Years Used Date Smoking Tobacco: Never Smokeless Tobacco: Never Tobacco Cessation:Counseling Given: No Comments:not a smoker Alcohol Use Standard Drinks/Week Comments Never 0 (1 standard drink = 0.6 oz pur e alcohol) Sex and Gender Information Value Date Recorded Sex Assigned at Not on file Legal Sex Male 5:11 PM CDT Gender Identity Not on file Sexual Orientation Not on file Last Filed Vital Signs Vital Sign Reading Time Taken Comments Blood Pressure 108/63 05/24/2021 3:09 PM CDT Pulse 58 05/24/2021 3:09 PM CDT Temperature 36.4 C (97.6 F) 05/10/2021 1:17 PM CDT Respiratory Rate 16 05/10/2021 1:17 PM CDT Oxygen Saturation 98% 05/10/2021 1:17 PM CDT Inhaled Oxygen Concentration - - Weight 76.7 kg (169 lb) 05/24/2021 3:09 PM CDT Height 182.9 cm (6') 05/24/2021 3:09 PM CDT Body Mass Index 22.92 05/24/2021 3:09 PM CDT Plan of Treatment Health Maintenance Due Date Last Done Comments Colorectal Cancer Screening Colonoscopy (10 Years) 1970 Annual Physical 1973 Hepatitis C 1988 DTaP, Tdap and Td Vaccines ( 1 - Tdap) 1989 Hepatitis B Vaccines (1 of 3 - 19+ 3-dose series) 1989 Pneumococcal Vaccine: 50+ Ye ars (1 of 1 - PCV) 2020 Zoster Vaccines (1 of 2) 2020 COVID-19 Vaccine (1 - 2023-2 5 season) 2024 Meningococcal B Vaccine Aged Out No l onger eligible based on patient's age to complete this topic Meningococcal Vaccine Aged Out No linda michele eligible based on patient's age to complete this topic RSV Immunizations Under 20 Months Aged Out No longer eligible based on patient's age to complete this topic Insurance [facility] Care Teams Sheep Sorter Relationship Specialty Start Date End Date Ramirez Fernando MD [address] [place] [id number] PCP - General INTERNAL MEDICINE 05/03/21
--- OUTSIDE RECORDS SUMMARY | 2025-05-13 08:23 | XMS_ITS | Clinical Summary ---
Author Organization [facility] Address [address] [place] [address] Care Team Providers Care Orchestra Teacher Name Role Phone Unavailable Primary Care Provider Unavailabl e Source Comments [facility],non-owned Affiliates and Associated Physician Practices is amultiple site organization consisting of ambulatory clinics and hospital sitesin [place], [place], [place] and [place]. This disclosure is being madepursuant to the Care Everywhere program and may not contain all information available regarding this patient. Last updated 18.[facility] [email or web address] Social History Tobacco Use Types Packs/Day Years Used Date Smoking Tobacco: Never Assessed Sex and Gender Information Value Date Recorded Sex Assigned at Not on file Legal Sex Male 12:35 PM CDT Gender Identity Not on file Sexual Orientation Not on file Plan of Treatment Health Maintenance Due Date Last Done Comments COLOGUARD (AGES 45-75) - COL ON CA SCREENING 1970 COLON MONITORING 1970 COLONOSCOPY - COLON CA SCREENING 1970 CT COLONOGRAPHY - COLON CA SCREENING 1970 Colorectal Cancer Screening 1970 FIT - COLON CA SCREENING 1970 FLEX SIG - COLON CA SCREENING 1970 LIPID TESTING 1970 HIV SCREENING 1985 HEPATITIS C SCREENING 09/14/1988 DTAP/TDAP/TD VACCINES (1 - Tdap) 1989 HEPATITIS B VACCINE (1 of 3 - 19+ 3-dose series) 1989 PNEUMOCOCCAL VACCINE 50+ (1 of 1 - PCV) 2020 ZOSTER VACCINE (1 of 2) 2020 COVID-19 VACCINE ( - 2023-2 5 season) 2024 DEPRESSION SCREENING 11/11/2024 INFLUENZA VACCINE (Season Ended) 2025 HIB VACCINE Aged Out No longer eligi ble based on patient's age to complete this topic HPV VACCINE Aged Out No longer eligi ble based on patient's age to complete this topic MENINGOCOCCAL (Group B) VACC INE SHARED DECISION-MAKING Aged Out No longer eligibl e based on patient's age to complete this topic MENINGOCOCCAL GROUPS A/C/Y/W VACCINE Aged Out No longer eligible b ased on patient's age to complete this topic Insurance [facility] Advance Directives * Full Code (Latest Code Status on File) Date Activated Date Inactivated Comments 08/15/2021 9:01 AM 08/22/2021 1:49 PM
--- OUTSIDE RECORDS SUMMARY | 2025-05-13 08:23 | XMS_ITS | Clinical Summary ---
Author Organization [facility] Address [address] [place] [address] Care Team Providers Care Ampoule Inspector Name Role Phone Ashlee Lowry PA-C Primary Care Provider Yisel vailable Allergies Active Allergy Reactions Criticality Noted Date Comments Hydrocodone Itching High 07/19/2021 Oxycodone Itching High 07/19/2021 Acetaminophen Itching High 07/19/2021 Medications busPIRone (BUSPAR) 5 MG tablet 1 tablet (5 mg total) by PO/Per Tube route 3 (three) times a day. 90 tablet 1 Active montelukast (SINGULAIR) 10 MG tablet Administer 1 tablet (10 mg total) per tube nightly. 30 tablet 1 Active sertraline (ZOLOFT) 100 MG tablet 0.5 tablets (50 mg total) by PO/Per Tube route daily. 30 tablet 1 Active propranolol (INDERAL) 60 MG tablet 1 tablet (60 mg total) by PO/Per Tube route 2 (two) times a day. 60 tablet 1 Active melatonin tablet Take 2 tablets (6 mg total) by mouth nightly. 0 1 Active pantoprazole (PROTONIX) 40 MG EC/DR tablet Take 1 tablet (40 mg total) by mouth Daily at 6am. 30 tablet 1 Active hydrOXYzine (ATARAX) 25 MG tablet Take 1 tablet (25 mg total) by mouth nightly. May take up to two tablets if needed for sleep take 30 minutes before bedtime 60 tablet 1 Active Active Problems Problem Noted Date Diagnosed Date Anxiety 08/16/2021 Dyspnea caused by Severe acu te respiratory syndrome coronavirus 2 08/16/2021 Tremor 08/16/2021 Debility 08/12/2021 COVID-19 viral pneumonia 08/12/2021 Dysphagia 08/12/2021 Acute respiratory failure 07/18/2021 Social History Tobacco Use Types Packs/Day Years Used Date Smoking Tobacco: Never Smokeless Tobacco: Never Sex and Gender Information Value Date Recorded Sex Assigned at Not on file Legal Sex Male 12:03 PM EDT Gender Identity Not on file Sexual Orientation Not on file Last Filed Vital Signs Vital Sign Reading Time Taken Comments Blood Pressure 104/59 08/22/2021 9:43 AM CDT Pulse 75 08/22/2021 8:00 AM CDT Temperature 36.6 C (97.9 F) 08/22/2021 8:00 AM CDT Respiratory Rate 18 08/22/2021 8:00 AM CDT Oxygen Saturation 100% 08/22/2021 8:00 AM CDT Inhaled Oxygen Concentration - - Weight 63.5 kg (140 lb 1.6 oz) 08/13/2021 6:27 A M CDT Height 182.9 cm (6') 08/11/2021 9:16 PM CDT Body Mass Index 19 08/11/2021 9:16 PM CDT Plan of Treatment Not on file Advance Directives * Full Resuscitation (Latest Code Status on File) Date Activated Date Inactivated Comments 08/12/2021 1:18 AM 08/22/2021 3:34 PM * Full Resuscitation Date Activated Date Inactivated Comments 07/18/2021 9:56 PM 08/11/2021 10:13 PM Care Teams Ampoule Inspector Relationship Specialty Start Date End Date Ashlee Lowry PA-C PCP - General Emergency Medicine 08/14/21
[2025-05-13 12:50] LABS: Hematocrit 46.7 % (42.0-52.0); Hemoglobin 15.4 g/dL (14.0-18.0); Immature Granulocyte Percent A 0.3 % (0-0.5); Lymphocytes Absolute Auto 2.29 K/mm3 (0.9-3.2); Mean Corpuscular HGB Conc 33.0 g/dl (32-36); Mean Corpuscular Hemoglobin 31.2 pg (26-34); Mean Corpuscular Volume 94.5 fl (80-100); Nucleated Red Blood Cells Absolute Auto 0.000 K/mm3 (0.0-0.012); Nucleated Red Blood Cells Perc 0.0 % (0.0-0.2); Platelet Count Result 239 k/mm3 (150-375); Red Blood Count 4.94 M/mm3 (4.6-6.20); White Blood Count 6.5 K/mm3 (4.5-10.0)
[2025-05-13 13:09] LABS: Alanine Aminotransferase 37 U/L (6-50); Albumin Level 4.4 g/dL (3.5-5.1); Alkaline Phosphatase 78 U/L (38-126); Anion Gap 8 mmol/L (4-12); Aspartate Amino Transferase 54 U/L (17-59); Bilirubin,Total 0.8 mg/dL (0.2-1.3); Blood Urea Nitrogen 15 mg/dL (9-20); Calcium 9.2 mg/dL (8.4-10.2); Carbon Dioxide 29 mmol/L (22-30); Chloride 103 mmol/L (98-107); Estimated Glomerular Filt Rate > 60; Glucose 103 mg/dL (65-110); Potassium 4.6 mmol/L (3.4-5.0); Sodium 140 mmol/L (137-145); Total Protein 7.8 g/dL (6.3-8.2)
[2025-05-13 13:30] LABS: Iron 110 ug/dL (49-181)
[2025-05-13 13:39] LABS: Prostate Specific Antigen 1.8 ng/mL (< OR = 4.0)
[2025-05-13 13:41] LABS: Percent Iron Saturation 42 % (20-50)
[2025-05-13 13:46] LABS: Free T3 4.10 pg/mL (2.71-6.16); Free T4 Free Thyroxine 1.20 ng/dL (0.78-2.19)
[2025-05-13 13:47] LABS: Total Triiodothyronine (T3) 1.51 NG/ML (0.82-1.58)
[2025-05-13 13:56] LABS: Thyroid Stimulating Hormone 0.852 uIU/mL (0.465-4.680)
[2025-05-13 14:00] LABS: Vitamin B12 840.0 pg/mL (239-931)
[2025-05-13 14:08] LABS: Ferritin 270.00 ng/mL (11.1-264); Hemoglobin A1C 5.4 % (<5.7)
[2025-05-14 06:54] LABS: Triiodothryronine T3 Uptake. 31 % (22-35)
[2025-05-16 14:44] LABS: Vitamin D 1,25 (OH)2 Total 67 pg/mL (18-72); Vitamin D2 1,25 (OH)2 <8 pg/mL; Vitamin D3 1,25 (OH)2 67 pg/mL
== END 2025-05-13 08:19 | disposition home or self-care (01) ==
LOC: ANHGOSHLAB 08:21
PROVIDERS: PCP Family Medicine; Visit Provider Chiropractor
DX: E03.9 Hypothyroidism, unspecified (principal); E34.9 Endocrine disorder, unspecified; E88.9 Metabolic disorder, unspecified; E07.9 Disorder of thyroid, unspecified
CPT/HCPCS: 36415; 80053; 82607; 82652; 82728; 83036; 83540; 83550; 84153; 84402; 84403; 84436; 84439; 84443; 84479; 84480; 84481; 85025

== ENCOUNTER 2025-11-01 08:20 | Outpatient (CLI) | payer BC, SELFPAY ==
--- OUTSIDE RECORDS SUMMARY | 2021-08-11 11:30 | XMS_ITS | Encounter Summary ---
Author Organization [facility] Address [address] [place] [address] Care Team Providers Care Obstetrics And Gynecology Professor Name Role Phone Unavailable Primary Care Provider Unavailabl e Encounter Details Date Type Department Care Team (Late st Contact Info) Description 08/11/2021 12:30 PM CDT Hospital Encounter [facility] [id number] [place] [address] [phone] Lawanda Coy MD [address] [facility] [place] [address] [place] [id number] [place] [address] [employer] Social History Tobacco Use Types Packs/Day Years Used Date Smoking Tobacco: Never Assessed Sex and Gender Information Value Date Recorded Sex Assigned at Not on file Legal Sex Male 12:35 PM CDT Gender Identity Not on file Sexual Orientation Not on file documented as of this encounter Plan of Treatment Not on file documented as of this encounter Visit Diagnoses Not on filedocumented in this encounter
--- OUTSIDE RECORDS SUMMARY | 2025-11-01 08:38 | XMS_ITS | Clinical Summary ---
Author Organization [facility] Address [address] [place] [address] Care Team Providers Care Insole Rounder Name Role Phone Ramirez Fernando MD Primary Care Provider [phone] Allergies Active Allergy Reactions Criticality Noted Date [...] of 2) 2020 COVID-19 Vaccine (1 - 2024-2 6 season) 2025 Influenza Adult (#1) 2025 Hepatitis A Vaccines Aged Out No long er eligible based on patient's age to complete this topic Meningococcal B Vaccine Aged Out No l onger eligible based on patient's age to complete this topic Meningococcal Vaccine Aged Out No linda michele eligible based on patient's age to complete this topic RSV Immunizations Under 20 Months Aged Out No longer eligible based on patient's age to complete this topic Insurance [facility] Care Teams Insole Rounder Relationship Specialty Start Date End Date Ramirez Fernando MD [address] [place] [id number] PCP - General INTERNAL MEDICINE 05/03/21
--- OUTSIDE RECORDS SUMMARY | 2025-11-01 08:38 | XMS_ITS | Clinical Summary ---
Author Organization [facility] Address [address] [place] [address] Care Team Providers Care Christmas Tree Farm Worker Name Role Phone Ashlee Lowry PA-C Primary [...] 08/11/2021 9:16 PM CDT Plan of Treatment Health Maintenance Due Date Last Done Comments CT Colonography 1970 Colonoscopy 1970 Colorectal Cancer Screening 1970 FIT-DNA (Cologuard) 1970 FIT 1970 FOBT 1970 Sigmoidoscopy 1970 Annual Visit Topic 1971 MMR Vaccines (1 of 1 - Stand naila series) 1971 Hepatitis C Screening 1988 DTaP/Tdap/Td Vaccines (1 - Tdap) 1989 Hepatitis B Vaccines (1 of 3 - 19+ 3-dose series) 1989 PSA Test 2025 HIB Vaccines Aged Out No longer eligi ble based on patient's age to complete this topic HPV Vaccines Aged Out No longer eligi ble based on patient's age to complete this topic Hepatitis A Vaccines Aged Out No long er eligible based on patient's age to complete this topic IPV Vaccines Aged Out No longer eligi ble based on patient's age to complete this topic Meningococcal Vaccine Aged Out No linda michele eligible based on patient's age to complete this topic Pneumococcal Vaccine: Pediat rics (0 to 5 years) and At-Risk Patients (6 to 64 Years) Aged Out No longer eligible b ased on patient's age to complete this topic Advance Directives * Full Resuscitation (Latest Code Status on File) Date Activated Date Inactivated Comments 08/12/2021 1:18 AM 08/22/2021 3:34 PM * Full Resuscitation Date Activated Date Inactivated Comments 07/18/2021 9:56 PM 08/11/2021 10:13 PM Care Teams Christmas Tree Farm Worker Relationship Specialty Start Date End Date Ashlee Lowry PA-C PCP - General Emergency Medicine 08/14/21
--- OUTSIDE RECORDS SUMMARY | 2025-11-01 08:38 | XMS_ITS | Clinical Summary ---
Author Organization [facility] Address [address] [place] [address] Care Team Providers Care Finance Broker Name Role Phone Unavailable Primary Care Provider Unavailabl e Source Comments [facility],non-owned Affiliates and Associated Physician Practices is amultiple site organization consisting of ambulatory clinics and hospital sitesin [place], [place], [place] and [place]. This disclosure is being madepursuant to the Care Everywhere program and may not contain all information available regarding this patient. Last updated 18.[facility] [place] Social History Tobacco Use Types Packs/Day Years [...] 2020 ZOSTER VACCINE (1 of 2) 2020 DEPRESSION SCREENING 11/11/2024 COVID-19 VACCINE (1 - 2024-2 6 season) 2025 INFLUENZA VACCINE (#1) 2025 HIB VACCINE Aged Out No longer [...] patient's age to complete this topic Insurance [facility] Address: [facility] [id number] [place] [address] Advance Directives * Full Code (Latest Code Status on File) Date Activated Date Inactivated Comments 08/15/2021 9:01 AM 08/22/2021 1:49 PM
--- OUTSIDE RECORDS SUMMARY | 2025-11-01 08:38 | XMS_ITS | Encounter Summary ---
Author Organization [facility] Address [facility] [place] [address] Care Team Providers Care Mri Tech Name Role Phone Ramirez Fernando MD Primary Care Provider [phone] Encounter Details Date Type Department Care Team (Late st Contact Info) Description 05/05/2021 Prep for Procedure [place] Pre-Admission [facility] [address] [place], [place] [phone] Preet Lema MD [address] [place] [phone] Social History Tobacco Use Types Packs/Day Years [...] documented as of this encounter Care Teams Mri Tech Relationship Specialty Start Date End Date Ramirez Fernando MD [address] [place] [id number] PCP - General INTERNAL MEDICINE 05/03/21 documented as of this encounter
[2025-11-01 14:08] LABS: Iron 88 ug/dL (49-181)
[2025-11-01 14:15] LABS: Hemoglobin A1C 5.4 % (<5.7)
[2025-11-01 14:18] LABS: Percent Iron Saturation 32 % (20-50)
[2025-11-01 14:19] LABS: Cholesterol 186 mg/dL (0-200); HDL Direct 39 mg/dL; Triglycerides 89 mg/dL (<150)
[2025-11-01 15:04] LABS: Ferritin 228.00 ng/mL (11.1-264)
[2025-11-01 15:17] LABS: Vitamin B12 890.0 pg/mL (239-931)
== END 2025-11-01 08:21 | disposition home or self-care (01) ==
LOC: ANHGOSHLAB 08:21
PROVIDERS: PCP Family Medicine; Visit Provider Chiropractor
DX: D51.9 Vitamin B12 deficiency anemia, unspecified (principal); D50.9 Iron deficiency anemia, unspecified; E55.9 Vitamin D deficiency, unspecified
CPT/HCPCS: 36415; 80061; 82306; 82607; 82728; 83036; 83540; 83550